=== PATIENT | female | born 1960 | race Caucasian/White ===

== ENCOUNTER 2018-01-20 12:55 | Inpatient (IN) ==
--- NOTE | 2018-01-20 13:22 | CT ---
EXAM DATE: 01/20/2018 1:16 PM EST AGE/SEX: 57 years / Female INDICATIONS: Stroke alert. Right sided flaccid. Back to back seizures. CLINICAL DATA: This is the patient's initial encounter. Patient reports that signs and symptoms have been present for 1 day and indicates a pain score of 0/10. MEDICAL/SURGICAL HISTORY: Carcinoma, lung. Non-responsive. RADIATION DOSE: 53.12 CTDI (mGy) COMPARISON: No prior exams available for comparison. TECHNIQUE: CT of the head without contrast. Using automated exposure control and adjustment of the mA and/or kV according to patient size, radiation dose was kept as low as reasonably achievable to ob tain optimal diagnostic quality images. DICOM format image data is available electronically for revi ew and comparison. FINDINGS: Cerebrum: There is mild generalized atrophy and ventricles are normal given the degree of atrophy. M ild periventricular white matter change is present. There is encephalomalacia in the left parietal hi gh axillae. No midline shift, mass lesion, hemorrhage or acute infarction. No extraaxial fluid colle ctions are seen. Posterior Fossa: The cerebellum and brainstem demonstrate no acute abnormality. The 4th ventricle is midline. The cerebellopontine angle is within normal limits. Extracranial: The visualized sinuses are clear. Skull: The calvaria is intact. No skull fracture. Other: Tube Laser Operator view demonstrates complete opacification of the left hemithorax. CONCLUSION: 1. No acute intracranial abnormality is identified. 2. Chronic changes include mild generalized atrophy and encephalomalacia in the left parietal high c onvexity. 3. Tube Laser Operator view demonstrates complete opacification of the left hemithorax in this patient with histor y of lung cancer. Suggest correlating with the patient's prior imaging studies to determine if this i s a new finding. The above findings were telephoned to Dr. Interiano on 01/20/2018 at 1:19 PM. Electronically signed by: Raudel Montes MD 01/20/2018 1:21 PM EST
[2018-01-20] MEDS ORDERED: levETIRAcetam 1000mg/100mL Inj 100 ML IV.SIG ONE (13:24)
[2018-01-20 13:48] LABS: Chloride 92 meq/L (98-107); Sodium 129 meq/L (136-145)
[2018-01-20 13:49] LABS: Activated Partial Thrombo Time 29.6 sec (23.4-31.7); INR 1.2 Ratio; Prothrombin Time 12.5 sec (9.8-11.6)
--- NOTE | 2018-01-20 13:51 | CT ---
EXAM DATE: 01/20/2018 1:39 PM EST AGE/SEX: 57 years / Female INDICATIONS: Stroke alert. Right side flaccid. Back to back seizures. Altered mental status. CLINICAL DATA: This is the patient's initial encounter. Patient reports that signs and symptoms have been present for 1 day and indicates a pain score of 0/10. MEDICAL/SURGICAL HISTORY: Carcinoma, lung. None. RADIATION DOSE: 42.19 CTDI (mGy) ; Combined studies COMPARISON: [facility], CT HEAD W/O CONTRAST, 01/20/2018. . TECHNIQUE: Volumetric scanning was performed using a multi-row detector CT scanner during bolus infu pardeep of 100 ml Visipaque 320 (iodixanol) nonionic water-soluble contrast as a cumulative dose for mu ltiple exams. The data was post processed with a variety of visualization algorithms including full volume maximum intensity projection, multi-planar sliding thin slab reformation, curved planar refor mation, and surface rendering techniques. Using automated exposure control and adjustment of the mA and/or kV according to patient size, radiation dose was kept as low as reasonably achievable to obtai n optimal diagnostic quality images. DICOM format image data is available electronically for review and comparison. FINDINGS: There is excellent visualization of the major intracranial arteries out to the second-order branch ve ssels. There is no evidence for aneurysm, vessel truncation or stenosis, and no evidence for vascula r malformation. There is a questionable enhancing lesion along the periphery of the low density in the left parietal high convexity. CONCLUSION: 1. No acute intracranial vascular abnormality is identified. 2. Possible enhancing lesion in the left parietal high convexity which could represent a metastatic lesion in this patient with history of lung cancer. The findings were telephoned to Dr. Wiseman and Dr. Interiano in on 01/20/2018 at 1:49 PM. Electronically signed by: Raudel Montes MD 01/20/2018 1:50 PM EST
[2018-01-20] MEDS ORDERED: Potassium Chlor 20 mEq Premix 20 MEQ/100 ML PIGGYBACK IV.SIG ONE (13:53)
[2018-01-20 13:54] LABS: Potassium 2.4 meq/L (3.5-5.1)
[2018-01-20 13:55] LABS: Alanine Aminotransferase 69 U/L (10-53); Albumin 1.4 g/dL (3.4-5.0); Alkaline Phosphatase 148 U/L (45-117); Anion Gap 16 meq/L (5-15); Aspartate Aminotransferase 80 U/L (15-37); Blood Urea Nitrogen 4 mg/dL (7-18); Carbon Dioxide 21.1 meq/L (21.0-32.0); Glomerular Filtration Rate Greater Than 89 mL/min (>89); Glucose,Random 122 mg/dL (74-106); Total Protein 5.8 g/dL (6.4-8.2)
[2018-01-20 14:08] LABS: Troponin I 0.02 ng/mL (0.02-0.05)
[2018-01-20 14:14] LABS: Creatine Kinase 38 U/L (26-192)
[2018-01-20 14:41] LABS: Baso % (Auto) 0.2 % (0.0-2.0); Eos % (Auto) 1.2 % (0.0-4.0); Hematocrit 21.2 % (35.0-46.0); Hemoglobin 7.2 gm/dL (11.6-15.3); Lymph # (Auto) 0.3 th/mm3 (1.0-4.8); Lymph % (Auto) 11.8 % (9.0-44.0); Mean Corpuscular Hemoglobin 33.8 pg (27.0-34.0); Mean Corpuscular Volume 99.4 fL (80.0-100.0); Mean Platelet Volume 7.5 fL (7.0-11.0); Mono # (Auto) 0.2 th/mm3 (0.0-0.9); Mono % (Auto) 10.4 % (0.0-8.0); Neut # (Auto) 1.6 th/mm3 (1.8-7.7); Neut % (Auto) 76.4 % (16.0-70.0); Platelet Count 127 th/mm3 (150-450); Red Blood Count 2.13 mil/mm3 (4.00-5.30); White Blood Count 2.1 th/mm3 (4.0-11.0)
--- NOTE | 2018-01-20 14:45 | ED ---
HPI General Chief complaint: Stroke Alert Stated complaint: evac/stroke alert Time Seen by Provider: 01/20/18 12:58 Source: family and EMS Mode of arrival: EMS Limitations: altered mental status History of Present Illness HPI narrative: Patient is a 57 year old female brought in by EMS due to concerns for a stroke. Patient has history of metastatic lung cancer, s/p radiation, just received first chemo treatment Thursday. Per EMS, symptoms started 20 minutes prior to arrival and she was unable to get out of the car due to paralysis of her right side. Patient had a seizure prior to arrival, is presumably post-ictal and unable to provide history. Her mother states that today she went to a doctor's visit and she complained of twitching in her leg. While they were driving, she complained of being unable to see straight. She says she then witnessed her to shake both of her arms and legs and cock her head to the side. She pulled the car over at this time and called 9-1-1. Mom states patient was unresponsive for about 2 minutes. She has never had seizures before. Mom states she does not eat or drink much, but she has not had any vomiting. Related Data Home Medications Medication Instructions Recorded Confirmed Unable to Obtain Home Meds 01/20/18 01/20/18 Allergies Allergy/AdvReac Type Severity Reaction Status Date / Time No Known Allergies Allergy Verified 01/20/18 12:59 Review of Systems ROS Unobtainable ROS Unobtainable: unobtainable due to mental status Exam Narrative Exam Narrative: GENERAL: Patient opens her eyes to painful stimuli, but does not follow directions or answer questions. SKIN: Focused skin assessment warm/dry. HEAD: Atraumatic. Normocephalic. EYES: Pupils equal and round and reactive. No scleral icterus. EOMI. ENT: Mucous membranes pink and moist. NECK: Trachea midline. No JVD. CARDIOVASCULAR: Regular rate and rhythm. No murmur appreciated. RESPIRATORY: No accessory muscle use. Clear to auscultation. Breath sounds equal bilaterally. GASTROINTESTINAL: Abdomen soft, non-tender, nondistended. MUSCULOSKELETAL: No obvious deformities. No clubbing. No cyanosis. No edema. NEUROLOGICAL: Opens her eyes to painful stimuli. No obvious cranial nerve deficits. Moving all of her extremities, but does not follow directions. Course Initial Documented Vital Signs Pulse Rate 104 H 12/05/18 12:59 Pulse Oximetry 94 L 12/05/18 12:59 Last Documented Vital Signs Pulse Rate 104 H 01/20/18 12:59 Pulse Oximetry 99 01/20/18 13:01 Quality Measure Queries Stroke Last date observed well: 01/20/18 Last time observed well: 12:15 Medical Decision Making MDM Narrative Medical decision making narrative: Patient is a 57 year old female, brought in by EMS as a stroke alert. Patient noted to have a seizure with EMS. It appears patient is post-ictal on arrival. She did have another episode of seizure like activity. Given Ativan and taken to CT. CT head shows no bleed. Patient is not TPA candidate as it is likely symptoms are related to seizures not stroke. Labs sent concerning for Potassium of 2.4. CTA head concerning for a brain metastasis. MR brain ordered. Potassium replaced. Dr. Wiseman consulted for neurology, suggests loading with Keppra. Keppra 1 g ordered. Patient has pulmonary edema on the left with drain in placed. Patient will require admission. Medical Screen Exam Complete: Yes Emergency Medical Condition: Yes Differential Diagnosis Differential Diagnosis: ICH vs brain metastasis vs CVA vs electrolyte abnormalities Medical Records Medical records reviewed: Yes I reviewed the patient's medical records. Lab Data Lab results reviewed: Yes I reviewed the patient's lab results. Result diagrams: 01/20/18 14:30 01/20/18 13:25 Lab Results 01/20/18 01/20/18 01/20/18 Range/Units 13:05 13:25 13:25 PT 12.5 H (9.8-11.6) sec INR 1.2 Ratio APTT 29.6 (23.4-31.7) sec Sodium 129 L (136-145) meq/L Potassium 2.4 L* (3.5-5.1) meq/L Chloride 92 L (98-107) meq/L Carbon Dioxide 21.1 (21.0-32.0) meq/L Anion Gap 16 H (5-15) meq/L BUN 4 L (7-18) mg/dL Creatinine 0.58 (0.50-1.00) mg/dL Estimated GFR Greater than 89 (>89) mL/min POC Glucose 100 (68-110) mg/dl Random Glucose 122 H (74-106) mg/dL Calcium 7.0 L* (8.5-10.1) mg/dL Calcium Adj for Albumin 9.1 (8.5-10.1) mg/dL Total Bilirubin 0.3 (0.2-1.0) mg/dL AST 80 H (15-37) U/L ALT 69 H (10-53) U/L Alkaline Phosphatase 148 H (45-117) U/L Total Creatine Kinase 38 (26-192) U/L Troponin I 0.02 (0.02-0.05) ng/mL Total Protein 5.8 L (6.4-8.2) g/dL Albumin 1.4 L (3.4-5.0) g/dL Imaging Data Radiologist's impression: Head CT 01/20/18 12:59 CONCLUSION: 1. No acute intracranial abnormality is identified. 2. Chronic changes include mild generalized atrophy and encephalomalacia in the left parietal high convexity. 3. Assessor view demonstrates complete opacification of the left hemithorax in this patient with history of lung cancer. Suggest correlating with the patient' s prior imaging studies to determine if this is a new finding. The above findings were telephoned to Dr. Interiano on 01/20/2018 at 1:19 PM. Head CTA 01/20/18 12:59 CONCLUSION: 1. No acute intracranial vascular abnormality is identified. 2. Possible enhancing lesion in the left parietal high convexity which could represent a metastatic lesion in this patient with history of lung cancer. The findings were telephoned to Dr. Wiseman and Dr. Interiano in on 01/20/2018 at 1:49 PM. ECG Data EKG Prior to Arrival: No Attestation: I personally reviewed and interpreted this ECG as follows: Interpretation: ECG performed at 13:46 read as Acute CA, however, patient had a run of PVCs, this does not look like ST elevation CA. Repeat ECG at 13:57 shows NSR at a rate of 126, no ST elevation , 1mm depression in V3, normal intervals. Discharge Plan Discharge Disposition Patient Disposition: ED Admit(ED Internal Use Only) Discharge Condition Condition: Stable Discharge Details Diagnosis: Seizure, Brain mass, Acute hypokalemia Physicians Team ED Provider: Tammy Interiano Primary Care Provider: Mathieu Soria Rxs /Orders / Referrals /Forms Prescriptions: No Action Unable to Obtain Home Meds RF: 0 Status ED Status: With Doctor
--- NOTE | 2018-01-20 14:47 | CT ---
EXAM DATE: 01/20/2018 2:35 PM EST AGE/SEX: 57 years / Female INDICATIONS: Stroke alert. Right side flaccid. Back to back seizures. Altered mental status. CLINICAL DATA: This is the patient's initial encounter. Patient reports that signs and symptoms have been present for 1 day and indicates a pain score of 0/10. MEDICAL/SURGICAL HISTORY: Carcinoma, lung. None. RADIATION DOSE: 42.19 CTDI (mGy) ; Combined studies COMPARISON: No prior exams available for comparison. TECHNIQUE: Volumetric scanning was performed using a multirow detector CT scanner during bolus infus ion of 100 ml Visipaque 320 (iodixanol) nonionic water-soluble contrast as a cumulative dose for mul tiple exams. The data was postprocessed with a variety of visualization algorithms including full-v olume maximum intensity projection, multiplanar sliding thin-slab reformation, curved-planar reformat ion, and surface-rendering techniques. Using automated exposure control and adjustment of the mA and /or kV according to patient size, radiation dose was kept as low as reasonably achievable to obtain o ptimal diagnostic quality images. DICOM format image data is available electronically for review and comparison. FINDINGS: Aortic Arch: There is a three-vessel origin of the great vessels from the aorta. No evidence of ost ial narrowing Right Carotid: The common carotid artery is intact. The carotid bulb has a normal configuration wit hout ulceration or narrowing. The internal carotid artery lumen is smooth without stenosis. The ext ernal carotid artery is intact. Left Carotid: The common carotid artery is intact. The carotid bulb has a normal configuration with out ulceration or narrowing. The internal carotid artery lumen is smooth without stenosis. The exte rnal carotid artery is intact. Vertebrals: The vertebral arteries have a symmetric diameter. No stenotic lesions are seen. Percent stenosis is calculated using the diameter of the stenotic region over the diameter of the nor mal distal internal carotid artery. CONCLUSION: 1. Negative for hemodynamically significant carotid stenosis 2. Significant consolidative changes in the left upper lobe likely fluid collection in the apex of t he left upper lobe. Electronically signed by: Tera Contreras MD 01/20/2018 2:45 PM EST
--- NOTE | 2018-01-20 15:40 | XR ---
EXAM DATE: 01/20/2018 3:23 PM EST AGE/SEX: 57 years / Female INDICATIONS: Short of breath. CLINICAL DATA: This is the patient's initial encounter. Patient reports that signs and symptoms have been present for 1 day and indicates a pain score of 0/10. MEDICAL/SURGICAL HISTORY: Carcinoma, lung. . Infusaport. COMPARISON: No prior exams available for comparison. FINDINGS: Pleurx catheter in place on the left with opacification left hemithorax. Right lung clear. Infuse-a-P ort in good position. Heart is minimally enlarged. CONCLUSION: Opacification left hemithorax with apparent Pleurx catheter in place. Electronically signed by: Tera Contreras MD 01/20/2018 3:39 PM EST
[2018-01-20] MEDS ORDERED: Morphine Sulfate Inj 2 MG/ML Vial IV.PUSH ONE (16:04)
[2018-01-20] MEDS ORDERED: Magnesium Oxide 400 MG Tablet PO PRN (16:18)
[2018-01-20] MEDS ORDERED: hydrALAZINE HCl Inj 20 MG/ML Vial IV.PUSH PRN (16:18)
[2018-01-20] MEDS ORDERED: Magnesium Sulfate Inj 2 GM in Sodium Chlor 0.9% Inj 96 ML IV.SIG PRN (16:18)
[2018-01-20] MEDS ORDERED: Labetalol HCl Inj 100 MG/20 ML Vial IV.PUSH PRN (16:18)
[2018-01-20] MEDS ORDERED: Potassium Chloride 25 MEQ Effervescent Tablet PO PRN (16:18)
[2018-01-20] MEDS ORDERED: Potassium Chlor 20 mEq Premix 20 MEQ/100 ML PIGGYBACK IV.SIG PRN ×2 (16:18)
[2018-01-20] MEDS ORDERED: Dextrose 50% in Water 50 ML Vial IV.PUSH PRN ×2 (16:18→19:02)
[2018-01-20] MEDS ORDERED: Magnesium Sulfate Inj 4 GM in Sodium Chlor 0.9% Inj 92 ML IV.SIG PRN (16:18)
[2018-01-20] MEDS ORDERED: Sodium Phosphate Inj 30 MMOL in Sodium Chlor 0.9% Inj 250 ML IV.SIG PRN (16:18)
[2018-01-20] MEDS ORDERED: Potassium Phosphate Inj 30 MMOL in Sodium Chlor 0.9% Inj 250 ML IV.SIG PRN (16:18)
[2018-01-20] MEDS ORDERED: Bisacodyl 10 MG Supp RECTAL PRN (16:18)
[2018-01-20] MEDS ORDERED: Acetaminophen 325 MG Tablet PO PRN (16:18)
[2018-01-20] MEDS ORDERED: Potassium Chlor 40 mEq Premix 40 MEQ/100 ML PIGGYBACK IV.SIG PRN ×2 (16:18)
[2018-01-20] MEDS ORDERED: Potassium Phosphate 500 MG Soluble Tablet PO PRN ×2 (16:18)
[2018-01-20] MEDS ORDERED: Insulin NovoLIN Regular Correctional Sugar Inj SQ SCH (18:00)
[2018-01-20] MEDS: Sod Chloride 0.9% Inj 1,000 ML IV.CONT SCH (18:18)
--- NOTE | 2018-01-20 18:43 | P.HPCC ---
History of Present Illness Service: Critical care medicine Primary Care Physician: Mtahieu Soria MD Chief Complaint: Altered mental status History of Present Illness: This is a 57-year-old female. Date of admission 01/20/2018. 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 Follows with Dr. Birch. History of tobaccoism 35 pack years quit 12 years ago. History of anxiety and chronic alprazolam. Patient has history of a left hemithorax with the Pleurx catheter placed recently. She also has an Infuse-a- Port by history. Patient presents to [facility] after recently just completing her first chemo treatment Thursday. 20 minutes prior to arrival to [facility], patient had paralysis of her right leg, twitching, unable to see straight. She is noted to have expressive aphasia as well. She is also noted to have a seizure prior to arrival and at at that facility. This was documented as shaking both arms and legs and displacing the head to the side. She received [address] brain revealed left parietal circulation. CT angiogram revealed possible metastases. CT of the neck revealed no acute findings. During the stroke alert , MRI with and without contrast brain was ordered to rule out metastatic brain lesion. She is transported to [facility]. Her, she is old awake and alert to person only. She has subjective right upper lower extremity weakness on examination. - Diagnosis (1) Non-small cell carcinoma of lung, stage 4 (2) Hypokalemia (3) Pancytopenia (4) Hypoalbuminemia (5) Elevated levels of transaminase & lactic acid dehydrogenase (6) Altered mental status Inpatient Certification: I certify that the inpatient services were ordered in accordance with Medicare regulations governing the order. This includes certification that hospital inpatient services are reasonable and necessary and in the case of services not specified as inpatient-only under 42 CFR 419.22(n), that they are appropriately provided as inpatient services in accordance to with the 2-midnight benchmark under 43 CFR 412.3(e) Estimated Total Length of Stay (Days): 7 Plans for Post Hospital Care: Not yet determined Review of Systems Constitutional: Denies anorexia, Denies body ache(s), Denies chills Eyes: Reports blurry vision, Denies blind spots, Denies bulging eyes Ears, Nose, Mouth, and Throat: Reports bad breath, Denies abnormal hearing, Denies nasal trauma Cardiovascular: Reports chest pain, Denies shortness of breath, Denies shortness of breath with activity Respiratory: Reports pain on inspiration, Denies change in phlegm color, Denies chest congestion, Denies cough Gastrointestinal: Reports abdominal pain, Denies vomiting, Denies vomiting blood Genitourinary: Denies urinary incontinence, Denies urinary urgency Musculoskeletal: Reports abnormal walking, Reports back pain, Reports body aches , Reports muscle weakness Skin/Breast: Denies acne, Denies redness, Denies sores Neurologic: Reports abnormal movements, Reports abnormal speech, Reports abnormal walking, Reports localized weakness, Reports memory loss, Reports unsteadiness, Reports weakness, Denies loss of vision, Denies sensory deficit, Denies tremor(s) Psychiatric: Reports anxiety, Reports confusion, Denies depression Endocrine: Denies cold intolerance, Denies excessive sweating Hematologic/Lymphatic: Denies easy bleeding Allergic/Immunologic: Denies GI upset with certain foods PMFSH - History History Provided By: Construction Crew Member / EMT - Medical History Medical History: Medical History (Last Updated 01/20/18 @ 18:50 by Benjamin Powell MD) Anxiety History of benzodiazepine use History of chemotherapy History of radiation therapy Non-small cell carcinoma of left lung, stage 4 - Surgical History Surgical History: Surgical History (Last Updated 01/20/18 @ 18:50 by Benjamin Powell MD) Port-A-Cath in place (Acute) S/P chest tube placement - Family History Family History: Family History (Last Updated 01/20/18 @ 18:50 by Benjamin Powell MD) Other History of bladder cancer History of kidney cancer - Social History I have reviewed the patient's Social History: Yes - Tobacco History Second Hand Smoke Exposure: No Tobacco Use In Past 30 Days: No Smoking Status: Former smoker Tobacco Type: Cigarettes Number of Pack Years (if former smoker): 35 - Alcohol History How Often Do You Have a Drink Containing Alcohol: 4 or more times a week - Substance Use History Substance History: No History of Abuse - Travel History Recent Travel in the [place] Within the Last 8 Weeks: No Recent Travel Out of the Country Within the Last 8 Weeks: No - Immunization History Tetanus Immunization: Unsure Medications and Allergies Active Medications: Active Medications Acetaminophen (Tylenol) 650 mg PO Q6H PRN PRN Reason: TEMPERATURE > 101 F Albuterol (Duoneb Neb (Prn)) 1 ampul NEB Q4HR NEB [facility] Alprazolam (Xanax) 1 mg PO DAILY NATALIA Bisacodyl (Dulcolax Supp) 10 mg RECTAL DAILY PRN PRN Reason: if no BM in last 24h Chlorhexidine Gluconate (Chlorhexidine 2% Cloth) 3 pack TOPICAL DAILY@0400 NATALIA Stop: 01/26/18 03:59 Chlorhexidine Gluconate (Chlorhexidine 2% Cloth) 3 pack TOPICAL DAILY@0400 PRN PRN Reason: Extra cloth needed Stop: 01/26/18 03:59 Dextrose (D50w Vial) 50 ml IV.PUSH UNSCH PRN PRN Reason: PER HYPOGLYCEMIA PROTOCOL Glucagon (Glucagon Inj) 1 mg OTHER PRN PRN PRN Reason: for Hypoglycemia Protocol Hydralazine HCl (Apresoline Inj) 10 mg IV.PUSH Q30M PRN PRN Reason: sbp > 160, dbp > 95 Hydromorphone HCl (Dilaudid Pf Inj) 0.25 mg IV.PUSH Q1H PRN PRN Reason: pain 8-10 or not taking po Magnesium Sulfate 4 gm/ Sodium (Chloride) 100 mls @ 50 mls/hr IV.SIG UNSCH PRN PRN Reason: For Magnesium 0.9 - 1.1 mg/dL Magnesium Sulfate 2 gm/ Sodium (Chloride) 100 mls @ 50 mls/hr IV.SIG UNSCH PRN PRN Reason: For Magnesium 1.2 - 1.6 mg/dL Sodium Chloride (Ns Inj) 1,000 mls @ 84 mls/hr IV.CONT .[id number] [facility] Last Admin: 01/20/18 18:18 Dose: 84 mls/hr Potassium Chloride (Kcl 40 Meq Premix Inj) 40 meq in 100 mls @ 25 mls/hr IV.SIG Q2H PRN PRN Reason: For Potassium 2.8 - 3.2 mEq/L Potassium Chloride (Kcl 20 Meq Premix Inj) 20 meq in 100 mls @ 50 mls/hr IV.SIG Q2H PRN PRN Reason: For Potassium 3.3 - 3.5 mEq/L Potassium Chloride (Kcl 40 Meq Premix Inj) 40 meq in 100 mls @ 25 mls/hr IV.SIG UNSCH PRN PRN Reason: For Potassium 3.3 - 3.5 mEq/L Potassium Chloride (Kcl 20 Meq Premix Inj) 20 meq in 100 mls @ 50 mls/hr IV.SIG Q2H PRN PRN Reason: For Potassium 2.8 - 3.2 mEq/L Potassium Phosphate 30 mmol/ (Sodium Chloride) 260 mls @ 42 mls/hr IV.SIG UNSCH PRN PRN Reason: SEE LABEL COMMENTS Sodium Phosphate 30 mmol/ (Sodium Chloride) 260 mls @ 42 mls/hr IV.SIG UNSCH PRN PRN Reason: For Phosphorus < 2.5 mg/dL Insulin Human Regular (Novolin R Correctional Sugar Inj) 0 units SQ Q6HR NATALIA; Protocol Last Admin: 01/20/18 18:18 Dose: Not Given Labetalol HCl (Trandate Inj) 10 mg IV.PUSH Q20M PRN PRN Reason: sbp > 160 or DBP > 95 Lactulose (Lactulose Liq) 30 ml PO BID NATALIA Magnesium Oxide (Mag-Ox) 800 mg PO UNSCH PRN PRN Reason: For Magnesium 1.2 - 1.6 mg/dL Montelukast Sodium (Singulair) 10 mg PO QPM NATALIA Ondansetron HCl (Zofran Inj) 4 mg IV.PUSH Q6H PRN PRN Reason: NAUSEA OR VOMITING Oxycodone HCl (Roxicodone) 5 mg PO Q4H PRN PRN Reason: Pain 1-5 Polyethylene Glycol (Miralax) 17 gm PO BID [facility] Potassium Bicarb/Potassium Chloride (K-Lyte Cl Eff) 50 meq PO UNSCH PRN PRN Reason: For Potassium 3.3 - 3.5 mEq/L Potassium Phosphate (K-Phos Original) 2,000 mg PO Q4H PRN PRN Reason: Phosphorus Less Than 2.5 mg/dL Potassium Phosphate (K-Phos Original) 2,000 mg PO UNSCH PRN PRN Reason: SEE LABEL COMMENTS Senna/Docusate Sodium (Liliya-Colace) 1 tab PO BID NATALIA Sodium Chloride (Ns Flush) 2 ml IV.FLUSH PRN PRN PRN Reason: FLUSH AFTER USING IV ACCESS Sodium Chloride (Ns Flush) 2 ml IV.FLUSH UNSCH PRN PRN Reason: FLUSH AFTER USING IV ACCESS Allergies Allergy/AdvReac Type Severity Reaction Status Date / Time No Known Allergies Allergy Verified 01/20/18 12:59 Home Medications Medication Instructions Recorded Confirmed Type alprazolam 1 mg PO DAILY 01/20/18 01/20/18 History aspirin 81 mg PO DAILY 01/20/18 01/20/18 History montelukast 10 mg PO QPM 01/20/18 01/20/18 History oxycodone-acetaminophen 2 tab PO Q6H PRN 01/20/18 01/20/18 History Results - Labs CBC & Chem 7: 01/20/18 14:30 01/20/18 13:25 Labs: Short CBC 01/20/18 Range/Units 14:30 WBC 2.1 L (4.0-11.0) th/mm3 Hgb 7.2 L (11.6-15.3) gm/dL Hct 21.2 L (35.0-46.0) % Plt Count 127 L D (150-450) th/mm3 BMP 01/20/18 13:25 Sodium 129 L Potassium 2.4 L* Chloride 92 L Carbon Dioxide 21.1 BUN 4 L Creatinine 0.58 Calcium 7.0 L* Cardiac Enzymes 01/20/18 Range/Units 13:25 Total Creatine Kinase 38 (26-192) U/L Troponin I 0.02 (0.02-0.05) ng/mL Liver Function 01/20/18 Range/Units 13:25 Total Bilirubin 0.3 (0.2-1.0) mg/dL AST 80 H (15-37) U/L ALT 69 H (10-53) U/L Alkaline Phosphatase 148 H (45-117) U/L Albumin 1.4 L (3.4-5.0) g/dL - Imaging Impressions Head CT 01/20/18 12:59 CONCLUSION: 1. No acute intracranial abnormality is identified. 2. Chronic changes include mild generalized atrophy and encephalomalacia in the left parietal high convexity. 3. Truck Jumper view demonstrates complete opacification of the left hemithorax in this patient with history of lung cancer. Suggest correlating with the patient' s prior imaging studies to determine if this is a new finding. The above findings were telephoned to Dr. Interiano on 01/20/2018 at 1:19 PM. Head CTA 01/20/18 12:59 CONCLUSION: 1. No acute intracranial vascular abnormality is identified. 2. Possible enhancing lesion in the left parietal high convexity which could represent a metastatic lesion in this patient with history of lung cancer. The findings were telephoned to Dr. Wiseman and Dr. Interiano in on 01/20/2018 at 1:49 PM. Neck CTA 01/20/18 12:59 CONCLUSION: 1. Negative for hemodynamically significant carotid stenosis 2. Significant consolidative changes in the left upper lobe likely fluid collection in the apex of the left upper lobe. Chest X-Ray 01/20/18 14:32 CONCLUSION: Opacification left hemithorax with apparent Pleurx catheter in place. Exam Vital signs: Vital Signs 01/20/18 12:59 01/20/18 13:01 01/20/18 14:17 Temperature Pulse Rate 104 H 98 H Respiratory Rate 16 Blood Pressure 100/54 L Pulse Oximetry 94 L 99 96 01/20/18 14:35 01/20/18 15:00 01/20/18 15:05 Temperature Pulse Rate 136 H 100 H 117 H Respiratory Rate 22 16 20 Blood Pressure 92/59 L 98/52 L 110/57 L Pulse Oximetry 95 97 01/20/18 15:25 01/20/18 16:12 01/20/18 16:18 Temperature 98 F Pulse Rate 116 H 104 H 110 H Respiratory Rate 18 16 16 Blood Pressure 98/52 L 115/72 100/50 L Pulse Oximetry 97 94 L 97 01/20/18 17:03 01/20/18 17:37 01/20/18 17:38 Temperature Pulse Rate 112 H 117 H 116 H Respiratory Rate 16 Blood Pressure 100/54 L 111/62 Pulse Oximetry 97 01/20/18 17:39 01/20/18 18:00 Temperature Pulse Rate 117 H Respiratory Rate 34 H Blood Pressure 111/59 L 95/51 L Pulse Oximetry 97 99 Intake & Output 01/19/18 01/20/18 01/20/18 18:59 06:59 18:59 Intake Total 200 / 200 Balance 200 / 200 Weight 61.235 kg Intake: IV 200 / 200 KCl 20 mEq Premix Inj 20 meq In 100 / 100 100 ml @ 50 mls/hr IV.SIG ONCE ONE Rx#:[id number] Keppra 1000 mg/100 mL Premix 100 / 100 100 ML @ 400 mls/hr IV.SIG ONCE ONE Rx#:[id number] - Constitutional no acute distress - Routine HEENT Exam Head: Present: normocephalic, atraumatic Eye: Present: EOMI, PERRL, normal accommodation ENT: Present: mucous membranes moist - Routine Neck Exam Present: supple, full ROM. Absent: JVD, carotid bruit - Routine Chest/Breast/Axilla Exam Chest wall: Absent: tenderness Breast: Absent: tenderness Axillae: Absent: lymphadenopathy - Routine Respiratory Exam Present: decreased breath sounds, diminished air movement. Absent: accessory muscle use - Routine Cardiovascular Exam Present: S1, S2, tachycardia. Absent: murmur - Routine Abdominal Exam Present: soft, normoactive bowel sounds - Routine Extremities Exam Absent: cyanosis, clubbing, edema - Routine Skin Exam Present: intact - Routine Neurological Exam Present: alert, CN II-XII intact, motor deficit (Right upper and lower extremity weakness), altered mental status. Absent: oriented X3, sensory deficit Septic Shock Reassessment Septic shock perfusion: reassessment completed Caprini VTE Risk Assessment Caprini VTE Risk Assessment: Moderate/High Risk (score >= 2) Caprini Risk Assessment Model: Point Value = 1 Point Value = 2 Point Value = 3 Point Value = 5 Age 41-60 Minor surgery BMI > 25 kg/m2 Swollen legs Varicose veins or History of unexplained or recurrent spontaneous Oral contraceptives or hormone replacement Sepsis (< 1 month) Serious lung disease, including pneumonia (< 1 month) Abnormal pulmonary function Acute myocardial infarction Congestive heart failure (< 1 month) History of inflammatory bowel disease Medical patient at bed rest Age 61-74 Arthroscopic surgery Major open surgery (> 45 min) Laparoscopic surgery (> 45 min) Malignancy Confined to bed (> 72 hours) Immobilizing plaster cast Central venous access Age >= 75 History of VTE Family history of VTE Factor V Leiden Prothrombin [id number] Lupus anticoagulant Anticardiolipin antibodies Elevated serum homocysteine Heparin-induced thrombocytopenia Other congenital or acquired thrombophilia Stroke (< 1 month) Elective arthroplasty Hip, pelvis, or leg fracture Acute spinal cord injury (< 1 month) Prophylaxis Regimen: Total Risk Factor Score Risk Level Prophylaxis Regimen 0-1 Low Early ambulation 2 Moderate Order ONE of the following: *Sequential Compression Device (SCD) *Heparin 5000 units SQ BID 3-4 Higher Order ONE of the following medications: *Heparin 5000 units SQ TID *Enoxaparin/Lovenox 40 mg SQ daily (WT < 150 kg, CrCl > 30 mL/min) *Enoxaparin/Lovenox 30 mg SQ daily (WT < 150 kg, CrCl > 10-29 mL/min) *Enoxaparin/Lovenox 30 mg SQ BID (WT < 150 kg, CrCl > 30 mL/min) AND/OR *Sequential Compression Device (SCD) 5 or more Highest Order ONE of the following medications: *Heparin 5000 units SQ TID (Preferred with Epidurals) *Enoxaparin/Lovenox 40 mg SQ daily (WT < 150 kg, CrCl > 30 mL/min) *Enoxaparin/Lovenox 30 mg SQ daily (WT < 150 kg, CrCl > 10-29 mL/min) *Enoxaparin/Lovenox 30 mg SQ BID (WT < 150 kg, CrCl > 30 mL/min) AND *Sequential Compression Device (SCD) Assessment and Plan - Problem List (1) Non-small cell carcinoma of lung, stage 4 Code(s): C34.90 - Malignant neoplasm of unspecified part of unspecified bronchus or lung Status: Acute (2) Hypokalemia Code(s): E87.6 - Hypokalemia Status: Acute (3) Pancytopenia Code(s): D61.818 - Other pancytopenia Status: Acute (4) Hypoalbuminemia Code(s): E88.09 - Other disorders of plasma-protein metabolism, not elsewhere classified Status: Acute (5) Elevated levels of transaminase & lactic acid dehydrogenase Code(s): R74.0 - Nonspecific elevation of levels of transaminase and lactic acid dehydrogenase [LDH] Status: Acute (6) Altered mental status Code(s): R41.82 - Altered mental status, unspecified Status: Acute - Assessment and Plan Plan: Neuro/Psych: Chronic opiate use EtOH abuse chronic benzodiazepine use Anxiety disorder Acetaminophen 650 mg every 6 hours as needed fever Oxycodone 5 mg every 4 hours as needed pain Patient is on alprazolam 1 mg daily at home. This held [facility] protocol initiated Vitamin bag daily times [address] brain revealed left parietal encephalitis. CT angiogram of the head and neck no acute findings. MRI of the brain with and without contrast ordered Currently levetiracetam 500 mg twice daily. Received 1 g at [facility] EEG ordered CV: Sinus tachycardia Currently normal saline 84 cc now. Not requiring vasopressors and/or antihypertensives Initial troponin was 0.02. EKG revealed nonspecific ST-T changes. Resp: History of tobaccoism Left Pleurx catheter for likely malignant pleural effusion Nasal cannula to maintain saturations greater than equal 90% Incentive spirometry while awake Albuterol/ipratropium aerosols every 4 hours with albuterol aerosols every 2 hours while needed dyspnea Like will need to have a Pleurx catheter drained in a.m. GI: Elevated transaminases Hypoalbuminemia N.p.o. status Speech therapy evaluate and treat Pantoprazole for GI prophylax Docusate sodium/senna 1 tablet twice daily and polythene glycol centigrams twice daily for bowel regimen Check hepatitis panel, LDH and CPK : Rai catheter if indicated for accurate I's and O's in a critical patient Endo: Sliding scale insulin to maintain euglycemia/every 6 hours aspart insulin regimen Check TSH Renal: Creatinine currently within normal limits Monitor urine output Accurate I's and O Heme: Pancytopenia Non-small carcinoma lung stage IV Monitor CBC daily. Follow trends per Coags within normal limits No indication for transfusion of blood products at this time per Dr. Birch is her oncologist ID: Monitor for signs of symptomatology of infection MSK: PT evaluate and treat FEN: Acute hypokalemia ICU electrolyte protocol initially. Recheck potassium with magnesium at 1999. Currently on normal saline at 84 cc an hour Access -Utilize [id number]. Central line if indicated Prophylaxis - -GI pantoprazole - -DVT SCD/holding femoral pharmacological prophylaxis in light of possible brain mass Level 3 H&P Code Status: Full code Discussed Condition With: Patient. IMC RN. CARE plan discussed and all questions answered. (1) Non-small cell carcinoma of lung, stage 4 Qualifiers: Laterality: left Qualified Code(s): C34.92 - Malignant neoplasm of unspecified part of left bronchus or lung (6) Altered mental status Qualifiers: Altered mental status type: unspecified Qualified Code(s): R41.82 - Altered mental status, unspecified
[2018-01-20] MEDS ORDERED: LORazepam 1 MG Tablet PO PRN (18:51)
[2018-01-20] MEDS: Senna/Docusate Sodium 8.6/50 MG Tablet PO SCH (20:18)
[2018-01-20] MEDS: Polyethylene Glycol 3350 17 GM Packet PO SCH (20:18)
[2018-01-20 20:46] LABS: Magnesium 1.5 mg/dL (1.5-2.5); Phosphorus 2.9 mg/dL (2.5-4.9); Uric Acid 1.7 mg/dl (2.6-6.0)
[2018-01-20] MEDS ORDERED: Famotidine 20 MG Tablet PO SCH (21:00)
[2018-01-20 21:16] LABS: Chol/HDL Ratio 3.46 Ratio; Cholesterol 150 mg/dL (120-200); HDL Cholesterol 43.3 mg/dL (40.0-60.0); LDL Cholesterol,Calculated 85 mg/dL (0-99); Lactate Dehydrogenase 211 U/L (84-246); T4 (Thyroxine) 8.4 mcg/dL (4.8-13.9); Triglycerides 111 mg/dL (42-150)
[2018-01-20 21:23] LABS: Potassium 2.6 meq/L (3.5-5.1); Troponin I 0.92 ng/mL (0.02-0.05)
--- NOTE | 2018-01-20 21:26 | CT ---
EXAM DATE: 01/20/2018 9:15 PM EST AGE/SEX: 57 years / Female INDICATIONS: Left pleural effusion. CLINICAL DATA: This is the patient's initial encounter. Patient reports that signs and symptoms have been present for 1 day and indicates a pain score of 0/10. MEDICAL/SURGICAL HISTORY: Carcinoma, lung. None. RADIATION DOSE: 9.09 CTDI (mGy) ; Patient motion COMPARISON: No prior exams available for comparison. TECHNIQUE: Multiple contiguous axial images were obtained through the chest without contrast. Image s were obtained in suspended respiration using multiple row detector helical technique. Using automa tierra exposure control and adjustment of the mA and/or kV according to patient size, radiation dose was kept as low as reasonably achievable to obtain optimal diagnostic quality images. DICOM format imag e data is available electronically for review and comparison. FINDINGS: Near complete consolidation with volume loss seen in the left lung. There is an ill-defined 2.7 x 3.7 x 4.1 cm masslike area in the region of the left hilum and attenuation of the left mainstem bronchus . There is a moderate to large left pleural effusion which has considerable loculation medially at th e apex and laterally at the base. A left chest tube is present and the tip is in the apical component . No pneumothorax. There is some breathing artifact; right lung grossly clear and has no pleural effusion or pneumothora x. No mediastinal lymphadenopathy demonstrated. Heart size within normal limits. Focal fracture seen posterior laterally of the left 11th rib with approximately one shaft width of di splacement. I believe there is an associated 1 cm lytic focus. CONCLUSION: 1. Masslike area of the left hilum attenuating the left mainstem bronchus and presumably is a centra l primary bronchogenic carcinoma. There is associated consolidation of most of the left lung and with volume loss. 2. Moderate to large left pleural effusion with loculated components medially at the apex and latera lly at the base. Tip of the chest tube is in the apical component. 3. Displaced fracture posteriorly of the left 11th rib and with a suspected 1 cm lytic lesion concer tony for metastasis. No other focal bone lesions are demonstrated. Electronically signed by: Raudel Romero MD 01/20/2018 9:24 PM EST
[2018-01-20] MEDS ORDERED: Gadobutrol PF 7.5 MMOL/7.5 ML Vial (for RAD) IV.SIG ONE (21:39)
[2018-01-20 21:50] LABS: Hepatitis A IgM Antibody Nonreactive (Nonreactive)
[2018-01-20 21:51] LABS: Hepatitits B Surface Antigen Nonreactive (Nonreactive)
[2018-01-20 21:55] LABS: Hemoglobin A1c 4.7 % (4.3-6.0)
--- NOTE | 2018-01-20 22:14 | MR ---
EXAM DATE: 01/20/2018 10:04 PM EST AGE/SEX: 57 years / Female INDICATIONS: Seizures. CLINICAL DATA: This is the patient's initial encounter. Patient reports that signs and symptoms have been present for 1 day and indicates a pain score of Nonresponsive. MEDICAL/SURGICAL HISTORY: Carcinoma, lung. None. right chest port, left chest pleurex cath COMPARISON: [facility], CTA HEAD W CONTRAST W 3D, 01/20/2018. [facility], CT HEAD W/O CONTRAST, 01/20/2018. . TECHNIQUE: Multiplanar, multisequence examination of the brain was performed without and with 6 ml Ga davist (gadobutrol) contrast as a single exam dose. FINDINGS: 14 mm heterogeneously enhancing mass is seen posteriorly in the left high parietal lobe. The mass dayami ears to be intra-axial, probably arising from the subcortical region. There is a small area of surrou nding peripheral edema. No midline shift. No other intracranial masses are demonstrated. There is no restricted diffusion. No intracranial hemo rrhage demonstrated. CONCLUSION: 14 mm round, probably intra-axial mass of the left high posterior parietal lobe as descr ibed probably a metastatic lesion. Electronically signed by: Raudel Romero MD 01/20/2018 10:13 PM EST
--- NOTE | 2018-01-20 22:20 | MB ---
cc: Andrea Wiseman MD DATE: 01/20/2018 HISTORY OF PRESENT ILLNESS: This is a 57-year-old, right-handed woman who I am asked to see. Initially, she was called as a stroke alert, but actually she had a seizure at onset and then several seizures in the emergency room. CAT scan showed a hypodensity in the left parietal cortical region. CTA of the neck was normal. CTA of the head was negative. Opacification of left hemithorax was noted. This was originally read as encephalomalacia; after I talked to the radiologist, they reconsidered and thought possibly a mass on the left side. The patient is a 57-year-old woman with history of metastatic lung cancer, status post radiation and got first chemo treatment Thursday. She got was unable to get out of the car. Symptoms started about 30 minutes before arrival, she had right-sided weakness, and had a seizure prior to the onset was postictal, had twitching in her leg. When she went to the doctor's visit earlier while driving, she complained about being unable to see straight and then both her arms and legs, and was shaking, and head cocked to the side. 911 was called. She was unresponsive for about 2 minutes. Never had a seizure before. She had been noted to have non-small cell carcinoma; PleurX catheter recently placed left in the left hemithorax. I do not see documented in the ER notes that she had another seizure in the emergency room, although I was under the impression that I remember the ER physician telling me that she did have another seizure and that she got some Ativan and then we gave her a gram of Keppra, although I do not see that documented in the chart tonight. REVIEW OF SYSTEMS: The patient is somewhat aphasic, probably like a Galindo's type postictal, but she denied any history of hypertension, diabetes, hypercholesterolemia, IA, CABG, cardiac arrhythmia, renal, hepatic or pulmonary disease besides the cancer, thyroid disease, lupus, ulcer, seizure or stroke. SOCIAL HISTORY: Not a smoker or drinker as far as I can tell. Lives with her father. She told me. FAMILY HISTORY: Negative cancer or stroke. MEDICATIONS AT HOME: 1. Aspirin. 2. Alprazolam 1 mg a day. 3. Oxycodone. 4. Montelukast. MEDICATIONS HERE: 1. P.r.n. Apresoline. 2. P.r.n. Haldol. 3. P.r.n. Dilaudid 4. Keppra here is 500 b.i.d., although I would recommend increasing that to 1000 b.i.d. 5. She is on p.r.n. Ativan 6. Montelukast. PHYSICAL EXAMINATION: VITAL SIGNS: Heart rate 117, temperature 34, blood pressure 95/51 to 111/59 tends to run low in the mid to upper 90s. NECK: There are no carotid bruits. HEART: Regular rate and rhythm. I did not detect a murmur. NEUROLOGIC: She can follow some commands by mimicking but has an expressive type aphasia. Visual sylvester are full. Extraocular movements intact without nystagmus. Her face was symmetric. Tongue was midline. Moves all of her extremities well. Toes are downgoing bilaterally. DTRs are trace throughout. She seemed to feel discomfort throughout. LABORATORY DATA: White count is 2.1, hematocrit 21, platelet count 127. Basic metabolic profile: Sodium 129, potassium 2.4. LFTs minimally elevated. Troponin negative. Albumin 1.4. Coags are normal. CAT scan of the brain, CTA of the head and CTA [place] as noted above. IMPRESSION: A seizure, probably from this metastasis. We will check an MRI of the brain and get an EEG. Increase her Keppra to 1000 b.i.d. We will check a few other blood tests. We did not give her tissue plasminogen activator with the seizure at onset, and it looks like a metastasis and not a stroke. MD LUZ ELENA Duckworth/alexandria , 08:17 PM , 08:27 PM
[2018-01-20] MEDS: Multivitamin Inj 10 ML, Thiamine Inj 100 MG, Folic Acid Inj 1 MG in Sodium Chlor 0.9% I... IV.SIG SCH (22:22)
[2018-01-20] MEDS ORDERED: Magnesium Sulfate Inj 4 GM in Dextrose 5% in Water Inj 100 ML IV.SIG ONE ×2 (22:29)
[2018-01-20] MEDS: Potassium Chlor 40 mEq Premix 40 MEQ/100 ML PIGGYBACK IV.SIG SCH (23:50)
[2018-01-21] MEDS: Insulin NovoLOG Aspart Correctional Sugar Inj SQ SCH ×4 (01:27→17:12)
[2018-01-21] MEDS: Potassium Chlor 40 mEq Premix 40 MEQ/100 ML PIGGYBACK IV.SIG SCH (02:27)
[2018-01-21] MEDS: Haloperidol Inj 5 MG/ML Ampul IV.PUSH PRN (02:35)
[2018-01-21 03:09] LABS: Bilirubin,Urine Negative (Negative); Clarity,Urine Clear (Clear); Color,Urine Yellow (Yellw/Straw); Glucose,Urine (UA) Negative (Negative); Leukocyte Esterase,Urine Negative (Negative); Nitrite,Urine Negative (Negative); Specific Gravity,Urine 1.013 (1.002-1.035); Squamous Epithelial Cell,Urine <1 /hpf (0-5)
[2018-01-21] MEDS ORDERED: Chlorhexidine Gluconate 2% 1 Pack (2 Cloths) TOPICAL PRN (04:00)
[2018-01-21] MEDS: Chlorhexidine Gluconate 2% 1 Pack (2 Cloths) TOPICAL SCH (05:19)
[2018-01-21 05:36] LABS: Baso % (Auto) 0.1 % (0.0-2.0); Eos % (Auto) 0.1 % (0.0-4.0); Lymph # (Auto) 0.1 th/mm3 (1.0-4.8); Lymph % (Auto) 8.7 % (9.0-44.0); Mean Corpuscular HGB Conc 34.2 % (32.0-36.0); Mean Corpuscular Hemoglobin 34.8 pg (27.0-34.0); Mean Corpuscular Volume 101.6 fL (80.0-100.0); Mean Platelet Volume 8.1 fL (7.0-11.0); Mono # (Auto) 0.1 th/mm3 (0.0-0.9); Mono % (Auto) 7.9 % (0.0-8.0); Neut # (Auto) 1.3 th/mm3 (1.8-7.7); Neut % (Auto) 83.2 % (16.0-70.0); Platelet Count 91 th/mm3 (150-450); Red Blood Count 1.99 mil/mm3 (4.00-5.30); Red Cell Distribution Width 13.3 % (11.6-17.2); White Blood Count 1.6 th/mm3 (4.0-11.0)
[2018-01-21 05:55] LABS: Hematocrit 20.2 % (35.0-46.0); Hemoglobin 6.9 gm/dL (11.6-15.3)
[2018-01-21 06:02] LABS: Anion Gap 9 meq/L (5-15)
[2018-01-21 06:08] LABS: Beta Hydroxybutyric Acid 0.81 mmol/L (0.00-0.39); Blood Urea Nitrogen 1 mg/dL (7-18); Calcium 7.1 mg/dL (8.5-10.1); Carbon Dioxide 26.8 meq/L (21.0-32.0); Chloride 101 meq/L (98-107); Glomerular Filtration Rate Greater Than 89 mL/min (>89); Glucose,Random 135 mg/dL (74-106); Magnesium 2.6 mg/dL (1.5-2.5); Phosphorus 2.4 mg/dL (2.5-4.9); Potassium 3.1 meq/L (3.5-5.1); Sodium 137 meq/L (136-145); Thyroid Stimulating Hormone 0.931 uIU/mL (0.358-3.740); Troponin I 0.47 ng/mL (0.02-0.05)
[2018-01-21 06:16] LABS: Albumin 1.3 g/dL (3.4-5.0); Calcium-Albumin Corrected 9.3 mg/dL (8.5-10.1)
--- NOTE | 2018-01-21 08:04 | P.PNNEU ---
Subjective Active Medications: Active Medications Acetaminophen (Tylenol) 650 mg PO Q6H PRN PRN Reason: TEMPERATURE > 101 F Albuterol (Duoneb Neb (Talisha)) 1 ampul NEB Q4HR NEB [facility] Last Admin: 01/21/18 04:57 Dose: 1 ampul Bisacodyl (Dulcolax Supp) 10 mg RECTAL DAILY PRN PRN Reason: if no BM in last 24h Chlorhexidine Gluconate (Chlorhexidine 2% Cloth) 3 pack TOPICAL DAILY@0400 TALISHA Stop: 01/26/18 03:59 Last Admin: 01/21/18 05:19 Dose: 3 pack Chlorhexidine Gluconate (Chlorhexidine 2% Cloth) 3 pack TOPICAL DAILY@0400 PRN PRN Reason: Extra cloth needed Stop: 01/26/18 03:59 Dexamethasone Sodium Phosphate (Decadron Inj) 4 mg IV.PUSH Q6HR [facility] Last Admin: 01/21/18 05:23 Dose: 4 mg Dextrose (D50w Vial) 50 ml IV.PUSH UNSCH PRN PRN Reason: PER HYPOGLYCEMIA PROTOCOL Dextrose (D50w Vial) 50 ml IV.PUSH UNSCH PRN PRN Reason: PER HYPOGLYCEMIA PROTOCOL Flumazenil (Romazecon Inj) 0.2 mg IV.PUSH Q1M PRN PRN Reason: OVERSEDATION Glucagon (Glucagon Inj) 1 mg OTHER PRN PRN PRN Reason: for Hypoglycemia Protocol Glucagon (Glucagon Inj) 1 mg OTHER PRN PRN PRN Reason: for Hypoglycemia Protocol Haloperidol Lactate (Haldol Inj) 1 mg IV.PUSH Q15M PRN PRN Reason: for severe agitation Last Admin: 01/21/18 02:35 Dose: 1 mg Hydralazine HCl (Apresoline Inj) 10 mg IV.PUSH Q30M PRN PRN Reason: sbp > 160, dbp > 95 Hydromorphone HCl (Dilaudid Pf Inj) 0.25 mg IV.PUSH Q1H PRN PRN Reason: pain 8-10 or not taking po Magnesium Sulfate 4 gm/ Sodium (Chloride) 100 mls @ 50 mls/hr IV.SIG UNSCH PRN PRN Reason: For Magnesium 0.9 - 1.1 mg/dL Magnesium Sulfate 2 gm/ Sodium (Chloride) 100 mls @ 50 mls/hr IV.SIG UNSCH PRN PRN Reason: For Magnesium 1.2 - 1.6 mg/dL Sodium Chloride (Ns Inj) 1,000 mls @ 84 mls/hr IV.CONT .[id number] [facility] Last Admin: 01/20/18 18:18 Dose: 84 mls/hr Potassium Chloride (Kcl 40 Meq Premix Inj) 40 meq in 100 mls @ 25 mls/hr IV.SIG Q2H PRN PRN Reason: For Potassium 2.8 - 3.2 mEq/L Potassium Chloride (Kcl 20 Meq Premix Inj) 20 meq in 100 mls @ 50 mls/hr IV.SIG Q2H PRN PRN Reason: For Potassium 3.3 - 3.5 mEq/L Potassium Chloride (Kcl 40 Meq Premix Inj) 40 meq in 100 mls @ 25 mls/hr IV.SIG UNSCH PRN PRN Reason: For Potassium 3.3 - 3.5 mEq/L Potassium Chloride (Kcl 20 Meq Premix Inj) 20 meq in 100 mls @ 50 mls/hr IV.SIG Q2H PRN PRN Reason: For Potassium 2.8 - 3.2 mEq/L Potassium Phosphate 30 mmol/ (Sodium Chloride) 260 mls @ 42 mls/hr IV.SIG UNSCH PRN PRN Reason: SEE LABEL COMMENTS Sodium Phosphate 30 mmol/ (Sodium Chloride) 260 mls @ 42 mls/hr IV.SIG UNSCH PRN PRN Reason: For Phosphorus < 2.5 mg/dL Multivitamins 10 ml/ Thiamine HCl 100 mg/ Folic Acid 1 mg/Sodium Chloride 511.2 mls @ 125 mls/hr IV.SIG Q24H [facility] Stop: 01/23/18 01:06 Last Infusion: 01/21/18 04:47 Dose: Infused Levetiracetam 500 mg/ Sodium (Chloride) 105 mls @ 400 mls/hr IV.SIG Q12H [facility] Last Infusion: 01/21/18 04:47 Dose: Infused Insulin Aspart (Novolog Insulin Correctional Sugar Inj) 0 unit SQ Q6HR [facility]; Protocol Last Admin: 01/21/18 06:34 Dose: Not Given Labetalol HCl (Trandate Inj) 10 mg IV.PUSH Q20M PRN PRN Reason: sbp > 160 or DBP > 95 Lactulose (Lactulose Liq) 30 ml PO BID [facility] Last Admin: 01/20/18 20:18 Dose: Not Given Lorazepam (Ativan) 1 mg PO Q4H PRN PRN Reason: for CIWA 8-10 Lorazepam (Ativan) 2 mg PO Q2H PRN PRN Reason: for CIWA 11-14 Lorazepam (Ativan Inj) 2 mg IV.PUSH Q2H PRN PRN Reason: for CIWA 11-14 Lorazepam (Ativan Inj) 2 mg IV.PUSH Q1H PRN PRN Reason: for CIWA 15-20 Lorazepam (Ativan Inj) 2 mg IV.PUSH Q15M PRN PRN Reason: for CIWA > 20 Lorazepam (Ativan Inj) 1 mg IV.PUSH Q4H PRN PRN Reason: for CIWA 8-10 Magnesium Oxide (Mag-Ox) 800 mg PO UNSCH PRN PRN Reason: For Magnesium 1.2 - 1.6 mg/dL Montelukast Sodium (Singulair) 10 mg PO QPM [facility] Ondansetron HCl (Zofran Inj) 4 mg IV.PUSH Q6H PRN PRN Reason: NAUSEA OR VOMITING Oxycodone HCl (Roxicodone) 5 mg PO Q4H PRN PRN Reason: Pain 1-5 Pantoprazole Sodium (Protonix) 40 mg PO DAILY [facility] Polyethylene Glycol (Miralax) 17 gm PO BID [facility] Last Admin: 01/20/18 20:18 Dose: Not Given Potassium Bicarb/Potassium Chloride (K-Lyte Cl Eff) 50 meq PO UNSCH PRN PRN Reason: For Potassium 3.3 - 3.5 mEq/L Potassium Phosphate (K-Phos Original) 2,000 mg PO Q4H PRN PRN Reason: Phosphorus Less Than 2.5 mg/dL Potassium Phosphate (K-Phos Original) 2,000 mg PO UNSCH PRN PRN Reason: SEE LABEL COMMENTS Senna/Docusate Sodium (Liliya-Colace) 1 tab PO BID [facility] Last Admin: 01/20/18 20:18 Dose: Not Given Sodium Chloride (Ns Flush) 2 ml IV.FLUSH PRN PRN PRN Reason: FLUSH AFTER USING IV ACCESS Sodium Chloride (Ns Flush) 2 ml IV.FLUSH UNSCH PRN PRN Reason: FLUSH AFTER USING IV ACCESS Allergies/Adverse Reactions: Allergies Allergy/AdvReac Type Severity Reaction Status Date / Time No Known Allergies Allergy Verified 01/20/18 12:59 Physical Exam Vital signs: Vital Signs 01/20/18 12:59 01/20/18 13:01 01/20/18 14:17 Temperature Pulse Rate 104 H 98 H Respiratory Rate 16 Blood Pressure 100/54 L Pulse Oximetry 94 L 99 96 01/20/18 14:35 01/20/18 15:00 01/20/18 15:05 Temperature Pulse Rate 136 H 100 H 117 H Respiratory Rate 22 16 20 Blood Pressure 92/59 L 98/52 L 110/57 L Pulse Oximetry 95 97 01/20/18 15:25 01/20/18 16:12 01/20/18 16:18 Temperature 98 F Pulse Rate 116 H 104 H 110 H Respiratory Rate 18 16 16 Blood Pressure 98/52 L 115/72 100/50 L Pulse Oximetry 97 94 L 97 01/20/18 17:03 01/20/18 17:37 01/20/18 17:38 Temperature Pulse Rate 112 H 117 H 116 H Respiratory Rate 16 Blood Pressure 100/54 L 111/62 Pulse Oximetry 97 01/20/18 17:39 01/20/18 18:00 01/20/18 19:00 Temperature 98.7 F Pulse Rate 117 H 111 H Respiratory Rate 34 H Blood Pressure 111/59 L 95/51 L 127/72 Pulse Oximetry 97 99 97 01/20/18 20:00 01/20/18 20:20 01/20/18 21:00 Temperature Pulse Rate 116 H 112 H 121 H Respiratory Rate 16 18 Blood Pressure 105/58 L Pulse Oximetry 98 97 01/20/18 22:00 01/20/18 23:00 01/20/18 23:15 Temperature Pulse Rate 120 H 122 H 123 H Respiratory Rate 24 23 20 Blood Pressure 112/70 114/69 Pulse Oximetry 100 95 01/21/18 00:00 01/21/18 01:00 01/21/18 02:00 Temperature 97.9 F Pulse Rate 119 H 120 H 119 H Respiratory Rate 25 H 20 30 H Blood Pressure 127/62 111/58 L 120/71 Pulse Oximetry 95 94 L 99 01/21/18 03:00 01/21/18 04:00 01/21/18 04:57 Temperature 98.6 F Pulse Rate 120 H 121 H 116 H Respiratory Rate 25 H 24 20 Blood Pressure 125/71 123/72 Pulse Oximetry 98 97 99 01/21/18 05:00 01/21/18 06:00 Temperature Pulse Rate 114 H 123 H Respiratory Rate 28 H 17 Blood Pressure 125/68 136/61 Pulse Oximetry 100 96 Intake & Output 01/20/18 01/21/18 01/21/18 18:59 06:59 18:59 Intake Total 200 / 200 924.2 / 924.2 Output Total 350 / 350 Balance 200 / 200 574.2 / 574.2 Weight 61.235 kg 62.3 kg Intake: IV 200 / 200 924.2 / 924.2 Magnesium Sulfate Inj 4 GM In 108 / 108 D5W Inj 100 ML @ 25 mls/hr IV. SIG ONCE ONE Rx#:[id number] MVI-12 Inj 10 ML Thiamine Inj 511.2 / 511.2 100 MG Folvite Inj 1 MG In NS Inj 500 ML @ 125 mls/hr IV.SIG Q24H TALISHA Rx#:[id number] KCl 20 mEq Premix Inj 20 meq In 100 / 100 100 ml @ 50 mls/hr IV.SIG ONCE ONE Rx#:[id number] KCl 40 mEq Premix Inj 40 meq In 200 / 200 100 ml @ 25 mls/hr IV.SIG Q4H TALISHA Rx#:[id number] Keppra 1000 mg/100 mL Premix 100 / 100 100 ML @ 400 mls/hr IV.SIG ONCE ONE Rx#:[id number] Keppra Inj 500 MG In NS Inj 100 105 / 105 ML @ 400 mls/hr IV.SIG Q12H TALISHA Rx#:[id number] Output: Urine 350 / 350 Other: # Incontinent Voids 3 Narrative: awake moves all still aphasic Objective Laboratory Results - last 24 hr 01/20/18 01/20/18 01/20/18 13:05 13:25 13:25 CBC w Diff WBC RBC Hgb Hct MCV MCH MCHC RDW Plt Count MPV Prelim Diff (Auto) Neut % (Auto) Lymph % (Auto) [place] % (Auto) Eos % (Auto) Baso % (Auto) Neut # (Auto) Lymph # (Auto) [place] # (Auto) Eos # (Auto) Baso # (Auto) WBC Differential Differential Comment PT 12.5 H INR 1.2 APTT 29.6 Sodium 129 L Potassium 2.4 L* Chloride 92 L Carbon Dioxide 21.1 Anion Gap 16 H BUN 4 L Creatinine 0.58 Estimated GFR Greater than 89 POC Glucose 100 Random Glucose 122 H Hemoglobin A1c Osmolality Lactic Acid Uric Acid Calcium 7.0 L* Calcium Adj for Albumin 9.1 Phosphorus Magnesium Total Bilirubin 0.3 AST 80 H ALT 69 H Alkaline Phosphatase 148 H Ammonia Lactate Dehydrogenase Total Creatine Kinase 38 Troponin I 0.02 Total Protein 5.8 L Albumin 1.4 L Triglycerides Cholesterol LDL Cholesterol, Calc HDL Cholesterol Cholesterol/HDL Ratio Lipase Vitamin B12 Beta-Hydroxybutyric Acd TSH Thyroxine (T4) Cortisol Urine Color Urine Clarity Urine pH Ur Specific [place] Urine Protein Urine Glucose (UA) Urine Ketones Urine Occult Blood Urine Nitrate Urine Bilirubin Urine Urobilinogen Ur Leukocyte Esterase Urine RBC Urine WBC Ur Squamous Epith Cells Micro UA Comment Ur Microscopic Review Urine Culture Comments Urine Osmolality Ur Random Sodium Nasal Screen MRSA (PCR) Hepatitis A IgM Ab Hep Bs Antigen Hep B Core IgM Ab Hep C IgG Ab Blood Type Blood Type Recheck Antibody Screen MTS Gel Crossmatch 01/20/18 01/20/18 01/20/18 14:30 18:09 18:45 CBC w Diff Auto diff final WBC 2.1 L RBC 2.13 L Hgb 7.2 L Hct 21.2 L MCV 99.4 MCH 33.8 MCHC 34.0 RDW 13.0 Plt Count 127 L D MPV 7.5 Prelim Diff (Auto) Neut % (Auto) 76.4 H Lymph % (Auto) 11.8 [place] % (Auto) 10.4 H Eos % (Auto) 1.2 Baso % (Auto) 0.2 Neut # (Auto) 1.6 L Lymph # (Auto) 0.3 L [place] # (Auto) 0.2 Eos # (Auto) 0.0 Baso # (Auto) 0.0 WBC Differential . Differential Comment . PT INR APTT Sodium Potassium Chloride Carbon Dioxide Anion Gap BUN Creatinine Estimated GFR POC Glucose 98 Random Glucose Hemoglobin A1c Osmolality Lactic Acid Uric Acid Calcium Calcium Adj for Albumin Phosphorus Magnesium Total Bilirubin AST ALT Alkaline Phosphatase Ammonia Lactate Dehydrogenase Total Creatine Kinase Troponin I Total Protein Albumin Triglycerides Cholesterol LDL Cholesterol, Calc HDL Cholesterol Cholesterol/HDL Ratio Lipase Vitamin B12 Beta-Hydroxybutyric Acd TSH Thyroxine (T4) Cortisol Urine Color Urine Clarity Urine pH Ur Specific [place] Urine Protein Urine Glucose (UA) Urine Ketones Urine Occult Blood Urine Nitrate Urine Bilirubin Urine Urobilinogen Ur Leukocyte Esterase Urine RBC Urine WBC Ur Squamous Epith Cells Micro UA Comment Ur Microscopic Review Urine Culture Comments Urine Osmolality Ur Random Sodium Nasal Screen MRSA (PCR) Not detected Hepatitis A IgM Ab Hep Bs Antigen Hep B Core IgM Ab Hep C IgG Ab Blood Type Blood Type Recheck Antibody Screen MTS Gel Crossmatch 01/20/18 01/20/18 01/20/18 19:45 19:45 19:45 CBC w Diff WBC RBC Hgb Hct MCV MCH MCHC RDW Plt Count MPV Prelim Diff (Auto) Neut % (Auto) Lymph % (Auto) [place] % (Auto) Eos % (Auto) Baso % (Auto) Neut # (Auto) Lymph # (Auto) [place] # (Auto) Eos # (Auto) Baso # (Auto) WBC Differential Differential Comment PT INR APTT Sodium Potassium Chloride Carbon Dioxide Anion Gap BUN Creatinine Estimated GFR POC Glucose Random Glucose Hemoglobin A1c Osmolality Lactic Acid Uric Acid 1.7 L Calcium Calcium Adj for Albumin Phosphorus 2.9 Magnesium 1.5 Total Bilirubin AST ALT Alkaline Phosphatase Ammonia Lactate Dehydrogenase Total Creatine Kinase 48 Troponin I Total Protein Albumin Triglycerides Cholesterol LDL Cholesterol, Calc HDL Cholesterol Cholesterol/HDL Ratio Lipase 101 Vitamin B12 Beta-Hydroxybutyric Acd TSH Thyroxine (T4) Cortisol 22.5 Urine Color Urine Clarity Urine pH Ur Specific [place] Urine Protein Urine Glucose (UA) Urine Ketones Urine Occult Blood Urine Nitrate Urine Bilirubin Urine Urobilinogen Ur Leukocyte Esterase Urine RBC Urine WBC Ur Squamous Epith Cells Micro UA Comment Ur Microscopic Review Urine Culture Comments Urine Osmolality Ur Random Sodium Nasal Screen MRSA (PCR) Hepatitis A IgM Ab Nonreactive Hep Bs Antigen Nonreactive Hep B Core IgM Ab Nonreactive Hep C IgG Ab Nonreactive Blood Type Blood Type Recheck Antibody Screen MTS Gel Crossmatch 01/20/18 01/20/18 01/21/18 19:45 19:45 00:01 CBC w Diff WBC RBC Hgb Hct MCV MCH MCHC RDW Plt Count MPV Prelim Diff (Auto) Neut % (Auto) Lymph % (Auto) [place] % (Auto) Eos % (Auto) Baso % (Auto) Neut # (Auto) Lymph # (Auto) [place] # (Auto) Eos # (Auto) Baso # (Auto) WBC Differential Differential Comment PT INR APTT Sodium Potassium 2.6 L* Chloride Carbon Dioxide Anion Gap BUN Creatinine Estimated GFR POC Glucose Random Glucose Hemoglobin A1c 4.7 Osmolality 267 L Lactic Acid 1.9 Uric Acid Calcium Calcium Adj for Albumin Phosphorus Magnesium Total Bilirubin AST ALT Alkaline Phosphatase Ammonia Lactate Dehydrogenase 211 Total Creatine Kinase Troponin I 0.92 H* D Total Protein Albumin Triglycerides 111 Cholesterol 150 LDL Cholesterol, Calc 85 HDL Cholesterol 43.3 Cholesterol/HDL Ratio 3.46 Lipase Vitamin B12 Greater than 2000 H Beta-Hydroxybutyric Acd TSH 1.330 Thyroxine (T4) 8.4 Cortisol Urine Color Urine Clarity Urine pH Ur Specific [place] Urine Protein Urine Glucose (UA) Urine Ketones Urine Occult Blood Urine Nitrate Urine Bilirubin Urine Urobilinogen Ur Leukocyte Esterase Urine RBC Urine WBC Ur Squamous Epith Cells Micro UA Comment Ur Microscopic Review Urine Culture Comments Urine Osmolality Ur Random Sodium Nasal Screen MRSA (PCR) Hepatitis A IgM Ab Hep Bs Antigen Hep B Core IgM Ab Hep C IgG Ab Blood Type Blood Type Recheck Antibody Screen MTS Gel Crossmatch 01/21/18 01/21/18 01/21/18 01:11 02:36 02:36 CBC w Diff WBC RBC Hgb Hct MCV MCH MCHC RDW Plt Count MPV Prelim Diff (Auto) Neut % (Auto) Lymph % (Auto) [place] % (Auto) Eos % (Auto) Baso % (Auto) Neut # (Auto) Lymph # (Auto) [place] # (Auto) Eos # (Auto) Baso # (Auto) WBC Differential Differential Comment PT INR APTT Sodium Potassium Chloride Carbon Dioxide Anion Gap BUN Creatinine Estimated GFR POC Glucose 103 Random Glucose Hemoglobin A1c Osmolality Lactic Acid Uric Acid Calcium Calcium Adj for Albumin Phosphorus Magnesium Total Bilirubin AST ALT Alkaline Phosphatase Ammonia Lactate Dehydrogenase Total Creatine Kinase Troponin I Total Protein Albumin Triglycerides Cholesterol LDL Cholesterol, Calc HDL Cholesterol Cholesterol/HDL Ratio Lipase Vitamin B12 Beta-Hydroxybutyric Acd TSH Thyroxine (T4) Cortisol Urine Color Urine Clarity Urine pH Ur Specific [place] Urine Protein Urine Glucose (UA) Urine Ketones Urine Occult Blood Urine Nitrate Urine Bilirubin Urine Urobilinogen Ur Leukocyte Esterase Urine RBC Urine WBC Ur Squamous Epith Cells Micro UA Comment Ur Microscopic Review Urine Culture Comments Urine Osmolality 238 L Ur Random Sodium 66 Nasal Screen MRSA (PCR) Hepatitis A IgM Ab Hep Bs Antigen Hep B Core IgM Ab Hep C IgG Ab Blood Type Blood Type Recheck Antibody Screen MTS Gel Crossmatch 01/21/18 01/21/18 01/21/18 02:36 05:12 05:12 CBC w Diff WBC RBC Hgb Hct MCV MCH MCHC RDW Plt Count MPV Prelim Diff (Auto) Neut % (Auto) Lymph % (Auto) [place] % (Auto) Eos % (Auto) Baso % (Auto) Neut # (Auto) Lymph # (Auto) [place] # (Auto) Eos # (Auto) Baso # (Auto) WBC Differential Differential Comment PT INR APTT Sodium 137 Potassium 3.1 L Chloride 101 D Carbon Dioxide 26.8 Anion Gap 9 BUN 1 L Creatinine 0.23 L Estimated GFR Greater than 89 POC Glucose Random Glucose 135 H Hemoglobin A1c Osmolality Lactic Acid Uric Acid Calcium 7.1 L* Calcium Adj for Albumin 9.3 Phosphorus 2.4 L Magnesium 2.6 H D Total Bilirubin AST ALT Alkaline Phosphatase Ammonia 14 Lactate Dehydrogenase Total Creatine Kinase Troponin I 0.47 H D Total Protein Albumin 1.3 L Triglycerides Cholesterol LDL Cholesterol, Calc HDL Cholesterol Cholesterol/HDL Ratio Lipase Vitamin B12 Beta-Hydroxybutyric Acd 0.81 H TSH 0.931 Thyroxine (T4) Cortisol Urine Color Yellow Urine Clarity Clear Urine pH 7.0 Ur Specific [place] 1.013 Urine Protein Negative Urine Glucose (UA) Negative Urine Ketones 20 Urine Occult Blood Negative Urine Nitrate Negative Urine Bilirubin Negative Urine Urobilinogen Less than 2 Ur Leukocyte Esterase Negative Urine RBC Less than 1 Urine WBC Less than 1 Ur Squamous Epith Cells <1 Micro UA Comment Culture not ind Ur Microscopic Review Not Reportable Urine Culture Comments Culture not ind Urine Osmolality Ur Random Sodium Nasal Screen MRSA (PCR) Hepatitis A IgM Ab Hep Bs Antigen Hep B Core IgM Ab Hep C IgG Ab Blood Type Blood Type Recheck Antibody Screen MTS Gel Crossmatch 01/21/18 01/21/18 05:12 06:03 CBC w Diff WBC 1.6 L RBC 1.99 L Hgb 6.9 L* Hct 20.2 L* MCV 101.6 H MCH 34.8 H MCHC 34.2 RDW 13.3 Plt Count 91 L MPV 8.1 Prelim Diff (Auto) Slide review pending Neut % (Auto) 83.2 H Lymph % (Auto) 8.7 L [place] % (Auto) 7.9 Eos % (Auto) 0.1 Baso % (Auto) 0.1 Neut # (Auto) 1.3 L Lymph # (Auto) 0.1 L [place] # (Auto) 0.1 Eos # (Auto) 0.0 Baso # (Auto) 0.0 WBC Differential Differential Comment . PT INR APTT Sodium Potassium Chloride Carbon Dioxide Anion Gap BUN Creatinine Estimated GFR POC Glucose Random Glucose Hemoglobin A1c Osmolality Lactic Acid Uric Acid Calcium Calcium Adj for Albumin Phosphorus Magnesium Total Bilirubin AST ALT Alkaline Phosphatase Ammonia Lactate Dehydrogenase Total Creatine Kinase Troponin I Total Protein Albumin Triglycerides Cholesterol LDL Cholesterol, Calc HDL Cholesterol Cholesterol/HDL Ratio Lipase Vitamin B12 Beta-Hydroxybutyric Acd TSH Thyroxine (T4) Cortisol Urine Color Urine Clarity Urine pH Ur Specific [place] Urine Protein Urine Glucose (UA) Urine Ketones Urine Occult Blood Urine Nitrate Urine Bilirubin Urine Urobilinogen Ur Leukocyte Esterase Urine RBC Urine WBC Ur Squamous Epith Cells Micro UA Comment Ur Microscopic Review Urine Culture Comments Urine Osmolality Ur Random Sodium Nasal Screen MRSA (PCR) Hepatitis A IgM Ab Hep Bs Antigen Hep B Core IgM Ab Hep C IgG Ab Blood Type A Positive Blood Type Recheck Not needed Antibody Screen Negative MTS Gel Crossmatch See Detail Review/Management - Review/Management Plan: imp no sz overnoc mri cw met fu eeg keppra ctax2 neg fu labs needs onc on board
[2018-01-21 08:11] LABS: Lymphocytes 9 % (9-44); Monocytes 2 % (0-8)
[2018-01-21 08:12] LABS: Platelet Morphology Normal (Normal)
[2018-01-21] MEDS: Sod Chloride 0.9% Inj 1,000 ML IV.CONT SCH ×2 (08:20→17:09)
[2018-01-21] MEDS: Polyethylene Glycol 3350 17 GM Packet PO SCH ×2 (08:21→20:31)
[2018-01-21] MEDS: Senna/Docusate Sodium 8.6/50 MG Tablet PO SCH ×2 (08:21→20:31)
[2018-01-21] MEDS ORDERED: Acetaminophen 325 MG Tablet PO ONE (08:27)
--- NOTE | 2018-01-21 08:33 | P.CONNS ---
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 She had a generalized seizure prior to her presentation to the emergency room with subsequent a aphasia and right hemiparesis. She was seen by neurology and started on Keppra for seizure prophylaxis and CT and MRI scan of brain obtained reveals a approximately 1.7 cm enhancing left medial parietal lobe mass. We do not have any previous imaging of the brain to compare and see if this is a new mass or whether this enlarged or shrunk with treatment. Patient is aphasic and not relate any history and there are currently no family members at bedside. Review of Systems unobtainable due to mental status (Unable to obtain due to a aphasia and inability to communicate) PMFSH - History History Provided By: Spray Cementer / EMT - Medical History Medical History: Medical History (Last Reviewed 01/21/18 @ 08:29 by Luan Morris MD) Anxiety History of benzodiazepine use History of chemotherapy History of radiation therapy Non-small cell carcinoma of left lung, stage 4 - Surgical History Surgical History: Surgical History (Last Reviewed 01/21/18 @ 08:29 by Luan Morris MD) Port-A-Cath in place (Acute) S/P chest tube placement - Family History Family History: Family History (Last Reviewed 01/21/18 @ 08:29 by Luan Morris MD) Other History of bladder cancer History of kidney cancer - Tobacco History Second Hand Smoke Exposure: No Tobacco Use In Past 30 Days: No Smoking Status: Former smoker Tobacco Type: Cigarettes Number of Pack Years (if former smoker): 35 - Alcohol History How Often Do You Have a Drink Containing Alcohol: 4 or more times a week - Substance Use History Substance History: No History of Abuse - Travel History Recent Travel in the [facility] Within the Last 8 Weeks: No Recent Travel Out of the Country Within the Last 8 Weeks: No - Immunization History Tetanus Immunization: Unsure Medications and Allergies Active Medications: Active Medications Acetaminophen (Tylenol) 650 mg PO Q6H PRN PRN Reason: TEMPERATURE > 101 F Albuterol (Duoneb Neb (Talisha)) 1 ampul NEB Q4HR NEB [facility] Last Admin: 01/21/18 08:22 Dose: 1 ampul Bisacodyl (Dulcolax Supp) 10 mg RECTAL DAILY PRN PRN Reason: if no BM in last 24h Chlorhexidine Gluconate (Chlorhexidine 2% Cloth) 3 pack TOPICAL DAILY@0400 [facility] Stop: 01/26/18 03:59 Last Admin: 01/21/18 05:19 Dose: 3 pack Chlorhexidine Gluconate (Chlorhexidine 2% Cloth) 3 pack TOPICAL DAILY@0400 PRN PRN Reason: Extra cloth needed Stop: 01/26/18 03:59 Dexamethasone Sodium Phosphate (Decadron Inj) 4 mg IV.PUSH Q6HR [facility] Last Admin: 01/21/18 05:23 Dose: 4 mg Dextrose (D50w Vial) 50 ml IV.PUSH UNSCH PRN PRN Reason: PER HYPOGLYCEMIA PROTOCOL Dextrose (D50w Vial) 50 ml IV.PUSH UNSCH PRN PRN Reason: PER HYPOGLYCEMIA PROTOCOL Filgrastim (Neupogen Inj) 300 mcg SQ DAILY@1400 T[facility]HA Flumazenil (Romazecon Inj) 0.2 mg IV.PUSH Q1M PRN PRN Reason: OVERSEDATION Glucagon (Glucagon Inj) 1 mg OTHER PRN PRN PRN Reason: for Hypoglycemia Protocol Glucagon (Glucagon Inj) 1 mg OTHER PRN PRN PRN Reason: for Hypoglycemia Protocol Haloperidol Lactate (Haldol Inj) 1 mg IV.PUSH Q15M PRN PRN Reason: for severe agitation Last Admin: 01/21/18 02:35 Dose: 1 mg Hydralazine HCl (Apresoline Inj) 10 mg IV.PUSH Q30M PRN PRN Reason: sbp > 160, dbp > 95 Hydromorphone HCl (Dilaudid Pf Inj) 0.25 mg IV.PUSH Q1H PRN PRN Reason: pain 8-10 or not taking po Magnesium Sulfate 4 gm/ Sodium (Chloride) 100 mls @ 50 mls/hr IV.SIG UNSCH PRN PRN Reason: For Magnesium 0.9 - 1.1 mg/dL Magnesium Sulfate 2 gm/ Sodium (Chloride) 100 mls @ 50 mls/hr IV.SIG UNSCH PRN PRN Reason: For Magnesium 1.2 - 1.6 mg/dL Sodium Chloride (Ns Inj) 1,000 mls @ 84 mls/hr IV.CONT .[id number] [facility] Last Admin: 01/21/18 08:20 Dose: Not Given Potassium Chloride (Kcl 40 Meq Premix Inj) 40 meq in 100 mls @ 25 mls/hr IV.SIG Q2H PRN PRN Reason: For Potassium 2.8 - 3.2 mEq/L Potassium Chloride (Kcl 20 Meq Premix Inj) 20 meq in 100 mls @ 50 mls/hr IV.SIG Q2H PRN PRN Reason: For Potassium 3.3 - 3.5 mEq/L Potassium Chloride (Kcl 40 Meq Premix Inj) 40 meq in 100 mls @ 25 mls/hr IV.SIG UNSCH PRN PRN Reason: For Potassium 3.3 - 3.5 mEq/L Potassium Chloride (Kcl 20 Meq Premix Inj) 20 meq in 100 mls @ 50 mls/hr IV.SIG Q2H PRN PRN Reason: For Potassium 2.8 - 3.2 mEq/L Potassium Phosphate 30 mmol/ (Sodium Chloride) 260 mls @ 42 mls/hr IV.SIG UNSCH PRN PRN Reason: SEE LABEL COMMENTS Sodium Phosphate 30 mmol/ (Sodium Chloride) 260 mls @ 42 mls/hr IV.SIG UNSCH PRN PRN Reason: For Phosphorus < 2.5 mg/dL Multivitamins 10 ml/ Thiamine HCl 100 mg/ Folic Acid 1 mg/Sodium Chloride 511.2 mls @ 125 mls/hr IV.SIG Q24H [facility] Stop: 01/23/18 01:06 Last Infusion: 01/21/18 04:47 Dose: Infused Levetiracetam 500 mg/ Sodium (Chloride) 105 mls @ 400 mls/hr IV.SIG Q12H [facility] Last Infusion: 01/21/18 04:47 Dose: Infused Insulin Aspart (Novolog Insulin Correctional Sugar Inj) 0 unit SQ Q6HR [facility]; Protocol Last Admin: 01/21/18 06:34 Dose: Not Given Labetalol HCl (Trandate Inj) 10 mg IV.PUSH Q20M PRN PRN Reason: sbp > 160 or DBP > 95 Lactulose (Lactulose Liq) 30 ml PO BID [facility] Last Admin: 01/21/18 08:21 Dose: Not Given Lorazepam (Ativan) 1 mg PO Q4H PRN PRN Reason: for CIWA 8-10 Lorazepam (Ativan) 2 mg PO Q2H PRN PRN Reason: for CIWA 11-14 Lorazepam (Ativan Inj) 2 mg IV.PUSH Q2H PRN PRN Reason: for CIWA 11-14 Lorazepam (Ativan Inj) 2 mg IV.PUSH Q1H PRN PRN Reason: for CIWA 15-20 Lorazepam (Ativan Inj) 2 mg IV.PUSH Q15M PRN PRN Reason: for CIWA > 20 Lorazepam (Ativan Inj) 1 mg IV.PUSH Q4H PRN PRN Reason: for CIWA 8-10 Magnesium Oxide (Mag-Ox) 800 mg PO UNSCH PRN PRN Reason: For Magnesium 1.2 - 1.6 mg/dL Montelukast Sodium (Singulair) 10 mg PO QPM [facility] Ondansetron HCl (Zofran Inj) 4 mg IV.PUSH Q6H PRN PRN Reason: NAUSEA OR VOMITING Oxycodone HCl (Roxicodone) 5 mg PO Q4H PRN PRN Reason: Pain 1-5 Pantoprazole Sodium (Protonix) 40 mg PO DAILY [facility] Polyethylene Glycol (Miralax) 17 gm PO BID [facility] Last Admin: 01/21/18 08:21 Dose: Not Given Potassium Bicarb/Potassium Chloride (K-Lyte Cl Eff) 50 meq PO UNSCH PRN PRN Reason: For Potassium 3.3 - 3.5 mEq/L Potassium Phosphate (K-Phos Original) 2,000 mg PO Q4H PRN PRN Reason: Phosphorus Less Than 2.5 mg/dL Potassium Phosphate (K-Phos Original) 2,000 mg PO UNSCH PRN PRN Reason: SEE LABEL COMMENTS Senna/Docusate Sodium (Liliya-Colace) 1 tab PO BID [facility] Last Admin: 01/21/18 08:21 Dose: Not Given Sodium Chloride (Ns Flush) 2 ml IV.FLUSH PRN PRN PRN Reason: FLUSH AFTER USING IV ACCESS Sodium Chloride (Ns Flush) 2 ml IV.FLUSH UNSCH PRN PRN Reason: FLUSH AFTER USING IV ACCESS Allergies Allergy/AdvReac Type Severity Reaction Status Date / Time No Known Allergies Allergy Verified 01/20/18 12:59 Home Medications Medication Instructions Recorded Confirmed Type alprazolam 1 mg PO DAILY 01/20/18 01/20/18 History aspirin 81 mg PO DAILY 01/20/18 01/20/18 History montelukast 10 mg PO QPM 01/20/18 01/20/18 History oxycodone-acetaminophen 2 tab PO Q6H PRN 01/20/18 01/20/18 History Exam Vital signs: Vital Signs 01/20/18 12:59 01/20/18 13:01 01/20/18 14:17 Temperature Pulse Rate 104 H 98 H Respiratory Rate 16 Blood Pressure 100/54 L Pulse Oximetry 94 L 99 96 01/20/18 14:35 01/20/18 15:00 01/20/18 15:05 Temperature Pulse Rate 136 H 100 H 117 H Respiratory Rate 22 16 20 Blood Pressure 92/59 L 98/52 L 110/57 L Pulse Oximetry 95 97 01/20/18 15:25 01/20/18 16:12 01/20/18 16:18 Temperature 98 F Pulse Rate 116 H 104 H 110 H Respiratory Rate 18 16 16 Blood Pressure 98/52 L 115/72 100/50 L Pulse Oximetry 97 94 L 97 01/20/18 17:03 01/20/18 17:37 01/20/18 17:38 Temperature Pulse Rate 112 H 117 H 116 H Respiratory Rate 16 Blood Pressure 100/54 L 111/62 Pulse Oximetry 97 01/20/18 17:39 01/20/18 18:00 01/20/18 19:00 Temperature 98.7 F Pulse Rate 117 H 111 H Respiratory Rate 34 H Blood Pressure 111/59 L 95/51 L 127/72 Pulse Oximetry 97 99 97 01/20/18 20:00 01/20/18 20:20 01/20/18 21:00 Temperature Pulse Rate 116 H 112 H 121 H Respiratory Rate 16 18 Blood Pressure 105/58 L Pulse Oximetry 98 97 01/20/18 22:00 01/20/18 23:00 01/20/18 23:15 Temperature Pulse Rate 120 H 122 H 123 H Respiratory Rate 24 23 20 Blood Pressure 112/70 114/69 Pulse Oximetry 100 95 01/21/18 00:00 01/21/18 01:00 01/21/18 02:00 Temperature 97.9 F Pulse Rate 119 H 120 H 119 H Respiratory Rate 25 H 20 30 H Blood Pressure 127/62 111/58 L 120/71 Pulse Oximetry 95 94 L 99 01/21/18 03:00 01/21/18 04:00 01/21/18 04:57 Temperature 98.6 F Pulse Rate 120 H 121 H 116 H Respiratory Rate 25 H 24 20 Blood Pressure 125/71 123/72 Pulse Oximetry 98 97 99 01/21/18 05:00 01/21/18 06:00 01/21/18 08:16 Temperature 98.2 F Pulse Rate 114 H 123 H 117 H Respiratory Rate 28 H 17 18 Blood Pressure 125/68 136/61 108/76 Pulse Oximetry 100 96 97 01/21/18 08:24 Temperature Pulse Rate 116 H Respiratory Rate 28 H Blood Pressure Pulse Oximetry 94 L Intake & Output 01/20/18 01/21/18 01/21/18 18:59 06:59 18:59 Intake Total 200 / 200 924.2 / 924.2 0 / 0 Output Total 350 / 350 Balance 200 / 200 574.2 / 574.2 0 / 0 Weight 61.235 kg 62.3 kg Intake: IV 200 / 200 924.2 / 924.2 Magnesium Sulfate Inj 4 GM In 108 / 108 D5W Inj 100 ML @ 25 mls/hr IV. SIG ONCE ONE Rx#:[id number] MVI-12 Inj 10 ML Thiamine Inj 511.2 / 511.2 100 MG Folvite Inj 1 MG In NS Inj 500 ML @ 125 mls/hr IV.SIG Q24H [facility]AL[facility]HA Rx#:[id number] KCl 20 mEq Premix Inj 20 meq In 100 / 100 100 ml @ 50 mls/hr IV.SIG ONCE ONE Rx#:[id number] KCl 40 mEq Premix Inj 40 meq In 200 / 200 100 ml @ 25 mls/hr IV.SIG Q4H [facility] Rx#:[id number] Keppra 1000 mg/100 mL Premix 100 / 100 100 ML @ 400 mls/hr IV.SIG ONCE ONE Rx#:[id number] Keppra Inj 500 MG In NS Inj 100 105 / 105 ML @ 400 mls/hr IV.SIG Q12H [facility] Rx#:[id number] Intake (Blood Product) Amt 0 / 0 Rbc As-3 Leukoreduced Unit 0 / 0 [id number] Output: Urine 350 / 350 Other: # Incontinent Voids 3 - Constitutional no acute distress - Routine HEENT Exam Head: Present: normocephalic, atraumatic Eye: Present: EOMI, PERRL ENT: Present: oropharynx clear, external ear normal - Routine Neck Exam Present: supple, full ROM - Routine Respiratory Exam Present: rhonchi, crackles, diminished air movement - Routine Cardiovascular Exam Present: RRR, S1, S2 - Routine Abdominal Exam Present: soft, normoactive bowel sounds - Routine Extremities Exam Present: full ROM - Routine Skin Exam Present: intact, petechiae, ecchymosis - Routine Neurological Exam Present: alert (Severe expressive and receptive aphasia), CN II-XII intact, motor deficit (Right hemiparesis 4-/5), plantar reflex, moving all extremities Results - Laboratory Findings CBC and BMP: 01/21/18 05:12 01/21/18 05:12 Abnormal lab findings: Abnormal Labs 01/20/18 01/20/18 01/20/18 13:25 13:25 14:30 WBC 2.1 L RBC 2.13 L Hgb 7.2 L Hct 21.2 L MCV MCH Plt Count 127 L D Neut % (Auto) 76.4 H Lymph % (Auto) [place] % (Auto) 10.4 H Neut # (Auto) 1.6 L Lymph # (Auto) 0.3 L Seg Neuts % (Manual) Abs Neuts (Manual) Platelet Estimate PT 12.5 H Sodium 129 L Potassium 2.4 L* Chloride 92 L Anion Gap 16 H BUN 4 L Creatinine Random Glucose 122 H Osmolality Uric Acid Calcium 7.0 L* Phosphorus Magnesium AST 80 H ALT 69 H Alkaline Phosphatase 148 H Troponin I Total Protein 5.8 L Albumin 1.4 L Vitamin B12 Beta-Hydroxybutyric Acd Urine Osmolality MTS Gel Crossmatch 01/20/18 01/20/18 01/21/18 19:45 19:45 02:36 WBC RBC Hgb Hct MCV MCH Plt Count Neut % (Auto) Lymph % (Auto) [place] % (Auto) Neut # (Auto) Lymph # (Auto) Seg Neuts % (Manual) Abs Neuts (Manual) Platelet Estimate PT Sodium Potassium 2.6 L* Chloride Anion Gap BUN Creatinine Random Glucose Osmolality 267 L Uric Acid 1.7 L Calcium Phosphorus Magnesium AST ALT Alkaline Phosphatase Troponin I 0.92 H* D Total Protein Albumin Vitamin B12 Greater than 2000 H Beta-Hydroxybutyric Acd Urine Osmolality 238 L MTS Gel Crossmatch 01/21/18 01/21/18 01/21/18 05:12 05:12 06:03 WBC 1.6 L RBC 1.99 L Hgb 6.9 L* Hct 20.2 L* MCV 101.6 H MCH 34.8 H Plt Count 91 L Neut % (Auto) 83.2 H Lymph % (Auto) 8.[address] [place] % (Auto) Neut # (Auto) 1.3 L Lymph # (Auto) 0.1 L Seg Neuts % (Manual) 89 H Abs Neuts (Manual) 1.4 L Platelet Estimate Low L PT Sodium Potassium 3.1 L Chloride Anion Gap BUN 1 L Creatinine 0.23 L Random Glucose 135 H Osmolality Uric Acid Calcium 7.1 L* Phosphorus 2.4 L Magnesium 2.6 H D AST ALT Alkaline Phosphatase Troponin I 0.47 H D Total Protein Albumin 1.3 L Vitamin B12 Beta-Hydroxybutyric Acd 0.81 H Urine Osmolality MTS Gel Crossmatch See Detail - Diagnostic Findings Additional findings: Impressions Chest CT 01/20/18 00:00 CONCLUSION: 1. Masslike area of the left hilum attenuating the left mainstem bronchus and presumably is a central primary bronchogenic carcinoma. There is associated consolidation of most of the left lung and with volume loss. 2. Moderate to large left pleural effusion with loculated components medially at the apex and laterally at the base. Tip of the chest tube is in the apical component. 3. Displaced fracture posteriorly of the left 11th rib and with a suspected 1 cm lytic lesion concerning for metastasis. No other focal bone lesions are demonstrated. Head CT 01/20/18 12:59 CONCLUSION: 1. No acute intracranial abnormality is identified. 2. Chronic changes include mild generalized atrophy and encephalomalacia in the left parietal high convexity. 3. Sample Sewer view demonstrates complete opacification of the left hemithorax in this patient with history of lung cancer. Suggest correlating with the patient' s prior imaging studies to determine if this is a new finding. The above findings were telephoned to Dr. Interiano on 01/20/2018 at 1:19 PM. Head CTA 01/20/18 12:59 CONCLUSION: 1. No acute intracranial vascular abnormality is identified. 2. Possible enhancing lesion in the left parietal high convexity which could represent a metastatic lesion in this patient with history of lung cancer. The findings were telephoned to Dr. Wiseman and Dr. Interiano in on 01/20/2018 at 1:49 PM. Neck CTA 01/20/18 12:59 CONCLUSION: 1. Negative for hemodynamically significant carotid stenosis 2. Significant consolidative changes in the left upper lobe likely fluid collection in the apex of the left upper lobe. Head MRI 01/20/18 13:54 CONCLUSION: 14 mm round, probably intra-axial mass of the left high posterior parietal lobe as described probably a metastatic lesion. Chest X-Ray 01/20/18 14:32 CONCLUSION: Opacification left hemithorax with apparent Pleurx catheter in place. Assessment and Plan - Assessment (1) Non-small cell carcinoma of lung, stage 4 Code(s): C34.90 - Malignant neoplasm of unspecified part of unspecified bronchus or lung Status: Acute (2) Brain mass Code(s): G93.9 - Disorder of brain, unspecified Status: Acute (3) Seizure Code(s): R56.9 - Unspecified convulsions Status: Acute - Plan 57-year-old lady with history of non-small cell lung cancer with brain metastasis who has left medial parietal lobe mass and presents with seizures. She is reportedly has undergone radiation treatment and currently undergoing chemotherapy with associated pancytopenia. Agree with the seizure management as per neurology service as well as medical oncology evaluation. If the left parietal lobe mass is new or has enlarged then he can also consider the option of stereotactic radiosurgery boost if she has already had external beam radiation therapy to the brain. (1) Non-small cell carcinoma of lung, stage 4 Qualifiers: Laterality: left Qualified Code(s): C34.92 - Malignant neoplasm of unspecified part of left bronchus or lung
[2018-01-21] MEDS: HYDROmorphone PF Inj 1 MG/ML Ampul IV.PUSH PRN ×3 (09:13→20:31)
[2018-01-21] MEDS ORDERED: levETIRAcetam 1000mg/100mL Inj 100 ML IV.SIG ONE (10:10)
--- NOTE | 2018-01-21 10:50 | OTSOAPIP ---
PATIENT HAVING EEG AND SCHEDULED FOR BLOOD TRANSFUSION. WILL REATTEMPT TOMORROW. Therapist: Tiesha Limon Signature on file
[2018-01-21] MEDS: Filgrastim Inj 300 MCG/ML Vial SQ SCH (14:40)
[2018-01-21] MEDS ORDERED: Phenytoin Sodium 100 MG Capsule PO ONE (14:45)
[2018-01-21] MEDS ORDERED: Folic Acid 1 MG Tablet PO SCH (14:45)
[2018-01-21] MEDS ORDERED: LORazepam 0.5 MG Tablet PO ONE (14:45)
[2018-01-21 15:03] LABS: Hematocrit 32.9 % (35.0-46.0); Hemoglobin 11.5 gm/dL (11.6-15.3)
--- NOTE | 2018-01-21 15:37 | ECHRPT ---
Indication: HEART FAILURE CONCLUSIONS Normal left ventricular size. Wall thickness is normal. Normal left ventricular size and function with an ejection fraction of 60-65%. Trace mitral valve regurgitation. There is trace tricuspid valve regurgitation. Trivial pericardial effusion without evidence of tamponade. BP: / HR: Rhythm: Sinus MEASUREMENTS (Male / Female) Normal Values Technical Quality:Fair 2D ECHO LV Diastolic Diameter PLAX 4.2 cm 4.2 - 5.9 / 3.9 - 5.3 cm LV Systolic Diameter PLAX 3.0 cm IVS Diastolic Thickness 0.8 cm 0.6 - 1.0 / 0.6 - 0.9 cm LVPW Diastolic Thickness 0.8 cm 0.6 - 1.0 / 0.6 - 0.9 cm LV Relative Wall Thickness 0.4 RV Internal Dim ED PLAX 2.4 cm LVOT Diameter 1.5 cm Aortic Root Diameter 2.4 cm LA Systolic Diameter LX 2.8 cm 3.0 - 4.0 / 2.7 - 3.8 cm M-MODE AV Cusp Separation MM 2.0 cm DOPPLER AV Peak Velocity 146.0 cm/s AV Peak Gradient 8.5 mmHg AV Mean Gradient 4.0 mmHg AV Velocity Time Integral 23.1 cm LVOT Peak Velocity 101.0 cm/s LVOT Peak Gradient 4.1 mmHg LVOT Velocity Time Integral 17.3 cm AV Area Cont Eq vti 1.3 cm AV Area Cont Eq pk 1.2 cm Mitral E Point Velocity 53.3 cm/s Mitral A Point Velocity 78.5 cm/s Mitral E to A Ratio 0.7 LV E' Lateral Velocity 14.8 cm/s Mitral E to LV E' Lateral Ratio 3.6 LV E' Septal Velocity 12.4 cm/s Mitral E to LV E' Septal Ratio 4.3 TR Peak Velocity 280.0 cm/s TR Peak Gradient 31.4 mmHg Right Atrial Pressure 10.0 mmHg Pulmonary Artery Systolic Pressu 41.4 mmHg Right Ventricular Systolic Press 41.4 mmHg PV Peak Velocity 51.9 cm/s PV Peak Gradient 1.1 mmHg FINDINGS LEFT VENTRICLE Normal left ventricular size. Wall thickness is normal. The left ventricular systolic function is normal with an estimated ejection fraction in the range of 60-65%. RIGHT VENTRICLE Normal right ventricular size and systolic function. LEFT ATRIUM The left atrial size is normal. RIGHT ATRIUM The right atrial size is normal. ATRIAL SEPTUM No atrial level shunt is demonstrated by color flow Doppler interrogation. AORTA The aortic root and proximal ascending aorta are normal in size on limited imaging. MITRAL VALVE Trace mitral valve regurgitation. AORTIC VALVE Trileaflet aortic valve. No aortic valve stenosis or regurgitation. TRICUSPID VALVE There is trace tricuspid valve regurgitation. PULMONARY VALVE No pulmonary valve regurgitation or stenosis. VESSELS The inferior vena cava was not well visualized. PERICARDIUM Trivial pericardial effusion without evidence of tamponade. Mukund Gonzales MD, FACC, [facility] (Electronically Signed) Final Date:21 January 2018 15:36
--- NOTE | 2018-01-21 16:39 | ECG ---
Date Performed: 01/20/2018 Time Performed: 13:46:30 PTAGE: 57 years EKG: SINUS TACHYCARDIA WITH PREMATURE VENTRICULAR CONTRACTIONS LOW QRS VOLTAGE IN EXTREMITY LEAD S POSSIBLE RIGHT VENTRICULAR CONDUCTION DELAY MINIMAL NONSPECIFIC ST SEGMENT CHANGES NO PREVIOUS TRACING DOCTOR: Rosanne Plummer Interpretating Date/Time 01/22/2018 07:35:05
--- NOTE | 2018-01-21 16:39 | ECG ---
Date Performed: 01/20/2018 Time Performed: 13:57:31 PTAGE: 57 years EKG: SINUS TACHYCARDIA NONSPECIFIC ST & T-WAVE ABNORMALITY Since the previous tracing, no signif icant change noted, except the PVCs have resolved ABNORMAL RHYTHM ECG PREVIOUS TRACING : 01/20/2018 13.46 DOCTOR: Rosanne Plummer Interpretating Date/Time 01/21/2018 16:39:10
[2018-01-21] MEDS: Montelukast 10 MG Tablet PO SCH (17:17)
[2018-01-21] MEDS ORDERED: Valproate Inj 750 MG in Sodium Chlor 0.9% Inj 100 ML IV.SIG ONE (17:43)
--- NOTE | 2018-01-21 17:43 | P.PNCC ---
Subjective Subjective Remarks/Hospital Course: 01/20: This is a 57-year-old female. Date of admission 01/20/2018. 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 Follows with Dr. Birch. History of tobaccoism 35 pack years quit 12 years ago. History of anxiety and chronic alprazolam. Patient has history of a left hemithorax with the Pleurx catheter placed recently. She also has an [id number] by history. Patient presents to [facility] after recently just completing her first chemo treatment Thursday. 20 minutes prior to arrival to [facility], patient had paralysis of her right leg, twitching , unable to see straight. She is noted to have expressive aphasia as well. She is also noted to have a seizure prior to arrival and at at that facility. This was documented as shaking both arms and legs and displacing the head to the side. She received [address] brain revealed left parietal circulation. CT angiogram revealed possible metastases. CT of the neck revealed no acute findings. During the stroke alert , MRI with and without contrast brain was ordered to rule out metastatic brain lesion. She is transported to [facility]. She is old awake and alert to person only. She has subjective right upper lower extremity weakness on examination. 01/21: Laying in bed. Responds to commands off and on. Objective Vital Signs / I&O: Vital Signs 01/20/18 17:37 01/20/18 17:38 01/20/18 17:39 Temperature Pulse Rate 117 H 116 H 117 H Respiratory Rate 34 H Blood Pressure 111/62 111/59 L Pulse Oximetry 97 01/20/18 18:00 01/20/18 19:00 01/20/18 20:00 Temperature 98.7 F Pulse Rate 111 H 116 H Respiratory Rate Blood Pressure 95/51 L 127/72 105/58 L Pulse Oximetry 99 97 98 01/20/18 20:20 01/20/18 21:00 01/20/18 22:00 Temperature Pulse Rate 112 H 121 H 120 H Respiratory Rate 16 18 24 Blood Pressure 112/70 Pulse Oximetry 97 100 01/20/18 23:00 01/20/18 23:15 01/21/18 00:00 Temperature 97.9 F Pulse Rate 122 H 123 H 119 H Respiratory Rate 23 20 25 H Blood Pressure 114/69 127/62 Pulse Oximetry 95 95 01/21/18 01:00 01/21/18 02:00 01/21/18 03:00 Temperature Pulse Rate 120 H 119 H 120 H Respiratory Rate 20 30 H 25 H Blood Pressure 111/58 L 120/71 125/71 Pulse Oximetry 94 L 99 98 01/21/18 04:00 01/21/18 04:57 01/21/18 05:00 Temperature 98.6 F Pulse Rate 121 H 116 H 114 H Respiratory Rate 24 20 28 H Blood Pressure 123/72 125/68 Pulse Oximetry 97 99 100 01/21/18 06:00 01/21/18 07:00 01/21/18 07:23 Temperature Pulse Rate 123 H 123 H 116 H Respiratory Rate 17 34 H 34 H Blood Pressure 136/61 111/63 Pulse Oximetry 96 98 100 01/21/18 08:00 01/21/18 08:13 01/21/18 08:16 Temperature 98.3 F 98.2 F Pulse Rate 109 H 119 H 117 H Respiratory Rate 25 H 36 H 18 Blood Pressure 108/76 108/76 Pulse Oximetry 95 91 L 97 01/21/18 08:24 01/21/18 09:00 01/21/18 10:00 Temperature Pulse Rate 116 H 117 H 111 H Respiratory Rate 28 H 38 H 17 Blood Pressure 114/57 L 95/54 L Pulse Oximetry 94 L 95 100 01/21/18 10:15 01/21/18 10:16 01/21/18 10:38 Temperature 98 F 98 F 98.7 F Pulse Rate 109 H 107 H 115 H Respiratory Rate 18 18 18 Blood Pressure 95/54 L 95/54 L 98/75 L Pulse Oximetry 100 100 98 01/21/18 11:00 01/21/18 11:01 01/21/18 12:00 Temperature 98.4 F Pulse Rate 106 H 106 H 103 H Respiratory Rate 16 16 17 Blood Pressure 90/54 L 97/55 L 89/52 L Pulse Oximetry 100 100 100 01/21/18 13:00 01/21/18 14:00 01/21/18 15:00 Temperature Pulse Rate 94 H 91 H 93 H Respiratory Rate 16 20 20 Blood Pressure 90/52 L 105/65 106/67 Pulse Oximetry 100 100 100 01/21/18 15:24 01/21/18 16:00 01/21/18 17:00 Temperature 98.9 F Pulse Rate 104 H 108 H 101 H Respiratory Rate 24 22 21 Blood Pressure 117/59 L 119/58 L Pulse Oximetry 100 99 Intake & Output 01/20/18 01/21/18 01/21/18 18:59 06:59 18:59 Intake Total 200 / 200 1924.2 / 1924.2 605 / 605 Output Total 350 / 350 Balance 200 / 200 1574.2 / 1574.2 605 / 605 Weight 61.235 kg 62.3 kg Intake: IV 200 / 200 1924.2 / 1924.2 205 / 205 NS Inj 1,000 ML @ 84 mls/hr IV. 1000 / 1000 CONT .[id number] NATALIA Rx#: [id number] Magnesium Sulfate Inj 4 GM In 108 / 108 D5W Inj 100 ML @ 25 mls/hr IV. SIG ONCE ONE Rx#:[id number] MVI-12 Inj 10 ML Thiamine Inj 511.2 / 511.2 100 MG Folvite Inj 1 MG In NS Inj 500 ML @ 125 mls/hr IV.SIG Q24H COUNTS INCLUDE 234 BEDS AT THE [facility] Rx#:[id number] KCl 20 mEq Premix Inj 20 meq In 100 / 100 100 ml @ 50 mls/hr IV.SIG ONCE ONE Rx#:[id number] KCl 40 mEq Premix Inj 40 meq In 200 / 200 100 ml @ 25 mls/hr IV.SIG Q4H COUNTS INCLUDE 234 BEDS AT THE [facility] Rx#:[id number] Keppra 1000 mg/100 mL Premix 100 / 100 100 / 100 100 ML @ 400 mls/hr IV.SIG NOW ONE Rx#:[id number] Keppra Inj 500 MG In NS Inj 100 105 / 105 105 / 105 ML @ 400 mls/hr IV.SIG Q12H COUNTS INCLUDE 234 BEDS AT THE [facility] Rx#:[id number] Intake (Blood Product) Amt 400 / 400 Rbc As-3 Leukoreduced Unit 400 / 400 [id number] Rbc As-3 Leukoreduced Unit 0 / 0 [id number] Output: Urine 350 / 350 Other: # Incontinent Voids 3 Result Diagrams: 01/21/18 14:21 01/21/18 14:21 Objective Remarks: - Constitutional no acute distress - Routine HEENT Exam Head: Present: normocephalic, atraumatic Eye: Present: EOMI, PERRL, normal accommodation ENT: Present: mucous membranes moist - Routine Neck Exam Present: supple, full ROM. Absent: JVD, carotid bruit - Routine Chest/Breast/Axilla Exam Chest wall: Absent: tenderness Breast: Absent: tenderness Axillae: Absent: lymphadenopathy - Routine Respiratory Exam Present: decreased breath sounds, diminished air movement. Absent: accessory muscle use - Routine Cardiovascular Exam Present: S1, S2, tachycardia. Absent: murmur - Routine Abdominal Exam Present: soft, normoactive bowel sounds - Routine Extremities Exam Absent: cyanosis, clubbing, edema - Routine Skin Exam Present: intact - Routine Neurological Exam Present: alert, CN II-XII intact, motor deficit (Right upper and lower extremity weakness), altered mental status. Absent: oriented X1, sensory deficit Assessment and Plan - Problem List (1) Non-small cell carcinoma of lung, stage 4 Code(s): C34.90 - Malignant neoplasm of unspecified part of unspecified bronchus or lung Status: Acute (2) Hypokalemia Code(s): E87.6 - Hypokalemia Status: Acute (3) Pancytopenia Code(s): D61.818 - Other pancytopenia Status: Acute (4) Hypoalbuminemia Code(s): E88.09 - Other disorders of plasma-protein metabolism, not elsewhere classified Status: Acute (5) Elevated levels of transaminase & lactic acid dehydrogenase Code(s): R74.0 - Nonspecific elevation of levels of transaminase and lactic acid dehydrogenase [LDH] Status: Acute (6) Altered mental status Code(s): R41.82 - Altered mental status, unspecified Status: Acute - Assessment and Plan Plan: Neuro/Psych: Chronic opiate use EtOH abuse chronic benzodiazepine use Anxiety disorder Acetaminophen 650 mg every 6 hours as needed fever Oxycodone 5 mg every 4 hours as needed pain Patient is on alprazolam 1 mg daily at home. This was held [facility] protocol initiated Vitamin bag daily times [address] brain revealed left parietal lesion. CT angiogram of the head and neck no acute findings. MRI of the brain with and without contrast with left parietal lesion suspicious for metastasis On levetiracetam 500 mg twice daily. Received 1 g at [place]. Give additional 1 g Keppra earlier as EEG showed seizure activity. Further anticonvulsant therapy per Dr. Wiseman CV: Sinus tachycardia normal saline 84 cc now. Not requiring vasopressors and/or antihypertensives Initial troponin was 0.02. EKG revealed nonspecific ST-T changes. 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 GI: Elevated transaminases Hypoalbuminemia Speech therapy evaluate and treat Pantoprazole for GI prophylax Docusate sodium/senna 1 tablet twice daily and polythene glycol centigrams twice daily for bowel regimen Check hepatitis panel, LDH and CPK : Rai catheter if indicated for accurate I's and O's in a critical patient Endo: Sliding scale insulin to maintain euglycemia/every 6 hours aspart insulin regimen Check TSH Renal: Creatinine currently within normal limits Monitor urine output Accurate I's and O Heme: Pancytopenia Non-small carcinoma lung stage IV Monitor CBC daily. Follow trends per Coags within normal limits No indication for transfusion of blood products at this time Dr. Birch from oncology following ID: Monitor for signs of symptomatology of infection MSK: PT evaluate and treat FEN: Acute hypokalemia ICU electrolyte protocol initially. Recheck potassium with magnesium at 1999. Currently on normal saline at 84 cc an hour Access -Utilize [id number]. Central line if indicated Prophylaxis - -GI pantoprazole - -DVT SCD/holding femoral pharmacological prophylaxis in light of possible brain mass Prognosis poor per d/w Dr. Birch. (1) Non-small cell carcinoma of lung, stage 4 Qualifiers: Laterality: left Qualified Code(s): C34.92 - Malignant neoplasm of unspecified part of left bronchus or lung (6) Altered mental status Qualifiers: Altered mental status type: unspecified Qualified Code(s): R41.82 - Altered mental status, unspecified
--- NOTE | 2018-01-21 18:18 | P.CON ---
History of Present Illness Service: Hematology/oncology. Consult date: 01/21/18 Requesting Physician: Carloz Gracia Reason for Consult: Metastatic lung carcinoma with new brain metastases. Primary Care Provider: Mathieu Soria MD Chief Complaint: Seizures and generalized weakness. History of Present Illness: Ms. Weber is a 57-year-old female who was diagnosed in November 2017 with metastatic adenocarcinoma of the lung, she initially presented at [facility] with complaints of difficulty breathing and back pain. He was found to have a large left-sided pleural effusion associated with a left lung mass which had resulted in near complete collapse of the left lung secondary to central airway obstruction. He was also found at the time of diagnosis to have metastatic disease involving the adrenal glands as well as the thoracic fourth and thoracic fifth vertebral bodies. The patient does have biopsy-proven metastatic disease as evidenced by positive left pleural fluid cytology for metastatic adenocarcinoma. Her disease unfortunately is negative for PDL 1 expression (less than 1%), and is negative for actionable mutations including EGFR, ALK, ROS-1, BRA F and RET. She was initiated on palliative radiation involving the thoracic fourth and fifth vertebral bodies which was completed 2 weeks ago. Following which she received 1 cycle of carboplatin and pemetrexed on 01/11/2018 at my outpatient clinic. For management of her rapidly reaccumulating left-sided pleural effusion she does have a Pleurx catheter in place. The patient at this time has altered mental status, she is unable to communicate. Therefore the history has been obtained from her mother via telephone call as well as the electronic health record. Per the patient's mother the patient woke up on the morning of 01/20/2018 reporting weakness, she had an appointment with her agricultural extension specialist and was on her way to meet with her agricultural extension specialist when the patient developed a seizure while in the car. She initially experienced shaking of her right leg, this was followed by progression to generalized shaking of the arms and unconsciousness/ unresponsiveness. The patient's mother had to rack puller into a restaurant parking lot and 911 was called. She was brought into the emergency department at [facility] where the patient underwent CT imaging of the brain, findings concerning for metastatic disease were identified, patient was initiated on antiepileptic medications and transferred to the [facility] in [facility]. Over the course the past 24 hours she has been evaluated by neurology and is currently on multiple antiepileptic medications, she is currently on continuous EEG monitoring, she is also been evaluated neurosurgery who recommended conservative management at this time and radiation oncology evaluation. Review of Systems unobtainable due to mental status PMFSH - History History Provided By: Yard Labor Supervisor / EMT - Medical History Medical History: Medical History (Last Updated 01/21/18 @ 18:10 by Tom Birch MD) Alcoholism Anxiety Bone metastases History of benzodiazepine use History of chemotherapy History of radiation therapy Malignant pleural effusion Non-small cell carcinoma of left lung, stage 4 Smoking addiction - Surgical History Surgical History: Surgical History (Last Reviewed 01/21/18 @ 18:10 by Tom Birch MD) Port-A-Cath in place (Acute) S/P chest tube placement - Family History Family History: Family History (Last Reviewed 01/21/18 @ 18:10 by Tom Birch MD) Other History of bladder cancer History of kidney cancer - Social History I have reviewed the patient's Social History: Yes - Tobacco History Second Hand Smoke Exposure: No Tobacco Use In Past 30 Days: No Smoking Status: Former smoker Tobacco Type: Cigarettes Number of Pack Years (if former smoker): 35 - Alcohol History How Often Do You Have a Drink Containing Alcohol: 4 or more times a week - Substance Use History Substance History: No History of Abuse - Travel History Recent Travel in the [place] Within the Last 8 Weeks: No Recent Travel Out of the Country Within the Last 8 Weeks: No - Immunization History Tetanus Immunization: Unsure Medications and Allergies Active Medications: Active Medications Acetaminophen (Tylenol) 650 mg PO Q6H PRN PRN Reason: TEMPERATURE > 101 F Albuterol (Duoneb Neb (Talisha)) 1 ampul NEB Q4HR NEB TALISHA Last Admin: 01/21/18 15:22 Dose: 1 ampul Bisacodyl (Dulcolax Supp) 10 mg RECTAL DAILY PRN PRN Reason: if no BM in last 24h Chlorhexidine Gluconate (Chlorhexidine 2% Cloth) 3 pack TOPICAL DAILY@0400 TALISHA Stop: 01/26/18 03:59 Last Admin: 01/21/18 05:19 Dose: 3 pack Chlorhexidine Gluconate (Chlorhexidine 2% Cloth) 3 pack TOPICAL DAILY@0400 PRN PRN Reason: Extra cloth needed Stop: 01/26/18 03:59 Dexamethasone Sodium Phosphate (Decadron Inj) 4 mg IV.PUSH Q6HR TALISHA Last Admin: 01/21/18 17:12 Dose: 4 mg Dextrose (D50w Vial) 50 ml IV.PUSH UNSCH PRN PRN Reason: PER HYPOGLYCEMIA PROTOCOL Dextrose (D50w Vial) 50 ml IV.PUSH UNSCH PRN PRN Reason: PER HYPOGLYCEMIA PROTOCOL Filgrastim (Neupogen Inj) 300 mcg SQ DAILY@1400 [facility] Last Admin: 01/21/18 14:40 Dose: 300 mcg Flumazenil (Romazecon Inj) 0.2 mg IV.PUSH Q1M PRN PRN Reason: OVERSEDATION Folic Acid (Folic Acid) 1 mg PO DAILY [facility] Last Admin: 01/21/18 16:04 Dose: 1 mg Glucagon (Glucagon Inj) 1 mg OTHER PRN PRN PRN Reason: for Hypoglycemia Protocol Glucagon (Glucagon Inj) 1 mg OTHER PRN PRN PRN Reason: for Hypoglycemia Protocol Haloperidol Lactate (Haldol Inj) 1 mg IV.PUSH Q15M PRN PRN Reason: for severe agitation Last Admin: 01/21/18 02:35 Dose: 1 mg Hydralazine HCl (Apresoline Inj) 10 mg IV.PUSH Q30M PRN PRN Reason: sbp > 160, dbp > 95 Hydromorphone HCl (Dilaudid Pf Inj) 0.25 mg IV.PUSH Q1H PRN PRN Reason: pain 8-10 or not taking po Last Admin: 01/21/18 17:15 Dose: 0.25 mg Magnesium Sulfate 4 gm/ Sodium (Chloride) 100 mls @ 50 mls/hr IV.SIG UNSCH PRN PRN Reason: For Magnesium 0.9 - 1.1 mg/dL Magnesium Sulfate 2 gm/ Sodium (Chloride) 100 mls @ 50 mls/hr IV.SIG UNSCH PRN PRN Reason: For Magnesium 1.2 - 1.6 mg/dL Sodium Chloride (Ns Inj) 1,000 mls @ 84 mls/hr IV.CONT .[id number] [facility] Last Admin: 01/21/18 17:09 Dose: 84 mls/hr Potassium Chloride (Kcl 40 Meq Premix Inj) 40 meq in 100 mls @ 25 mls/hr IV.SIG Q2H PRN PRN Reason: For Potassium 2.8 - 3.2 mEq/L Potassium Chloride (Kcl 20 Meq Premix Inj) 20 meq in 100 mls @ 50 mls/hr IV.SIG Q2H PRN PRN Reason: For Potassium 3.3 - 3.5 mEq/L Potassium Chloride (Kcl 40 Meq Premix Inj) 40 meq in 100 mls @ 25 mls/hr IV.SIG UNSCH PRN PRN Reason: For Potassium 3.3 - 3.5 mEq/L Potassium Chloride (Kcl 20 Meq Premix Inj) 20 meq in 100 mls @ 50 mls/hr IV.SIG Q2H PRN PRN Reason: For Potassium 2.8 - 3.2 mEq/L Potassium Phosphate 30 mmol/ (Sodium Chloride) 260 mls @ 42 mls/hr IV.SIG UNSCH PRN PRN Reason: SEE LABEL COMMENTS Sodium Phosphate 30 mmol/ (Sodium Chloride) 260 mls @ 42 mls/hr IV.SIG UNSCH PRN PRN Reason: For Phosphorus < 2.5 mg/dL Multivitamins 10 ml/ Thiamine HCl 100 mg/ Folic Acid 1 mg/Sodium Chloride 511.2 mls @ 125 mls/hr IV.SIG Q24H TALISHA Stop: 01/23/18 01:06 Last Infusion: 01/21/18 04:47 Dose: Infused Levetiracetam 500 mg/ Sodium (Chloride) 105 mls @ 400 mls/hr IV.SIG Q12H TALISHA Last Infusion: 01/21/18 14:56 Dose: Infused Valproate Sodium 750 mg/ (Sodium Chloride) 107.5 mls @ 105 mls/hr IV.SIG ONCE ONE Stop: 01/21/18 18:44 Valproate Sodium 500 mg/ (Sodium Chloride) 105 mls @ 105 mls/hr IV.SIG Q12H TALISHA Insulin Aspart (Novolog Insulin Correctional Sugar Inj) 0 unit SQ Q6HR TALISHA; Protocol Last Admin: 01/21/18 17:12 Dose: Not Given Labetalol HCl (Trandate Inj) 10 mg IV.PUSH Q20M PRN PRN Reason: sbp > 160 or DBP > 95 Lactulose (Lactulose Liq) 30 ml PO BID [facility] Last Admin: 01/21/18 08:21 Dose: Not Given Lorazepam (Ativan) 1 mg PO Q4H PRN PRN Reason: for CIWA 8-10 Lorazepam (Ativan) 2 mg PO Q2H PRN PRN Reason: for CIWA 11-14 Lorazepam (Ativan Inj) 2 mg IV.PUSH Q2H PRN PRN Reason: for CIWA 11-14 Lorazepam (Ativan Inj) 2 mg IV.PUSH Q1H PRN PRN Reason: for CIWA 15-20 Lorazepam (Ativan Inj) 2 mg IV.PUSH Q15M PRN PRN Reason: for CIWA > 20 Lorazepam (Ativan Inj) 1 mg IV.PUSH Q4H PRN PRN Reason: for CIWA 8-10 Magnesium Oxide (Mag-Ox) 800 mg PO UNSCH PRN PRN Reason: For Magnesium 1.2 - 1.6 mg/dL Miscellaneous (Pill Splitter) 1 each OTHER [facility] Montelukast Sodium (Singulair) 10 mg PO QPM [facility] Last Admin: 01/21/18 17:17 Dose: 10 mg Ondansetron HCl (Zofran Inj) 4 mg IV.PUSH Q6H PRN PRN Reason: NAUSEA OR VOMITING Oxycodone HCl (Roxicodone) 5 mg PO Q4H PRN PRN Reason: Pain 1-5 Pantoprazole Sodium (Protonix) 40 mg PO DAILY [facility] Last Admin: 01/21/18 08:44 Dose: 40 mg Phenobarbital (Phenobarbital) 60 mg PO Q12H [facility] Phenytoin Sodium (Dilantin) 100 mg PO Q8HR [facility] Polyethylene Glycol (Miralax) 17 gm PO BID [facility] Last Admin: 01/21/18 08:21 Dose: Not Given Potassium Bicarb/Potassium Chloride (K-Lyte Cl Eff) 50 meq PO UNSCH PRN PRN Reason: For Potassium 3.3 - 3.5 mEq/L Potassium Phosphate (K-Phos Original) 2,000 mg PO Q4H PRN PRN Reason: Phosphorus Less Than 2.5 mg/dL Potassium Phosphate (K-Phos Original) 2,000 mg PO UNSCH PRN PRN Reason: SEE LABEL COMMENTS Senna/Docusate Sodium (Liliya-Colace) 1 tab PO BID [facility] Last Admin: 01/21/18 08:21 Dose: Not Given Sodium Chloride (Ns Flush) 2 ml IV.FLUSH PRN PRN PRN Reason: FLUSH AFTER USING IV ACCESS Sodium Chloride (Ns Flush) 2 ml IV.FLUSH UNSCH PRN PRN Reason: FLUSH AFTER USING IV ACCESS Allergies Allergy/AdvReac Type Severity Reaction Status Date / Time No Known Allergies Allergy Verified 01/20/18 12:59 Home Medications Medication Instructions Recorded Confirmed Type alprazolam 1 mg PO DAILY 01/20/18 01/20/18 History aspirin 81 mg PO DAILY 01/20/18 01/20/18 History montelukast 10 mg PO QPM 01/20/18 01/20/18 History oxycodone-acetaminophen 2 tab PO Q6H PRN 01/20/18 01/20/18 History Physical Exam Vital signs: Vital Signs 01/20/18 19:00 01/20/18 20:00 01/20/18 20:20 Temperature 98.7 F Pulse Rate 111 H 116 H 112 H Respiratory Rate 16 Blood Pressure 127/72 105/58 L Pulse Oximetry 97 98 01/20/18 21:00 01/20/18 22:00 01/20/18 23:00 Temperature Pulse Rate 121 H 120 H 122 H Respiratory Rate 18 24 23 Blood Pressure 112/70 114/69 Pulse Oximetry 97 100 95 01/20/18 23:15 01/21/18 00:00 01/21/18 01:00 Temperature 97.9 F Pulse Rate 123 H 119 H 120 H Respiratory Rate 20 25 H 20 Blood Pressure 127/62 111/58 L Pulse Oximetry 95 94 L 01/21/18 02:00 01/21/18 03:00 01/21/18 04:00 Temperature 98.6 F Pulse Rate 119 H 120 H 121 H Respiratory Rate 30 H 25 H 24 Blood Pressure 120/71 125/71 123/72 Pulse Oximetry 99 98 97 01/21/18 04:57 01/21/18 05:00 01/21/18 06:00 Temperature Pulse Rate 116 H 114 H 123 H Respiratory Rate 20 28 H 17 Blood Pressure 125/68 136/61 Pulse Oximetry 99 100 96 01/21/18 07:00 01/21/18 07:23 01/21/18 08:00 Temperature 98.3 F Pulse Rate 123 H 116 H 109 H Respiratory Rate 34 H 34 H 25 H Blood Pressure 111/63 Pulse Oximetry 98 100 95 01/21/18 08:13 01/21/18 08:16 01/21/18 08:24 Temperature 98.2 F Pulse Rate 119 H 117 H 116 H Respiratory Rate 36 H 18 28 H Blood Pressure 108/76 108/76 Pulse Oximetry 91 L 97 94 L 01/21/18 09:00 01/21/18 10:00 01/21/18 10:15 Temperature 98 F Pulse Rate 117 H 111 H 109 H Respiratory Rate 38 H 17 18 Blood Pressure 114/57 L 95/54 L 95/54 L Pulse Oximetry 95 100 100 01/21/18 10:16 01/21/18 10:38 01/21/18 11:00 Temperature 98 F 98.7 F Pulse Rate 107 H 115 H 106 H Respiratory Rate 18 18 16 Blood Pressure 95/54 L 98/75 L 90/54 L Pulse Oximetry 100 98 100 01/21/18 11:01 01/21/18 12:00 01/21/18 13:00 Temperature 98.4 F Pulse Rate 106 H 103 H 94 H Respiratory Rate 16 17 16 Blood Pressure 97/55 L 89/52 L 90/52 L Pulse Oximetry 100 100 100 01/21/18 14:00 01/21/18 15:00 01/21/18 15:24 Temperature Pulse Rate 91 H 93 H 104 H Respiratory Rate 20 20 24 Blood Pressure 105/65 106/67 Pulse Oximetry 100 100 01/21/18 16:00 01/21/18 17:00 Temperature 98.9 F Pulse Rate 108 H 101 H Respiratory Rate 22 21 Blood Pressure 117/59 L 119/58 L Pulse Oximetry 100 99 Intake & Output 01/20/18 01/21/18 01/21/18 18:59 06:59 18:59 Intake Total 200 / 200 1924.2 / 1924.2 605 / 605 Output Total 350 / 350 Balance 200 / 200 1574.2 / 1574.2 605 / 605 Weight 61.235 kg 62.3 kg Intake: IV 200 / 200 1924.2 / 1924.2 205 / 205 NS Inj 1,000 ML @ 84 mls/hr IV. 1000 / 1000 CONT .[id number] [facility] Rx#: [id number] Magnesium Sulfate Inj 4 GM In 108 / 108 D5W Inj 100 ML @ 25 mls/hr IV. SIG ONCE ONE Rx#:[id number] MVI-12 Inj 10 ML Thiamine Inj 511.2 / 511.2 100 MG Folvite Inj 1 MG In NS Inj 500 ML @ 125 mls/hr IV.SIG Q24H [facility] Rx#:[id number] KCl 20 mEq Premix Inj 20 meq In 100 / 100 100 ml @ 50 mls/hr IV.SIG ONCE ONE Rx#:[id number] KCl 40 mEq Premix Inj 40 meq In 200 / 200 100 ml @ 25 mls/hr IV.SIG Q4H [facility] Rx#:[id number] Keppra 1000 mg/100 mL Premix 100 / 100 100 / 100 100 ML @ 400 mls/hr IV.SIG NOW ONE Rx#:[id number] Keppra Inj 500 MG In NS Inj 100 105 / 105 105 / 105 ML @ 400 mls/hr IV.SIG Q12H [facility]ALISHA Rx#:[id number] Intake (Blood Product) Amt 400 / 400 Rbc As-3 Leukoreduced Unit 400 / 400 [id number] Rbc As-3 Leukoreduced Unit 0 / 0 [id number] Output: Urine 350 / 350 Other: # Incontinent Voids 3 Narrative: General physical appearance: Middle-aged female, laying in bed, she has EEG monitors on her forehead and on her scalp. She is responsive and awake, she tries to speak but her language is unintelligible. She appears chronically ill. HEENT: Head atraumatic normocephalic, she has EEG monitor stickers on her forehead and scalp. Respiratory: Poor inspiratory effort, decreased basilar breath sounds on the right side, otherwise prolonged expiratory phase on the right side without significant rhonchi or wheezes. Left hemithorax: Little to no breath sounds. Cardiovascular: Regular rate rhythm S1-S2 no obvious murmurs rubs gallops. Abdomen: Thin abdomen, soft, nontender, nondistended no palpable organ enlargement, positive bowel sounds. 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 I do not identify any active seizure activity at this time. Lower extremities: Decreased muscle mass, no peripheral edema at this time. Muscular skeletal: Generally decreased/atrophic musculature. Skin: Nonfocal examination, some bruising is identified. Results - Labs CBC & Chem 7: 01/21/18 14:21 01/21/18 14:21 Labs: Laboratory Results - last 24 hr 01/20/1818 18 18:09 18:45 19:45 WBC RBC Hgb Hct MCV MCH MCHC RDW Plt Count MPV Prelim Diff (Auto) Neut % (Auto) Lymph % (Auto) [place] % (Auto) Eos % (Auto) Baso % (Auto) Neut # (Auto) Lymph # (Auto) [place] # (Auto) Eos # (Auto) Baso # (Auto) WBC Differential Seg Neuts % (Manual) Lymphocytes % (Manual) Monocytes % (Manual) Abs Neuts (Manual) Differential Comment Platelet Estimate Platelet Morphology Sodium Potassium Chloride Carbon Dioxide Anion Gap BUN Creatinine Estimated GFR POC Glucose 98 Random Glucose Hemoglobin A1c Osmolality Lactic Acid Uric Acid 1.7 L Calcium Calcium Adj for Albumin Phosphorus 2.9 Magnesium 1.5 Ammonia Lactate Dehydrogenase Total Creatine Kinase Troponin I Albumin Triglycerides Cholesterol LDL Cholesterol, Calc HDL Cholesterol Cholesterol/HDL Ratio Lipase 101 Vitamin B12 Beta-Hydroxybutyric Acd TSH Thyroxine (T4) Cortisol Urine Color Urine Clarity Urine pH Ur Specific [place] Urine Protein Urine Glucose (UA) Urine Ketones Urine Occult Blood Urine Nitrate Urine Bilirubin Urine Urobilinogen Ur Leukocyte Esterase Urine RBC Urine WBC Ur Squamous Epith Cells Micro UA Comment Ur Microscopic Review Urine Culture Comments Urine Osmolality Ur Random Sodium Nasal Screen MRSA (PCR) Not detected Hepatitis A IgM Ab Hep Bs Antigen Hep B Core IgM Ab Hep C IgG Ab Blood Type Blood Type Recheck Antibody Screen MTS Gel Crossmatch 01/20/18 01/20/18 01/20/18 19:45 19:45 19:45 WBC RBC Hgb Hct MCV MCH MCHC RDW Plt Count MPV Prelim Diff (Auto) Neut % (Auto) Lymph % (Auto) [place] % (Auto) Eos % (Auto) Baso % (Auto) Neut # (Auto) Lymph # (Auto) [place] # (Auto) Eos # (Auto) Baso # (Auto) WBC Differential Seg Neuts % (Manual) Lymphocytes % (Manual) Monocytes % (Manual) Abs Neuts (Manual) Differential Comment Platelet Estimate Platelet Morphology Sodium Potassium 2.6 L* Chloride Carbon Dioxide Anion Gap BUN Creatinine Estimated GFR POC Glucose Random Glucose Hemoglobin A1c Osmolality 267 L Lactic Acid Uric Acid Calcium Calcium Adj for Albumin Phosphorus Magnesium Ammonia Lactate Dehydrogenase 211 Total Creatine Kinase 48 Troponin I 0.92 H* D Albumin Triglycerides 111 Cholesterol 150 LDL Cholesterol, Calc 85 HDL Cholesterol 43.3 Cholesterol/HDL Ratio 3.46 Lipase Vitamin B12 Greater than 2000 H Beta-Hydroxybutyric Acd TSH 1.330 Thyroxine (T4) 8.4 Cortisol 22.5 Urine Color Urine Clarity Urine pH Ur Specific [place] Urine Protein Urine Glucose (UA) Urine Ketones Urine Occult Blood Urine Nitrate Urine Bilirubin Urine Urobilinogen Ur Leukocyte Esterase Urine RBC Urine WBC Ur Squamous Epith Cells Micro UA Comment Ur Microscopic Review Urine Culture Comments Urine Osmolality Ur Random Sodium Nasal Screen MRSA (PCR) Hepatitis A IgM Ab Nonreactive Hep Bs Antigen Nonreactive Hep B Core IgM Ab Nonreactive Hep C IgG Ab Nonreactive Blood Type Blood Type Recheck Antibody Screen MTS Gel Crossmatch 01/20/18 01/21/18 01/21/18 19:45 00:01 01:11 WBC RBC Hgb Hct MCV MCH MCHC RDW Plt Count MPV Prelim Diff (Auto) Neut % (Auto) Lymph % (Auto) [place] % (Auto) Eos % (Auto) Baso % (Auto) Neut # (Auto) Lymph # (Auto) [place] # (Auto) Eos # (Auto) Baso # (Auto) WBC Differential Seg Neuts % (Manual) Lymphocytes % (Manual) Monocytes % (Manual) Abs Neuts (Manual) Differential Comment Platelet Estimate Platelet Morphology Sodium Potassium Chloride Carbon Dioxide Anion Gap BUN Creatinine Estimated GFR POC Glucose 103 Random Glucose Hemoglobin A1c 4.7 Osmolality Lactic Acid 1.9 Uric Acid Calcium Calcium Adj for Albumin Phosphorus Magnesium Ammonia Lactate Dehydrogenase Total Creatine Kinase Troponin I Albumin Triglycerides Cholesterol LDL Cholesterol, Calc HDL Cholesterol Cholesterol/HDL Ratio Lipase Vitamin B12 Beta-Hydroxybutyric Acd TSH Thyroxine (T4) Cortisol Urine Color Urine Clarity Urine pH Ur Specific [place] Urine Protein Urine Glucose (UA) Urine Ketones Urine Occult Blood Urine Nitrate Urine Bilirubin Urine Urobilinogen Ur Leukocyte Esterase Urine RBC Urine WBC Ur Squamous Epith Cells Micro UA Comment Ur Microscopic Review Urine Culture Comments Urine Osmolality Ur Random Sodium Nasal Screen MRSA (PCR) Hepatitis A IgM Ab Hep Bs Antigen Hep B Core IgM Ab Hep C IgG Ab Blood Type Blood Type Recheck Antibody Screen MTS Gel Crossmatch 01/21/18 01/21/18 01/21/18 02:36 02:36 02:36 WBC RBC Hgb Hct MCV MCH MCHC RDW Plt Count MPV Prelim Diff (Auto) Neut % (Auto) Lymph % (Auto) [place] % (Auto) Eos % (Auto) Baso % (Auto) Neut # (Auto) Lymph # (Auto) [place] # (Auto) Eos # (Auto) Baso # (Auto) WBC Differential Seg Neuts % (Manual) Lymphocytes % (Manual) Monocytes % (Manual) Abs Neuts (Manual) Differential Comment Platelet Estimate Platelet Morphology Sodium Potassium Chloride Carbon Dioxide Anion Gap BUN Creatinine Estimated GFR POC Glucose Random Glucose Hemoglobin A1c Osmolality Lactic Acid Uric Acid Calcium Calcium Adj for Albumin Phosphorus Magnesium Ammonia Lactate Dehydrogenase Total Creatine Kinase Troponin I Albumin Triglycerides Cholesterol LDL Cholesterol, Calc HDL Cholesterol Cholesterol/HDL Ratio Lipase Vitamin B12 Beta-Hydroxybutyric Acd TSH Thyroxine (T4) Cortisol Urine Color Yellow Urine Clarity Clear Urine pH 7.0 Ur Specific [place] 1.013 Urine Protein Negative Urine Glucose (UA) Negative Urine Ketones 20 Urine Occult Blood Negative Urine Nitrate Negative Urine Bilirubin Negative Urine Urobilinogen Less than 2 Ur Leukocyte Esterase Negative Urine RBC Less than 1 Urine WBC Less than 1 Ur Squamous Epith Cells <1 Micro UA Comment Culture not ind Ur Microscopic Review Not Reportable Urine Culture Comments Culture not ind Urine Osmolality 238 L Ur Random Sodium 66 Nasal Screen MRSA (PCR) Hepatitis A IgM Ab Hep Bs Antigen Hep B Core IgM Ab Hep C IgG Ab Blood Type Blood Type Recheck Antibody Screen MTS Gel Crossmatch 01/21/18 01/21/18 01/21/18 05:12 05:12 05:12 WBC 1.6 L RBC 1.99 L Hgb 6.9 L* Hct 20.2 L* MCV 101.6 H MCH 34.8 H MCHC 34.2 RDW 13.3 Plt Count 91 L MPV 8.1 Prelim Diff (Auto) Slide review pending Neut % (Auto) 83.2 H Lymph % (Auto) 8.7 L [place] % (Auto) 7.9 Eos % (Auto) 0.1 Baso % (Auto) 0.1 Neut # (Auto) 1.3 L Lymph # (Auto) 0.1 L [place] # (Auto) 0.1 Eos # (Auto) 0.0 Baso # (Auto) 0.0 WBC Differential Manual diff final Seg Neuts % (Manual) 89 H Lymphocytes % (Manual) 9 Monocytes % (Manual) 2 Abs Neuts (Manual) 1.4 L Differential Comment . Platelet Estimate Low L Platelet Morphology Normal Sodium 137 Potassium 3.1 L Chloride 101 D Carbon Dioxide 26.8 Anion Gap 9 BUN 1 L Creatinine 0.23 L Estimated GFR Greater than 89 POC Glucose Random Glucose 135 H Hemoglobin A1c Osmolality Lactic Acid Uric Acid Calcium 7.1 L* Calcium Adj for Albumin 9.3 Phosphorus 2.4 L Magnesium 2.6 H D Ammonia 14 Lactate Dehydrogenase Total Creatine Kinase Troponin I 0.47 H D Albumin 1.3 L Triglycerides Cholesterol LDL Cholesterol, Calc HDL Cholesterol Cholesterol/HDL Ratio Lipase Vitamin B12 Beta-Hydroxybutyric Acd 0.81 H TSH 0.931 Thyroxine (T4) Cortisol Urine Color Urine Clarity Urine pH Ur Specific [place] Urine Protein Urine Glucose (UA) Urine Ketones Urine Occult Blood Urine Nitrate Urine Bilirubin Urine Urobilinogen Ur Leukocyte Esterase Urine RBC Urine WBC Ur Squamous Epith Cells Micro UA Comment Ur Microscopic Review Urine Culture Comments Urine Osmolality Ur Random Sodium Nasal Screen MRSA (PCR) Hepatitis A IgM Ab Hep Bs Antigen Hep B Core IgM Ab Hep C IgG Ab Blood Type Blood Type Recheck Antibody Screen MTS Gel Crossmatch 01/21/18 01/21/18 01/21/18 06:03 08:31 11:23 WBC RBC Hgb Hct MCV MCH MCHC RDW Plt Count MPV Prelim Diff (Auto) Neut % (Auto) Lymph % (Auto) [place] % (Auto) Eos % (Auto) Baso % (Auto) Neut # (Auto) Lymph # (Auto) [place] # (Auto) Eos # (Auto) Baso # (Auto) WBC Differential Seg Neuts % (Manual) Lymphocytes % (Manual) Monocytes % (Manual) Abs Neuts (Manual) Differential Comment Platelet Estimate Platelet Morphology Sodium Potassium Chloride Carbon Dioxide Anion Gap BUN Creatinine Estimated GFR POC Glucose 179 H Random Glucose Hemoglobin A1c Osmolality Lactic Acid Uric Acid Calcium Calcium Adj for Albumin Phosphorus Magnesium Ammonia Lactate Dehydrogenase Total Creatine Kinase Troponin I Albumin Triglycerides Cholesterol LDL Cholesterol, Calc HDL Cholesterol Cholesterol/HDL Ratio Lipase Vitamin B12 Beta-Hydroxybutyric Acd TSH Thyroxine (T4) Cortisol Urine Color Urine Clarity Urine pH Ur Specific [place] Urine Protein Urine Glucose (UA) Urine Ketones Urine Occult Blood Urine Nitrate Urine Bilirubin Urine Urobilinogen Ur Leukocyte Esterase Urine RBC Urine WBC Ur Squamous Epith Cells Micro UA Comment Ur Microscopic Review Urine Culture Comments Urine Osmolality Ur Random Sodium Nasal Screen MRSA (PCR) Hepatitis A IgM Ab Hep Bs Antigen Hep B Core IgM Ab Hep C IgG Ab Blood Type A Positive Blood Type Recheck Not needed Antibody Screen Negative MTS Gel Crossmatch See Detail See Detail 01/21/18 01/21/18 01/21/18 14:21 14:21 17:03 WBC RBC Hgb 11.5 L D Hct 32.9 L MCV MCH MCHC RDW Plt Count MPV Prelim Diff (Auto) Neut % (Auto) Lymph % (Auto) [place] % (Auto) Eos % (Auto) Baso % (Auto) Neut # (Auto) Lymph # (Auto) [place] # (Auto) Eos # (Auto) Baso # (Auto) WBC Differential Seg Neuts % (Manual) Lymphocytes % (Manual) Monocytes % (Manual) Abs Neuts (Manual) Differential Comment Platelet Estimate Platelet Morphology Sodium Potassium 3.5 Chloride Carbon Dioxide Anion Gap BUN Creatinine Estimated GFR POC Glucose 122 H Random Glucose Hemoglobin A1c Osmolality Lactic Acid Uric Acid Calcium Calcium Adj for Albumin Phosphorus Magnesium Ammonia Lactate Dehydrogenase Total Creatine Kinase Troponin I Albumin Triglycerides Cholesterol LDL Cholesterol, Calc HDL Cholesterol Cholesterol/HDL Ratio Lipase Vitamin B12 Beta-Hydroxybutyric Acd TSH Thyroxine (T4) Cortisol Urine Color Urine Clarity Urine pH Ur Specific [place] Urine Protein Urine Glucose (UA) Urine Ketones Urine Occult Blood Urine Nitrate Urine Bilirubin Urine Urobilinogen Ur Leukocyte Esterase Urine RBC Urine WBC Ur Squamous Epith Cells Micro UA Comment Ur Microscopic Review Urine Culture Comments Urine Osmolality Ur Random Sodium Nasal Screen MRSA (PCR) Hepatitis A IgM Ab Hep Bs Antigen Hep B Core IgM Ab Hep C IgG Ab Blood Type Blood Type Recheck Antibody Screen MTS Gel Crossmatch - Imaging Impressions Chest CT 01/20/18 00:00 CONCLUSION: 1. Masslike area of the left hilum attenuating the left mainstem bronchus and presumably is a central primary bronchogenic carcinoma. There is associated consolidation of most of the left lung and with volume loss. 2. Moderate to large left pleural effusion with loculated components medially at the apex and laterally at the base. Tip of the chest tube is in the apical component. 3. Displaced fracture posteriorly of the left 11th rib and with a suspected 1 cm lytic lesion concerning for metastasis. No other focal bone lesions are demonstrated. Head MRI 01/20/18 13:54 CONCLUSION: 14 mm round, probably intra-axial mass of the left high posterior parietal lobe as described probably a metastatic lesion. Assessment and Plan - Plan Ms. Hearn is a 57-year-old female with a recent diagnosis of metastatic adenocarcinoma of the lung, her disease is PDL-1 expression less than 1%, EGFR mutation negative, ALK mutation negative, BRA F mutation negative, ROS-1 mutation negative and RET mutation negative. She had metastatic disease at time of diagnosis as evidenced by malignant left-sided pleural effusion, radiographic evidence of vertebral metastases and adrenal gland metastases. She has thus far received palliative radiation for management of her thoracic metastases, she has also received a single cycle of palliative systemic therapy consisting of carboplatin and pemetrexed which was delivered on 01/11/2018. She now presents with seizures and altered mental status, she was noted on imaging studies performed during this hospitalization to have a 14 mm enhancing mass involving the left temporoparietal lobe (high in the convexity). She has undergone EEGs and is noted to have epileptic activity involving both cerebral hemispheres. She is currently on a Keppra infusion and is also on phenytoin. The patient has been evaluated by neurosurgery who recommended radiation oncology evaluation and conservative management. Additional issues include chemotherapy related myelosuppression. Recommendations: 1. Metastatic adenocarcinoma of the lung: I have requested radiation oncology evaluation to discuss palliative radiation options for management of her intracranial metastasis which is a likely major contributor to ongoing seizures. Systemic therapy will remain on hold due to her acute illness and myelosuppression. Brain metastasis: She is on dexamethasone 4 mg every 6 hours. 2. Chemotherapy related myelosuppression: I have initiated patient on Neupogen at 300 mcg subcu daily. I have also initiated her on folic acid given recent treatment with pemetrexed. 3. Left-sided pleural effusion: She has a Pleurx catheter in place, I have advised our critical care team to have this drained tomorrow and every other day as needed. 4. Seizure activity: Currently on multiple antiepileptics. I would also like that the patient has a history of significant alcohol consumption on a daily basis, she may at some point develop alcohol withdrawal related symptoms including delirium tremens and possible seizures. Case was discussed extensively with critical care attending, critical care nursing and the patient's mother via telephone.
--- NOTE | 2018-01-21 20:40 | MG ---
cc: Reg Jamil MD, PhD EEG NUMBER: [id number] TECHNIQUE: This is a 17-channel EEG. DESCRIPTION: Background rhythm is generally slow in the delta frequency. There is sharp activity throughout the tracing bilaterally, which does have the appearance of epileptiform features occurring in a very periodic fashion. There is a lot of muscle artifact as well. INTERPRETATION: Abnormal study. Bilateral periodic epileptiform discharges are present occurring about 1 every 1-2 seconds. There is generalized slowing as well consistent with a severe encephalopathy. Reg Jamil MD, PhD FADI/liam , 07:53 PM , 08:00 PM
--- NOTE | 2018-01-21 20:40 | MG ---
cc: Reg Jamil MD, PhD DATE OF STUDY: 01/21/2018 EEG NUMBER: [id number] TECHNIQUE: A 17-channel EEG. DESCRIPTION: Background rhythm shows generalized slowing in the delta frequency. Periodic epileptiform discharges are present, more so over the left hemisphere than over the right hemisphere consistent with probable PLEDS. This occurs throughout the tracing almost continuous. INTERPRETATION: Abnormal study consistent with PLEDS, mainly in the left hemisphere. Reg Jamil MD, PhD FADI/sj , 07:55 PM , 08:01 PM
[2018-01-21] MEDS: Multivitamin Inj 10 ML, Thiamine Inj 100 MG, Folic Acid Inj 1 MG in Sodium Chlor 0.9% I... IV.SIG SCH (20:47)
[2018-01-21] MEDS: Phenytoin Sodium 100 MG Capsule PO SCH (22:27)
[2018-01-22] MEDS: Insulin NovoLOG Aspart Correctional Sugar Inj SQ SCH ×4 (00:33→17:39)
[2018-01-22] MEDS: HYDROmorphone PF Inj 1 MG/ML Ampul IV.PUSH PRN (01:17)
[2018-01-22] MEDS: Haloperidol Inj 5 MG/ML Ampul IV.PUSH PRN (01:43)
[2018-01-22] MEDS: Chlorhexidine Gluconate 2% 1 Pack (2 Cloths) TOPICAL SCH (03:54)
[2018-01-22] MEDS ORDERED: Etomidate Inj 40 MG/20 ML Vial IV.PUSH ONE (03:59)
[2018-01-22] MEDS ORDERED: Succinylcholine Inj 200 MG/10 ML Vial ONE (03:59)
[2018-01-22] MEDS ORDERED: Propofol Inj 500 MG/50 ML Vial ONE (04:28)
--- NOTE | 2018-01-22 04:55 | P.PCN ---
Date of procedure: 01/22/18 Pre-op diagnosis: Respiratory formula Post-op diagnosis: same Procedure: Endotracheal Intubation A time-out was completed verifying correct patient, procedure, site, positioning , and special equipment if applicable. The patient was placed in a flat position. Sedation was obtained using Etomidate 20mg. The patient was easily ventilated using an ambu bag. The [employer]/ MAC 4 BLADE was used and inserted into the oropharynx at which time there was a Grade 1 view of the vocal cords. A 8-sammarinese endotracheal tube was inserted and visualized going through the vocal cords. The stylette was removed. Colorimetric change was visualized on the CO2 meter. Breath sounds were heard in both lung sylvester equally. The endotracheal tube was placed at 23 cm, measured at the teeth. A chest x-ray was ordered to assess for pneumothorax and verify endotrachealtube placement. Estimated Blood Loss: 0 The patient tolerated the procedure well and there were no complications.
[2018-01-22] MEDS: Sod Chloride 0.9% Inj 1,000 ML IV.CONT SCH ×3 (05:23→20:06)
[2018-01-22 05:34] LABS: ABG Base Excess -3.5 mmol/L (-2-2); ABG PCO2 30 mmHg (38-42); ABG PO2 438 mmHg (61-120)
--- NOTE | 2018-01-22 05:36 | XR ---
EXAM DATE: 01/22/2018 5:20 AM EST AGE/SEX: 57 years / Female INDICATIONS: Post intubation. CLINICAL DATA: This is the patient's subsequent encounter. Patient reports that signs and symptoms h ave been present for 3 days and indicates a pain score of Nonresponsive. MEDICAL/SURGICAL HISTORY: . Carcinoma, lung. . Infusaport. COMPARISON: [facility], CHEST 1V SINGLE AP, 01/20/2018. . FINDINGS: There is complete opacification of the left hemithorax. This is increased from previous. Endotracheal tube is noted and tip terminates 2.5 cm above the seth. A left-sided chest tube is present as befo re. Right-sided portacatheter is present and the tip overlies the expected location of the SVC. There is patchy parenchymal density in the right upper and lower lung zones. The osseous structures are in tact. Enteric tube courses beneath the diaphragm. CONCLUSION: Patchy infiltrate right lung. Complete opacification left hemithorax. Electronically signed by: Sj Phillips MD 01/22/2018 5:35 AM EST
[2018-01-22] MEDS: Propofol 1000 mg/100 ml Inj 1,000 MG/100 ML BOTTLE IV.CONT PRN ×2 (05:49→19:08)
[2018-01-22] MEDS: Phenytoin Sodium 100 MG Capsule PO SCH (05:49)
[2018-01-22] MEDS: Valproate Inj 500 MG in Sodium Chlor 0.9% Inj 100 ML IV.SIG SCH ×2 (06:01→17:39)
[2018-01-22] MEDS: Chlorhexidine 0.12% Oral Kit 15 ML UDC OROPHARYNG SCH ×2 (08:17→20:05)
[2018-01-22] MEDS: Polyethylene Glycol 3350 17 GM Packet PO SCH ×2 (08:17→20:54)
[2018-01-22] MEDS: Senna/Docusate Sodium 8.6/50 MG Tablet PO SCH ×2 (08:17→20:54)
[2018-01-22] MEDS ORDERED: fentaNYL 10 mcg/mL Premix Drip 2,500 MCG/250 ML BAG IV.SIG PRN (08:33)
[2018-01-22] MEDS ORDERED: Labetalol HCl Inj 100 MG/20 ML Vial IV.PUSH PRN (08:34)
[2018-01-22] MEDS ORDERED: hydrALAZINE HCl Inj 20 MG/ML Vial IV.PUSH PRN (08:34)
[2018-01-22] MEDS: Artificial Tears Opth Drops 15 ML Bottle EACH EYE SCH ×3 (08:36→23:32)
--- NOTE | 2018-01-22 08:42 | P.PNCC ---
Subjective Subjective Remarks/Hospital Course: 01/20: This is a 57-year-old female. Date of admission 01/20/2018. 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 Follows with Dr. Birch. History of tobaccoism 35 pack years quit 12 years ago. History of anxiety and chronic alprazolam. Patient has history of a left hemithorax with the Pleurx catheter placed recently. She also has an [id number] by history. Patient presents to [facility] after recently just completing her first chemo treatment Thursday. 20 minutes prior to arrival to [facility], patient had paralysis of her right leg, twitching , unable to see straight. She is noted to have expressive aphasia as well. She is also noted to have a seizure prior to arrival and at at that facility. This was documented as shaking both arms and legs and displacing the head to the side. She received [address] brain revealed left parietal circulation. CT angiogram revealed possible metastases. CT of the neck revealed no acute findings. During the stroke alert , MRI with and without contrast brain was ordered to rule out metastatic brain lesion. She is transported to [facility]. She is old awake and alert to person only. She has subjective right upper lower extremity weakness on examination. 01/21: Laying in bed. Responds to commands off and on. SUBJECTIVE: 01/22: Intubated overnight due to altered mental status. EEG revealed seizure- like activity. Currently family is discussing possible withdrawal of care. Will drain Pleurx catheter today. Objective Vital Signs / I&O: Vital Signs 01/21/18 09:00 01/21/18 10:00 01/21/18 10:15 Temperature 98 F Pulse Rate 117 H 111 H 109 H Respiratory Rate 38 H 17 18 Blood Pressure 114/57 L 95/54 L 95/54 L Pulse Oximetry 95 100 100 01/21/18 10:16 01/21/18 10:38 01/21/18 11:00 Temperature 98 F 98.7 F Pulse Rate 107 H 115 H 106 H Respiratory Rate 18 18 16 Blood Pressure 95/54 L 98/75 L 90/54 L Pulse Oximetry 100 98 100 01/21/18 11:01 01/21/18 12:00 01/21/18 13:00 Temperature 98.9 F Pulse Rate 106 H 110 H 94 H Respiratory Rate 16 18 16 Blood Pressure 97/55 L 100/60 90/52 L Pulse Oximetry 100 97 100 01/21/18 14:00 01/21/18 15:00 01/21/18 15:24 Temperature Pulse Rate 91 H 93 H 104 H Respiratory Rate 20 20 24 Blood Pressure 105/65 106/67 Pulse Oximetry 100 100 01/21/18 16:00 01/21/18 17:00 01/21/18 18:00 Temperature 98.9 F Pulse Rate 108 H 101 H 101 H Respiratory Rate 22 21 20 Blood Pressure 117/59 L 119/58 L 91/54 L Pulse Oximetry 100 99 100 01/21/18 19:00 01/21/18 20:00 01/21/18 20:26 Temperature 97.6 F Pulse Rate 102 H 94 H 96 H Respiratory Rate 31 H 20 21 Blood Pressure 122/54 L 104/60 Pulse Oximetry 92 L 96 01/21/18 21:00 01/21/18 21:01 01/21/18 22:00 Temperature Pulse Rate 108 H 107 H Respiratory Rate 19 21 20 Blood Pressure 94/53 L 90/52 L Pulse Oximetry 98 98 01/21/18 23:00 01/21/18 23:31 01/22/18 00:00 Temperature 97.6 F Pulse Rate 101 H 103 H 101 H Respiratory Rate 16 21 14 Blood Pressure 91/52 L 101/61 Pulse Oximetry 100 100 01/22/18 01:00 01/22/18 01:47 01/22/18 02:00 Temperature Pulse Rate 101 H Respiratory Rate 19 18 Blood Pressure 101/57 L Pulse Oximetry 94 L 86 L 01/22/18 02:19 01/22/18 03:00 01/22/18 03:26 Temperature Pulse Rate 126 H 106 H 109 H Respiratory Rate 23 15 Blood Pressure 121/76 89/56 L 174/82 H Pulse Oximetry 97 01/22/18 03:41 01/22/18 03:55 01/22/18 04:00 Temperature 97.6 F Pulse Rate 139 H 141 H 145 H Respiratory Rate 39 H 24 49 H Blood Pressure 159/70 H Pulse Oximetry 91 L 97 01/22/18 04:13 01/22/18 05:00 01/22/18 05:04 Temperature Pulse Rate 159 H 136 H 140 H Respiratory Rate 29 H 15 35 H Blood Pressure 130/89 130/77 Pulse Oximetry 100 100 100 01/22/18 06:00 01/22/18 08:03 Temperature Pulse Rate 131 H 120 H Respiratory Rate 20 15 Blood Pressure 118/78 Pulse Oximetry 100 100 Intake & Output 01/21/18 01/22/18 01/22/18 18:59 06:59 18:59 Intake Total 1205 / 1205 1616.2 / 1616.2 105 / 105 Output Total 300 / 300 Balance 905 / 905 1616.2 / 1616.2 105 / 105 Weight 85 kg Intake: IV 205 / 205 1616.2 / 1616.2 105 / 105 NS Inj 1,000 ML @ 84 mls/hr IV. 1000 / 1000 CONT .[id number] NATALIA Rx#: [id number] MVI-12 Inj 10 ML Thiamine Inj 511.2 / 511.2 100 MG Folvite Inj 1 MG In NS Inj 500 ML @ 125 mls/hr IV.SIG Q24H NATALIA Rx#:[id number] Depacon Inj 500 MG In NS Inj 105 / 105 100 ML @ 105 mls/hr IV.SIG Q12H NATALIA Rx#:[id number] Keppra 1000 mg/100 mL Premix 100 / 100 100 ML @ 400 mls/hr IV.SIG NOW ONE Rx#:[id number] Keppra Inj 500 MG In NS Inj 100 105 / 105 105 / 105 ML @ 400 mls/hr IV.SIG Q12H NATALIA Rx#:[id number] Oral 200 / 200 Intake (Blood Product) Amt 800 / 800 Rbc As-3 Leukoreduced Unit 400 / 400 [id number] Rbc As-3 Leukoreduced Unit 400 / 400 [id number] Output: Urine 300 / 300 Other: # Voids 3 # Incontinent Voids 3 # Bowel Movements 0 Result Diagrams: 01/21/18 14:21 01/21/18 14:21 Imaging: Chest CT 01/20/18 00:00 CONCLUSION: 1. Masslike area of the left hilum attenuating the left mainstem bronchus and presumably is a central primary bronchogenic carcinoma. There is associated consolidation of most of the left lung and with volume loss. 2. Moderate to large left pleural effusion with loculated components medially at the apex and laterally at the base. Tip of the chest tube is in the apical component. 3. Displaced fracture posteriorly of the left 11th rib and with a suspected 1 cm lytic lesion concerning for metastasis. No other focal bone lesions are demonstrated. Head CT 01/20/18 12:59 CONCLUSION: 1. No acute intracranial abnormality is identified. 2. Chronic changes include mild generalized atrophy and encephalomalacia in the left parietal high convexity. 3. Optometry Professor view demonstrates complete opacification of the left hemithorax in this patient with history of lung cancer. Suggest correlating with the patient' s prior imaging studies to determine if this is a new finding. The above findings were telephoned to Dr. Interiano on 01/20/2018 at 1:19 PM. Head CTA 01/20/18 12:59 CONCLUSION: 1. No acute intracranial vascular abnormality is identified. 2. Possible enhancing lesion in the left parietal high convexity which could represent a metastatic lesion in this patient with history of lung cancer. The findings were telephoned to Dr. Wiseman and Dr. Interiano in on 01/20/2018 at 1:49 PM. Neck CTA 01/20/18 12:59 CONCLUSION: 1. Negative for hemodynamically significant carotid stenosis 2. Significant consolidative changes in the left upper lobe likely fluid collection in the apex of the left upper lobe. Head MRI 01/20/18 13:54 CONCLUSION: 14 mm round, probably intra-axial mass of the left high posterior parietal lobe as described probably a metastatic lesion. Chest X-Ray 01/20/18 14:32 CONCLUSION: Opacification left hemithorax with apparent Pleurx catheter in place. Chest X-Ray 01/22/18 04:52 CONCLUSION: Patchy infiltrate right lung. Complete opacification left hemithorax. Objective Remarks: GENERAL: 57-year-old female currently orotracheally intubated SKIN: Warm and dry. No rash HEAD: Atraumatic. Normocephalic. EYES: Pupil right pupil is about 5 mm and minimally reactive. Left pupil is 4 mm and slightly reactive. No scleral icterus. ENT: No nasal bleeding or discharge. Mucous membranes pink and moist. NECK: Trachea midline. No JVD. CARDIOVASCULAR: Tachycardic, RR. S1, S2. No S4. RESPIRATORY: Diminished breath sounds throughout the left hemithorax. No wheezing. Pleurx catheter in place left thorax GASTROINTESTINAL: Abdomen soft, non-tender, nondistended. Hypoactive bowel sounds appreciated. MUSCULOSKELETAL: Extremities without clubbing, cyanosis, or edema. NEUROLOGICAL: Minimally responsive on the ventilator. Does withdraw in left upper and lower extremity. I cannot get a withdrawal response in the right upper lower extremity. Positive gag and cough. Positive corneal reflex. Assessment and Plan - Problem List (1) Non-small cell carcinoma of lung, stage 4 Code(s): C34.90 - Malignant neoplasm of unspecified part of unspecified bronchus or lung Status: Acute (2) Hypokalemia Code(s): E87.6 - Hypokalemia Status: Acute (3) Pancytopenia Code(s): D61.818 - Other pancytopenia Status: Acute (4) Hypoalbuminemia Code(s): E88.09 - Other disorders of plasma-protein metabolism, not elsewhere classified Status: Acute (5) Elevated levels of transaminase & lactic acid dehydrogenase Code(s): R74.0 - Nonspecific elevation of levels of transaminase and lactic acid dehydrogenase [LDH] Status: Acute (6) Altered mental status Code(s): R41.82 - Altered mental status, unspecified Status: Acute (7) Seizure Code(s): R56.9 - Unspecified convulsions Status: Acute Onset Date: ~ - Assessment and Plan Plan: Neuro/Psych: Chronic opiate use EtOH abuse chronic benzodiazepine use Anxiety disorder Seizures Patient is currently on a propofol drip at 30 mcg/kg/min for sedation while intubated. Added fentanyl drip Goal of RASS -0 Daily sedation vacation Acetaminophen 650 mg every 6 hours as needed fever Patient is on alprazolam 1 mg daily at home. This was held [facility] protocol initiated Vitamin bag daily times [address] brain revealed left parietal lesion. CT angiogram of the head and neck no acute findings. MRI of the brain with and without contrast -14 mm intra-axial left parietal lesion suspicious for metastasis EEG 01/21 - Periodic epileptiform discharges are present, more so over the left hemisphere than over the right hemisphere consistent with probable PLEDS. This occurs throughout the tracing almost continuous. On dexamethasone 4 mg IV every 6 hours for brain mass On levetiracetam 500 mg iv twice daily. Received 1 g at [place]. Give additional 1 g levetiracetam earlier as EEG showed seizure activity. Currently on phenobarbital 60 mg twice daily and valproic acid 5 mg twice daily and fosphenytoin 100 mg 3 times daily A.m. phenobarbital, valproic acid and fosphenytoin levels all pending Further anticonvulsant therapy adjustment per Dr. Wiseman EEG -repeat this a.m./01/22 pending CV: Sinus tachycardia Elevated troponin Currently on normal saline 84 cc now. Not requiring vasopressors and/or antihypertensives Initial troponin was 0.02. EKG revealed nonspecific ST-T changes. Troponin peaked at 0.92. Currently on downward trend Resp: History of tobaccoism Left Pleurx catheter for likely malignant pleural effusion PRVC Ventilator bundle Head of bed at 30 degrees Albuterol/ipratropium aerosols every 4 hours with albuterol aerosols every 2 hours while needed dyspnea Like will need to have a Pleurx catheter drained today 01/22. Spontaneous breathing trials when clinically indicated GI: Elevated transaminases Hypoalbuminemia Will start tube feedings with vital 1.5 goal 40 cc an hour Lansoprazole for GI prophylax Docusate sodium/senna 1 tablet twice daily and polythene glycol centigrams twice daily for bowel regimen Check hepatitis panel, -negative : Rai catheter if indicated for accurate I's and O's in a critical patient Endo: Sliding scale insulin to maintain euglycemia/every 6 hours aspart insulin regimen TSH -0.93 Renal: Creatinine currently within normal limits Monitor urine output Accurate I's and O Heme: Pancytopenia Non-small carcinoma lung stage IV Monitor CBC daily. A.m. laboratory still pending Coags within normal limits Transfuse PRBCs overnight. 11.[address] Birch from oncology following Started on filgrastin 300 mcg subcu daily ID: Monitor for signs of symptomatology of infection MSK: PT evaluate and treat FEN: Acute hypokalemia ICU electrolyte protocol if needed. Access -Utilize Inplnl-s-Ukgh. Central line if indicated Prophylaxis - -GI lansoprazole - -DVT SCD/holding pharmacological pharmacological prophylaxis in light of possible brain mass Level 3 follow-up Code Status: Full code Discussed Condition With: Dr. Birch. Care plan discussed and all questions answered. (1) Non-small cell carcinoma of lung, stage 4 Qualifiers: Laterality: left Qualified Code(s): C34.92 - Malignant neoplasm of unspecified part of left bronchus or lung (6) Altered mental status Qualifiers: Altered mental status type: unspecified Qualified Code(s): R41.82 - Altered mental status, unspecified
--- NOTE | 2018-01-22 09:16 | P.PNONC ---
Subjective Interval history: Patient seen and examined this morning, the patient was intubated overnight for respiratory distress and airway protection. THis morning patient is sedated and nonresponsive. Objective Vital Signs/Intake & Output: Vital Signs 01/21/18 10:00 01/21/18 10:15 01/21/18 10:16 Temperature 98 F 98 F Pulse Rate 111 H 109 H 107 H Respiratory Rate 17 18 18 Blood Pressure 95/54 L 95/54 L 95/54 L Pulse Oximetry 100 100 100 01/21/18 10:38 01/21/18 11:00 01/21/18 11:01 Temperature 98.7 F Pulse Rate 115 H 106 H 106 H Respiratory Rate 18 16 16 Blood Pressure 98/75 L 90/54 L 97/55 L Pulse Oximetry 98 100 100 01/21/18 12:00 01/21/18 13:00 01/21/18 14:00 Temperature 98.9 F Pulse Rate 110 H 94 H 91 H Respiratory Rate 18 16 20 Blood Pressure 100/60 90/52 L 105/65 Pulse Oximetry 97 100 100 01/21/18 15:00 01/21/18 15:24 01/21/18 16:00 Temperature 98.9 F Pulse Rate 93 H 104 H 108 H Respiratory Rate 20 24 22 Blood Pressure 106/67 117/59 L Pulse Oximetry 100 100 01/21/18 17:00 01/21/18 18:00 01/21/18 19:00 Temperature Pulse Rate 101 H 101 H 102 H Respiratory Rate 21 20 31 H Blood Pressure 119/58 L 91/54 L 122/54 L Pulse Oximetry 99 100 92 L 01/21/18 20:00 01/21/18 20:26 01/21/18 21:00 Temperature 97.6 F Pulse Rate 94 H 96 H 108 H Respiratory Rate 20 21 19 Blood Pressure 104/60 94/53 L Pulse Oximetry 96 98 01/21/18 21:01 01/21/18 22:00 01/21/18 23:00 Temperature Pulse Rate 107 H 101 H Respiratory Rate 21 20 16 Blood Pressure 90/52 L 91/52 L Pulse Oximetry 98 100 01/21/18 23:31 01/22/18 00:00 01/22/18 01:00 Temperature 97.6 F Pulse Rate 103 H 101 H 101 H Respiratory Rate 21 14 19 Blood Pressure 101/61 101/57 L Pulse Oximetry 100 94 L 01/22/18 01:47 01/22/18 02:00 01/22/18 02:19 Temperature Pulse Rate 126 H Respiratory Rate 18 23 Blood Pressure 121/76 Pulse Oximetry 86 L 01/22/18 03:00 01/22/18 03:26 01/22/18 03:41 Temperature Pulse Rate 106 H 109 H 139 H Respiratory Rate 15 39 H Blood Pressure 89/56 L 174/82 H 159/70 H Pulse Oximetry 97 91 L 01/22/18 03:55 01/22/18 04:00 01/22/18 04:13 Temperature 97.6 F Pulse Rate 141 H 145 H 159 H Respiratory Rate 24 49 H 29 H Blood Pressure 130/89 Pulse Oximetry 97 100 01/22/18 05:00 01/22/18 05:04 01/22/18 06:00 Temperature Pulse Rate 136 H 140 H 131 H Respiratory Rate 15 35 H 20 Blood Pressure 130/77 118/78 Pulse Oximetry 100 100 100 01/22/18 08:03 Temperature Pulse Rate 120 H Respiratory Rate 15 Blood Pressure Pulse Oximetry 100 Intake & Output 01/21/18 01/22/18 01/22/18 18:59 06:59 18:59 Intake Total 1205 / 1205 1616.2 / 1616.2 105 / 105 Output Total 300 / 300 Balance 905 / 905 1616.2 / 1616.2 105 / 105 Weight 85 kg Intake: IV 205 / 205 1616.2 / 1616.2 105 / 105 NS Inj 1,000 ML @ 84 mls/hr IV. 1000 / 1000 CONT .[id number] [facility] Rx#: [id number] MVI-12 Inj 10 ML Thiamine Inj 511.2 / 511.2 100 MG Folvite Inj 1 MG In NS Inj 500 ML @ 125 mls/hr IV.SIG Q24H [facility] Rx#:[id number] Depacon Inj 500 MG In NS Inj 105 / 105 100 ML @ 105 mls/hr IV.SIG Q12H [facility] Rx#:[id number] Keppra 1000 mg/100 mL Premix 100 / 100 100 ML @ 400 mls/hr IV.SIG NOW ONE Rx#:[id number] Keppra Inj 500 MG In NS Inj 100 105 / 105 105 / 105 ML @ 400 mls/hr IV.SIG Q12H [facility] Rx#:[id number] Oral 200 / 200 Intake (Blood Product) Amt 800 / 800 Rbc As-3 Leukoreduced Unit 400 / 400 [id number] Rbc As-3 Leukoreduced Unit 400 / 400 [id number] Output: Urine 300 / 300 Other: # Voids 3 # Incontinent Voids 3 # Bowel Movements 0 Result Diagrams: 01/21/18 14:21 01/21/18 14:21 Laboratory Results: Laboratory Results - last 24 hr 01/21/18 01/21/18 01/21/18 06:03 08:31 11:23 Hgb Hct Puncture Site Patient Temperature O2 Saturation ABG pH ABG pCO2 ABG pO2 ABG HCO3 ABG O2 Content ABG Base Excess ABG Methemoglobin Josue Test Hemoglobin Carboxyhemoglobin O2 Delivery Device Vent Setting Inspired O2 Critical Value Potassium POC Glucose 179 H MTS Gel Crossmatch See Detail See Detail 01/21/18 01/21/18 01/21/18 14:21 14:21 17:03 Hgb 11.5 L D Hct 32.9 L Puncture Site Patient Temperature O2 Saturation ABG pH ABG pCO2 ABG pO2 ABG HCO3 ABG O2 Content ABG Base Excess ABG Methemoglobin Josue Test Hemoglobin Carboxyhemoglobin O2 Delivery Device Vent Setting Inspired O2 Critical Value Potassium 3.5 POC Glucose 122 H MTS Gel Crossmatch 01/22/18 01/22/18 01/22/18 00:29 05:23 06:28 Hgb Hct Puncture Site Right radial Patient Temperature 98.6 O2 Saturation 98 ABG pH 7.44 H ABG pCO2 30 L ABG pO2 438 H ABG HCO3 20 L ABG O2 Content 15.5 ABG Base Excess -3.5 L ABG Methemoglobin 0.9 Josue Test Present Hemoglobin 10.4 L Carboxyhemoglobin 1.1 O2 Delivery Device Ventilator Vent Setting See comment Inspired O2 100 Critical Value No Potassium POC Glucose 128 H 169 H MTS Gel Crossmatch Imaging Studies: Impressions Chest X-Ray 01/22/18 04:52 CONCLUSION: Patchy infiltrate right lung. Complete opacification left hemithorax. Medications: Active Medications Generic Name Dose Route Start Last Admin Trade Name Freq PRN Reason Stop Dose Admin Albuterol 1 ampul 01/20/18 20:00 01/22/18 07:57 Duoneb Neb (Talisha) NEB 1 ampul Q4HR NEB TALISHA Administration Artificial Tears 1 drop 01/22/18 08:00 01/22/18 08:36 Tears Naturale Opth Drops EACH EYE 1 drop Q8H TALISHA Administration Chlorhexidine Gluconate 3 pack 01/21/18 04:00 01/22/18 03:54 Chlorhexidine 2% Cloth TOPICAL 01/26/18 03:59 3 pack DAILY@0400 TALISHA Administration Chlorhexidine Gluconate 15 ml 01/22/18 08:00 01/22/18 08:17 Peridex 0.12% Oral Kit OROPHARYNG 15 ml BID@0800,2000 TALISHA Administration Dexamethasone Sodium Phosphate 4 mg 01/21/18 00:00 01/22/18 05:49 Decadron Inj IV.PUSH 4 mg Q6HR TALISHA Administration Filgrastim 300 mcg 01/21/18 14:00 01/21/18 14:40 Neupogen Inj SQ 300 mcg DAILY@1400 TALISHA Administration Sodium Chloride 1,000 mls @ 84 mls/hr 01/20/18 16:30 01/22/18 05:23 Ns Inj IV.CONT 84 mls/hr .[id number] TALISHA Administration Multivitamins 10 ml/ Thiamine 511.2 mls @ 125 mls/hr 01/20/18 21:00 01/22/18 01:17 HCl 100 mg/ Folic Acid 1 mg/ IV.SIG 01/23/18 01:06 Infused Sodium Chloride Q24H TALISHA Infusion Levetiracetam 500 mg/ Sodium 105 mls @ 400 mls/hr 01/21/18 02:00 01/22/18 05: 24 Chloride IV.SIG Infused Q12H T[facility]HA Infusion Valproate Sodium 500 mg/ 105 mls @ 105 mls/hr 01/22/18 06:00 01/22/18 07:05 Sodium Chloride IV.SIG Infused Q12H [facility] Infusion Propofol 1,000 mg in 100 mls @ 1.869 mls/hr 01/22/18 04:51 01/22/18 06:38 Diprivan 1000 Mg/100 Ml Inj IV.CONT 35 mcg/kg/min TITRATE PRN 13.08 mls/hr Per Protocol Titration Protocol 5 MCG/KG/MIN Insulin Aspart 0 unit 01/21/18 00:00 01/22/18 06:47 Novolog Insulin Correctional Sugar Inj SQ 1 unit Q6HR TALISHA Administration Protocol Lansoprazole 30 mg 01/22/18 09:00 01/22/18 08:18 Prevacid Solutab NG/OG 30 mg DAILY T[facility]ISHA Administration Montelukast Sodium 10 mg 01/21/18 18:00 01/21/18 17:17 Singulair PO 10 mg QPM TALISHA Administration Polyethylene Glycol 17 gm 01/20/18 21:00 01/22/18 08:17 Miralax PO Not Given BID TAL[facility]HA Senna/Docusate Sodium 1 tab 01/20/18 21:00 01/22/18 08:17 Liliya-Colace PO 1 tab BID TALISHA Administration Objective Remarks: General physical appearance: Critically ill appearing middle-aged female, laying in bed, she is intubated, sedated and nonresponsive. HEENT: Head atraumatic normocephalic, she has EEG monitor stickers on her forehead and scalp. Pupils are dilated and nonresponsive, she has lateral strabismus of both eyes. Respiratory: On the ventilator, poor air movement over the left hemithorax. Cardiovascular: Regular rate rhythm S1-S2 no obvious murmurs rubs gallops. Abdomen: Thin abdomen, soft, nontender, nondistended no palpable organ enlargement, positive bowel sounds. [employer]: Sedated nonresponsive no spontaneous movements Lower extremities: Decreased muscle mass, no peripheral edema at this time. Muscular skeletal: Generally decreased/atrophic musculature. Skin: Nonfocal examination, some bruising is identified. Assessment/Plan - Plan Ms. Hearn is a 57-year-old female with a recent diagnosis of metastatic adenocarcinoma of the lung, her disease is PDL-1 expression less than 1%, EGFR mutation negative, ALK mutation negative, BRA F mutation negative, ROS-1 mutation negative and RET mutation negative. She had metastatic disease at time of diagnosis as evidenced by malignant left-sided pleural effusion, radiographic evidence of vertebral metastases and adrenal gland metastases. She has thus far received palliative radiation for management of her thoracic metastases, she has also received a single cycle of palliative systemic therapy consisting of carboplatin and pemetrexed which was delivered on 01/11/2018. She now presents with seizures and altered mental status, she was noted on imaging studies performed during this hospitalization to have a 14 mm enhancing mass involving the left temporoparietal lobe (high in the convexity). She has undergone EEGs and is noted to have epileptic activity involving both cerebral hemispheres. She is currently on a Keppra infusion and is also on phenytoin. The patient has been evaluated by neurosurgery who recommended radiation oncology evaluation and conservative management. Additional issues include chemotherapy related myelosuppression. Recommendations: 1. Unfortunately the patient has declined significantly over the past 24 hours. She is critically ill and likely dying. She has multiple serious medical issues which are ongoing at this time including an underlying diagnosis of metastatic lung carcinoma which is in itself a terminal disease, she now has respiratory failure, new right metastases and new onset seizures. Her treatment options from an academic standpoint are limited to cytotoxic chemotherapy and possibly immunotherapy which may be of minimal additional benefit. From a practical standpoint she is not a candidate for additional treatment at this time due to her multiple illnesses and article condition at this time. In order for her to be candidate for additional palliative therapy she will need to recover to a point where she is back to a performance status of ECOG 2 at the very minimal. I had a long meeting with the patient's mother and stepfather today. The patient's mother is her healthcare surrogate and next of kin. The patient has no children of her own and has no spouse. The patient's mother is aware that her daughter is likely terminal, the patient' s mother does not wish her daughter to suffer, she does not wish her daughter to remain ventilator dependent. The family is willing to meet with palliative care to discuss palliation, the patient's mother however would like her daughter to remain ventilated for 24-48 hours so she may have an opportunity to rally/improve with supportive care. The family has no unreasonable expectations. 2. Brain metastases and seizures: Radiation oncology evaluation is pending. The patient is on multiple antiepileptics. 3. Would be reasonable at this time to transition the patient to a DNR so as to avoid cardiopulmonary resuscitation.
--- NOTE | 2018-01-22 09:50 | P.PNNEU ---
Subjective Active Medications: Active Medications Acetaminophen (Tylenol Liq) 650 mg PO Q6H PRN PRN Reason: FEVER Albuterol (Duoneb Neb (Talisha)) 1 ampul NEB Q4HR NEB [facility] Last Admin: 01/22/18 07:57 Dose: 1 ampul Albuterol (Albuterol Neb (Prn)) 2.5 mg NEB Q2HR NEB PRN PRN Reason: DYSPNEA Artificial Tears (Tears Naturale Opth Drops) 1 drop EACH EYE Q8H [facility] Last Admin: 01/22/18 08:36 Dose: 1 drop Bisacodyl (Dulcolax Supp) 10 mg RECTAL DAILY PRN PRN Reason: if no BM in last 24h Chlorhexidine Gluconate (Chlorhexidine 2% Cloth) 3 pack TOPICAL DAILY@0400 [facility] Stop: 01/26/18 03:59 Last Admin: 01/22/18 03:54 Dose: 3 pack Chlorhexidine Gluconate (Chlorhexidine 2% Cloth) 3 pack TOPICAL DAILY@0400 PRN PRN Reason: Extra cloth needed Stop: 01/26/18 03:59 Chlorhexidine Gluconate (Peridex 0.12% Oral Kit) 15 ml OROPHARYNG BID@0800, 2000 [facility] Last Admin: 01/22/18 08:17 Dose: 15 ml Dexamethasone Sodium Phosphate (Decadron Inj) 4 mg IV.PUSH Q6HR [facility] Last Admin: 01/22/18 05:49 Dose: 4 mg Dextrose (D50w Vial) 50 ml IV.PUSH UNSCH PRN PRN Reason: PER HYPOGLYCEMIA PROTOCOL Filgrastim (Neupogen Inj) 300 mcg SQ DAILY@1400 [facility] Last Admin: 01/21/18 14:40 Dose: 300 mcg Flumazenil (Romazecon Inj) 0.2 mg IV.PUSH Q1M PRN PRN Reason: OVERSEDATION Folic Acid (Folic Acid) 1 mg NG/OG DAILY [facility] Glucagon (Glucagon Inj) 1 mg OTHER PRN PRN PRN Reason: for Hypoglycemia Protocol Hydralazine HCl (Apresoline Inj) 10 mg IV.PUSH Q1H PRN PRN Reason: sbp > 160, dbp > 95 Magnesium Sulfate 4 gm/ Sodium (Chloride) 100 mls @ 50 mls/hr IV.SIG UNSCH PRN PRN Reason: For Magnesium 0.9 - 1.1 mg/dL Magnesium Sulfate 2 gm/ Sodium (Chloride) 100 mls @ 50 mls/hr IV.SIG UNSCH PRN PRN Reason: For Magnesium 1.2 - 1.6 mg/dL Sodium Chloride (Ns Inj) 1,000 mls @ 84 mls/hr IV.CONT .[id number] [facility] Last Admin: 01/22/18 05:23 Dose: 84 mls/hr Potassium Chloride (Kcl 40 Meq Premix Inj) 40 meq in 100 mls @ 25 mls/hr IV.SIG Q2H PRN PRN Reason: For Potassium 2.8 - 3.2 mEq/L Potassium Chloride (Kcl 20 Meq Premix Inj) 20 meq in 100 mls @ 50 mls/hr IV.SIG Q2H PRN PRN Reason: For Potassium 3.3 - 3.5 mEq/L Potassium Chloride (Kcl 40 Meq Premix Inj) 40 meq in 100 mls @ 25 mls/hr IV.SIG UNSCH PRN PRN Reason: For Potassium 3.3 - 3.5 mEq/L Potassium Chloride (Kcl 20 Meq Premix Inj) 20 meq in 100 mls @ 50 mls/hr IV.SIG Q2H PRN PRN Reason: For Potassium 2.8 - 3.2 mEq/L Potassium Phosphate 30 mmol/ (Sodium Chloride) 260 mls @ 42 mls/hr IV.SIG UNSCH PRN PRN Reason: SEE LABEL COMMENTS Sodium Phosphate 30 mmol/ (Sodium Chloride) 260 mls @ 42 mls/hr IV.SIG UNSCH PRN PRN Reason: For Phosphorus < 2.5 mg/dL Multivitamins 10 ml/ Thiamine HCl 100 mg/ Folic Acid 1 mg/Sodium Chloride 511.2 mls @ 125 mls/hr IV.SIG Q24H [facility] Stop: 01/23/18 01:06 Last Infusion: 01/22/18 01:17 Dose: Infused Levetiracetam 500 mg/ Sodium (Chloride) 105 mls @ 400 mls/hr IV.SIG Q12H TALISHA Last Infusion: 01/22/18 05:24 Dose: Infused Valproate Sodium 500 mg/ (Sodium Chloride) 105 mls @ 105 mls/hr IV.SIG Q12H TALISHA Last Infusion: 01/22/18 07:05 Dose: Infused Propofol (Diprivan 1000 Mg/100 Ml Inj) 1,000 mg in 100 mls @ 1.869 mls/hr IV.CONT TITRATE PRN; Protocol PRN Reason: Per Protocol Last Titration: 01/22/18 06:38 Dose: 35 mcg/kg/min, 13.08 mls/hr Fentanyl (Fentanyl 10 Mcg/Ml Premix Drip) 2,500 mcg in 250 mls @ 5 mls/hr IV.SIG TITRATE PRN; Protocol PRN Reason: Per Protocol Insulin Aspart (Novolog Insulin Correctional Sugar Inj) 0 unit SQ Q6HR TALISHA; Protocol Last Admin: 01/22/18 06:47 Dose: 1 unit Labetalol HCl (Trandate Inj) 10 mg IV.PUSH Q1H PRN PRN Reason: sbp > 160 or DBP > 95 Lactulose (Lactulose Liq) 30 ml NG/OG BID [facility] Lansoprazole (Prevacid Solutab) 30 mg NG/OG DAILY [facility] Last Admin: 01/22/18 08:18 Dose: 30 mg Lorazepam (Ativan) 1 mg PO Q4H PRN PRN Reason: for CIWA 8-10 Lorazepam (Ativan) 2 mg PO Q2H PRN PRN Reason: for CIWA 11-14 Lorazepam (Ativan Inj) 2 mg IV.PUSH Q2H PRN PRN Reason: for CIWA 11-14 Lorazepam (Ativan Inj) 2 mg IV.PUSH Q1H PRN PRN Reason: for CIWA 15-20 Lorazepam (Ativan Inj) 2 mg IV.PUSH Q15M PRN PRN Reason: for CIWA > 20 Lorazepam (Ativan Inj) 1 mg IV.PUSH Q4H PRN PRN Reason: for CIWA 8-10 Magnesium Oxide (Mag-Ox) 800 mg PO UNSCH PRN PRN Reason: For Magnesium 1.2 - 1.6 mg/dL Miscellaneous (Pill Splitter) 1 each OTHER UNSCH [facility] Miscellaneous Medication () 1 each OROPHARYNG 0000,0400,1200,1600 [facility] Montelukast Sodium (Singulair) 10 mg PO QPM [facility] Last Admin: 01/21/18 17:17 Dose: 10 mg Ondansetron HCl (Zofran Inj) 4 mg IV.PUSH Q6H PRN PRN Reason: NAUSEA OR VOMITING Phenobarbital (Phenobarbital) 60 mg NG/OG Q12H [facility] Phenytoin Sodium (Dilantin) 100 mg NG/OG Q8HR [facility] Polyethylene Glycol (Miralax) 17 gm PO BID [facility] Last Admin: 01/22/18 08:17 Dose: Not Given Potassium Bicarb/Potassium Chloride (K-Lyte Cl Eff) 50 meq PO UNSCH PRN PRN Reason: For Potassium 3.3 - 3.5 mEq/L Potassium Phosphate (K-Phos Original) 2,000 mg PO Q4H PRN PRN Reason: Phosphorus Less Than 2.5 mg/dL Potassium Phosphate (K-Phos Original) 2,000 mg PO UNSCH PRN PRN Reason: SEE LABEL COMMENTS Senna/Docusate Sodium (Liliya-Colace) 1 tab PO BID [facility] Last Admin: 01/22/18 08:17 Dose: 1 tab Sodium Chloride (Ns Flush) 2 ml IV.FLUSH PRN PRN PRN Reason: FLUSH AFTER USING IV ACCESS Sodium Chloride (Ns Flush) 2 ml IV.FLUSH UNSCH PRN PRN Reason: FLUSH AFTER USING IV ACCESS Allergies/Adverse Reactions: Allergies Allergy/AdvReac Type Severity Reaction Status Date / Time No Known Allergies Allergy Verified 01/20/18 12:59 Physical Exam Vital signs: Vital Signs 01/21/18 10:00 01/21/18 10:15 01/21/18 10:16 Temperature 98 F 98 F Pulse Rate 111 H 109 H 107 H Respiratory Rate 17 18 18 Blood Pressure 95/54 L 95/54 L 95/54 L Pulse Oximetry 100 100 100 01/21/18 10:38 01/21/18 11:00 01/21/18 11:01 Temperature 98.7 F Pulse Rate 115 H 106 H 106 H Respiratory Rate 18 16 16 Blood Pressure 98/75 L 90/54 L 97/55 L Pulse Oximetry 98 100 100 01/21/18 12:00 01/21/18 13:00 01/21/18 14:00 Temperature 98.9 F Pulse Rate 110 H 94 H 91 H Respiratory Rate 18 16 20 Blood Pressure 100/60 90/52 L 105/65 Pulse Oximetry 97 100 100 01/21/18 15:00 01/21/18 15:24 01/21/18 16:00 Temperature 98.9 F Pulse Rate 93 H 104 H 108 H Respiratory Rate 20 24 22 Blood Pressure 106/67 117/59 L Pulse Oximetry 100 100 01/21/18 17:00 01/21/18 18:00 12/06/18 19:00 Temperature Pulse Rate 101 H 101 H 102 H Respiratory Rate 21 20 31 H Blood Pressure 119/58 L 91/54 L 122/54 L Pulse Oximetry 99 100 92 L 01/21/18 20:00 01/21/18 20:26 01/21/18 21:00 Temperature 97.6 F Pulse Rate 94 H 96 H 108 H Respiratory Rate 20 21 19 Blood Pressure 104/60 94/53 L Pulse Oximetry 96 98 01/21/18 21:01 01/21/18 22:00 01/21/18 23:00 Temperature Pulse Rate 107 H 101 H Respiratory Rate 21 20 16 Blood Pressure 90/52 L 91/52 L Pulse Oximetry 98 100 01/21/18 23:31 01/22/18 00:00 01/22/18 01:00 Temperature 97.6 F Pulse Rate 103 H 101 H 101 H Respiratory Rate 21 14 19 Blood Pressure 101/61 101/57 L Pulse Oximetry 100 94 L 01/22/18 01:47 01/22/18 02:00 01/22/18 02:19 Temperature Pulse Rate 126 H Respiratory Rate 18 23 Blood Pressure 121/76 Pulse Oximetry 86 L 01/22/18 03:00 01/22/18 03:26 01/22/18 03:41 Temperature Pulse Rate 106 H 109 H 139 H Respiratory Rate 15 39 H Blood Pressure 89/56 L 174/82 H 159/70 H Pulse Oximetry 97 91 L 01/22/18 03:55 01/22/18 04:00 01/22/18 04:13 Temperature 97.6 F Pulse Rate 141 H 145 H 159 H Respiratory Rate 24 49 H 29 H Blood Pressure 130/89 Pulse Oximetry 97 100 01/22/18 05:00 01/22/18 05:04 01/22/18 06:00 Temperature Pulse Rate 136 H 140 H 131 H Respiratory Rate 15 35 H 20 Blood Pressure 130/77 118/78 Pulse Oximetry 100 100 100 01/22/18 08:03 Temperature Pulse Rate 120 H Respiratory Rate 15 Blood Pressure Pulse Oximetry 100 Intake & Output 01/21/18 01/22/18 01/22/18 18:59 06:59 18:59 Intake Total 1205 / 1205 1616.2 / 1616.2 105 / 105 Output Total 300 / 300 Balance 905 / 905 1616.2 / 1616.2 105 / 105 Weight 85 kg Intake: IV 205 / 205 1616.2 / 1616.2 105 / 105 NS Inj 1,000 ML @ 84 mls/hr IV. 1000 / 1000 CONT .[id number] [facility] Rx#: [id number] MVI-12 Inj 10 ML Thiamine Inj 511.2 / 511.2 100 MG Folvite Inj 1 MG In NS Inj 500 ML @ 125 mls/hr IV.SIG Q24H [facility]ALISHA Rx#:[id number] Depacon Inj 500 MG In NS Inj 105 / 105 100 ML @ 105 mls/hr IV.SIG Q12H [facility]ISHA Rx#:[id number] Keppra 1000 mg/100 mL Premix 100 / 100 100 ML @ 400 mls/hr IV.SIG NOW ONE Rx#:[id number] Keppra Inj 500 MG In NS Inj 100 105 / 105 105 / 105 ML @ 400 mls/hr IV.SIG Q12H [facility] Rx#:[id number] Oral 200 / 200 Intake (Blood Product) Amt 800 / 800 Rbc As-3 Leukoreduced Unit 400 / 400 [id number] Rbc As-3 Leukoreduced Unit 400 / 400 [id number] Output: Urine 300 / 300 Other: # Voids 3 # Incontinent Voids 3 # Bowel Movements 0 Narrative: on vent pupil = fully sedated Objective Laboratory Results - last 24 hr 01/21/18 01/21/18 01/21/18 06:03 08:31 11:23 Hgb Hct Puncture Site Patient Temperature O2 Saturation ABG pH ABG pCO2 ABG pO2 ABG HCO3 ABG O2 Content ABG Base Excess ABG Methemoglobin Josue Test Hemoglobin Carboxyhemoglobin O2 Delivery Device Vent Setting Inspired O2 Critical Value Potassium POC Glucose 179 H MTS Gel Crossmatch See Detail See Detail 01/21/18 01/21/18 01/21/18 14:21 14:21 17:03 Hgb 11.5 L D Hct 32.9 L Puncture Site Patient Temperature O2 Saturation ABG pH ABG pCO2 ABG pO2 ABG HCO3 ABG O2 Content ABG Base Excess ABG Methemoglobin Josue Test Hemoglobin Carboxyhemoglobin O2 Delivery Device Vent Setting Inspired O2 Critical Value Potassium 3.5 POC Glucose 122 H MTS Gel Crossmatch 12/07/18 12/07/18 12/07/18 00:29 05:23 06:28 Hgb Hct Puncture Site Right radial Patient Temperature 98.6 O2 Saturation 98 ABG pH 7.44 H ABG pCO2 30 L ABG pO2 438 H ABG HCO3 20 L ABG O2 Content 15.5 ABG Base Excess -3.5 L ABG Methemoglobin 0.9 Josue Test Present Hemoglobin 10.4 L Carboxyhemoglobin 1.1 O2 Delivery Device Ventilator Vent Setting See comment Inspired O2 100 Critical Value No Potassium POC Glucose 128 H 169 H MTS Gel Crossmatch Review/Management - Review/Management Plan: imp no sz overnoc mri cw met fu eeg keppra ctax2 neg neurologicall her px is good we can control sz and fu labs needs onc on board 01/22/18 on vent after resp distress on dip and pbarb and vpa and dil levels pending i just inc pbarb to 130 bid iv the fact that still on eeg the left discharges not really classic for epc but with met similar and probably will be hard to stop i would push pbarb level up to around 35 [place] lowe to follow neurologically her px is good with xrt and med rx overall the systemic CA is another matter
[2018-01-22 10:02] LABS: Baso % (Auto) 0.1 % (0.0-2.0); Eos % (Auto) 0.2 % (0.0-4.0); Hematocrit 30.7 % (35.0-46.0); Hemoglobin 10.3 gm/dL (11.6-15.3); Lymph # (Auto) 0.3 th/mm3 (1.0-4.8); Lymph % (Auto) 4.8 % (9.0-44.0); Mean Corpuscular HGB Conc 33.7 % (32.0-36.0); Mean Corpuscular Hemoglobin 32.9 pg (27.0-34.0); Mean Corpuscular Volume 97.6 fL (80.0-100.0); Mean Platelet Volume 9.1 fL (7.0-11.0); Mono # (Auto) 0.7 th/mm3 (0.0-0.9); Mono % (Auto) 12.5 % (0.0-8.0); Neut # (Auto) 4.7 th/mm3 (1.8-7.7); Neut % (Auto) 82.4 % (16.0-70.0); Platelet Count 78 th/mm3 (150-450); Red Blood Count 3.14 mil/mm3 (4.00-5.30); Red Cell Distribution Width 16.7 % (11.6-17.2); White Blood Count 5.7 th/mm3 (4.0-11.0)
[2018-01-22 10:15] LABS: Anion Gap 8 meq/L (5-15); Blood Urea Nitrogen 5 mg/dL (7-18); Calcium 7.8 mg/dL (8.5-10.1); Carbon Dioxide 22.1 meq/L (21.0-32.0); Chloride 107 meq/L (98-107); Glomerular Filtration Rate Greater Than 89 mL/min (>89); Glucose,Random 115 mg/dL (74-106); Phosphorus 2.5 mg/dL (2.5-4.9); Potassium 3.6 meq/L (3.5-5.1); Sodium 137 meq/L (136-145)
[2018-01-22 10:17] LABS: Phenytoin (Dilantin) 3.6 mcg/mL (10.0-20.0); Valproic Acid 46 mcg/mL (50-100)
[2018-01-22] MEDS: Folic Acid 1 MG Tablet NG/OG SCH (10:22)
--- NOTE | 2018-01-22 10:25 | P.DIET ---
Nutritional Evaluation Type of nutrition evaluation: initial Nutrition consult regarding: Tube Feeding Objective - Diagnosis New Brain Mass, Seizure, Hypokalemia - Objective % IBW: 114 (IBW = 120#) Body Weight Used for Calculations: Actual (62.3 kg) Energy Needs - Lower Range (kCal/kg): 28 Energy Needs - Upper Range (kCal/kg): 32 Lower Limit kCal/kg (kCals): 1,744 Upper Limit kCal/kg (kCals): 1,994 Lower Limit Protein Factor (Grams per Kg): 1.2 Upper Limit Protein Factor (Grams per Kg): 1.6 Lower Protein Needs (Protein): 75 Upper Protein Needs (Protein): 100 Dietitian Reviewed in Medical Record: Curent medications, Intake & Output, Labs , Medical history, Tube feeding Diet Order: NPO Objective Comments: Meds include Dilantin q 8 hrs Assessment Assessment: Pt is intubated and sedated with propofol and at high nutrition risk 2' to dx and need for TFing. Pt receives Dilantin 3x/day and TF needs to be held one hour before and after the Dilantin is given. TF run time will be 18 hrs. Recommend Vital 1.5 @ 65 mls/hr x 18 hrs to provide 1755 kcals, 79 gms protein and 894 mls of free water. Some additional kcals will be provided by propofol ( 1.1 kcal/ml). Recommendations: Vital 1.5 @ 65 mls/hr x 18 hrs (d/t Dilantin) Dietitian to Monitor: Lab values, Intake & Output, Tube feeding tolerance, Weight change, Medical course
[2018-01-22 10:48] LABS: Lymphocytes 6 % (9-44); Monocytes 9 % (0-8)
[2018-01-22 10:49] LABS: Platelet Morphology Normal (Normal)
--- NOTE | 2018-01-22 10:50 | P.CONPAL ---
Consult Service: Palliative Care Requesting Physician: Tom Birch Reason for Consult: a. To assist with evaluation and management of symptoms including: pain b. To assist medical decision maker(s) with: better understanding of current medical conditions; weighing benefits/burdens of medical treatment options; making medical treatment decisions. Primary Care Provider: Mathieu Soria MD History of Present Illness History of Present Illness: Ms. Hearn is a 57-year-old female who presented to [place] ED via EMS on 2017 for evaluation of possible stroke. Patient has a history of metastatic lung cancer status post radiation. She completed her first chemotherapy treatment approximately 1 week ago. Per patient's mother, she was driving the patient to a doctor's appointment when the patient developed visual disturbances (unable to see straight) and her extremities began to shake x4. The patient's mother pulled the car over and activated 911. Upon EMS arrival, the patient was unable to get out of the car due to right sided paralysis. Patient had a seizure in route to the hospital per EMS report. Patient has no history of previous seizures. Clinical data: * Vital signs: Pulse 128, respirations 22, BP 95/46, oxygen saturation 95% on room air * WBC: 2.1, hemoglobin 7.2, hematocrit 21.2, platelets 127, neutrophils 76.4% * PT: 12.5, INR 1.2, APTT 29.6 * Sodium: 129, potassium 2.4, chloride 92, carbon dioxide 21.1, glucose 122, calcium 7.0, calcium adj 4 albumin 9.1 * BUN: 4, creatinine 0.58, GFR >89 * Total bilirubin: 0.8, AST 80, ALT 69, alkaline phosphatase 148 * Total creatine kinase: 38 * Troponin: 0.02 * Total protein: 5.8, albumin 1.4 * Chest x-ray showed opacification of the left hemithorax with apparent Pleurx catheter in place * CTA neck/head was negative for hemodynamically significant carotid stenosis; no intracranial vascular abnormalities were noted. * CT head revealed no acute intracranial abnormalities. Chronic changes included mild generalized atrophy and encephalomalacia of the left parietal high convexity. * CT chest with masslike area of the left hilum attenuating the left mainstem bronchus, presumably a central primary bronchogenic carcinoma. There was associated consolidation of most of the left lung with volume loss. Moderate to large pleural effusion with loculated components medially at the apex and laterally at the base; tip of the chest tube is in the apical component. Displaced fracture posteriorly of the left 11th rib with a suspected 1cm lytic lesion concerning for metastasis. Upon arrival to the ED the patient had another seizure. She was administered Ativan and taken to CT which showed no evidence of bleeding. Dr. Wiseman, neurology, was consulted. He recommended loading the patient with 1 g of Keppra which was ordered. An MRI head was ordered and showed 14 mm round, probably intra-axial mass of the left high posterior parietal lobe likely a metastatic lesion. Neurosurgery is following as well. Echocardiogram on 01/21/2018 with normal left ventricular size and function. EF 60-65% Oncology was consulted. Patient was diagnosed with biopsy-proven metastatic adenocarcinoma of the lung in November, after presenting to [facility] with complaints of dyspnea and back pain. She was found to have a large left-sided pleural effusion associated with a left mass with near complete collapse of the left lung secondary to central airway obstruction. During that hospitalization, the patient was found to have metastatic disease involving the adrenal glands as well as the thoracic fourth and thoracic fifth vertebral bodies. Her disease unfortunately is negative for PDL 1 expression ( less than 1%), and is negative for actionable mutations including EGFR, ALK, ROS -1, BRA F and RET. Patient received palliative radiation involving the thoracic fourth/fifth vertebral bodies which was completed approximately 2 weeks ago. Patient received 1 cycle of chemotherapy on 01/11/2018. A Pleurx catheter was recently placed for management of her rapidly reaccumulating left- sided pleural effusion. Systemic therapy is on hold due to the patient's acute illness and myelosuppression. Patient was started on Neupogen 300 mcg sq daily. Folic acid was also initiated given recent treatment with pemetrexed Radiation oncology was consulted to evaluate the patient and discuss palliative radiation options for management of intracranial metastasis. She is on 4 mg dexamethasone every 6 hours ATC. Patient is on Keppra 500 mg BID. EEG on 01/21/2018 showing seizure activity, administer an additional 1g of Keppra. Of note, patient has a history of significant EtOH consumption. She drinks on a daily basis and is at risk for EtOH withdrawal. On [facility] protocol. Palliative Care was consulted to assist with symptom management and to discuss with the family the benefits and burdens of her current illnesses and the options regarding future care. Patient was intubated overnight, sedated on propofol. She remains on antiepileptics. Palliative care met with the patient's mother and stepfather. Medical update provided. The patient's parents state they are overwhelmed with how quickly the patient has declined, but they do not want her to suffer. Ideally they would like her to be medically extubated so they can take her home on hospice, but they do not want her to suffer. If the patient cannot be medically extubated in the upcoming days, they would like to consider compassionate withdrawal of artificial life support at that time. The process of compassionately withdraw of artificial life support as well as cardiopulmonary resuscitation was explained per family's request. CODE STATUS was changed to ALTERNATE CODE-INTUBATION ONLY. Function/Cognitive Trajectory: Patient was diagnosed with metastatic lung cancer in November,. The family states prior to being diagnosed the patient was losing weight and complaining of severe left-sided shoulder and back pain. They state she has had an acute and rapid decline. They recently moved her into their home so that they could provide her with more assistance. Review of Systems unobtainable due to endotracheal tube PMFSH - History History Provided By: Blind Stitch Machine Operator / EMT - Medical History Medical History: Medical History (Last Updated 01/22/18 @ 09:54 by PAUL Shaw) Alcoholism Anxiety Bone metastases Brain metastasis History of benzodiazepine use History of chemotherapy History of radiation therapy Malignant pleural effusion Non-small cell carcinoma of left lung, stage 4 Smoking addiction - Surgical History Surgical History: Surgical History (Last Reviewed 01/21/18 @ 18:10 by Tom Birch MD) Port-A-Cath in place (Acute) S/P chest tube placement - Family History Family History: Family History (Last Reviewed 01/21/18 @ 18:10 by Tom Birch MD) Other History of bladder cancer History of kidney cancer - Social History I have reviewed the patient's Social History: Yes - Tobacco History Second Hand Smoke Exposure: No Tobacco Use In Past 30 Days: No Smoking Status: Former smoker (Quit 12 years ago) Tobacco Type: Cigarettes Number of Pack Years (if former smoker): 35 - Alcohol History How Often Do You Have a Drink Containing Alcohol: 4 or more times a week - Substance Use History Substance History: No History of Abuse - Travel History Recent Travel in the [facility] Within the Last 8 Weeks: No Recent Travel Out of the Country Within the Last 8 Weeks: No - Immunization History Tetanus Immunization: Unsure Medications and Allergies Active Medications: Active Medications Acetaminophen (Tylenol Liq) 650 mg PO Q6H PRN PRN Reason: FEVER Albuterol (Duoneb Neb (Talisha)) 1 ampul NEB Q4HR NEB [facility] Last Admin: 01/22/18 07:57 Dose: 1 ampul Albuterol (Albuterol Neb (Prn)) 2.5 mg NEB Q2HR NEB PRN PRN Reason: DYSPNEA Artificial Tears (Tears Naturale Opth Drops) 1 drop EACH EYE Q8H [facility] Last Admin: 01/22/18 08:36 Dose: 1 drop Bisacodyl (Dulcolax Supp) 10 mg RECTAL DAILY PRN PRN Reason: if no BM in last 24h Chlorhexidine Gluconate (Chlorhexidine 2% Cloth) 3 pack TOPICAL DAILY@0400 [facility] Stop: 01/26/18 03:59 Last Admin: 01/22/18 03:54 Dose: 3 pack Chlorhexidine Gluconate (Chlorhexidine 2% Cloth) 3 pack TOPICAL DAILY@0400 PRN PRN Reason: Extra cloth needed Stop: 01/26/18 03:59 Chlorhexidine Gluconate (Peridex 0.12% Oral Kit) 15 ml OROPHARYNG BID@0800, 2000 [facility] Last Admin: 01/22/18 08:17 Dose: 15 ml Dexamethasone Sodium Phosphate (Decadron Inj) 4 mg IV.PUSH Q6HR [facility] Last Admin: 01/22/18 05:49 Dose: 4 mg Dextrose (D50w Vial) 50 ml IV.PUSH UNSCH PRN PRN Reason: PER HYPOGLYCEMIA PROTOCOL Filgrastim (Neupogen Inj) 300 mcg SQ DAILY@1400 [facility] Last Admin: 01/21/18 14:40 Dose: 300 mcg Flumazenil (Romazecon Inj) 0.2 mg IV.PUSH Q1M PRN PRN Reason: OVERSEDATION Folic Acid (Folic Acid) 1 mg NG/OG DAILY [facility] Glucagon (Glucagon Inj) 1 mg OTHER PRN PRN PRN Reason: for Hypoglycemia Protocol Hydralazine HCl (Apresoline Inj) 10 mg IV.PUSH Q1H PRN PRN Reason: sbp > 160, dbp > 95 Magnesium Sulfate 4 gm/ Sodium (Chloride) 100 mls @ 50 mls/hr IV.SIG UNSCH PRN PRN Reason: For Magnesium 0.9 - 1.1 mg/dL Magnesium Sulfate 2 gm/ Sodium (Chloride) 100 mls @ 50 mls/hr IV.SIG UNSCH PRN PRN Reason: For Magnesium 1.2 - 1.6 mg/dL Sodium Chloride (Ns Inj) 1,000 mls @ 84 mls/hr IV.CONT .[id number] [facility] Last Admin: 01/22/18 05:23 Dose: 84 mls/hr Potassium Chloride (Kcl 40 Meq Premix Inj) 40 meq in 100 mls @ 25 mls/hr IV.SIG Q2H PRN PRN Reason: For Potassium 2.8 - 3.2 mEq/L Potassium Chloride (Kcl 20 Meq Premix Inj) 20 meq in 100 mls @ 50 mls/hr IV.SIG Q2H PRN PRN Reason: For Potassium 3.3 - 3.5 mEq/L Potassium Chloride (Kcl 40 Meq Premix Inj) 40 meq in 100 mls @ 25 mls/hr IV.SIG UNSCH PRN PRN Reason: For Potassium 3.3 - 3.5 mEq/L Potassium Chloride (Kcl 20 Meq Premix Inj) 20 meq in 100 mls @ 50 mls/hr IV.SIG Q2H PRN PRN Reason: For Potassium 2.8 - 3.2 mEq/L Potassium Phosphate 30 mmol/ (Sodium Chloride) 260 mls @ 42 mls/hr IV.SIG UNSCH PRN PRN Reason: SEE LABEL COMMENTS Sodium Phosphate 30 mmol/ (Sodium Chloride) 260 mls @ 42 mls/hr IV.SIG UNSCH PRN PRN Reason: For Phosphorus < 2.5 mg/dL Multivitamins 10 ml/ Thiamine HCl 100 mg/ Folic Acid 1 mg/Sodium Chloride 511.2 mls @ 125 mls/hr IV.SIG Q24H [facility] Stop: 01/23/18 01:06 Last Infusion: 01/22/18 01:17 Dose: Infused Levetiracetam 500 mg/ Sodium (Chloride) 105 mls @ 400 mls/hr IV.SIG Q12H [facility] Last Infusion: 01/22/18 05:24 Dose: Infused Valproate Sodium 500 mg/ (Sodium Chloride) 105 mls @ 105 mls/hr IV.SIG Q12H [facility] Last Infusion: 12/07/18 07:05 Dose: Infused Propofol (Diprivan 1000 Mg/100 Ml Inj) 1,000 mg in 100 mls @ 1.869 mls/hr IV.CONT TITRATE PRN; Protocol PRN Reason: Per Protocol Last Titration: 01/22/18 06:38 Dose: 35 mcg/kg/min, 13.08 mls/hr Fentanyl (Fentanyl 10 Mcg/Ml Premix Drip) 2,500 mcg in 250 mls @ 5 mls/hr IV.SIG TITRATE PRN; Protocol PRN Reason: Per Protocol Insulin Aspart (Novolog Insulin Correctional Sugar Inj) 0 unit SQ Q6HR [facility]; Protocol Last Admin: 01/22/18 06:47 Dose: 1 unit Labetalol HCl (Trandate Inj) 10 mg IV.PUSH Q1H PRN PRN Reason: sbp > 160 or DBP > 95 Lactulose (Lactulose Liq) 30 ml NG/OG BID [facility] Lansoprazole (Prevacid Solutab) 30 mg NG/OG DAILY [facility] Last Admin: 01/22/18 08:18 Dose: 30 mg Lorazepam (Ativan) 1 mg PO Q4H PRN PRN Reason: for CIWA 8-10 Lorazepam (Ativan) 2 mg PO Q2H PRN PRN Reason: for CIWA 11-14 Lorazepam (Ativan Inj) 2 mg IV.PUSH Q2H PRN PRN Reason: for CIWA 11-14 Lorazepam (Ativan Inj) 2 mg IV.PUSH Q1H PRN PRN Reason: for CIWA 15-20 Lorazepam (Ativan Inj) 2 mg IV.PUSH Q15M PRN PRN Reason: for CIWA > 20 Lorazepam (Ativan Inj) 1 mg IV.PUSH Q4H PRN PRN Reason: for CIWA 8-10 Magnesium Oxide (Mag-Ox) 800 mg PO UNSCH PRN PRN Reason: For Magnesium 1.2 - 1.6 mg/dL Miscellaneous (Pill Splitter) 1 each OTHER UNSCH [facility] Miscellaneous Medication () 1 each OROPHARYNG 0000,0400,1200,1600 [facility] Montelukast Sodium (Singulair) 10 mg PO QPM [facility] Last Admin: 01/21/18 17:17 Dose: 10 mg Ondansetron HCl (Zofran Inj) 4 mg IV.PUSH Q6H PRN PRN Reason: NAUSEA OR VOMITING Phenobarbital (Phenobarbital) 60 mg NG/OG Q12H [facility] Phenobarbital Sodium (Luminal Inj) 130 mg IV.SIG Q12HR [facility] Phenytoin Sodium (Dilantin) 100 mg NG/OG Q8HR [facility] Polyethylene Glycol (Miralax) 17 gm PO BID [facility] Last Admin: 01/22/18 08:17 Dose: Not Given Potassium Bicarb/Potassium Chloride (K-Lyte Cl Eff) 50 meq PO UNSCH PRN PRN Reason: For Potassium 3.3 - 3.5 mEq/L Potassium Phosphate (K-Phos Original) 2,000 mg PO Q4H PRN PRN Reason: Phosphorus Less Than 2.5 mg/dL Potassium Phosphate (K-Phos Original) 2,000 mg PO UNSCH PRN PRN Reason: SEE LABEL COMMENTS Senna/Docusate Sodium (Liliya-Colace) 1 tab PO BID [facility] Last Admin: 01/22/18 08:17 Dose: 1 tab Sodium Chloride (Ns Flush) 2 ml IV.FLUSH PRN PRN PRN Reason: FLUSH AFTER USING IV ACCESS Sodium Chloride (Ns Flush) 2 ml IV.FLUSH UNSCH PRN PRN Reason: FLUSH AFTER USING IV ACCESS Allergies Allergy/AdvReac Type Severity Reaction Status Date / Time No Known Allergies Allergy Verified 01/20/18 12:59 Home Medications Medication Instructions Recorded Confirmed Type alprazolam 1 mg PO DAILY 01/20/18 01/20/18 History aspirin 81 mg PO DAILY 01/20/18 01/20/18 History montelukast 10 mg PO QPM 01/20/18 01/20/18 History oxycodone-acetaminophen 2 tab PO Q6H PRN 01/20/18 01/20/18 History Advance Directives Family/friends goals: Goals are aggressive up to the point of cardiopulmonary resuscitation. Family would like the patient to be medically extubated so that they can take her home with hospice, but they understand that this may not be possible. Ethical and Legal Issues: Per [place] statutes, in the absence of written advanced directives healthcare proxy decision making falls to the patient's mother. Physical Exam Vital Signs: Vital Signs - 24 hr 01/21/18 10:00 01/21/18 10:15 01/21/18 10:16 Temperature 98 F 98 F Pulse Rate 111 H 109 H 107 H Respiratory Rate 17 18 18 Blood Pressure 95/54 L 95/54 L 95/54 L Pulse Oximetry 100 100 100 01/21/18 10:38 01/21/18 11:00 01/21/18 11:01 Temperature 98.7 F Pulse Rate 115 H 106 H 106 H Respiratory Rate 18 16 16 Blood Pressure 98/75 L 90/54 L 97/55 L Pulse Oximetry 98 100 100 01/21/18 12:00 01/21/18 13:00 01/21/18 14:00 Temperature 98.9 F Pulse Rate 110 H 94 H 91 H Respiratory Rate 18 16 20 Blood Pressure 100/60 90/52 L 105/65 Pulse Oximetry 97 100 100 01/21/18 15:00 01/21/18 15:24 01/21/18 16:00 Temperature 98.9 F Pulse Rate 93 H 104 H 108 H Respiratory Rate 20 24 22 Blood Pressure 106/67 117/59 L Pulse Oximetry 100 100 01/21/18 17:00 01/21/18 18:00 01/21/18 19:00 Temperature Pulse Rate 101 H 101 H 102 H Respiratory Rate 21 20 31 H Blood Pressure 119/58 L 91/54 L 122/54 L Pulse Oximetry 99 100 92 L 01/21/18 20:00 01/21/18 20:26 01/21/18 21:00 Temperature 97.6 F Pulse Rate 94 H 96 H 108 H Respiratory Rate 20 21 19 Blood Pressure 104/60 94/53 L Pulse Oximetry 96 98 01/21/18 21:01 01/21/18 22:00 01/21/18 23:00 Temperature Pulse Rate 107 H 101 H Respiratory Rate 21 20 16 Blood Pressure 90/52 L 91/52 L Pulse Oximetry 98 100 01/21/18 23:31 01/22/18 00:00 01/22/18 01:00 Temperature 97.6 F Pulse Rate 103 H 101 H 101 H Respiratory Rate 21 14 19 Blood Pressure 101/61 101/57 L Pulse Oximetry 100 94 L 01/22/18 01:47 01/22/18 02:00 01/22/18 02:19 Temperature Pulse Rate 126 H Respiratory Rate 18 23 Blood Pressure 121/76 Pulse Oximetry 86 L 01/22/18 03:00 01/22/18 03:26 01/22/18 03:41 Temperature Pulse Rate 106 H 109 H 139 H Respiratory Rate 15 39 H Blood Pressure 89/56 L 174/82 H 159/70 H Pulse Oximetry 97 91 L 01/22/18 03:55 01/22/18 04:00 01/22/18 04:13 Temperature 97.6 F Pulse Rate 141 H 145 H 159 H Respiratory Rate 24 49 H 29 H Blood Pressure 130/89 Pulse Oximetry 97 100 01/22/18 05:00 01/22/18 05:04 01/22/18 06:00 Temperature Pulse Rate 136 H 140 H 131 H Respiratory Rate 15 35 H 20 Blood Pressure 130/77 118/78 Pulse Oximetry 100 100 100 01/22/18 08:03 Temperature Pulse Rate 120 H Respiratory Rate 15 Blood Pressure Pulse Oximetry 100 I&O: Intake & Output 01/20/18 01/21/18 01/22/18 01/23/18 06:59 06:59 06:59 06:59 Intake Total 2124.2 / 2124.2 2821.2 / 2821.2 105 / 105 Output Total 350 / 350 300 / 300 Balance 1774.2 / 1774.2 2521.2 / 2521.2 105 / 105 Weight 62.3 kg 85 kg Physical Exam: CONSTITUTIONAL/GENERAL: This is a 57-year-old female patient who is intubated on mechanical vent. TUBES/LINES/DRAINS: PIV, VAD, ETT, OGT, soft restraints SKIN: No jaundice, rashes, or lesions. Ecchymoses on upper extremities. No wounds seen anteriorly. Skin temperature appropriate. Not diaphoretic. HEAD: Atraumatic. Normocephalic. EYES: Pupils equal and round. Extraocular motions intact. No scleral icterus. No injection or drainage. Fundi not examined. ENT: Nose without bleeding or purulent drainage. NECK: Trachea midline. Supple, nontender. No palpable thyroid enlargement or nodularity. CARDIOVASCULAR: Tachycardic. No JVD. Peripheral pulses symmetric. RESPIRATORY/CHEST: Intubated on mechanical vent. Diminished breath sounds throughout the left hemithorax. Pleurx catheter in left thorax. GASTROINTESTINAL: Abdomen soft, non-tender, nondistended. Hypoactive bowel sounds GENITOURINARY: Without palpable bladder distension. MUSCULOSKELETAL: Extremities without clubbing, cyanosis, or edema. N No mottling or clubbing. LYMPHATICS: No palpable cervical or supraclavicular adenopathy. NEUROLOGICAL: Minimally responsive on sedation. Withdraws left upper and lower extremity to noxious stimuli. PSYCHIATRIC: Unable to assess given current level of responsiveness Diagnostic Tests Laboratory: Laboratory Results - last 72 hr 01/20/18 01/20/18 01/20/18 13:05 13:25 13:25 CBC w Diff WBC RBC Hgb Hct MCV MCH MCHC RDW Plt Count MPV Prelim Diff (Auto) Neut % (Auto) Lymph % (Auto) Sunflower % (Auto) Eos % (Auto) Baso % (Auto) Neut # (Auto) Lymph # (Auto) Sunflower # (Auto) Eos # (Auto) Baso # (Auto) WBC Differential Seg Neuts % (Manual) Lymphocytes % (Manual) Monocytes % (Manual) Abs Neuts (Manual) Differential Comment Platelet Estimate Platelet Morphology PT 12.5 H INR 1.2 APTT 29.6 Puncture Site Patient Temperature O2 Saturation ABG pH ABG pCO2 ABG pO2 ABG HCO3 ABG O2 Content ABG Base Excess ABG Methemoglobin Josue Test Hemoglobin Carboxyhemoglobin O2 Delivery Device Vent Setting Inspired O2 Critical Value Sodium 129 L Potassium 2.4 L* Chloride 92 L Carbon Dioxide 21.1 Anion Gap 16 H BUN 4 L Creatinine 0.58 Estimated GFR Greater than 89 POC Glucose 100 Random Glucose 122 H Hemoglobin A1c Osmolality Lactic Acid Uric Acid Calcium 7.0 L* Calcium Adj for Albumin 9.1 Phosphorus Magnesium Total Bilirubin 0.3 AST 80 H ALT 69 H Alkaline Phosphatase 148 H Ammonia Lactate Dehydrogenase Total Creatine Kinase 38 Troponin I 0.02 Total Protein 5.8 L Albumin 1.4 L Triglycerides Cholesterol LDL Cholesterol, Calc HDL Cholesterol Cholesterol/HDL Ratio Lipase Vitamin B12 Beta-Hydroxybutyric Acd TSH Thyroxine (T4) Cortisol Urine Color Urine Clarity Urine pH Ur Specific Henderson Urine Protein Urine Glucose (UA) Urine Ketones Urine Occult Blood Urine Nitrate Urine Bilirubin Urine Urobilinogen Ur Leukocyte Esterase Urine RBC Urine WBC Ur Squamous Epith Cells Micro UA Comment Ur Microscopic Review Urine Culture Comments Urine Osmolality Ur Random Sodium Nasal Screen MRSA (PCR) Hepatitis A IgM Ab Hep Bs Antigen Hep B Core IgM Ab Hep C IgG Ab Blood Type Blood Type Recheck Antibody Screen MTS Gel Crossmatch 01/20/18 01/20/18 01/20/18 14:30 18:09 18:45 CBC w Diff Auto diff final WBC 2.1 L RBC 2.13 L Hgb 7.2 L Hct 21.2 L MCV 99.4 MCH 33.8 MCHC 34.0 RDW 13.0 Plt Count 127 L D MPV 7.5 Prelim Diff (Auto) Neut % (Auto) 76.4 H Lymph % (Auto) 11.8 Sunflower % (Auto) 10.4 H Eos % (Auto) 1.2 Baso % (Auto) 0.2 Neut # (Auto) 1.6 L Lymph # (Auto) 0.3 L Sunflower # (Auto) 0.2 Eos # (Auto) 0.0 Baso # (Auto) 0.0 WBC Differential . Seg Neuts % (Manual) Lymphocytes % (Manual) Monocytes % (Manual) Abs Neuts (Manual) Differential Comment . Platelet Estimate Platelet Morphology PT INR APTT Puncture Site Patient Temperature O2 Saturation ABG pH ABG pCO2 ABG pO2 ABG HCO3 ABG O2 Content ABG Base Excess ABG Methemoglobin Josue Test Hemoglobin Carboxyhemoglobin O2 Delivery Device Vent Setting Inspired O2 Critical Value Sodium Potassium Chloride Carbon Dioxide Anion Gap BUN Creatinine Estimated GFR POC Glucose 98 Random Glucose Hemoglobin A1c Osmolality Lactic Acid Uric Acid Calcium Calcium Adj for Albumin Phosphorus Magnesium Total Bilirubin AST ALT Alkaline Phosphatase Ammonia Lactate Dehydrogenase Total Creatine Kinase Troponin I Total Protein Albumin Triglycerides Cholesterol LDL Cholesterol, Calc HDL Cholesterol Cholesterol/HDL Ratio Lipase Vitamin B12 Beta-Hydroxybutyric Acd TSH Thyroxine (T4) Cortisol Urine Color Urine Clarity Urine pH Ur Specific Henderson Urine Protein Urine Glucose (UA) Urine Ketones Urine Occult Blood Urine Nitrate Urine Bilirubin Urine Urobilinogen Ur Leukocyte Esterase Urine RBC Urine WBC Ur Squamous Epith Cells Micro UA Comment Ur Microscopic Review Urine Culture Comments Urine Osmolality Ur Random Sodium Nasal Screen MRSA (PCR) Not detected Hepatitis A IgM Ab Hep Bs Antigen Hep B Core IgM Ab Hep C IgG Ab Blood Type Blood Type Recheck Antibody Screen MTS Gel Crossmatch 01/20/18 01/20/18 01/20/18 19:45 19:45 19:45 CBC w Diff WBC RBC Hgb Hct MCV MCH MCHC RDW Plt Count MPV Prelim Diff (Auto) Neut % (Auto) Lymph % (Auto) Sunflower % (Auto) Eos % (Auto) Baso % (Auto) Neut # (Auto) Lymph # (Auto) Sunflower # (Auto) Eos # (Auto) Baso # (Auto) WBC Differential Seg Neuts % (Manual) Lymphocytes % (Manual) Monocytes % (Manual) Abs Neuts (Manual) Differential Comment Platelet Estimate Platelet Morphology PT INR APTT Puncture Site Patient Temperature O2 Saturation ABG pH ABG pCO2 ABG pO2 ABG HCO3 ABG O2 Content ABG Base Excess ABG Methemoglobin Josue Test Hemoglobin Carboxyhemoglobin O2 Delivery Device Vent Setting Inspired O2 Critical Value Sodium Potassium Chloride Carbon Dioxide Anion Gap BUN Creatinine Estimated GFR POC Glucose Random Glucose Hemoglobin A1c Osmolality Lactic Acid Uric Acid 1.7 L Calcium Calcium Adj for Albumin Phosphorus 2.9 Magnesium 1.5 Total Bilirubin AST ALT Alkaline Phosphatase Ammonia Lactate Dehydrogenase Total Creatine Kinase 48 Troponin I Total Protein Albumin Triglycerides Cholesterol LDL Cholesterol, Calc HDL Cholesterol Cholesterol/HDL Ratio Lipase 101 Vitamin B12 Beta-Hydroxybutyric Acd TSH Thyroxine (T4) Cortisol 22.5 Urine Color Urine Clarity Urine pH Ur Specific Henderson Urine Protein Urine Glucose (UA) Urine Ketones Urine Occult Blood Urine Nitrate Urine Bilirubin Urine Urobilinogen Ur Leukocyte Esterase Urine RBC Urine WBC Ur Squamous Epith Cells Micro UA Comment Ur Microscopic Review Urine Culture Comments Urine Osmolality Ur Random Sodium Nasal Screen MRSA (PCR) Hepatitis A IgM Ab Nonreactive Hep Bs Antigen Nonreactive Hep B Core IgM Ab Nonreactive Hep C IgG Ab Nonreactive Blood Type Blood Type Recheck Antibody Screen MTS Gel Crossmatch 01/20/18 01/20/18 01/21/18 19:45 19:45 00:01 CBC w Diff WBC RBC Hgb Hct MCV MCH MCHC RDW Plt Count MPV Prelim Diff (Auto) Neut % (Auto) Lymph % (Auto) Sunflower % (Auto) Eos % (Auto) Baso % (Auto) Neut # (Auto) Lymph # (Auto) Sunflower # (Auto) Eos # (Auto) Baso # (Auto) WBC Differential Seg Neuts % (Manual) Lymphocytes % (Manual) Monocytes % (Manual) Abs Neuts (Manual) Differential Comment Platelet Estimate Platelet Morphology PT INR APTT Puncture Site Patient Temperature O2 Saturation ABG pH ABG pCO2 ABG pO2 ABG HCO3 ABG O2 Content ABG Base Excess ABG Methemoglobin Josue Test Hemoglobin Carboxyhemoglobin O2 Delivery Device Vent Setting Inspired O2 Critical Value Sodium Potassium 2.6 L* Chloride Carbon Dioxide Anion Gap BUN Creatinine Estimated GFR POC Glucose Random Glucose Hemoglobin A1c 4.7 Osmolality 267 L Lactic Acid 1.9 Uric Acid Calcium Calcium Adj for Albumin Phosphorus Magnesium Total Bilirubin AST ALT Alkaline Phosphatase Ammonia Lactate Dehydrogenase 211 Total Creatine Kinase Troponin I 0.92 H* D Total Protein Albumin Triglycerides 111 Cholesterol 150 LDL Cholesterol, Calc 85 HDL Cholesterol 43.3 Cholesterol/HDL Ratio 3.46 Lipase Vitamin B12 Greater than 2000 H Beta-Hydroxybutyric Acd TSH 1.330 Thyroxine (T4) 8.4 Cortisol Urine Color Urine Clarity Urine pH Ur Specific Henderson Urine Protein Urine Glucose (UA) Urine Ketones Urine Occult Blood Urine Nitrate Urine Bilirubin Urine Urobilinogen Ur Leukocyte Esterase Urine RBC Urine WBC Ur Squamous Epith Cells Micro UA Comment Ur Microscopic Review Urine Culture Comments Urine Osmolality Ur Random Sodium Nasal Screen MRSA (PCR) Hepatitis A IgM Ab Hep Bs Antigen Hep B Core IgM Ab Hep C IgG Ab Blood Type Blood Type Recheck Antibody Screen MTS Gel Crossmatch 01/21/18 01/21/18 01/21/18 01:11 02:36 02:36 CBC w Diff WBC RBC Hgb Hct MCV MCH MCHC RDW Plt Count MPV Prelim Diff (Auto) Neut % (Auto) Lymph % (Auto) Sunflower % (Auto) Eos % (Auto) Baso % (Auto) Neut # (Auto) Lymph # (Auto) Sunflower # (Auto) Eos # (Auto) Baso # (Auto) WBC Differential Seg Neuts % (Manual) Lymphocytes % (Manual) Monocytes % (Manual) Abs Neuts (Manual) Differential Comment Platelet Estimate Platelet Morphology PT INR APTT Puncture Site Patient Temperature O2 Saturation ABG pH ABG pCO2 ABG pO2 ABG HCO3 ABG O2 Content ABG Base Excess ABG Methemoglobin Josue Test Hemoglobin Carboxyhemoglobin O2 Delivery Device Vent Setting Inspired O2 Critical Value Sodium Potassium Chloride Carbon Dioxide Anion Gap BUN Creatinine Estimated GFR POC Glucose 103 Random Glucose Hemoglobin A1c Osmolality Lactic Acid Uric Acid Calcium Calcium Adj for Albumin Phosphorus Magnesium Total Bilirubin AST ALT Alkaline Phosphatase Ammonia Lactate Dehydrogenase Total Creatine Kinase Troponin I Total Protein Albumin Triglycerides Cholesterol LDL Cholesterol, Calc HDL Cholesterol Cholesterol/HDL Ratio Lipase Vitamin B12 Beta-Hydroxybutyric Acd TSH Thyroxine (T4) Cortisol Urine Color Urine Clarity Urine pH Ur Specific Henderson Urine Protein Urine Glucose (UA) Urine Ketones Urine Occult Blood Urine Nitrate Urine Bilirubin Urine Urobilinogen Ur Leukocyte Esterase Urine RBC Urine WBC Ur Squamous Epith Cells Micro UA Comment Ur Microscopic Review Urine Culture Comments Urine Osmolality 238 L Ur Random Sodium 66 Nasal Screen MRSA (PCR) Hepatitis A IgM Ab Hep Bs Antigen Hep B Core IgM Ab Hep C IgG Ab Blood Type Blood Type Recheck Antibody Screen MTS Gel Crossmatch 01/21/18 01/21/18 01/21/18 02:36 05:12 05:12 CBC w Diff WBC RBC Hgb Hct MCV MCH MCHC RDW Plt Count MPV Prelim Diff (Auto) Neut % (Auto) Lymph % (Auto) Sunflower % (Auto) Eos % (Auto) Baso % (Auto) Neut # (Auto) Lymph # (Auto) Sunflower # (Auto) Eos # (Auto) Baso # (Auto) WBC Differential Seg Neuts % (Manual) Lymphocytes % (Manual) Monocytes % (Manual) Abs Neuts (Manual) Differential Comment Platelet Estimate Platelet Morphology PT INR APTT Puncture Site Patient Temperature O2 Saturation ABG pH ABG pCO2 ABG pO2 ABG HCO3 ABG O2 Content ABG Base Excess ABG Methemoglobin Josue Test Hemoglobin Carboxyhemoglobin O2 Delivery Device Vent Setting Inspired O2 Critical Value Sodium 137 Potassium 3.1 L Chloride 101 D Carbon Dioxide 26.8 Anion Gap 9 BUN 1 L Creatinine 0.23 L Estimated GFR Greater than 89 POC Glucose Random Glucose 135 H Hemoglobin A1c Osmolality Lactic Acid Uric Acid Calcium 7.1 L* Calcium Adj for Albumin 9.3 Phosphorus 2.4 L Magnesium 2.6 H D Total Bilirubin AST ALT Alkaline Phosphatase Ammonia 14 Lactate Dehydrogenase Total Creatine Kinase Troponin I 0.47 H D Total Protein Albumin 1.3 L Triglycerides Cholesterol LDL Cholesterol, Calc HDL Cholesterol Cholesterol/HDL Ratio Lipase Vitamin B12 Beta-Hydroxybutyric Acd 0.81 H TSH 0.931 Thyroxine (T4) Cortisol Urine Color Yellow Urine Clarity Clear Urine pH 7.0 Ur Specific Henderson 1.013 Urine Protein Negative Urine Glucose (UA) Negative Urine Ketones 20 Urine Occult Blood Negative Urine Nitrate Negative Urine Bilirubin Negative Urine Urobilinogen Less than 2 Ur Leukocyte Esterase Negative Urine RBC Less than 1 Urine WBC Less than 1 Ur Squamous Epith Cells <1 Micro UA Comment Culture not ind Ur Microscopic Review Not Reportable Urine Culture Comments Culture not ind Urine Osmolality Ur Random Sodium Nasal Screen MRSA (PCR) Hepatitis A IgM Ab Hep Bs Antigen Hep B Core IgM Ab Hep C IgG Ab Blood Type Blood Type Recheck Antibody Screen MTS Gel Crossmatch 01/21/18 01/21/18 01/21/18 05:12 06:03 08:31 CBC w Diff WBC 1.6 L RBC 1.99 L Hgb 6.9 L* Hct 20.2 L* MCV 101.6 H MCH 34.8 H MCHC 34.2 RDW 13.3 Plt Count 91 L MPV 8.1 Prelim Diff (Auto) Slide review pending Neut % (Auto) 83.2 H Lymph % (Auto) 8.7 L Sunflower % (Auto) 7.9 Eos % (Auto) 0.1 Baso % (Auto) 0.1 Neut # (Auto) 1.3 L Lymph # (Auto) 0.1 L Sunflower # (Auto) 0.1 Eos # (Auto) 0.0 Baso # (Auto) 0.0 WBC Differential Manual diff final Seg Neuts % (Manual) 89 H Lymphocytes % (Manual) 9 Monocytes % (Manual) 2 Abs Neuts (Manual) 1.4 L Differential Comment . Platelet Estimate Low L Platelet Morphology Normal PT INR APTT Puncture Site Patient Temperature O2 Saturation ABG pH ABG pCO2 ABG pO2 ABG HCO3 ABG O2 Content ABG Base Excess ABG Methemoglobin Josue Test Hemoglobin Carboxyhemoglobin O2 Delivery Device Vent Setting Inspired O2 Critical Value Sodium Potassium Chloride Carbon Dioxide Anion Gap BUN Creatinine Estimated GFR POC Glucose Random Glucose Hemoglobin A1c Osmolality Lactic Acid Uric Acid Calcium Calcium Adj for Albumin Phosphorus Magnesium Total Bilirubin AST ALT Alkaline Phosphatase Ammonia Lactate Dehydrogenase Total Creatine Kinase Troponin I Total Protein Albumin Triglycerides Cholesterol LDL Cholesterol, Calc HDL Cholesterol Cholesterol/HDL Ratio Lipase Vitamin B12 Beta-Hydroxybutyric Acd TSH Thyroxine (T4) Cortisol Urine Color Urine Clarity Urine pH Ur Specific [place] Urine Protein Urine Glucose (UA) Urine Ketones Urine Occult Blood Urine Nitrate Urine Bilirubin Urine Urobilinogen Ur Leukocyte Esterase Urine RBC Urine WBC Ur Squamous Epith Cells Micro UA Comment Ur Microscopic Review Urine Culture Comments Urine Osmolality Ur Random Sodium Nasal Screen MRSA (PCR) Hepatitis A IgM Ab Hep Bs Antigen Hep B Core IgM Ab Hep C IgG Ab Blood Type A Positive Blood Type Recheck Not needed Antibody Screen Negative MTS Gel Crossmatch See Detail See Detail 01/21/18 01/21/18 01/21/18 11:23 14:21 14:21 CBC w Diff WBC RBC Hgb 11.5 L D Hct 32.9 L MCV MCH MCHC RDW Plt Count MPV Prelim Diff (Auto) Neut % (Auto) Lymph % (Auto) Sunflower % (Auto) Eos % (Auto) Baso % (Auto) Neut # (Auto) Lymph # (Auto) Sunflower # (Auto) Eos # (Auto) Baso # (Auto) WBC Differential Seg Neuts % (Manual) Lymphocytes % (Manual) Monocytes % (Manual) Abs Neuts (Manual) Differential Comment Platelet Estimate Platelet Morphology PT INR APTT Puncture Site Patient Temperature O2 Saturation ABG pH ABG pCO2 ABG pO2 ABG HCO3 ABG O2 Content ABG Base Excess ABG Methemoglobin Josue Test Hemoglobin Carboxyhemoglobin O2 Delivery Device Vent Setting Inspired O2 Critical Value Sodium Potassium 3.5 Chloride Carbon Dioxide Anion Gap BUN Creatinine Estimated GFR POC Glucose 179 H Random Glucose Hemoglobin A1c Osmolality Lactic Acid Uric Acid Calcium Calcium Adj for Albumin Phosphorus Magnesium Total Bilirubin AST ALT Alkaline Phosphatase Ammonia Lactate Dehydrogenase Total Creatine Kinase Troponin I Total Protein Albumin Triglycerides Cholesterol LDL Cholesterol, Calc HDL Cholesterol Cholesterol/HDL Ratio Lipase Vitamin B12 Beta-Hydroxybutyric Acd TSH Thyroxine (T4) Cortisol Urine Color Urine Clarity Urine pH Ur Specific [place] Urine Protein Urine Glucose (UA) Urine Ketones Urine Occult Blood Urine Nitrate Urine Bilirubin Urine Urobilinogen Ur Leukocyte Esterase Urine RBC Urine WBC Ur Squamous Epith Cells Micro UA Comment Ur Microscopic Review Urine Culture Comments Urine Osmolality Ur Random Sodium Nasal Screen MRSA (PCR) Hepatitis A IgM Ab Hep Bs Antigen Hep B Core IgM Ab Hep C IgG Ab Blood Type Blood Type Recheck Antibody Screen MTS Gel Crossmatch 01/21/18 01/22/18 01/22/18 17:03 00:29 05:23 CBC w Diff WBC RBC Hgb Hct MCV MCH MCHC RDW Plt Count MPV Prelim Diff (Auto) Neut % (Auto) Lymph % (Auto) Sunflower % (Auto) Eos % (Auto) Baso % (Auto) Neut # (Auto) Lymph # (Auto) Sunflower # (Auto) Eos # (Auto) Baso # (Auto) WBC Differential Seg Neuts % (Manual) Lymphocytes % (Manual) Monocytes % (Manual) Abs Neuts (Manual) Differential Comment Platelet Estimate Platelet Morphology PT INR APTT Puncture Site Right radial Patient Temperature 98.6 O2 Saturation 98 ABG pH 7.44 H ABG pCO2 30 L ABG pO2 438 H ABG HCO3 20 L ABG O2 Content 15.5 ABG Base Excess -3.5 L ABG Methemoglobin 0.9 Josue Test Present Hemoglobin 10.4 L Carboxyhemoglobin 1.1 O2 Delivery Device Ventilator Vent Setting See comment Inspired O2 100 Critical Value No Sodium Potassium Chloride Carbon Dioxide Anion Gap BUN Creatinine Estimated GFR POC Glucose 122 H 128 H Random Glucose Hemoglobin A1c Osmolality Lactic Acid Uric Acid Calcium Calcium Adj for Albumin Phosphorus Magnesium Total Bilirubin AST ALT Alkaline Phosphatase Ammonia Lactate Dehydrogenase Total Creatine Kinase Troponin I Total Protein Albumin Triglycerides Cholesterol LDL Cholesterol, Calc HDL Cholesterol Cholesterol/HDL Ratio Lipase Vitamin B12 Beta-Hydroxybutyric Acd TSH Thyroxine (T4) Cortisol Urine Color Urine Clarity Urine pH Ur Specific [place] Urine Protein Urine Glucose (UA) Urine Ketones Urine Occult Blood Urine Nitrate Urine Bilirubin Urine Urobilinogen Ur Leukocyte Esterase Urine RBC Urine WBC Ur Squamous Epith Cells Micro UA Comment Ur Microscopic Review Urine Culture Comments Urine Osmolality Ur Random Sodium Nasal Screen MRSA (PCR) Hepatitis A IgM Ab Hep Bs Antigen Hep B Core IgM Ab Hep C IgG Ab Blood Type Blood Type Recheck Antibody Screen MTS Gel Crossmatch 01/22/18 06:28 CBC w Diff WBC RBC Hgb Hct MCV MCH MCHC RDW Plt Count MPV Prelim Diff (Auto) Neut % (Auto) Lymph % (Auto) Sunflower % (Auto) Eos % (Auto) Baso % (Auto) Neut # (Auto) Lymph # (Auto) Sunflower # (Auto) Eos # (Auto) Baso # (Auto) WBC Differential Seg Neuts % (Manual) Lymphocytes % (Manual) Monocytes % (Manual) Abs Neuts (Manual) Differential Comment Platelet Estimate Platelet Morphology PT INR APTT Puncture Site Patient Temperature O2 Saturation ABG pH ABG pCO2 ABG pO2 ABG HCO3 ABG O2 Content ABG Base Excess ABG Methemoglobin Josue Test Hemoglobin Carboxyhemoglobin O2 Delivery Device Vent Setting Inspired O2 Critical Value Sodium Potassium Chloride Carbon Dioxide Anion Gap BUN Creatinine Estimated GFR POC Glucose 169 H Random Glucose Hemoglobin A1c Osmolality Lactic Acid Uric Acid Calcium Calcium Adj for Albumin Phosphorus Magnesium Total Bilirubin AST ALT Alkaline Phosphatase Ammonia Lactate Dehydrogenase Total Creatine Kinase Troponin I Total Protein Albumin Triglycerides Cholesterol LDL Cholesterol, Calc HDL Cholesterol Cholesterol/HDL Ratio Lipase Vitamin B12 Beta-Hydroxybutyric Acd TSH Thyroxine (T4) Cortisol Urine Color Urine Clarity Urine pH Ur Specific [place] Urine Protein Urine Glucose (UA) Urine Ketones Urine Occult Blood Urine Nitrate Urine Bilirubin Urine Urobilinogen Ur Leukocyte Esterase Urine RBC Urine WBC Ur Squamous Epith Cells Micro UA Comment Ur Microscopic Review Urine Culture Comments Urine Osmolality Ur Random Sodium Nasal Screen MRSA (PCR) Hepatitis A IgM Ab Hep Bs Antigen Hep B Core IgM Ab Hep C IgG Ab Blood Type Blood Type Recheck Antibody Screen MTS Gel Crossmatch Result Diagrams: 01/22/18 09:30 01/22/18 09:30 Imaging: Chest CT 01/20/18 00:00 CONCLUSION: 1. Masslike area of the left hilum attenuating the left mainstem bronchus and presumably is a central primary bronchogenic carcinoma. There is associated consolidation of most of the left lung and with volume loss. 2. Moderate to large left pleural effusion with loculated components medially at the apex and laterally at the base. Tip of the chest tube is in the apical component. 3. Displaced fracture posteriorly of the left 11th rib and with a suspected 1 cm lytic lesion concerning for metastasis. No other focal bone lesions are demonstrated. Head CT 01/20/18 12:59 CONCLUSION: 1. No acute intracranial abnormality is identified. 2. Chronic changes include mild generalized atrophy and encephalomalacia in the left parietal high convexity. 3. Director Operations view demonstrates complete opacification of the left hemithorax in this patient with history of lung cancer. Suggest correlating with the patient' s prior imaging studies to determine if this is a new finding. The above findings were telephoned to Dr. Interiano on 01/20/2018 at 1:19 PM. Head CTA 01/20/18 12:59 CONCLUSION: 1. No acute intracranial vascular abnormality is identified. 2. Possible enhancing lesion in the left parietal high convexity which could represent a metastatic lesion in this patient with history of lung cancer. The findings were telephoned to Dr. Wiseman and Dr. Interiano in on 01/20/2018 at 1:49 PM. Neck CTA 01/20/18 12:59 CONCLUSION: 1. Negative for hemodynamically significant carotid stenosis 2. Significant consolidative changes in the left upper lobe likely fluid collection in the apex of the left upper lobe. Head MRI 01/20/18 13:54 CONCLUSION: 14 mm round, probably intra-axial mass of the left high posterior parietal lobe as described probably a metastatic lesion. Chest X-Ray 01/22/18 04:52 CONCLUSION: Patchy infiltrate right lung. Complete opacification left hemithorax. Procedures: 01/22/2018: Orotracheal intubation Patient/Family Conference Present at Family Conference: Met with patient's mother and stepfather in the family conference room as well as the patient's bedside. Family Conference Location: Bedside, Consult Room, Telephone Issues Discussed: * Palliative care role, purpose, approach * Additional medical, psychosocial, and spiritual history * Patients general health, functional status, and cognitive changes in the months leading up to the current hospitalization * Patient/family understanding of the current medical problems * Patient/family understanding of prognosis * Patients goals of care as best understood from advance directives and/or conversations and/or values * Current medical treatment options and benefits/burdens of those options * Likely scenarios comparing ongoing aggressive care with a transition to comfort measures only * Questions answered to the best of my ability * Palliative care contact information provided Assessment and Plan - Disease Oriented Problem List (1) Seizure (2) Brain mass (3) Acute hypokalemia (4) Non-small cell carcinoma of lung, stage 4 (5) Hypokalemia (6) Pancytopenia Pertinent Non-Medical Issues: Psychosocial: Patient is originally from [place]. She moved to [place] to be closer to her mother. 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 She has been and 2 times. She has no children. She has a pit bull named Arsen. Spiritual: Legal: Per [place] statutes, in the absence of written advanced directives healthcare proxy decision making falls to the patient's mother Ethical issues impacting care: No known ethical issues impacting care. 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 She is not a candidate for systemic therapy or radiation at this time. Her prognosis is quite poor. Code Status: Alternative Code (Intubation only) Plan: * ALTERNATE CODE-INTUBATION ONLY * Patient is currently sedated and intubated on mechanical vent ventilation and unable to participate in medical decision making. It is unclear if she will regain this capacity. Per [place] statutes, in the absence of written advanced directives healthcare proxy decision making falls to the patient's mother. * Patient's parents understand that their daughter is terminally ill. Ideally they hope she can be medically extubated so they can take her home on hospice, but they understand that this may not be possible. They do not want her to suffer. If the patient's condition does not improve in the upcoming days, they will likely consider compassionate withdrawal of artificial life support. * Discussed with Dr. Gracia and nurse, Anne Marie. * Palliative care contact information was provided to the patient's family. * Symptom management-pain: Altered factor. 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 Patient was on long-acting morphine every 12 hours and Percocet (10/325mg) every 6 hours as needed for breakthrough pain. The patient's mother reports her pain was not well controlled. Patient is currently sedated on propofol. Patient is on Decadron 4 mg IV every 6 hours. Fentanyl drip is ordered per protocol. Monitor for signs and symptoms of nonverbal pain. * Palliative care will continue to follow this patient throughout her hospitalization to build rapport, assist with symptom managment and goal clarification. Appreciation Thank you for the opportunity to participate in the care of Sujata Hearn.
[2018-01-22] MEDS: PHENobarbital Inj 130 MG/ML Vial IV.SIG SCH ×2 (11:13→20:58)
[2018-01-22] MEDS: Oral Hygiene Kit OROPHARYNG SCH ×3 (11:56→23:32)
[2018-01-22] MEDS: Filgrastim Inj 300 MCG/ML Vial SQ SCH (13:26)
[2018-01-22] MEDS: Phenytoin Sodium 100 MG Capsule NG/OG SCH ×2 (13:27→22:27)
--- NOTE | 2018-01-22 14:00 | P.CON ---
History of Present Illness Service: radiation oncology Consult date: 01/22/18 Primary Care Provider: Mathieu Soria MD Chief Complaint: Seizures and generalized weakness. History of Present Illness: History mestastatic cancer. Single brain metastasis. Left lung collapse. intubated. 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 - Medical History Medical History: Medical History (Last Updated 01/22/18 @ 09:54 by PAUL Shaw) Alcoholism Anxiety Bone metastases Brain metastasis History of benzodiazepine use History of chemotherapy History of radiation therapy Malignant pleural effusion Non-small cell carcinoma of left lung, stage 4 Smoking addiction - Surgical History Surgical History: Surgical History (Last Reviewed 01/21/18 @ 18:10 by Tom Birch MD) Port-A-Cath in place (Acute) S/P chest tube placement - Family History Family History: Family History (Last Reviewed 01/21/18 @ 18:10 by Tom Birch MD) Other History of bladder cancer History of kidney cancer - Tobacco History Second Hand Smoke Exposure: No Tobacco Use In Past 30 Days: No Smoking Status: Former smoker (Quit 12 years ago) Tobacco Type: Cigarettes Number of Pack Years (if former smoker): 35 - Alcohol History How Often Do You Have a Drink Containing Alcohol: 4 or more times a week - Substance Use History Substance History: No History of Abuse - Travel History Recent Travel in the [place] Within the Last 8 Weeks: No Recent Travel Out of the Country Within the Last 8 Weeks: No - Immunization History Tetanus Immunization: Unsure Medications and Allergies Active Medications: Active Medications Acetaminophen (Tylenol Liq) 650 mg PO Q6H PRN PRN Reason: FEVER Albuterol (Duoneb Neb ([facility])) 1 ampul NEB Q4HR NEB [facility] Last Admin: 01/22/18 11:38 Dose: 1 ampul Albuterol (Albuterol Neb (Prn)) 2.5 mg NEB Q2HR NEB PRN PRN Reason: DYSPNEA Artificial Tears (Tears Naturale Opth Drops) 1 drop EACH EYE Q8H [facility] Last Admin: 01/22/18 08:36 Dose: 1 drop Bisacodyl (Dulcolax Supp) 10 mg RECTAL DAILY PRN PRN Reason: if no BM in last 24h Chlorhexidine Gluconate (Chlorhexidine 2% Cloth) 3 pack TOPICAL DAILY@0400 [facility] Stop: 01/26/18 03:59 Last Admin: 01/22/18 03:54 Dose: 3 pack Chlorhexidine Gluconate (Chlorhexidine 2% Cloth) 3 pack TOPICAL DAILY@0400 PRN PRN Reason: Extra cloth needed Stop: 01/26/18 03:59 Chlorhexidine Gluconate (Peridex 0.12% Oral Kit) 15 ml OROPHARYNG BID@0800, 2000 [facility] Last Admin: 01/22/18 08:17 Dose: 15 ml Dexamethasone Sodium Phosphate (Decadron Inj) 4 mg IV.PUSH Q6HR [facility] Last Admin: 01/22/18 11:14 Dose: 4 mg Dextrose (D50w Vial) 50 ml IV.PUSH UNSCH PRN PRN Reason: PER HYPOGLYCEMIA PROTOCOL Filgrastim (Neupogen Inj) 300 mcg SQ DAILY@1400 [facility] Last Admin: 01/22/18 13:26 Dose: 300 mcg Flumazenil (Romazecon Inj) 0.2 mg IV.PUSH Q1M PRN PRN Reason: OVERSEDATION Folic Acid (Folic Acid) 1 mg NG/OG DAILY [facility] Last Admin: 01/22/18 10:22 Dose: 1 mg Glucagon (Glucagon Inj) 1 mg OTHER PRN PRN PRN Reason: for Hypoglycemia Protocol Hydralazine HCl (Apresoline Inj) 10 mg IV.PUSH Q1H PRN PRN Reason: sbp > 160, dbp > 95 Magnesium Sulfate 4 gm/ Sodium (Chloride) 100 mls @ 50 mls/hr IV.SIG UNSCH PRN PRN Reason: For Magnesium 0.9 - 1.1 mg/dL Magnesium Sulfate 2 gm/ Sodium (Chloride) 100 mls @ 50 mls/hr IV.SIG UNSCH PRN PRN Reason: For Magnesium 1.2 - 1.6 mg/dL Sodium Chloride (Ns Inj) 1,000 mls @ 84 mls/hr IV.CONT .[id number] [facility] Last Admin: 01/22/18 05:23 Dose: 84 mls/hr Potassium Chloride (Kcl 40 Meq Premix Inj) 40 meq in 100 mls @ 25 mls/hr IV.SIG Q2H PRN PRN Reason: For Potassium 2.8 - 3.2 mEq/L Potassium Chloride (Kcl 20 Meq Premix Inj) 20 meq in 100 mls @ 50 mls/hr IV.SIG Q2H PRN PRN Reason: For Potassium 3.3 - 3.5 mEq/L Potassium Chloride (Kcl 40 Meq Premix Inj) 40 meq in 100 mls @ 25 mls/hr IV.SIG UNSCH PRN PRN Reason: For Potassium 3.3 - 3.5 mEq/L Potassium Chloride (Kcl 20 Meq Premix Inj) 20 meq in 100 mls @ 50 mls/hr IV.SIG Q2H PRN PRN Reason: For Potassium 2.8 - 3.2 mEq/L Potassium Phosphate 30 mmol/ (Sodium Chloride) 260 mls @ 42 mls/hr IV.SIG UNSCH PRN PRN Reason: SEE LABEL COMMENTS Sodium Phosphate 30 mmol/ (Sodium Chloride) 260 mls @ 42 mls/hr IV.SIG UNSCH PRN PRN Reason: For Phosphorus < 2.5 mg/dL Multivitamins 10 ml/ Thiamine HCl 100 mg/ Folic Acid 1 mg/Sodium Chloride 511.2 mls @ 125 mls/hr IV.SIG Q24H [facility] Stop: 01/23/18 01:06 Last Infusion: 01/22/18 01:17 Dose: Infused Levetiracetam 500 mg/ Sodium (Chloride) 105 mls @ 400 mls/hr IV.SIG Q12H [facility] Last Admin: 01/22/18 13:25 Dose: 400 mls/hr Valproate Sodium 500 mg/ (Sodium Chloride) 105 mls @ 105 mls/hr IV.SIG Q12H [facility] Last Infusion: 01/22/18 07:05 Dose: Infused Propofol (Diprivan 1000 Mg/100 Ml Inj) 1,000 mg in 100 mls @ 1.869 mls/hr IV.CONT TITRATE PRN; Protocol PRN Reason: Per Protocol Last Titration: 01/22/18 06:38 Dose: 35 mcg/kg/min, 13.08 mls/hr Fentanyl (Fentanyl 10 Mcg/Ml Premix Drip) 2,500 mcg in 250 mls @ 5 mls/hr IV.SIG TITRATE PRN; Protocol PRN Reason: Per Protocol Insulin Aspart (Novolog Insulin Correctional Sugar Inj) 0 unit SQ Q6HR [facility]; Protocol Last Admin: 01/22/18 11:14 Dose: Not Given Labetalol HCl (Trandate Inj) 10 mg IV.PUSH Q1H PRN PRN Reason: sbp > 160 or DBP > 95 Lactulose (Lactulose Liq) 30 ml NG/OG BID [facility] Last Admin: 01/22/18 10:22 Dose: Not Given Lansoprazole (Prevacid Solutab) 30 mg NG/OG DAILY [facility] Last Admin: 01/22/18 08:18 Dose: 30 mg Lorazepam (Ativan) 1 mg PO Q4H PRN PRN Reason: for CIWA 8-10 Lorazepam (Ativan) 2 mg PO Q2H PRN PRN Reason: for CIWA 11-14 Lorazepam (Ativan Inj) 2 mg IV.PUSH Q2H PRN PRN Reason: for CIWA 11-14 Lorazepam (Ativan Inj) 2 mg IV.PUSH Q1H PRN PRN Reason: for CIWA 15-20 Lorazepam (Ativan Inj) 2 mg IV.PUSH Q15M PRN PRN Reason: for CIWA > 20 Lorazepam (Ativan Inj) 1 mg IV.PUSH Q4H PRN PRN Reason: for CIWA 8-10 Magnesium Oxide (Mag-Ox) 800 mg PO UNSCH PRN PRN Reason: For Magnesium 1.2 - 1.6 mg/dL Miscellaneous (Pill Splitter) 1 each OTHER UNSCH [facility] Miscellaneous Medication () 1 each OROPHARYNG 0000,0400,1200,1600 [facility] Last Admin: 01/22/18 11:56 Dose: 1 each Montelukast Sodium (Singulair) 10 mg PO QPM [facility] Last Admin: 01/21/18 17:17 Dose: 10 mg Ondansetron HCl (Zofran Inj) 4 mg IV.PUSH Q6H PRN PRN Reason: NAUSEA OR VOMITING Phenobarbital (Phenobarbital) 60 mg NG/OG Q12H [facility] Last Admin: 01/22/18 10:22 Dose: 60 mg Phenobarbital Sodium (Luminal Inj) 130 mg IV.SIG Q12HR [facility] Last Admin: 01/22/18 11:13 Dose: 130 mg Phenytoin Sodium (Dilantin) 100 mg NG/OG Q8HR [facility] Last Admin: 01/22/18 13:27 Dose: 100 mg Polyethylene Glycol (Miralax) 17 gm PO BID [facility] Last Admin: 01/22/18 08:17 Dose: Not Given Potassium Bicarb/Potassium Chloride (K-Lyte Cl Eff) 50 meq PO UNSCH PRN PRN Reason: For Potassium 3.3 - 3.5 mEq/L Potassium Phosphate (K-Phos Original) 2,000 mg PO Q4H PRN PRN Reason: Phosphorus Less Than 2.5 mg/dL Potassium Phosphate (K-Phos Original) 2,000 mg PO UNSCH PRN PRN Reason: SEE LABEL COMMENTS Senna/Docusate Sodium (Liliya-Colace) 1 tab PO BID [facility] Last Admin: 01/22/18 08:17 Dose: 1 tab Sodium Chloride (Ns Flush) 2 ml IV.FLUSH PRN PRN PRN Reason: FLUSH AFTER USING IV ACCESS Sodium Chloride (Ns Flush) 2 ml IV.FLUSH UNSCH PRN PRN Reason: FLUSH AFTER USING IV ACCESS Allergies Allergy/AdvReac Type Severity Reaction Status Date / Time No Known Allergies Allergy Verified 01/20/18 12:59 Home Medications Medication Instructions Recorded Confirmed Type alprazolam 1 mg PO DAILY 01/20/18 01/20/18 History aspirin 81 mg PO DAILY 01/20/18 01/20/18 History montelukast 10 mg PO QPM 01/20/18 01/20/18 History oxycodone-acetaminophen 2 tab PO Q6H PRN 01/20/18 01/20/18 History Physical Exam Vital signs: Vital Signs 01/21/18 14:00 01/21/18 15:00 01/21/18 15:24 Temperature Pulse Rate 91 H 93 H 104 H Respiratory Rate 20 20 24 Blood Pressure 105/65 106/67 Pulse Oximetry 100 100 01/21/18 16:00 01/21/18 17:00 01/21/18 18:00 Temperature 98.9 F Pulse Rate 108 H 101 H 101 H Respiratory Rate 22 21 20 Blood Pressure 117/59 L 119/58 L 91/54 L Pulse Oximetry 100 99 100 01/21/18 19:00 01/21/18 20:00 01/21/18 20:26 Temperature 97.6 F Pulse Rate 102 H 94 H 96 H Respiratory Rate 31 H 20 21 Blood Pressure 122/54 L 104/60 Pulse Oximetry 92 L 96 01/21/18 21:00 01/21/18 21:01 01/21/18 22:00 Temperature Pulse Rate 108 H 107 H Respiratory Rate 19 21 20 Blood Pressure 94/53 L 90/52 L Pulse Oximetry 98 98 01/21/18 23:00 01/21/18 23:31 01/22/18 00:00 Temperature 97.6 F Pulse Rate 101 H 103 H 101 H Respiratory Rate 16 21 14 Blood Pressure 91/52 L 101/61 Pulse Oximetry 100 100 01/22/18 01:00 01/22/18 01:47 01/22/18 02:00 Temperature Pulse Rate 101 H Respiratory Rate 19 18 Blood Pressure 101/57 L Pulse Oximetry 94 L 86 L 01/22/18 02:19 01/22/18 03:00 01/22/18 03:26 Temperature Pulse Rate 126 H 106 H 109 H Respiratory Rate 23 15 Blood Pressure 121/76 89/56 L 174/82 H Pulse Oximetry 97 01/22/18 03:41 01/22/18 03:55 01/22/18 04:00 Temperature 97.6 F Pulse Rate 139 H 141 H 145 H Respiratory Rate 39 H 24 49 H Blood Pressure 159/70 H Pulse Oximetry 91 L 97 01/22/18 04:13 01/22/18 05:00 01/22/18 05:04 Temperature Pulse Rate 159 H 136 H 140 H Respiratory Rate 29 H 15 35 H Blood Pressure 130/89 130/77 Pulse Oximetry 100 100 100 01/22/18 06:00 01/22/18 07:00 01/22/18 08:00 Temperature 99.5 F Pulse Rate 131 H 123 H 123 H Respiratory Rate 20 16 17 Blood Pressure 118/78 108/72 107/74 Pulse Oximetry 100 100 100 01/22/18 08:03 01/22/18 09:00 01/22/18 10:00 Temperature Pulse Rate 120 H 120 H 116 H Respiratory Rate 15 15 14 Blood Pressure 91/61 L 94/57 L Pulse Oximetry 100 100 100 01/22/18 11:00 01/22/18 11:30 01/22/18 11:38 Temperature Pulse Rate 118 H 116 H 116 H Respiratory Rate 15 15 14 Blood Pressure 94/66 L 97/66 L Pulse Oximetry 100 100 100 01/22/18 12:00 01/22/18 12:30 01/22/18 12:35 Temperature Pulse Rate 118 H 118 H 117 H Respiratory Rate 14 17 18 Blood Pressure 89/55 L 88/57 L 89/55 L Pulse Oximetry 100 100 100 01/22/18 13:00 Temperature Pulse Rate 118 H Respiratory Rate 17 Blood Pressure 100/68 Pulse Oximetry 100 Intake & Output 01/21/18 01/22/18 01/22/18 18:59 06:59 18:59 Intake Total 1205 / 1205 1616.2 / 1616.2 105 / 105 Output Total 300 / 300 Balance 905 / 905 1616.2 / 1616.2 105 / 105 Weight 85 kg Intake: IV 205 / 205 1616.2 / 1616.2 105 / 105 NS Inj 1,000 ML @ 84 mls/hr IV. 1000 / 1000 CONT .[id number] [facility] Rx#: [id number] [id number]-12 Inj 10 ML Thiamine Inj 511.2 / 511.2 100 MG Folvite Inj 1 MG In NS Inj 500 ML @ 125 mls/hr IV.SIG Q24H [facility] Rx#:[id number] Depacon Inj 500 MG In NS Inj 105 / 105 100 ML @ 105 mls/hr IV.SIG Q12H [facility] Rx#:[id number] Keppra 1000 mg/100 mL Premix 100 / 100 100 ML @ 400 mls/hr IV.SIG NOW ONE Rx#:[id number] Keppra Inj 500 MG In NS Inj 100 105 / 105 105 / 105 ML @ 400 mls/hr IV.SIG Q12H [facility] Rx#:[id number] Oral 200 / 200 Intake (Blood Product) Amt 800 / 800 Rbc As-3 Leukoreduced Unit 400 / 400 [id number] Rbc As-3 Leukoreduced Unit 400 / 400 [id number] Output: Urine 300 / 300 Other: # Voids 3 # Incontinent Voids 3 # Bowel Movements 0 Results - Labs CBC & Chem 7: 01/22/18 09:30 01/22/18 09:30 Labs: Laboratory Results - last 24 hr 01/21/18 01/21/18 01/21/18 08:31 14:21 14:21 WBC RBC Hgb 11.5 L D Hct 32.9 L MCV MCH MCHC RDW Plt Count MPV Prelim Diff (Auto) Neut % (Auto) Lymph % (Auto) [place] % (Auto) Eos % (Auto) Baso % (Auto) Neut # (Auto) Lymph # (Auto) [place] # (Auto) Eos # (Auto) Baso # (Auto) WBC Differential Seg Neuts % (Manual) Band Neuts % (Manual) Lymphocytes % (Manual) Monocytes % (Manual) Abs Neuts (Manual) Differential Comment Platelet Estimate Platelet Morphology Puncture Site Patient Temperature O2 Saturation ABG pH ABG pCO2 ABG pO2 ABG HCO3 ABG O2 Content ABG Base Excess ABG Methemoglobin Josue Test Hemoglobin Carboxyhemoglobin O2 Delivery Device Vent Setting Inspired O2 Critical Value Sodium Potassium 3.5 Chloride Carbon Dioxide Anion Gap BUN Creatinine Estimated GFR POC Glucose Random Glucose Calcium Phosphorus Magnesium Phenytoin Valproic Acid Phenobarbital MTS Gel Crossmatch See Detail 01/21/18 01/22/18 01/22/18 17:03 00:29 05:23 WBC RBC Hgb Hct MCV MCH MCHC RDW Plt Count MPV Prelim Diff (Auto) Neut % (Auto) Lymph % (Auto) [place] % (Auto) Eos % (Auto) Baso % (Auto) Neut # (Auto) Lymph # (Auto) [place] # (Auto) Eos # (Auto) Baso # (Auto) WBC Differential Seg Neuts % (Manual) Band Neuts % (Manual) Lymphocytes % (Manual) Monocytes % (Manual) Abs Neuts (Manual) Differential Comment Platelet Estimate Platelet Morphology Puncture Site Right radial Patient Temperature 98.6 O2 Saturation 98 ABG pH 7.44 H ABG pCO2 30 L ABG pO2 438 H ABG HCO3 20 L ABG O2 Content 15.5 ABG Base Excess -3.5 L ABG Methemoglobin 0.9 Josue Test Present Hemoglobin 10.4 L Carboxyhemoglobin 1.1 O2 Delivery Device Ventilator Vent Setting See comment Inspired O2 100 Critical Value No Sodium Potassium Chloride Carbon Dioxide Anion Gap BUN Creatinine Estimated GFR POC Glucose 122 H 128 H Random Glucose Calcium Phosphorus Magnesium Phenytoin Valproic Acid Phenobarbital MTS Gel Crossmatch 01/22/18 01/22/18 01/22/18 06:28 09:30 09:30 WBC 5.7 RBC 3.14 L Hgb 10.3 L Hct 30.7 L MCV 97.6 D MCH 32.9 MCHC 33.7 RDW 16.7 D Plt Count 78 L MPV 9.1 Prelim Diff (Auto) Slide review pending Neut % (Auto) 82.4 H Lymph % (Auto) 4.8 L [place] % (Auto) 12.5 H Eos % (Auto) 0.2 Baso % (Auto) 0.1 Neut # (Auto) 4.7 Lymph # (Auto) 0.3 L [place] # (Auto) 0.7 Eos # (Auto) 0.0 Baso # (Auto) 0.0 WBC Differential Manual diff final Seg Neuts % (Manual) 79 H Band Neuts % (Manual) 6 Lymphocytes % (Manual) 6 L Monocytes % (Manual) 9 H Abs Neuts (Manual) 4.8 Differential Comment . Platelet Estimate Low L Platelet Morphology Normal Puncture Site Patient Temperature O2 Saturation ABG pH ABG pCO2 ABG pO2 ABG HCO3 ABG O2 Content ABG Base Excess ABG Methemoglobin Josue Test Hemoglobin Carboxyhemoglobin O2 Delivery Device Vent Setting Inspired O2 Critical Value Sodium 137 Potassium 3.6 Chloride 107 Carbon Dioxide 22.1 Anion Gap 8 BUN 5 L Creatinine 0.40 L Estimated GFR Greater than 89 POC Glucose 169 H Random Glucose 115 H Calcium 7.8 L Phosphorus 2.5 Magnesium 2.0 D Phenytoin 3.6 L Valproic Acid 46 L Phenobarbital 7.6 L MTS Gel Crossmatch - Imaging Impressions Chest X-Ray 01/22/18 04:52 CONCLUSION: Patchy infiltrate right lung. Complete opacification left hemithorax. Assessment and Plan - Plan To discuss with family. Agree with palliative care. Inclination would be not to recommend xrt as likely to not reverse her circumstance. Will discuss with dr. birch.
[2018-01-22] MEDS: Montelukast 10 MG Tablet PO SCH (17:42)
[2018-01-22] MEDS: Multivitamin Inj 10 ML, Thiamine Inj 100 MG, Folic Acid Inj 1 MG in Sodium Chlor 0.9% I... IV.SIG SCH (20:58)
[2018-01-23] MEDS: Insulin NovoLOG Aspart Correctional Sugar Inj SQ SCH ×4 (00:20→17:32)
[2018-01-23] MEDS: Sod Chloride 0.9% Inj 1,000 ML IV.CONT SCH ×2 (04:16→17:29)
[2018-01-23] MEDS: Chlorhexidine Gluconate 2% 1 Pack (2 Cloths) TOPICAL SCH (04:16)
[2018-01-23] MEDS: Oral Hygiene Kit OROPHARYNG SCH ×4 (04:16→23:12)
[2018-01-23 04:35] LABS: Hematocrit 28.3 % (35.0-46.0); Mean Corpuscular HGB Conc 35.3 % (32.0-36.0); Mean Corpuscular Hemoglobin 33.7 pg (27.0-34.0); Mean Corpuscular Volume 95.6 fL (80.0-100.0); Mean Platelet Volume 8.9 fL (7.0-11.0); Platelet Count 82 th/mm3 (150-450); Red Blood Count 2.96 mil/mm3 (4.00-5.30); Red Cell Distribution Width 16.5 % (11.6-17.2)
[2018-01-23] MEDS: Propofol 1000 mg/100 ml Inj 1,000 MG/100 ML BOTTLE IV.CONT PRN ×2 (04:46→17:30)
[2018-01-23 04:57] LABS: Albumin 1.3 g/dL (3.4-5.0); Anion Gap 8 meq/L (5-15); Aspartate Aminotransferase 31 U/L (15-37); Blood Urea Nitrogen 6 mg/dL (7-18); Calcium 7.8 mg/dL (8.5-10.1); Carbon Dioxide 22.8 meq/L (21.0-32.0); Chloride 110 meq/L (98-107); Glomerular Filtration Rate Greater Than 89 mL/min (>89); Glucose,Random 123 mg/dL (74-106); Magnesium 1.7 mg/dL (1.5-2.5); Potassium 3.4 meq/L (3.5-5.1); Sodium 141 meq/L (136-145)
[2018-01-23 04:58] LABS: Alanine Aminotransferase 47 U/L (10-53)
[2018-01-23 05:00] LABS: Alkaline Phosphatase 136 U/L (45-117); Phenytoin (Dilantin) 4.6 mcg/mL (10.0-20.0); Phosphorus 1.7 mg/dL (2.5-4.9); Total Protein 5.5 g/dL (6.4-8.2); Valproic Acid 40 mcg/mL (50-100)
[2018-01-23 05:21] LABS: Eosinophils 1 % (0-4); Lymphocytes 7 % (9-44); Metamyelocytes 3 % (0-1); Monocytes 7 % (0-8); Myelocytes 3 % (0-0); Ovalocytes 1+; Platelet Morphology Normal (Normal)
[2018-01-23] MEDS: Valproate Inj 500 MG in Sodium Chlor 0.9% Inj 100 ML IV.SIG SCH ×2 (05:46→17:30)
[2018-01-23] MEDS: Phenytoin Sodium 100 MG Capsule NG/OG SCH ×3 (05:46→21:14)
[2018-01-23] MEDS: Folic Acid 1 MG Tablet NG/OG SCH (08:58)
[2018-01-23] MEDS: PHENobarbital Inj 130 MG/ML Vial IV.SIG SCH ×2 (08:58→21:16)
--- NOTE | 2018-01-23 09:12 | P.PNONC ---
Subjective Interval history: Afebrile, patient intubated and sedated. Nurse currently suctioning thick white mucus. Objective Vital Signs/Intake & Output: Vital Signs 01/22/18 10:00 01/22/18 11:00 01/22/18 11:30 Temperature Pulse Rate 116 H 118 H 116 H Respiratory Rate 14 15 15 Blood Pressure 94/57 L 94/66 L 97/66 L Pulse Oximetry 100 100 100 01/22/18 11:38 01/22/18 12:00 01/22/18 12:30 Temperature Pulse Rate 116 H 118 H 118 H Respiratory Rate 14 14 17 Blood Pressure 89/55 L 88/57 L Pulse Oximetry 100 100 100 01/22/18 12:35 01/22/18 13:00 01/22/18 13:30 Temperature 99.2 F Pulse Rate 117 H 118 H 118 H Respiratory Rate 18 17 17 Blood Pressure 89/55 L 100/68 91/63 L Pulse Oximetry 100 100 99 01/22/18 14:00 01/22/18 14:30 01/22/18 15:00 Temperature Pulse Rate 122 H 119 H 118 H Respiratory Rate 24 16 17 Blood Pressure 114/76 104/63 90/57 L Pulse Oximetry 100 100 100 01/22/18 15:10 01/22/18 15:30 01/22/18 15:38 Temperature Pulse Rate 116 H 118 H 120 H Respiratory Rate 17 15 18 Blood Pressure 88/55 L 89/54 L Pulse Oximetry 100 99 99 01/22/18 16:00 01/22/18 16:30 01/22/18 17:00 Temperature Pulse Rate 119 H 117 H 122 H Respiratory Rate 19 18 20 Blood Pressure 106/67 98/70 L 106/66 Pulse Oximetry 100 100 100 01/22/18 17:30 01/22/18 18:00 01/22/18 18:30 Temperature 99.1 F Pulse Rate 119 H 120 H 123 H Respiratory Rate 16 14 20 Blood Pressure 105/70 103/70 108/68 Pulse Oximetry 100 100 100 01/22/18 19:00 01/22/18 19:30 01/22/18 20:00 Temperature 98.7 F Pulse Rate 119 H 115 H 113 H Respiratory Rate 18 16 29 H Blood Pressure 101/68 95/62 L 98/63 L Pulse Oximetry 100 99 100 01/22/18 20:30 01/22/18 20:48 01/22/18 21:00 Temperature Pulse Rate 117 H 115 H 120 H Respiratory Rate 17 35 H 18 Blood Pressure 107/75 105/72 Pulse Oximetry 100 100 01/22/18 21:30 01/22/18 22:00 01/22/18 22:05 Temperature Pulse Rate 118 H 117 H 114 H Respiratory Rate 14 15 21 Blood Pressure 92/59 L 88/60 L 96/68 L Pulse Oximetry 98 99 99 01/22/18 22:15 01/22/18 22:30 01/22/18 23:00 Temperature Pulse Rate 116 H 120 H 118 H Respiratory Rate 17 17 15 Blood Pressure 100/75 95/66 L 99/62 L Pulse Oximetry 100 100 99 01/22/18 23:30 01/22/18 23:48 01/23/18 00:00 Temperature 98.7 F Pulse Rate 118 H 118 H 119 H Respiratory Rate 17 17 19 Blood Pressure 94/63 L 95/61 L Pulse Oximetry 99 99 99 01/23/18 00:30 01/23/18 00:33 01/23/18 01:00 Temperature Pulse Rate 114 H 113 H 115 H Respiratory Rate 14 14 17 Blood Pressure 88/58 L 89/56 L 98/67 L Pulse Oximetry 99 99 99 01/23/18 01:30 01/23/18 02:00 01/23/18 02:06 Temperature Pulse Rate 119 H 115 H 114 H Respiratory Rate 18 19 16 Blood Pressure 97/69 L 95/67 L Pulse Oximetry 99 100 100 01/23/18 02:30 01/23/18 02:38 01/23/18 02:39 Temperature Pulse Rate 110 H 110 H 110 H Respiratory Rate 14 15 14 Blood Pressure 86/54 L 86/53 L 86/52 L Pulse Oximetry 99 99 99 01/23/18 02:41 01/23/18 02:45 01/23/18 02:46 Temperature Pulse Rate 109 H 109 H 109 H Respiratory Rate 14 14 14 Blood Pressure 87/53 L 85/51 L 87/58 L Pulse Oximetry 99 99 99 01/23/18 02:52 01/23/18 02:54 01/23/18 02:57 Temperature Pulse Rate 109 H 109 H 109 H Respiratory Rate 14 14 20 Blood Pressure 84/56 L 88/58 L 103/69 Pulse Oximetry 99 99 100 01/23/18 03:00 01/23/18 03:30 01/23/18 03:44 Temperature Pulse Rate 108 H 109 H 114 H Respiratory Rate 14 14 17 Blood Pressure 102/66 91/60 L Pulse Oximetry 99 99 100 01/23/18 04:00 01/23/18 04:30 01/23/18 04:36 Temperature 98.7 F Pulse Rate 114 H 114 H 115 H Respiratory Rate 23 14 14 Blood Pressure 92/57 L 87/57 L 103/63 Pulse Oximetry 100 99 100 01/23/18 05:00 01/23/18 05:08 01/23/18 05:13 Temperature Pulse Rate 115 H 114 H 119 H Respiratory Rate 15 16 22 Blood Pressure 85/53 L 87/53 L 105/67 Pulse Oximetry 99 100 100 01/23/18 05:14 01/23/18 06:00 Temperature Pulse Rate 118 H 111 H Respiratory Rate 19 14 Blood Pressure 103/70 90/60 L Pulse Oximetry 99 99 Intake & Output 01/22/18 01/23/18 01/23/18 18:59 06:59 18:59 Intake Total 1415 / 1415 893 / 893 Output Total 100 / 100 Balance 1315 / 1315 893 / 893 Weight 66.3 kg Intake: IV 1415 / 1415 510 / 510 Diprivan 1000 mg/100 ml Inj 1, 100 / 100 000 mg In 100 ml @ 5 MCG/KG/MIN 1.869 mls/hr IV.CONT TITRATE PRN Rx#:[id number] NS Inj 1,000 ML @ 84 mls/hr IV. 1000 / 1000 300 / 300 CONT .[id number] NATALIA Rx#: [id number] Depacon Inj 500 MG In NS Inj 210 / 210 105 / 105 100 ML @ 105 mls/hr IV.SIG Q12H NATALIA Rx#:[id number] Keppra Inj 500 MG In NS Inj 100 105 / 105 105 / 105 ML @ 400 mls/hr IV.SIG Q12H NATALIA Rx#:[id number] Tube Feeding 383 / 383 Output: Urine 100 / 100 Other: # Incontinent Voids 1 Date of Last Bowel Movement 01/23/18 # Bowel Movements 0 Result Diagrams: 01/23/18 04:23 01/23/18 04:23 Laboratory Results: Laboratory Results - last 24 hr 01/22/18 01/22/18 01/22/18 09:30 09:30 17:19 WBC 5.7 RBC 3.14 L Hgb 10.3 L Hct 30.7 L MCV 97.6 D MCH 32.9 MCHC 33.7 RDW 16.7 D Plt Count 78 L MPV 9.1 Prelim Diff (Auto) Slide review pending Neut % (Auto) 82.4 H Lymph % (Auto) 4.8 L [place] % (Auto) 12.5 H Eos % (Auto) 0.2 Baso % (Auto) 0.1 Neut # (Auto) 4.7 Lymph # (Auto) 0.3 L [place] # (Auto) 0.7 Eos # (Auto) 0.0 Baso # (Auto) 0.0 WBC Differential Manual diff final Seg Neuts % (Manual) 79 H Band Neuts % (Manual) 6 Lymphocytes % (Manual) 6 L Monocytes % (Manual) 9 H Eosinophils % (Manual) Metamyelocytes % (Man) Myelocytes % (Man) Abs Neuts (Manual) 4.8 Differential Comment . Platelet Estimate Low L Platelet Morphology Normal Ovalocytes Sodium 137 Potassium 3.6 Chloride 107 Carbon Dioxide 22.1 Anion Gap 8 BUN 5 L Creatinine 0.40 L Estimated GFR Greater than 89 POC Glucose 133 H Random Glucose 115 H Calcium 7.8 L Phosphorus 2.5 Magnesium 2.0 D Total Bilirubin Direct Bilirubin Indirect Bilirubin AST ALT Alkaline Phosphatase Ammonia Total Protein Albumin Phenytoin 3.6 L Valproic Acid 46 L Phenobarbital 7.6 L 01/22/18 01/23/18 01/23/18 23:39 04:23 04:23 WBC RBC Hgb Hct MCV MCH MCHC RDW Plt Count MPV Prelim Diff (Auto) Neut % (Auto) Lymph % (Auto) [place] % (Auto) Eos % (Auto) Baso % (Auto) Neut # (Auto) Lymph # (Auto) [place] # (Auto) Eos # (Auto) Baso # (Auto) WBC Differential Seg Neuts % (Manual) Band Neuts % (Manual) Lymphocytes % (Manual) Monocytes % (Manual) Eosinophils % (Manual) Metamyelocytes % (Man) Myelocytes % (Man) Abs Neuts (Manual) Differential Comment Platelet Estimate Platelet Morphology Ovalocytes Sodium 141 Potassium 3.4 L Chloride 110 H Carbon Dioxide 22.8 Anion Gap 8 BUN 6 L Creatinine 0.45 L Estimated GFR Greater than 89 POC Glucose 125 H Random Glucose 123 H Calcium 7.8 L Phosphorus 1.7 L Magnesium 1.7 Total Bilirubin 0.3 Direct Bilirubin 0.1 Indirect Bilirubin 0.2 AST 31 ALT 47 Alkaline Phosphatase 136 H Ammonia 49 H Total Protein 5.5 L Albumin 1.3 L Phenytoin 4.6 L Valproic Acid 40 L Phenobarbital 12.9 L 01/23/18 04:23 WBC 6.0 RBC 2.96 L Hgb 10.0 L Hct 28.3 L MCV 95.6 MCH 33.7 MCHC 35.3 RDW 16.5 Plt Count 82 L MPV 8.9 Prelim Diff (Auto) Slide review pending Neut % (Auto) Lymph % (Auto) [place] % (Auto) Eos % (Auto) Baso % (Auto) Neut # (Auto) Lymph # (Auto) [place] # (Auto) Eos # (Auto) Baso # (Auto) WBC Differential Manual diff final Seg Neuts % (Manual) 69 Band Neuts % (Manual) 10 H Lymphocytes % (Manual) 7 L Monocytes % (Manual) 7 Eosinophils % (Manual) 1 Metamyelocytes % (Man) 3 H Myelocytes % (Man) 3 H Abs Neuts (Manual) 5.1 Differential Comment . Platelet Estimate Low L Platelet Morphology Normal Ovalocytes 1+ H Sodium Potassium Chloride Carbon Dioxide Anion Gap BUN Creatinine Estimated GFR POC Glucose Random Glucose Calcium Phosphorus Magnesium Total Bilirubin Direct Bilirubin Indirect Bilirubin AST ALT Alkaline Phosphatase Ammonia Total Protein Albumin Phenytoin Valproic Acid Phenobarbital Medications: Active Medications Generic Name Dose Route Start Last Admin Trade Name Freq PRN Reason Stop Dose Admin Albuterol 1 ampul 01/20/18 20:00 01/23/18 08:51 Duoneb Neb ([facility]) NEB 1 ampul Q4HR NEB [facility] Administration Artificial Tears 1 drop 01/22/18 08:00 01/22/18 23:32 Tears Naturale Opth Drops EACH EYE 1 drop Q8H [facility] Administration Chlorhexidine Gluconate 3 pack 01/21/18 04:00 01/23/18 04:16 Chlorhexidine 2% Cloth TOPICAL 01/26/18 03:59 3 pack DAILY@0400 NATALIA Administration Chlorhexidine Gluconate 15 ml 01/22/18 08:00 01/22/18 20:05 Peridex 0.12% Oral Kit OROPHARYNG 15 ml BID@0800,2000 NATALIA Administration Dexamethasone Sodium Phosphate 4 mg 01/21/18 00:00 01/23/18 05:47 Decadron Inj IV.PUSH 4 mg Q6HR NATALIA Administration Filgrastim 300 mcg 01/21/18 14:00 01/22/18 13:26 Neupogen Inj SQ 300 mcg DAILY@1400 NATALIA Administration Folic Acid 1 mg 01/22/18 08:34 01/23/18 08:58 Folic Acid NG/OG 1 mg DAILY NATALIA Administration Sodium Chloride 1,000 mls @ 84 mls/hr 01/20/18 16:30 01/23/18 04:16 Ns Inj IV.CONT 84 mls/hr .[id number] NATALIA Administration Potassium Chloride 40 meq in 100 mls @ 25 mls/hr 01/20/18 16:18 01/23/18 06: 53 Kcl 40 Meq Premix Inj IV.SIG 25 mls/hr UNSCH PRN Administration For Potassium 3.3 - 3.5 mEq/L Levetiracetam 500 mg/ Sodium 105 mls @ 400 mls/hr 01/21/18 02:00 01/23/18 03: 08 Chloride IV.SIG Infused Q12H NATALIA Infusion Valproate Sodium 500 mg/ 105 mls @ 105 mls/hr 01/22/18 06:00 01/23/18 06:49 Sodium Chloride IV.SIG Infused Q12H NATALIA Infusion Propofol 1,000 mg in 100 mls @ 1.869 mls/hr 01/22/18 04:51 01/23/18 04:46 Diprivan 1000 Mg/100 Ml Inj IV.CONT 10 mcg/kg/min TITRATE PRN 3.74 mls/hr Per Protocol Administration Protocol 5 MCG/KG/MIN Insulin Aspart 0 unit 01/21/18 00:00 01/23/18 05:37 Novolog Insulin Correctional Sugar Inj SQ Not Given Q6HR [facility] Protocol Lactulose 30 ml 01/22/18 08:34 01/22/18 20:54 Lactulose Liq NG/OG 30 ml BID NATALIA Administration Lansoprazole 30 mg 01/22/18 09:00 01/23/18 08:58 Prevacid Solutab NG/OG 30 mg DAILY NATALIA Administration Miscellaneous Medication 1 each 01/22/18 12:00 01/23/18 04:16 OROPHARYNG 1 each 0000,0400,1200,1600 NATALIA Administration Montelukast Sodium 10 mg 01/21/18 18:00 01/22/18 17:42 Singulair PO 10 mg QPM NATALIA Administration Phenobarbital 60 mg 01/22/18 08:34 01/23/18 08:58 Phenobarbital NG/OG 60 mg Q12H NATALIA Administration Phenobarbital Sodium 130 mg 01/22/18 10:00 01/23/18 08:58 Luminal Inj IV.SIG 130 mg Q12HR NATALIA Administration Phenytoin Sodium 100 mg 01/22/18 08:36 01/23/18 05:46 Dilantin NG/OG 100 mg Q8HR NATALIA Administration Polyethylene Glycol 17 gm 01/20/18 21:00 01/22/18 20:54 Miralax PO 17 gm BID NATALIA Administration Senna/Docusate Sodium 1 tab 01/20/18 21:00 01/22/18 20:54 Liliya-Colace PO 1 tab BID NATALIA Administration Objective Remarks: GENERAL: Critically ill-appearing female patient, intubated and sedated. SKIN: Warm and dry. Ecchymosis right forearm. HEAD: Normocephalic. EYES: No scleral icterus. No injection or drainage. NECK: Supple, trachea midline. CARDIOVASCULAR: Tachycardic. RESPIRATORY: Anterior breath sounds with rhonchi throughout, equal bilaterally. FiO2 40%. GASTROINTESTINAL: Abdomen soft, non-tender, nondistended. EXTREMITIES: No cyanosis, or edema. SCDs in place. MUSCULOSKELETAL: Decreased muscle tone. NEUROLOGICAL: Sedated. Assessment/Plan - Plan Ms. Hearn is a 57-year-old female with a recent diagnosis of metastatic adenocarcinoma of the lung, her disease is PDL-1 expression less than 1%, EGFR mutation negative, ALK mutation negative, BRA F mutation negative, ROS-1 mutation negative and RET mutation negative. She had metastatic disease at time of diagnosis as evidenced by malignant left-sided pleural effusion, radiographic evidence of vertebral metastases and adrenal gland metastases. She has thus far received palliative radiation for management of her thoracic metastases, she has also received a single cycle of palliative systemic therapy consisting of carboplatin and pemetrexed which was delivered on 01/11/2018. She now presents with seizures and altered mental status, she was noted on imaging studies performed during this hospitalization to have a 14 mm enhancing mass involving the left temporoparietal lobe (high in the convexity). She has undergone EEGs and is noted to have epileptic activity involving both cerebral hemispheres. She is currently on a Keppra infusion and is also on phenytoin. The patient has been evaluated by neurosurgery who recommended radiation oncology evaluation and conservative management. Additional issues include chemotherapy related myelosuppression. Recommendations: 1. Patient remains critically ill with an extremely poor prognosis. Her family has elected to keep her on the ventilator for 24-48 hours to see if there is any improvement. They understand that her condition is terminal. Palliative care is following. 2. Brain metastases and seizures: Radiation oncology does not recommend radiation given her extremely poor prognosis. Continues on multiple antiepileptics. 3. Ms. Hearn has terminal end stage disease, she is hospice appropriate. - Attending Statement The exam, history, and the medical decision-making described in the above note were completed with the assistance of the mid-level provider. I reviewed and agree with the findings presented. I attest that I had a [id number] encounter with the patient on the same day, and personally performed and documented my assessment and findings in the medical record. Patient seen and examined. No family. Pupils are reactive. No response to tactile or verbal stimuli. Continue current support. Appreciate palliative care follow-up. Would be supportive of hospice care pending family decision.
--- NOTE | 2018-01-23 10:35 | P.PNCC ---
Subjective Subjective Remarks/Hospital Course: 01/20: This is a 57-year-old female. Date of admission 01/20/2018. 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 Follows with Dr. Birch. History of tobaccoism 35 pack years quit 12 years ago. History of anxiety and chronic alprazolam. Patient has history of a left hemithorax with the Pleurx catheter placed recently. She also has an [id number] by history. Patient presents to [facility] after recently just completing her first chemo treatment Thursday. 20 minutes prior to arrival to [facility], patient had paralysis of her right leg, twitching , unable to see straight. She is noted to have expressive aphasia as well. She is also noted to have a seizure prior to arrival and at at that facility. This was documented as shaking both arms and legs and displacing the head to the side. She received 1 [address]. CT brain revealed left parietal circulation. CT angiogram revealed possible metastases. CT of the neck revealed no acute findings. During the stroke alert , MRI with and without contrast brain was ordered to rule out metastatic brain lesion. She is transported to [facility]. She is old awake and alert to person only. She has subjective right upper lower extremity weakness on examination. 01/21: Laying in bed. Responds to commands off and on. SUBJECTIVE: 01/22: Intubated overnight due to altered mental status. EEG revealed seizure- like activity. Currently family is discussing possible withdrawal of care. Will drain Pleurx catheter today. 01/23: Remains sedated, orally intubated on mechanical ventilation. Objective Vital Signs / I&O: Vital Signs 01/22/18 11:00 01/22/18 11:30 01/22/18 11:38 Temperature Pulse Rate 118 H 116 H 116 H Respiratory Rate 15 15 14 Blood Pressure 94/66 L 97/66 L Pulse Oximetry 100 100 100 01/22/18 12:00 01/22/18 12:30 01/22/18 12:35 Temperature Pulse Rate 118 H 118 H 117 H Respiratory Rate 14 17 18 Blood Pressure 89/55 L 88/57 L 89/55 L Pulse Oximetry 100 100 100 01/22/18 13:00 01/22/18 13:30 01/22/18 14:00 Temperature 99.2 F Pulse Rate 118 H 118 H 122 H Respiratory Rate 17 17 24 Blood Pressure 100/68 91/63 L 114/76 Pulse Oximetry 100 99 100 01/22/18 14:30 01/22/18 15:00 01/22/18 15:10 Temperature Pulse Rate 119 H 118 H 116 H Respiratory Rate 16 17 17 Blood Pressure 104/63 90/57 L Pulse Oximetry 100 100 100 01/22/18 15:30 01/22/18 15:38 01/22/18 16:00 Temperature Pulse Rate 118 H 120 H 119 H Respiratory Rate 15 18 19 Blood Pressure 88/55 L 89/54 L 106/67 Pulse Oximetry 99 99 100 01/22/18 16:30 01/22/18 17:00 01/22/18 17:30 Temperature Pulse Rate 117 H 122 H 119 H Respiratory Rate 18 20 16 Blood Pressure 98/70 L 106/66 105/70 Pulse Oximetry 100 100 100 01/22/18 18:00 01/22/18 18:30 01/22/18 19:00 Temperature 99.1 F Pulse Rate 120 H 123 H 119 H Respiratory Rate 14 20 18 Blood Pressure 103/70 108/68 101/68 Pulse Oximetry 100 100 100 01/22/18 19:30 01/22/18 20:00 01/22/18 20:30 Temperature 98.7 F Pulse Rate 115 H 113 H 117 H Respiratory Rate 16 29 H 17 Blood Pressure 95/62 L 98/63 L 107/75 Pulse Oximetry 99 100 100 01/22/18 20:48 01/22/18 21:00 01/22/18 21:30 Temperature Pulse Rate 115 H 120 H 118 H Respiratory Rate 35 H 18 14 Blood Pressure 105/72 92/59 L Pulse Oximetry 100 98 01/22/18 22:00 01/22/18 22:05 01/22/18 22:15 Temperature Pulse Rate 117 H 114 H 116 H Respiratory Rate 15 21 17 Blood Pressure 88/60 L 96/68 L 100/75 Pulse Oximetry 99 99 100 01/22/18 22:30 01/22/18 23:00 01/22/18 23:30 Temperature Pulse Rate 120 H 118 H 118 H Respiratory Rate 17 15 17 Blood Pressure 95/66 L 99/62 L 94/63 L Pulse Oximetry 100 99 99 01/22/18 23:48 01/23/18 00:00 01/23/18 00:30 Temperature 98.7 F Pulse Rate 118 H 119 H 114 H Respiratory Rate 17 19 14 Blood Pressure 95/61 L 88/58 L Pulse Oximetry 99 99 99 01/23/18 00:33 01/23/18 01:00 01/23/18 01:30 Temperature Pulse Rate 113 H 115 H 119 H Respiratory Rate 14 17 18 Blood Pressure 89/56 L 98/67 L 97/69 L Pulse Oximetry 99 99 99 01/23/18 02:00 01/23/18 02:06 01/23/18 02:30 Temperature Pulse Rate 115 H 114 H 110 H Respiratory Rate 19 16 14 Blood Pressure 95/67 L 86/54 L Pulse Oximetry 100 100 99 01/23/18 02:38 01/23/18 02:39 01/23/18 02:41 Temperature Pulse Rate 110 H 110 H 109 H Respiratory Rate 15 14 14 Blood Pressure 86/53 L 86/52 L 87/53 L Pulse Oximetry 99 99 99 01/23/18 02:45 01/23/18 02:46 01/23/18 02:52 Temperature Pulse Rate 109 H 109 H 109 H Respiratory Rate 14 14 14 Blood Pressure 85/51 L 87/58 L 84/56 L Pulse Oximetry 99 99 99 01/23/18 02:54 01/23/18 02:57 01/23/18 03:00 Temperature Pulse Rate 109 H 109 H 108 H Respiratory Rate 14 20 14 Blood Pressure 88/58 L 103/69 102/66 Pulse Oximetry 99 100 99 01/23/18 03:30 01/23/18 03:44 01/23/18 04:00 Temperature 98.7 F Pulse Rate 109 H 114 H 114 H Respiratory Rate 14 17 23 Blood Pressure 91/60 L 92/57 L Pulse Oximetry 99 100 100 01/23/18 04:30 01/23/18 04:36 01/23/18 05:00 Temperature Pulse Rate 114 H 115 H 115 H Respiratory Rate 14 14 15 Blood Pressure 87/57 L 103/63 85/53 L Pulse Oximetry 99 100 99 01/23/18 05:08 01/23/18 05:13 01/23/18 05:14 Temperature Pulse Rate 114 H 119 H 118 H Respiratory Rate 16 22 19 Blood Pressure 87/53 L 105/67 103/70 Pulse Oximetry 100 100 99 01/23/18 06:00 01/23/18 08:58 Temperature Pulse Rate 111 H 118 H Respiratory Rate 14 20 Blood Pressure 90/60 L Pulse Oximetry 99 100 Intake & Output 01/22/18 01/23/18 01/23/18 18:59 06:59 18:59 Intake Total 1415 / 1415 893 / 893 Output Total 100 / 100 Balance 1315 / 1315 893 / 893 Weight 66.3 kg Intake: IV 1415 / 1415 510 / 510 Diprivan 1000 mg/100 ml Inj 1, 100 / 100 000 mg In 100 ml @ 5 MCG/KG/MIN 1.869 mls/hr IV.CONT TITRATE PRN Rx#:[id number] NS Inj 1,000 ML @ 84 mls/hr IV. 1000 / 1000 300 / 300 CONT .[id number] [facility]AL[facility] Rx#: [id number] Depacon Inj 500 MG In NS Inj 210 / 210 105 / 105 100 ML @ 105 mls/hr IV.SIG Q12H [facility] Rx#:[id number] Keppra Inj 500 MG In NS Inj 100 105 / 105 105 / 105 ML @ 400 mls/hr IV.SIG Q12H [facility] Rx#:[id number] Tube Feeding 383 / 383 Output: Urine 100 / 100 Other: # Incontinent Voids 1 Date of Last Bowel Movement 01/23/18 # Bowel Movements 0 Result Diagrams: 01/23/18 04:23 01/23/18 04:23 Objective Remarks: GENERAL: 57-year-old female currently orotracheally intubated SKIN: Warm and dry. No rash HEAD: Atraumatic. Normocephalic. EYES: Pupil right pupil is about 5 mm and minimally reactive. Left pupil is 4 mm and slightly reactive. No scleral icterus. ENT: No nasal bleeding or discharge. Mucous membranes pink and moist. NECK: Trachea midline. No JVD. CARDIOVASCULAR: Tachycardic, RR. S1, S2. No S4. RESPIRATORY: Diminished breath sounds throughout the left hemithorax. No wheezing. Pleurx catheter in place left thorax GASTROINTESTINAL: Abdomen soft, non-tender, nondistended. Hypoactive bowel sounds appreciated. MUSCULOSKELETAL: Extremities without clubbing, cyanosis, or edema. NEUROLOGICAL: Minimally responsive on the ventilator. Does withdraw in left upper and lower extremity. I cannot get a withdrawal response in the right upper lower extremity. Positive gag and cough. Positive corneal reflex. Assessment and Plan - Problem List (1) Non-small cell carcinoma of lung, stage 4 Code(s): C34.90 - Malignant neoplasm of unspecified part of unspecified bronchus or lung Status: Acute (2) Hypokalemia Code(s): E87.6 - Hypokalemia Status: Acute (3) Pancytopenia Code(s): D61.818 - Other pancytopenia Status: Acute (4) Hypoalbuminemia Code(s): E88.09 - Other disorders of plasma-protein metabolism, not elsewhere classified Status: Acute (5) Elevated levels of transaminase & lactic acid dehydrogenase Code(s): R74.0 - Nonspecific elevation of levels of transaminase and lactic acid dehydrogenase [LDH] Status: Acute (6) Altered mental status Code(s): R41.82 - Altered mental status, unspecified Status: Acute (7) Seizure Code(s): R56.9 - Unspecified convulsions Status: Acute Onset Date: ~ - Assessment and Plan Plan: Neuro/Psych: Chronic opiate use EtOH abuse chronic benzodiazepine use Anxiety disorder Seizures Patient is currently on a propofol drip at 30 mcg/kg/min for sedation while intubated. Added fentanyl drip Goal of RASS -0 Daily sedation vacation Acetaminophen 650 mg every 6 hours as needed fever Patient is on alprazolam 1 mg daily at home. This was held CIWA protocol initiated Vitamin bag daily times [address] brain revealed left parietal lesion. CT angiogram of the head and neck no acute findings. MRI of the brain with and without contrast -14 mm intra-axial left parietal lesion suspicious for metastasis EEG 01/21 - Periodic epileptiform discharges are present, more so over the left hemisphere than over the right hemisphere consistent with probable PLEDS. This occurs throughout the tracing almost continuous. On dexamethasone 4 mg IV every 6 hours for brain mass On levetiracetam 500 mg iv twice daily. Received 1 g at [facility]. Give additional 1 g levetiracetam earlier as EEG showed seizure activity. Currently on phenobarbital 60 mg twice daily and valproic acid 5 mg twice daily and fosphenytoin 100 mg 3 times daily A.m. phenobarbital, valproic acid and fosphenytoin levels all pending Further anticonvulsant therapy adjustment per Dr. Wiseman Repeat EEG -/01/22 CV: Sinus tachycardia Elevated troponin Currently on normal saline 84 cc now. Not requiring vasopressors and/or antihypertensives Initial troponin was 0.02. EKG revealed nonspecific ST-T changes. Troponin peaked at 0.92. Currently on downward trend Resp: History of tobaccoism Left Pleurx catheter for likely malignant pleural effusion PRVC Ventilator bundle Head of bed at 30 degrees Albuterol/ipratropium aerosols every 4 hours with albuterol aerosols every 2 hours while needed dyspnea Like will need to have a Pleurx catheter drained today 01/22. Spontaneous breathing trials when clinically indicated GI: Elevated transaminases Hypoalbuminemia Will start tube feedings with vital 1.5 goal 40 cc an hour Lansoprazole for GI prophylax Docusate sodium/senna 1 tablet twice daily and polythene glycol centigrams twice daily for bowel regimen Check hepatitis panel, -negative : Rai catheter if indicated for accurate I's and O's in a critical patient Endo: Sliding scale insulin to maintain euglycemia/every 6 hours aspart insulin regimen TSH -0.93 Renal: Creatinine currently within normal limits Monitor urine output Accurate I's and O Heme: Pancytopenia Non-small carcinoma lung stage IV Monitor CBC daily. A.m. laboratory still pending Coags within normal limits Transfuse PRBCs overnight. 11.[address] Birch from oncology following Started on filgrastin 300 mcg subcu daily ID: Monitor for signs of symptomatology of infection MSK: PT evaluate and treat FEN: Acute hypokalemia ICU electrolyte protocol if needed. Access -Utilize [id number]. Central line if indicated Prophylaxis - -GI lansoprazole - -DVT SCD/holding pharmacological pharmacological prophylaxis in light of possible brain mass Condition remains critical. Prognosis poor Time spent on critical care excluding procedures 30 minutes (1) Non-small cell carcinoma of lung, stage 4 Qualifiers: Laterality: left Qualified Code(s): C34.92 - Malignant neoplasm of unspecified part of left bronchus or lung (6) Altered mental status Qualifiers: Altered mental status type: unspecified Qualified Code(s): R41.82 - Altered mental status, unspecified
[2018-01-23] MEDS: Polyethylene Glycol 3350 17 GM Packet PO SCH ×2 (12:58→21:13)
[2018-01-23] MEDS: Artificial Tears Opth Drops 15 ML Bottle EACH EYE SCH ×3 (12:58→23:11)
[2018-01-23] MEDS: Senna/Docusate Sodium 8.6/50 MG Tablet PO SCH ×2 (12:58→21:13)
[2018-01-23] MEDS: Chlorhexidine 0.12% Oral Kit 15 ML UDC OROPHARYNG SCH ×2 (12:58→21:12)
[2018-01-23] MEDS: Filgrastim Inj 300 MCG/ML Vial SQ SCH (13:43)
[2018-01-23] MEDS: Montelukast 10 MG Tablet PO SCH (17:34)
[2018-01-24] MEDS: Insulin NovoLOG Aspart Correctional Sugar Inj SQ SCH ×5 (03:08→23:18)
[2018-01-24] MEDS: Chlorhexidine Gluconate 2% 1 Pack (2 Cloths) TOPICAL SCH (03:09)
[2018-01-24] MEDS: Oral Hygiene Kit OROPHARYNG SCH ×4 (03:09→23:17)
[2018-01-24] MEDS: Sod Chloride 0.9% Inj 1,000 ML IV.CONT SCH ×2 (03:09→17:54)
[2018-01-24] MEDS: Propofol 1000 mg/100 ml Inj 1,000 MG/100 ML BOTTLE IV.CONT PRN (03:42)
[2018-01-24 04:50] LABS: Hematocrit 28.3 % (35.0-46.0); Hemoglobin 9.8 gm/dL (11.6-15.3); Mean Corpuscular HGB Conc 34.6 % (32.0-36.0); Mean Corpuscular Hemoglobin 33.4 pg (27.0-34.0); Mean Corpuscular Volume 96.6 fL (80.0-100.0); Mean Platelet Volume 9.3 fL (7.0-11.0); Platelet Count 84 th/mm3 (150-450); Red Blood Count 2.93 mil/mm3 (4.00-5.30); Red Cell Distribution Width 16.6 % (11.6-17.2); White Blood Count 6.9 th/mm3 (4.0-11.0)
[2018-01-24] MEDS: Valproate Inj 500 MG in Sodium Chlor 0.9% Inj 100 ML IV.SIG SCH ×2 (05:19→17:38)
[2018-01-24 05:25] LABS: Anion Gap 9 meq/L (5-15); Blood Urea Nitrogen 4 mg/dL (7-18); Calcium 7.1 mg/dL (8.5-10.1); Chloride 110 meq/L (98-107); Glomerular Filtration Rate Greater Than 89 mL/min (>89); Glucose,Random 114 mg/dL (74-106); Magnesium 1.4 mg/dL (1.5-2.5); Phenytoin (Dilantin) 2.9 mcg/mL (10.0-20.0); Potassium 3.5 meq/L (3.5-5.1); Sodium 144 meq/L (136-145); Valproic Acid 42 mcg/mL (50-100)
[2018-01-24 05:37] LABS: Albumin 1.3 g/dL (3.4-5.0); Calcium-Albumin Corrected 9.3 mg/dL (8.5-10.1)
[2018-01-24] MEDS: Artificial Tears Opth Drops 15 ML Bottle EACH EYE SCH ×3 (09:06→23:17)
[2018-01-24] MEDS: Folic Acid 1 MG Tablet NG/OG SCH (09:06)
[2018-01-24] MEDS: Chlorhexidine 0.12% Oral Kit 15 ML UDC OROPHARYNG SCH ×2 (09:06→20:20)
[2018-01-24] MEDS: PHENobarbital Inj 130 MG/ML Vial IV.SIG SCH ×2 (09:06→21:24)
[2018-01-24] MEDS: Senna/Docusate Sodium 8.6/50 MG Tablet PO SCH ×2 (09:45→20:21)
[2018-01-24] MEDS: Polyethylene Glycol 3350 17 GM Packet PO SCH ×2 (09:45→20:20)
[2018-01-24 11:23] LABS: Lymphocytes 19 % (9-44); Metamyelocytes 2 % (0-1); Monocytes 11 % (0-8); Myelocytes 2 % (0-0); Platelet Morphology Normal (Normal)
[2018-01-24 11:24] LABS: Toxic Granulation 2+
--- NOTE | 2018-01-24 13:11 | P.PNNEU ---
Subjective Subjective Comments: no new neurologic sx. She has not had clinical SZ Active Medications: Active Medications Acetaminophen (Tylenol Liq) 650 mg PO Q6H PRN PRN Reason: FEVER Albuterol (Duoneb Neb (Talisha)) 1 ampul NEB Q4HR NEB [facility] Last Admin: 01/24/18 12:25 Dose: 1 ampul Albuterol (Albuterol Neb (Prn)) 2.5 mg NEB Q2HR NEB PRN PRN Reason: DYSPNEA Artificial Tears (Tears Naturale Opth Drops) 1 drop EACH EYE Q8H [facility] Last Admin: 01/24/18 09:06 Dose: 1 drop Bisacodyl (Dulcolax Supp) 10 mg RECTAL DAILY PRN PRN Reason: if no BM in last 24h Chlorhexidine Gluconate (Chlorhexidine 2% Cloth) 3 pack TOPICAL DAILY@0400 [facility] Stop: 01/26/18 03:59 Last Admin: 01/24/18 03:09 Dose: 3 pack Chlorhexidine Gluconate (Chlorhexidine 2% Cloth) 3 pack TOPICAL DAILY@0400 PRN PRN Reason: Extra cloth needed Stop: 01/26/18 03:59 Chlorhexidine Gluconate (Peridex 0.12% Oral Kit) 15 ml OROPHARYNG BID@0800, 2000 [facility] Last Admin: 01/24/18 09:06 Dose: 15 ml Dexamethasone Sodium Phosphate (Decadron Inj) 4 mg IV.PUSH Q6HR [facility] Last Admin: 01/24/18 11:30 Dose: 4 mg Dextrose (D50w Vial) 50 ml IV.PUSH UNSCH PRN PRN Reason: PER HYPOGLYCEMIA PROTOCOL Flumazenil (Romazecon Inj) 0.2 mg IV.PUSH Q1M PRN PRN Reason: OVERSEDATION Folic Acid (Folic Acid) 1 mg NG/OG DAILY [facility] Last Admin: 01/24/18 09:06 Dose: 1 mg Glucagon (Glucagon Inj) 1 mg OTHER PRN PRN PRN Reason: for Hypoglycemia Protocol Hydralazine HCl (Apresoline Inj) 10 mg IV.PUSH Q1H PRN PRN Reason: sbp > 160, dbp > 95 Magnesium Sulfate 4 gm/ Sodium (Chloride) 100 mls @ 50 mls/hr IV.SIG UNSCH PRN PRN Reason: For Magnesium 0.9 - 1.1 mg/dL Magnesium Sulfate 2 gm/ Sodium (Chloride) 100 mls @ 50 mls/hr IV.SIG UNSCH PRN PRN Reason: For Magnesium 1.2 - 1.6 mg/dL Sodium Chloride (Ns Inj) 1,000 mls @ 84 mls/hr IV.CONT .[id number] [facility] Last Admin: 01/24/18 03:09 Dose: 84 mls/hr Potassium Chloride (Kcl 40 Meq Premix Inj) 40 meq in 100 mls @ 25 mls/hr IV.SIG Q2H PRN PRN Reason: For Potassium 2.8 - 3.2 mEq/L Potassium Chloride (Kcl 20 Meq Premix Inj) 20 meq in 100 mls @ 50 mls/hr IV.SIG Q2H PRN PRN Reason: For Potassium 3.3 - 3.5 mEq/L Potassium Chloride (Kcl 40 Meq Premix Inj) 40 meq in 100 mls @ 25 mls/hr IV.SIG UNSCH PRN PRN Reason: For Potassium 3.3 - 3.5 mEq/L Last Infusion: 01/23/18 10:55 Dose: Infused Potassium Chloride (Kcl 20 Meq Premix Inj) 20 meq in 100 mls @ 50 mls/hr IV.SIG Q2H PRN PRN Reason: For Potassium 2.8 - 3.2 mEq/L Potassium Phosphate 30 mmol/ (Sodium Chloride) 260 mls @ 42 mls/hr IV.SIG UNSCH PRN PRN Reason: SEE LABEL COMMENTS Sodium Phosphate 30 mmol/ (Sodium Chloride) 260 mls @ 42 mls/hr IV.SIG UNSCH PRN PRN Reason: For Phosphorus < 2.5 mg/dL Levetiracetam 500 mg/ Sodium (Chloride) 105 mls @ 400 mls/hr IV.SIG Q12H [facility] Last Infusion: 01/24/18 03:24 Dose: Infused Valproate Sodium 500 mg/ (Sodium Chloride) 105 mls @ 105 mls/hr IV.SIG Q12H [facility] Last Infusion: 01/24/18 06:19 Dose: Infused Propofol (Diprivan 1000 Mg/100 Ml Inj) 1,000 mg in 100 mls @ 1.869 mls/hr IV.CONT TITRATE PRN; Protocol PRN Reason: Per Protocol Last Titration: 01/24/18 05:41 Dose: 15 mcg/kg/min, 5.61 mls/hr Fentanyl (Fentanyl 10 Mcg/Ml Premix Drip) 2,500 mcg in 250 mls @ 5 mls/hr IV.SIG TITRATE PRN; Protocol PRN Reason: Per Protocol Last Admin: 01/24/18 10:19 Dose: 25 mcg/hr, 2.5 mls/hr Insulin Aspart (Novolog Insulin Correctional Sugar Inj) 0 unit SQ Q6HR [facility]; Protocol Last Admin: 01/24/18 11:30 Dose: Not Given Labetalol HCl (Trandate Inj) 10 mg IV.PUSH Q1H PRN PRN Reason: sbp > 160 or DBP > 95 Lactulose (Lactulose Liq) 30 ml NG/OG BID [facility] Last Admin: 01/24/18 09:45 Dose: Not Given Lansoprazole (Prevacid Solutab) 30 mg NG/OG DAILY [facility] Last Admin: 01/24/18 09:06 Dose: 30 mg Lorazepam (Ativan) 1 mg PO Q4H PRN PRN Reason: for CIWA 8-10 Lorazepam (Ativan) 2 mg PO Q2H PRN PRN Reason: for CIWA 11-14 Lorazepam (Ativan Inj) 2 mg IV.PUSH Q2H PRN PRN Reason: for CIWA 11-14 Lorazepam (Ativan Inj) 2 mg IV.PUSH Q1H PRN PRN Reason: for CIWA 15-20 Lorazepam (Ativan Inj) 2 mg IV.PUSH Q15M PRN PRN Reason: for CIWA > 20 Lorazepam (Ativan Inj) 1 mg IV.PUSH Q4H PRN PRN Reason: for CIWA 8-10 Magnesium Oxide (Mag-Ox) 800 mg PO UNSCH PRN PRN Reason: For Magnesium 1.2 - 1.6 mg/dL Miscellaneous (Pill Splitter) 1 each OTHER UNSCH [facility] Miscellaneous Medication () 1 each OROPHARYNG 0000,0400,1200,1600 [facility] Last Admin: 01/24/18 11:30 Dose: 1 each Montelukast Sodium (Singulair) 10 mg PO QPM [facility] Last Admin: 01/23/18 17:34 Dose: 10 mg Ondansetron HCl (Zofran Inj) 4 mg IV.PUSH Q6H PRN PRN Reason: NAUSEA OR VOMITING Phenobarbital Sodium (Luminal Inj) 130 mg IV.SIG Q8HR [facility] Phenobarbital Sodium (Luminal Inj) 130 mg IV.PUSH ONCE ONE Stop: 01/24/18 13:07 Phenytoin Sodium (Dilantin Inj) 100 mg IV.PUSH Q6HR [facility] Polyethylene Glycol (Miralax) 17 gm PO BID [facility] Last Admin: 01/24/18 09:45 Dose: Not Given Potassium Bicarb/Potassium Chloride (K-Lyte Cl Eff) 50 meq PO UNSCH PRN PRN Reason: For Potassium 3.3 - 3.5 mEq/L Potassium Phosphate (K-Phos Original) 2,000 mg PO Q4H PRN PRN Reason: Phosphorus Less Than 2.5 mg/dL Potassium Phosphate (K-Phos Original) 2,000 mg PO UNSCH PRN PRN Reason: SEE LABEL COMMENTS Senna/Docusate Sodium (Liliya-Colace) 1 tab PO BID [facility] Last Admin: 01/24/18 09:45 Dose: Not Given Sodium Chloride (Ns Flush) 2 ml IV.FLUSH PRN PRN PRN Reason: FLUSH AFTER USING IV ACCESS Sodium Chloride (Ns Flush) 2 ml IV.FLUSH UNSCH PRN PRN Reason: FLUSH AFTER USING IV ACCESS Allergies/Adverse Reactions: Allergies Allergy/AdvReac Type Severity Reaction Status Date / Time No Known Allergies Allergy Verified 01/20/18 12:59 Physical Exam Vital signs: Vital Signs 01/23/18 14:00 01/23/18 15:00 01/23/18 16:00 Temperature 98.1 F Pulse Rate 122 H 119 H 121 H Respiratory Rate 22 24 23 Blood Pressure 109/64 94/59 L 106/70 Pulse Oximetry 100 99 100 01/23/18 16:54 01/23/18 17:00 01/23/18 18:00 Temperature Pulse Rate 121 H 123 H 123 H Respiratory Rate 21 21 21 Blood Pressure 109/69 118/84 Pulse Oximetry 100 100 100 01/23/18 19:00 01/23/18 19:44 01/23/18 20:00 Temperature 99.9 F H Pulse Rate 116 H 116 H 124 H Respiratory Rate 20 24 20 Blood Pressure 104/67 105/67 Pulse Oximetry 100 100 100 01/23/18 21:00 01/23/18 22:00 01/23/18 23:00 Temperature Pulse Rate 120 H 123 H 119 H Respiratory Rate 20 18 19 Blood Pressure 96/57 L 107/64 95/61 L Pulse Oximetry 99 99 99 01/23/18 23:11 01/23/18 23:59 01/24/18 00:00 Temperature 99.1 F Pulse Rate 121 H 121 H 120 H Respiratory Rate 18 17 17 Blood Pressure 100/64 Pulse Oximetry 99 99 99 01/24/18 01:00 01/24/18 02:00 01/24/18 03:00 Temperature Pulse Rate 116 H 107 H 104 H Respiratory Rate 19 14 15 Blood Pressure 104/66 84/53 L 85/51 L Pulse Oximetry 99 99 99 01/24/18 03:20 01/24/18 03:42 01/24/18 04:00 Temperature 98.4 F Pulse Rate 105 H 108 H 113 H Respiratory Rate 15 17 17 Blood Pressure 104/65 Pulse Oximetry 100 100 99 01/24/18 04:15 01/24/18 05:00 01/24/18 06:00 Temperature Pulse Rate 116 H 116 H 114 H Respiratory Rate 19 26 H 19 Blood Pressure 101/61 104/63 103/61 Pulse Oximetry 99 100 99 01/24/18 07:00 01/24/18 07:02 01/24/18 08:00 Temperature 97.4 F L Pulse Rate 103 H 103 H 103 H Respiratory Rate 14 14 15 Blood Pressure 80/50 L 82/53 L 86/54 L Pulse Oximetry 99 99 99 01/24/18 08:31 01/24/18 09:00 01/24/18 10:00 Temperature Pulse Rate 105 H 110 H 109 H Respiratory Rate 15 17 17 Blood Pressure 96/59 L 94/61 L Pulse Oximetry 100 99 100 01/24/18 11:00 01/24/18 12:00 01/24/18 12:27 Temperature 97.4 F L Pulse Rate 109 H 105 H 101 H Respiratory Rate 15 14 17 Blood Pressure 92/59 L 87/50 L Pulse Oximetry 100 99 Intake & Output 01/23/18 01/24/18 01/24/18 18:59 06:59 18:59 Intake Total 1723 / 1723 1805 / 1805 Balance 1723 / 1723 1805 / 1805 Weight 67.8 kg Intake: IV 1110 / 1110 1310 / 1310 Diprivan 1000 mg/100 ml Inj 1, 100 / 100 100 / 100 000 mg In 100 ml @ 5 MCG/KG/MIN 1.869 mls/hr IV.CONT TITRATE PRN Rx#:[id number] NS Inj 1,000 ML @ 84 mls/hr IV. 700 / 700 1000 / 1000 CONT .[id number] [facility] Rx#: [id number] KCl 40 mEq Premix Inj 40 meq In 100 / 100 100 ml @ 25 mls/hr IV.SIG UNSCH PRN Rx#:[id number] Depacon Inj 500 MG In NS Inj 105 / 105 105 / 105 100 ML @ 105 mls/hr IV.SIG Q12H [facility] Rx#:[id number] Keppra Inj 500 MG In NS Inj 100 105 / 105 105 / 105 ML @ 400 mls/hr IV.SIG Q12H [facility] Rx#:[id number] Tube Feeding 493 / 493 435 / 435 Tube Irrigant 120 / 120 60 / 60 Other: # Voids 3 1 # Incontinent Voids 3 Date of Last Bowel Movement 01/23/18 01/24/18 01/24/18 # Bowel Movements 2 1 # Incontinent Bowel Movements 2 - Routine Neurological Exam nonresponsive Cn intact MOTOR --generalized weakness. No tonic clonic or myoclonic activity noted Objective Laboratory Results - last 24 hr 01/21/18 01/21/18 01/22/18 05:12 08:31 10:51 WBC RBC Hgb Hct MCV MCH MCHC RDW Plt Count MPV Prelim Diff (Auto) WBC Differential Seg Neuts % (Manual) Band Neuts % (Manual) Lymphocytes % (Manual) Monocytes % (Manual) Metamyelocytes % (Man) Myelocytes % (Man) Abs Neuts (Manual) Differential Comment Toxic Granulation Platelet Estimate Platelet Morphology Sodium Potassium Chloride Carbon Dioxide Anion Gap BUN Creatinine Estimated GFR POC Glucose 121 H Random Glucose Calcium Calcium Adj for Albumin Phosphorus Magnesium Albumin Thiamine 140 Phenytoin Valproic Acid Phenobarbital MTS Gel Crossmatch See Detail 01/23/18 01/23/18 01/24/18 17:22 22:34 04:40 WBC 6.9 RBC 2.93 L Hgb 9.8 L Hct 28.3 L MCV 96.6 MCH 33.4 MCHC 34.6 RDW 16.6 Plt Count 84 L MPV 9.3 Prelim Diff (Auto) Manual diff required WBC Differential Manual diff final Seg Neuts % (Manual) 57 Band Neuts % (Manual) 9 H Lymphocytes % (Manual) 19 Monocytes % (Manual) 11 H Metamyelocytes % (Man) 2 H Myelocytes % (Man) 2 H Abs Neuts (Manual) 4.8 Differential Comment . Toxic Granulation 2+ H Platelet Estimate Low L Platelet Morphology Normal Sodium Potassium Chloride Carbon Dioxide Anion Gap BUN Creatinine Estimated GFR POC Glucose 124 H 116 H Random Glucose Calcium Calcium Adj for Albumin Phosphorus Magnesium Albumin Thiamine Phenytoin Valproic Acid Phenobarbital MTS Gel Crossmatch 01/24/18 01/24/18 04:40 11:03 WBC RBC Hgb Hct MCV MCH MCHC RDW Plt Count MPV Prelim Diff (Auto) WBC Differential Seg Neuts % (Manual) Band Neuts % (Manual) Lymphocytes % (Manual) Monocytes % (Manual) Metamyelocytes % (Man) Myelocytes % (Man) Abs Neuts (Manual) Differential Comment Toxic Granulation Platelet Estimate Platelet Morphology Sodium 144 Potassium 3.5 Chloride 110 H Carbon Dioxide 25.0 Anion Gap 9 BUN 4 L Creatinine 0.36 L Estimated GFR Greater than 89 POC Glucose 126 H Random Glucose 114 H Calcium 7.1 L* Calcium Adj for Albumin 9.3 Phosphorus 1.0 L Magnesium 1.4 L Albumin 1.3 L Thiamine Phenytoin 2.9 L Valproic Acid 42 L Phenobarbital 21.1 MTS Gel Crossmatch Diagnostic Tests: continuous EEG monitoring is showing left hemisphere epileptiform dc every 1-2 seconds Review/Management - Review/Management Plan: Neurologically unchanged. EEG with continuous PLEDS left hemisphere. Will increase phenobarbital and phenytoin doses and recheck levels in am
[2018-01-24] MEDS ORDERED: PHENobarbital Inj 130 MG/ML Vial IV.PUSH ONE (13:45)
--- NOTE | 2018-01-24 15:31 | P.PNCC ---
Subjective Subjective Remarks/Hospital Course: 01/20: This is a 57-year-old female. Date of admission 01/20/2018. 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 Follows with Dr. Birch. History of tobaccoism 35 pack years quit 12 years ago. History of anxiety and chronic alprazolam. Patient has history of a left hemithorax with the Pleurx catheter placed recently. She also has an [id number] by history. Patient presents to [facility] after recently just completing her first chemo treatment Thursday. 20 minutes prior to arrival to [facility], patient had paralysis of her right leg, twitching , unable to see straight. She is noted to have expressive aphasia as well. She is also noted to have a seizure prior to arrival and at at that facility. This was documented as shaking both arms and legs and displacing the head to the side. She received [address]. [address] brain revealed left parietal circulation. CT angiogram revealed possible metastases. CT of the neck revealed no acute findings. During the stroke alert , MRI with and without contrast brain was ordered to rule out metastatic brain lesion. She is transported to [facility]. She is old awake and alert to person only. She has subjective right upper lower extremity weakness on examination. 01/21: Laying in bed. Responds to commands off and on. SUBJECTIVE: 01/22: Intubated overnight due to altered mental status. EEG revealed seizure- like activity. Currently family is discussing possible withdrawal of care. Will drain Pleurx catheter today. 01/23: Remains sedated, orally intubated on mechanical ventilation. 01/24: Remains intubated sedated, unchanged neuro exam. Neurology following. Per Dr. Jamil's note, EEG with continuous PLEDS left hemisphere. He has increased phenobarbital and phenytoin doses Objective Vital Signs / I&O: Vital Signs 01/23/18 16:00 01/23/18 16:54 01/23/18 17:00 Temperature 98.1 F Pulse Rate 121 H 121 H 123 H Respiratory Rate 23 21 21 Blood Pressure 106/70 109/69 Pulse Oximetry 100 100 100 01/23/18 18:00 01/23/18 19:00 01/23/18 19:44 Temperature Pulse Rate 123 H 116 H 116 H Respiratory Rate 21 20 24 Blood Pressure 118/84 104/67 Pulse Oximetry 100 100 100 01/23/18 20:00 01/23/18 21:00 01/23/18 22:00 Temperature 99.9 F H Pulse Rate 124 H 120 H 123 H Respiratory Rate 20 20 18 Blood Pressure 105/67 96/57 L 107/64 Pulse Oximetry 100 99 99 01/23/18 23:00 01/23/18 23:11 01/23/18 23:59 Temperature Pulse Rate 119 H 121 H 121 H Respiratory Rate 19 18 17 Blood Pressure 95/61 L Pulse Oximetry 99 99 99 01/24/18 00:00 01/24/18 01:00 01/24/18 02:00 Temperature 99.1 F Pulse Rate 120 H 116 H 107 H Respiratory Rate 17 19 14 Blood Pressure 100/64 104/66 84/53 L Pulse Oximetry 99 99 99 01/24/18 03:00 01/24/18 03:20 01/24/18 03:42 Temperature Pulse Rate 104 H 105 H 108 H Respiratory Rate 15 15 17 Blood Pressure 85/51 L 104/65 Pulse Oximetry 99 100 100 01/24/18 04:00 01/24/18 04:15 01/24/18 05:00 Temperature 98.4 F Pulse Rate 113 H 116 H 116 H Respiratory Rate 17 19 26 H Blood Pressure 101/61 104/63 Pulse Oximetry 99 99 100 01/24/18 06:00 01/24/18 07:00 01/24/18 07:02 Temperature Pulse Rate 114 H 103 H 103 H Respiratory Rate 19 14 14 Blood Pressure 103/61 80/50 L 82/53 L Pulse Oximetry 99 99 99 01/24/18 08:00 01/24/18 08:31 01/24/18 09:00 Temperature 97.4 F L Pulse Rate 103 H 105 H 110 H Respiratory Rate 15 15 17 Blood Pressure 86/54 L 96/59 L Pulse Oximetry 99 100 99 01/24/18 10:00 01/24/18 11:00 01/24/18 12:00 Temperature 97.4 F L Pulse Rate 109 H 109 H 105 H Respiratory Rate 17 15 14 Blood Pressure 94/61 L 92/59 L 87/50 L Pulse Oximetry 100 100 99 01/24/18 12:27 01/24/18 13:00 01/24/18 14:00 Temperature Pulse Rate 101 H 105 H 101 H Respiratory Rate 17 14 14 Blood Pressure 81/52 L 85/54 L Pulse Oximetry 99 99 01/24/18 15:00 Temperature Pulse Rate 96 H Respiratory Rate 14 Blood Pressure 84/52 L Pulse Oximetry 98 Intake & Output 01/23/18 01/24/18 01/24/18 18:59 06:59 18:59 Intake Total 1723 / 1723 1805 / 1805 105 / 105 Balance 1723 / 1723 1805 / 1805 105 / 105 Weight 67.8 kg Intake: IV 1110 / 1110 1310 / 1310 105 / 105 Diprivan 1000 mg/100 ml Inj 1, 100 / 100 100 / 100 000 mg In 100 ml @ 5 MCG/KG/MIN 1.869 mls/hr IV.CONT TITRATE PRN Rx#:[id number] NS Inj 1,000 ML @ 84 mls/hr IV. 700 / 700 1000 / 1000 CONT .[id number] NATALIA Rx#: [id number] KCl 40 mEq Premix Inj 40 meq In 100 / 100 100 ml @ 25 mls/hr IV.SIG UNSCH PRN Rx#:[id number] Depacon Inj 500 MG In NS Inj 105 / 105 105 / 105 100 ML @ 105 mls/hr IV.SIG Q12H NATALIA Rx#:[id number] Keppra Inj 500 MG In NS Inj 100 105 / 105 105 / 105 105 / 105 ML @ 400 mls/hr IV.SIG Q12H NATALIA Rx#:[id number] Tube Feeding 493 / 493 435 / 435 Tube Irrigant 120 / 120 60 / 60 Other: # Voids 3 1 # Incontinent Voids 3 Date of Last Bowel Movement 01/23/18 01/24/18 01/24/18 # Bowel Movements 2 1 # Incontinent Bowel Movements 2 Result Diagrams: 01/24/18 04:40 01/24/18 04:40 Objective Remarks: GENERAL: 57-year-old female currently orotracheally intubated SKIN: Warm and dry. No rash HEAD: Atraumatic. Normocephalic. EYES: Pupil right pupil is about 5 mm and minimally reactive. Left pupil is 4 mm and slightly reactive. No scleral icterus. ENT: No nasal bleeding or discharge. Mucous membranes pink and moist. NECK: Trachea midline. No JVD. CARDIOVASCULAR: RR. S1, S2. No S4. RESPIRATORY: Diminished breath sounds throughout the left hemithorax. No wheezing. Pleurx catheter in place left thorax GASTROINTESTINAL: Abdomen soft, non-tender, nondistended. Hypoactive bowel sounds appreciated. MUSCULOSKELETAL: Extremities without clubbing, cyanosis, or edema. NEUROLOGICAL: Unresponsive on the ventilator. Minimal withdrawal in left upper and lower extremity. No withdrawal response in the right upper lower extremity. Positive gag and cough. Positive corneal reflex. Assessment and Plan - Problem List (1) Non-small cell carcinoma of lung, stage 4 Code(s): C34.90 - Malignant neoplasm of unspecified part of unspecified bronchus or lung Status: Acute (2) Hypokalemia Code(s): E87.6 - Hypokalemia Status: Acute (3) Pancytopenia Code(s): D61.818 - Other pancytopenia Status: Acute (4) Hypoalbuminemia Code(s): E88.09 - Other disorders of plasma-protein metabolism, not elsewhere classified Status: Acute (5) Elevated levels of transaminase & lactic acid dehydrogenase Code(s): R74.0 - Nonspecific elevation of levels of transaminase and lactic acid dehydrogenase [LDH] Status: Acute (6) Altered mental status Code(s): R41.82 - Altered mental status, unspecified Status: Acute (7) Seizure Code(s): R56.9 - Unspecified convulsions Status: Acute Onset Date: ~ - Assessment and Plan Plan: Neuro/Psych: Poorly controlled seizures/PLEDs Chronic opiate use EtOH abuse chronic benzodiazepine use Anxiety disorder Seizures Patient is currently on a propofol drip at 30 mcg/kg/min for sedation while intubated. Restart fentanyl drip Acetaminophen 650 mg every 6 hours as needed fever Patient is on alprazolam 1 mg daily at home. This was held Vitamin bag daily times [address] brain revealed left parietal lesion. CT angiogram of the head and neck no acute findings. MRI of the brain with and without contrast -14 mm intra-axial left parietal lesion suspicious for metastasis EEG 12/6 - Periodic epileptiform discharges are present, more so over the left hemisphere than over the right hemisphere consistent with probable PLEDS. This occurs throughout the tracing almost continuous. Continues EEG shows left PLEDs On dexamethasone 4 mg IV every 6 hours for brain mass Currently on phenobarbital, phenytoin, valproic acid, Keppra. Dose adjustments per neurology. Dr. Wiseman/Dr. jamil CV: Sinus tachycardia Elevated troponin Currently on normal saline 84 cc now. Not requiring vasopressors and/or antihypertensives Initial troponin was 0.02. EKG revealed nonspecific ST-T changes. Troponin peaked at 0.92. Currently on downward trend Resp: History of tobaccoism Left Pleurx catheter for likely malignant pleural effusion PRVC Ventilator bundle Head of bed at 30 degrees Albuterol/ipratropium aerosols every 4 hours with albuterol aerosols every 2 hours while needed dyspnea Pleurx catheter Spontaneous breathing trials when clinically indicated, mental status will not permit extubation GI: Elevated transaminases Hypoalbuminemia Tube feedings with vital 1.5 goal 40 cc an hour Lansoprazole for GI prophylax Docusate sodium/senna 1 tablet twice daily and polythene glycol centigrams twice daily for bowel regimen hepatitis panel, -negative : Rai catheter if indicated for accurate I's and O's in a critical patient Endo: Sliding scale insulin to maintain euglycemia/every 6 hours aspart insulin regimen TSH -0.93 Renal: Creatinine currently within normal limits Monitor urine output Accurate I's and O Heme: Pancytopenia Non-small carcinoma lung stage IV Monitor CBC daily. A.m. laboratory still pending Coags within normal limits Dr. Birch from oncology following Started on filgrastin 300 mcg subcu daily ID: Monitor for signs of symptomatology of infection MSK: PT evaluate and treat FEN: Acute hypokalemia ICU electrolyte protocol if needed. Access -Utilize [id number]. Central line if indicated Prophylaxis - -GI lansoprazole - -DVT SCD/holding pharmacological pharmacological prophylaxis in light of possible brain mass Condition remains critical. Prognosis poor Time spent on critical care excluding procedures 35 minutes. Persistent encephalopathy with PLEDs indicates overall poor prognosis with extensive metastatic cancer and brain metastases (1) Non-small cell carcinoma of lung, stage 4 Qualifiers: Laterality: left Qualified Code(s): C34.92 - Malignant neoplasm of unspecified part of left bronchus or lung (6) Altered mental status Qualifiers: Altered mental status type: unspecified Qualified Code(s): R41.82 - Altered mental status, unspecified
[2018-01-24] MEDS: Montelukast 10 MG Tablet PO SCH (17:59)
[2018-01-25] MEDS: Propofol 1000 mg/100 ml Inj 1,000 MG/100 ML BOTTLE IV.CONT PRN ×2 (01:25→19:19)
[2018-01-25] MEDS: Sod Chloride 0.9% Inj 1,000 ML IV.CONT SCH ×3 (04:18→21:50)
[2018-01-25] MEDS: Chlorhexidine Gluconate 2% 1 Pack (2 Cloths) TOPICAL SCH (04:18)
[2018-01-25] MEDS: Oral Hygiene Kit OROPHARYNG SCH ×4 (04:18→23:04)
[2018-01-25 04:54] LABS: Hematocrit 28.8 % (35.0-46.0); Hemoglobin 9.5 gm/dL (11.6-15.3); Mean Corpuscular HGB Conc 33.1 % (32.0-36.0); Mean Corpuscular Hemoglobin 32.9 pg (27.0-34.0); Mean Corpuscular Volume 99.6 fL (80.0-100.0); Mean Platelet Volume 9.8 fL (7.0-11.0); Platelet Count 117 th/mm3 (150-450); Red Cell Distribution Width 16.5 % (11.6-17.2); White Blood Count 9.3 th/mm3 (4.0-11.0)
[2018-01-25 05:04] LABS: Anion Gap 6 meq/L (5-15); Blood Urea Nitrogen 6 mg/dL (7-18); Calcium 7.4 mg/dL (8.5-10.1); Carbon Dioxide 27.9 meq/L (21.0-32.0); Chloride 110 meq/L (98-107); Glomerular Filtration Rate Greater Than 89 mL/min (>89); Glucose,Random 105 mg/dL (74-106); Magnesium 1.3 mg/dL (1.5-2.5); Phenytoin (Dilantin) 2.6 mcg/mL (10.0-20.0); Phosphorus 1.5 mg/dL (2.5-4.9); Potassium 3.8 meq/L (3.5-5.1); Sodium 144 meq/L (136-145); Valproic Acid 32 mcg/mL (50-100)
[2018-01-25] MEDS: PHENobarbital Inj 130 MG/ML Vial IV.SIG SCH ×3 (05:06→21:09)
[2018-01-25] MEDS: Valproate Inj 500 MG in Sodium Chlor 0.9% Inj 100 ML IV.SIG SCH ×2 (05:07→17:41)
[2018-01-25 05:14] LABS: Albumin 1.3 g/dL (3.4-5.0); Calcium-Albumin Corrected 9.6 mg/dL (8.5-10.1)
[2018-01-25] MEDS ORDERED: Sod Chloride 0.9% Inj 1,000 ML IV.SIG ONE (06:00)
[2018-01-25] MEDS: Insulin NovoLOG Aspart Correctional Sugar Inj SQ SCH ×4 (06:09→23:04)
[2018-01-25 06:58] LABS: Blast Cells 2 % (0-0); Dohle Bodies Present; Eosinophils 1 % (0-4); Lymphocytes 10 % (9-44); Metamyelocytes 9 % (0-1); Monocytes 13 % (0-8); Myelocytes 4 % (0-0); Promyelocyte 1 % (0-0); Toxic Granulation 1+
--- NOTE | 2018-01-25 08:01 | P.PNONC ---
Subjective Interval history: Patient seen and examined, vital signs, labs, medications events of the past week and review. Patient remains intubated, she seems to be opening her eyes now that sedation has been weaned off. Overnight she became oliguric, currently receiving an IV fluid bolus. EEG tracings indicate continued seizure activity mostly focused in the left hemisphere. Objective Vital Signs/Intake & Output: Vital Signs 01/24/18 08:00 01/24/18 08:31 01/24/18 09:00 Temperature 97.4 F L Pulse Rate 103 H 105 H 110 H Respiratory Rate 15 15 17 Blood Pressure 86/54 L 96/59 L Pulse Oximetry 99 100 99 01/24/18 10:00 01/24/18 11:00 01/24/18 12:00 Temperature 97.4 F L Pulse Rate 109 H 109 H 105 H Respiratory Rate 17 15 14 Blood Pressure 94/61 L 92/59 L 87/50 L Pulse Oximetry 100 100 99 01/24/18 12:27 01/24/18 13:00 01/24/18 14:00 Temperature Pulse Rate 101 H 105 H 101 H Respiratory Rate 17 14 14 Blood Pressure 81/52 L 85/54 L Pulse Oximetry 99 99 01/24/18 15:00 01/24/18 16:00 01/24/18 16:26 Temperature 98.5 F Pulse Rate 96 H 98 H 102 H Respiratory Rate 14 14 22 Blood Pressure 84/52 L 92/55 L Pulse Oximetry 98 99 01/24/18 16:27 01/24/18 17:00 01/24/18 18:00 Temperature Pulse Rate 98 H 97 H Respiratory Rate 16 17 14 Blood Pressure 84/54 L 88/54 L Pulse Oximetry 100 100 100 01/24/18 19:00 01/24/18 19:36 01/24/18 20:00 Temperature 98.3 F Pulse Rate 97 H 91 H 98 H Respiratory Rate 14 14 14 Blood Pressure 82/52 L 85/52 L Pulse Oximetry 100 100 100 01/24/18 21:00 01/24/18 22:00 01/24/18 23:00 Temperature Pulse Rate 97 H 91 H 95 H Respiratory Rate 14 14 20 Blood Pressure 98/62 L 83/53 L 107/69 Pulse Oximetry 100 99 98 01/24/18 23:30 01/25/18 00:00 01/25/18 01:00 Temperature 98.5 F Pulse Rate 92 H 86 Respiratory Rate 17 14 14 Blood Pressure 85/50 L 81/50 L Pulse Oximetry 100 100 100 01/25/18 02:00 01/25/18 03:00 01/25/18 03:22 Temperature Pulse Rate 87 85 Respiratory Rate 14 14 14 Blood Pressure 87/53 L 91/55 L Pulse Oximetry 100 100 100 01/25/18 04:00 01/25/18 05:00 01/25/18 06:00 Temperature 98.7 F Pulse Rate 91 H 95 H 89 Respiratory Rate 20 14 14 Blood Pressure 104/63 86/54 L 78/53 L Pulse Oximetry 100 100 100 01/25/18 06:14 01/25/18 06:29 01/25/18 06:47 Temperature Pulse Rate 87 85 84 Respiratory Rate 14 14 14 Blood Pressure 78/50 L 79/51 L 85/53 L Pulse Oximetry 100 100 100 01/25/18 07:00 01/25/18 07:13 Temperature Pulse Rate 87 86 Respiratory Rate 14 14 Blood Pressure 90/58 L 87/54 L Pulse Oximetry 100 100 Intake & Output 01/24/18 01/25/18 01/25/18 18:59 06:59 18:59 Intake Total 1829 / 1829 1863 / 1863 Output Total 600 / 600 0 / 0 Balance 1229 / 1229 1863 / 1863 Weight 71.1 kg Intake: IV 1210 / 1210 1310 / 1310 Diprivan 1000 mg/100 ml Inj 1, 100 / 100 000 mg In 100 ml @ 5 MCG/KG/MIN 1.869 mls/hr IV.CONT TITRATE PRN Rx#:[id number] NS Inj 1,000 ML @ 84 mls/hr IV. 1000 / 1000 1000 / 1000 CONT .[id number] NATALIA Rx#: [id number] Depacon Inj 500 MG In NS Inj 105 / 105 105 / 105 100 ML @ 105 mls/hr IV.SIG Q12H NATALIA Rx#:[id number] Keppra Inj 500 MG In NS Inj 100 105 / 105 105 / 105 ML @ 400 mls/hr IV.SIG Q12H NATALIA Rx#:[id number] Tube Feeding 499 / 499 433 / 433 Tube Irrigant 120 / 120 120 / 120 Output: Urine 0 / 0 Urine Amount (Catheter) 600 / 600 Straight 600 / 600 Other: # Incontinent Voids 0 Date of Last Bowel Movement 01/24/18 01/24/18 # Incontinent Bowel Movements 0 Result Diagrams: 01/25/18 04:35 01/25/18 04:35 Laboratory Results: Laboratory Results - last 24 hr 01/24/18 01/24/18 01/24/18 04:40 11:03 17:47 WBC RBC Hgb Hct MCV MCH MCHC RDW Plt Count MPV Prelim Diff (Auto) WBC Differential Manual diff final Seg Neuts % (Manual) 57 Band Neuts % (Manual) 9 H Lymphocytes % (Manual) 19 Monocytes % (Manual) 11 H Eosinophils % (Manual) Metamyelocytes % (Man) 2 H Myelocytes % (Man) 2 H Promyelocytes % (Man) Blast Cells % (Manual) Abs Neuts (Manual) 4.8 Differential Comment Toxic Granulation 2+ H Dohle Bodies Platelet Estimate Low L Platelet Morphology Normal Sodium Potassium Chloride Carbon Dioxide Anion Gap BUN Creatinine Estimated GFR POC Glucose 126 H 122 H Random Glucose Calcium Calcium Adj for Albumin Phosphorus Magnesium Albumin Phenytoin Valproic Acid Phenobarbital 01/24/18 01/25/18 01/25/18 22:59 04:35 04:35 WBC 9.3 RBC 2.90 L Hgb 9.5 L Hct 28.8 L MCV 99.6 MCH 32.9 MCHC 33.1 RDW 16.5 Plt Count 117 L D MPV 9.8 Prelim Diff (Auto) Manual diff required WBC Differential Manual diff final Seg Neuts % (Manual) 30 Band Neuts % (Manual) 30 H Lymphocytes % (Manual) 10 Monocytes % (Manual) 13 H Eosinophils % (Manual) 1 Metamyelocytes % (Man) 9 H Myelocytes % (Man) 4 H Promyelocytes % (Man) 1 H Blast Cells % (Manual) 2 H Abs Neuts (Manual) 6.9 Differential Comment . Toxic Granulation 1+ H Dohle Bodies Present H Platelet Estimate Low L Platelet Morphology Enlarged H Sodium 144 Potassium 3.8 Chloride 110 H Carbon Dioxide 27.9 Anion Gap 6 BUN 6 L Creatinine 0.25 L Estimated GFR Greater than 89 POC Glucose 120 H Random Glucose 105 Calcium 7.4 L* Calcium Adj for Albumin 9.6 Phosphorus 1.5 L Magnesium 1.3 L Albumin 1.3 L Phenytoin 2.6 L Valproic Acid 32 L Phenobarbital 26.1 Medications: Active Medications Generic Name Dose Route Start Last Admin Trade Name Freq PRN Reason Stop Dose Admin Artificial Tears 1 drop 01/22/18 08:00 01/24/18 23:17 Tears Naturale Opth Drops EACH EYE 1 drop Q8H NATALIA Administration Chlorhexidine Gluconate 3 pack 01/21/18 04:00 01/25/18 04:18 Chlorhexidine 2% Cloth TOPICAL 01/26/18 03:59 3 pack DAILY@0400 NATALIA Administration Chlorhexidine Gluconate 15 ml 01/22/18 08:00 01/24/18 20:20 Peridex 0.12% Oral Kit OROPHARYNG 15 ml BID@0800,2000 NATALIA Administration Dexamethasone Sodium Phosphate 4 mg 01/21/18 00:00 01/25/18 05:07 Decadron Inj IV.PUSH 4 mg Q6HR NATALIA Administration Folic Acid 1 mg 01/22/18 08:34 01/24/18 09:06 Folic Acid NG/OG 1 mg DAILY NATALIA Administration Sodium Chloride 1,000 mls @ 84 mls/hr 01/20/18 16:30 01/25/18 04:18 Ns Inj IV.CONT 84 mls/hr .[id number] NATALIA Administration Potassium Chloride 40 meq in 100 mls @ 25 mls/hr 01/20/18 16:18 01/23/18 10: 55 Kcl 40 Meq Premix Inj IV.SIG Infused UNSCH PRN Infusion For Potassium 3.3 - 3.5 mEq/L Levetiracetam 500 mg/ Sodium 105 mls @ 400 mls/hr 01/21/18 02:00 01/25/18 01: 40 Chloride IV.SIG Infused Q12H NATALIA Infusion Valproate Sodium 500 mg/ 105 mls @ 105 mls/hr 01/22/18 06:00 01/25/18 06:07 Sodium Chloride IV.SIG Infused Q12H NATALIA Infusion Propofol 1,000 mg in 100 mls @ 1.869 mls/hr 01/22/18 04:51 01/25/18 01:25 Diprivan 1000 Mg/100 Ml Inj IV.CONT 10 mcg/kg/min TITRATE PRN 3.74 mls/hr Per Protocol Administration Protocol 5 MCG/KG/MIN Fentanyl 2,500 mcg in 250 mls @ 5 mls/hr 01/22/18 08:33 01/24/18 22:00 Fentanyl 10 Mcg/Ml Premix Drip IV.SIG 25 mcg/hr TITRATE PRN 2.5 mls/hr Per Protocol Titration Protocol 50 MCG/HR Insulin Aspart 0 unit 01/21/18 00:00 01/25/18 06:09 Novolog Insulin Correctional Sugar Inj SQ Not Given Q6HR NATALIA Protocol Lactulose 30 ml 01/22/18 08:34 01/24/18 20:20 Lactulose Liq NG/OG Not Given BID NATALIA Lansoprazole 30 mg 01/22/18 09:00 01/24/18 09:06 Prevacid Solutab NG/OG 30 mg DAILY NATALIA Administration Miscellaneous Medication 1 each 01/22/18 12:00 01/25/18 04:18 OROPHARYNG 1 each 0000,0400,1200,1600 NATALIA Administration Montelukast Sodium 10 mg 01/21/18 18:00 01/24/18 17:59 Singulair PO 10 mg QPM NATALIA Administration Phenobarbital Sodium 130 mg 01/24/18 22:00 01/25/18 05:06 Luminal Inj IV.SIG 130 mg Q8HR NATALIA Administration Phenytoin Sodium 100 mg 01/24/18 18:00 01/25/18 05:06 Dilantin Inj IV.PUSH 100 mg Q6HR NATALIA Administration Polyethylene Glycol 17 gm 01/20/18 21:00 01/24/18 20:20 Miralax PO Not Given BID NATALIA Senna/Docusate Sodium 1 tab 01/20/18 21:00 01/24/18 20:21 Liliya-Colace PO 1 tab BID NATALIA Administration Objective Remarks: General physical appearance: Critically ill appearing middle-aged female, laying in bed, she is intubated, sedated opens her eyes spontaneously, no purposeful movements. HEENT: Head atraumatic normocephalic, she has EEG monitor stickers on her forehead and scalp. Pupils are dilated and nonresponsive, she has lateral strabismus of both eyes. Respiratory: On the ventilator, poor air movement over the left hemithorax. Cardiovascular: Regular rate rhythm S1-S2 no obvious murmurs rubs gallops. Abdomen: Thin abdomen, soft, nontender, nondistended no palpable organ enlargement, positive bowel sounds. TAP PULLER: Sedated nonresponsive no spontaneous movements Lower extremities: Decreased muscle mass, no peripheral edema at this time. Muscular skeletal: Generally decreased/atrophic musculature. Skin: Nonfocal examination, some bruising is identified. Assessment/Plan - Plan Ms. Hearn is a 57-year-old female with a recent diagnosis of metastatic adenocarcinoma of the lung, her disease is PDL-1 expression less than 1%, EGFR mutation negative, ALK mutation negative, BRA F mutation negative, ROS-1 mutation negative and RET mutation negative. She had metastatic disease at time of diagnosis as evidenced by malignant left-sided pleural effusion, radiographic evidence of vertebral metastases and adrenal gland metastases. She has thus far received palliative radiation for management of her thoracic metastases, she has also received a single cycle of palliative systemic therapy consisting of carboplatin and pemetrexed which was delivered on 01/11/2018. She now presents with seizures and altered mental status, she was noted on imaging studies performed during this hospitalization to have a 14 mm enhancing mass involving the left temporoparietal lobe (high in the convexity). She has undergone EEGs and is noted to have epileptic activity involving both cerebral hemispheres. She is currently on a Keppra infusion and is also on phenytoin. The patient has been evaluated by neurosurgery who recommended radiation oncology evaluation and conservative management. Additional issues include chemotherapy related myelosuppression. Recommendations: 1. Patient remains critically ill with an extremely poor prognosis. Her family has elected to keep her on the ventilator for 24-48 hours to see if there is any improvement. They understand that her condition is terminal. Anticipate palliative extubation at some point today or tomorrow. Following which the patient will be kept comfortable and possibly transferred out of the critical care unit if she is able to tolerate this. Unfortunately, anticipate the patient will likely within 24 hours of palliative extubation. 2. Brain metastases and seizures: On multiple antiepileptics, continues to have seizure activity on EEG. I do not think palliative radiation at this time will be helpful. Especially given the likely palliative extubation in the upcoming 1-2 days.
[2018-01-25] MEDS: Artificial Tears Opth Drops 15 ML Bottle EACH EYE SCH ×3 (08:59→23:04)
[2018-01-25] MEDS: Chlorhexidine 0.12% Oral Kit 15 ML UDC OROPHARYNG SCH ×2 (08:59→19:20)
--- NOTE | 2018-01-25 09:05 | P.PNNEU ---
Subjective Active Medications: Active Medications Acetaminophen (Tylenol Liq) 650 mg PO Q6H PRN PRN Reason: FEVER Albuterol (Albuterol Neb (Prn)) 2.5 mg NEB Q2HR NEB PRN PRN Reason: DYSPNEA Artificial Tears (Tears Naturale Opth Drops) 1 drop EACH EYE Q8H [facility] Last Admin: 01/25/18 08:59 Dose: 1 drop Bisacodyl (Dulcolax Supp) 10 mg RECTAL DAILY PRN PRN Reason: if no BM in last 24h Chlorhexidine Gluconate (Chlorhexidine 2% Cloth) 3 pack TOPICAL DAILY@0400 [facility] Stop: 01/26/18 03:59 Last Admin: 01/25/18 04:18 Dose: 3 pack Chlorhexidine Gluconate (Chlorhexidine 2% Cloth) 3 pack TOPICAL DAILY@0400 PRN PRN Reason: Extra cloth needed Stop: 01/26/18 03:59 Chlorhexidine Gluconate (Peridex 0.12% Oral Kit) 15 ml OROPHARYNG BID@0800, 2000 [facility] Last Admin: 01/25/18 08:59 Dose: 15 ml Dexamethasone Sodium Phosphate (Decadron Inj) 4 mg IV.PUSH Q6HR [facility] Last Admin: 01/25/18 05:07 Dose: 4 mg Dextrose (D50w Vial) 50 ml IV.PUSH UNSCH PRN PRN Reason: PER HYPOGLYCEMIA PROTOCOL Flumazenil (Romazecon Inj) 0.2 mg IV.PUSH Q1M PRN PRN Reason: OVERSEDATION Folic Acid (Folic Acid) 1 mg NG/OG DAILY [facility] Last Admin: 01/24/18 09:06 Dose: 1 mg Glucagon (Glucagon Inj) 1 mg OTHER PRN PRN PRN Reason: for Hypoglycemia Protocol Hydralazine HCl (Apresoline Inj) 10 mg IV.PUSH Q1H PRN PRN Reason: sbp > 160, dbp > 95 Magnesium Sulfate 4 gm/ Sodium (Chloride) 100 mls @ 50 mls/hr IV.SIG UNSCH PRN PRN Reason: For Magnesium 0.9 - 1.1 mg/dL Magnesium Sulfate 2 gm/ Sodium (Chloride) 100 mls @ 50 mls/hr IV.SIG UNSCH PRN PRN Reason: For Magnesium 1.2 - 1.6 mg/dL Sodium Chloride (Ns Inj) 1,000 mls @ 84 mls/hr IV.CONT .[id number] [facility] Last Admin: 01/25/18 04:18 Dose: 84 mls/hr Potassium Chloride (Kcl 40 Meq Premix Inj) 40 meq in 100 mls @ 25 mls/hr IV.SIG Q2H PRN PRN Reason: For Potassium 2.8 - 3.2 mEq/L Potassium Chloride (Kcl 20 Meq Premix Inj) 20 meq in 100 mls @ 50 mls/hr IV.SIG Q2H PRN PRN Reason: For Potassium 3.3 - 3.5 mEq/L Potassium Chloride (Kcl 40 Meq Premix Inj) 40 meq in 100 mls @ 25 mls/hr IV.SIG UNSCH PRN PRN Reason: For Potassium 3.3 - 3.5 mEq/L Last Infusion: 01/23/18 10:55 Dose: Infused Potassium Chloride (Kcl 20 Meq Premix Inj) 20 meq in 100 mls @ 50 mls/hr IV.SIG Q2H PRN PRN Reason: For Potassium 2.8 - 3.2 mEq/L Potassium Phosphate 30 mmol/ (Sodium Chloride) 260 mls @ 42 mls/hr IV.SIG UNSCH PRN PRN Reason: SEE LABEL COMMENTS Sodium Phosphate 30 mmol/ (Sodium Chloride) 260 mls @ 42 mls/hr IV.SIG UNSCH PRN PRN Reason: For Phosphorus < 2.5 mg/dL Levetiracetam 500 mg/ Sodium (Chloride) 105 mls @ 400 mls/hr IV.SIG Q12H [facility] Last Infusion: 01/25/18 01:40 Dose: Infused Valproate Sodium 500 mg/ (Sodium Chloride) 105 mls @ 105 mls/hr IV.SIG Q12H [facility] Last Infusion: 01/25/18 06:07 Dose: Infused Propofol (Diprivan 1000 Mg/100 Ml Inj) 1,000 mg in 100 mls @ 1.869 mls/hr IV.CONT TITRATE PRN; Protocol PRN Reason: Per Protocol Last Admin: 01/25/18 01:25 Dose: 10 mcg/kg/min, 3.74 mls/hr Fentanyl (Fentanyl 10 Mcg/Ml Premix Drip) 2,500 mcg in 250 mls @ 5 mls/hr IV.SIG TITRATE PRN; Protocol PRN Reason: Per Protocol Last Titration: 01/24/18 22:00 Dose: 25 mcg/hr, 2.5 mls/hr Insulin Aspart (Novolog Insulin Correctional Sugar Inj) 0 unit SQ Q6HR [facility]; Protocol Last Admin: 01/25/18 06:09 Dose: Not Given Labetalol HCl (Trandate Inj) 10 mg IV.PUSH Q1H PRN PRN Reason: sbp > 160 or DBP > 95 Lactulose (Lactulose Liq) 30 ml NG/OG BID [facility] Last Admin: 01/24/18 20:20 Dose: Not Given Lansoprazole (Prevacid Solutab) 30 mg NG/OG DAILY [facility] Last Admin: 01/24/18 09:06 Dose: 30 mg Lorazepam (Ativan) 1 mg PO Q4H PRN PRN Reason: for CIWA 8-10 Lorazepam (Ativan) 2 mg PO Q2H PRN PRN Reason: for CIWA 11-14 Lorazepam (Ativan Inj) 2 mg IV.PUSH Q2H PRN PRN Reason: for CIWA 11-14 Lorazepam (Ativan Inj) 2 mg IV.PUSH Q1H PRN PRN Reason: for CIWA 15-20 Lorazepam (Ativan Inj) 2 mg IV.PUSH Q15M PRN PRN Reason: for CIWA > 20 Lorazepam (Ativan Inj) 1 mg IV.PUSH Q4H PRN PRN Reason: for CIWA 8-10 Magnesium Oxide (Mag-Ox) 800 mg PO UNSCH PRN PRN Reason: For Magnesium 1.2 - 1.6 mg/dL Miscellaneous (Pill Splitter) 1 each OTHER UNSCH [facility] Miscellaneous Medication () 1 each OROPHARYNG 0000,0400,1200,1600 [facility] Last Admin: 01/25/18 04:18 Dose: 1 each Montelukast Sodium (Singulair) 10 mg PO QPM [facility] Last Admin: 01/24/18 17:59 Dose: 10 mg Ondansetron HCl (Zofran Inj) 4 mg IV.PUSH Q6H PRN PRN Reason: NAUSEA OR VOMITING Phenobarbital Sodium (Luminal Inj) 130 mg IV.SIG Q8HR [facility] Last Admin: 01/25/18 05:06 Dose: 130 mg Phenytoin Sodium (Dilantin Inj) 100 mg IV.PUSH Q6HR [facility] Last Admin: 01/25/18 05:06 Dose: 100 mg Polyethylene Glycol (Miralax) 17 gm PO BID [facility] Last Admin: 12/09/18 20:20 Dose: Not Given Potassium Bicarb/Potassium Chloride (K-Lyte Cl Eff) 50 meq PO UNSCH PRN PRN Reason: For Potassium 3.3 - 3.5 mEq/L Potassium Phosphate (K-Phos Original) 2,000 mg PO Q4H PRN PRN Reason: Phosphorus Less Than 2.5 mg/dL Potassium Phosphate (K-Phos Original) 2,000 mg PO UNSCH PRN PRN Reason: SEE LABEL COMMENTS Senna/Docusate Sodium (Liliya-Colace) 1 tab PO BID [facility] Last Admin: 01/24/18 20:21 Dose: 1 tab Sodium Chloride (Ns Flush) 2 ml IV.FLUSH PRN PRN PRN Reason: FLUSH AFTER USING IV ACCESS Sodium Chloride (Ns Flush) 2 ml IV.FLUSH UNSCH PRN PRN Reason: FLUSH AFTER USING IV ACCESS Allergies/Adverse Reactions: Allergies Allergy/AdvReac Type Severity Reaction Status Date / Time No Known Allergies Allergy Verified 01/20/18 12:59 Physical Exam Vital signs: Vital Signs 01/24/18 10:00 01/24/18 11:00 01/24/18 12:00 Temperature 97.4 F L Pulse Rate 109 H 109 H 105 H Respiratory Rate 17 15 14 Blood Pressure 94/61 L 92/59 L 87/50 L Pulse Oximetry 100 100 99 01/24/18 12:27 01/24/18 13:00 01/24/18 14:00 Temperature Pulse Rate 101 H 105 H 101 H Respiratory Rate 17 14 14 Blood Pressure 81/52 L 85/54 L Pulse Oximetry 99 99 01/24/18 15:00 01/24/18 16:00 01/24/18 16:26 Temperature 98.5 F Pulse Rate 96 H 98 H 102 H Respiratory Rate 14 14 22 Blood Pressure 84/52 L 92/55 L Pulse Oximetry 98 99 01/24/18 16:27 01/24/18 17:00 01/24/18 18:00 Temperature Pulse Rate 98 H 97 H Respiratory Rate 16 17 14 Blood Pressure 84/54 L 88/54 L Pulse Oximetry 100 100 100 01/24/18 19:00 01/24/18 19:36 01/24/18 20:00 Temperature 98.3 F Pulse Rate 97 H 91 H 98 H Respiratory Rate 14 14 14 Blood Pressure 82/52 L 85/52 L Pulse Oximetry 100 100 100 01/24/18 21:00 01/24/18 22:00 01/24/18 23:00 Temperature Pulse Rate 97 H 91 H 95 H Respiratory Rate 14 14 20 Blood Pressure 98/62 L 83/53 L 107/69 Pulse Oximetry 100 99 98 01/24/18 23:30 01/25/18 00:00 01/25/18 01:00 Temperature 98.5 F Pulse Rate 92 H 86 Respiratory Rate 17 14 14 Blood Pressure 85/50 L 81/50 L Pulse Oximetry 100 100 100 01/25/18 02:00 01/25/18 03:00 01/25/18 03:22 Temperature Pulse Rate 87 85 Respiratory Rate 14 14 14 Blood Pressure 87/53 L 91/55 L Pulse Oximetry 100 100 100 01/25/18 04:00 01/25/18 05:00 01/25/18 06:00 Temperature 98.7 F Pulse Rate 91 H 95 H 89 Respiratory Rate 20 14 14 Blood Pressure 104/63 86/54 L 78/53 L Pulse Oximetry 100 100 100 01/25/18 06:14 01/25/18 06:29 01/25/18 06:47 Temperature Pulse Rate 87 85 84 Respiratory Rate 14 14 14 Blood Pressure 78/50 L 79/51 L 85/53 L Pulse Oximetry 100 100 100 01/25/18 07:00 01/25/18 07:13 01/25/18 07:28 Temperature Pulse Rate 87 86 85 Respiratory Rate 14 14 14 Blood Pressure 90/58 L 87/54 L 86/52 L Pulse Oximetry 100 100 100 01/25/18 07:43 01/25/18 07:58 01/25/18 08:00 Temperature 97.6 F Pulse Rate 88 90 89 Respiratory Rate 14 14 14 Blood Pressure 91/54 L 95/55 L 98/56 L Pulse Oximetry 100 100 100 01/25/18 08:10 01/25/18 08:13 01/25/18 08:28 Temperature Pulse Rate 90 89 Respiratory Rate 15 14 14 Blood Pressure 98/56 L 95/52 L Pulse Oximetry 100 100 100 01/25/18 08:32 Temperature Pulse Rate 89 Respiratory Rate 15 Blood Pressure 99/57 L Pulse Oximetry 100 Intake & Output 01/24/18 01/25/18 01/25/18 18:59 06:59 18:59 Intake Total 1829 / 1829 1863 / 1863 Output Total 600 / 600 0 / 0 Balance 1229 / 1229 1863 / 1863 Weight 71.1 kg Intake: IV 1210 / 1210 1310 / 1310 Diprivan 1000 mg/100 ml Inj 1, 100 / 100 000 mg In 100 ml @ 5 MCG/KG/MIN 1.869 mls/hr IV.CONT TITRATE PRN Rx#:[id number] NS Inj 1,000 ML @ 84 mls/hr IV. 1000 / 1000 1000 / 1000 CONT .[id number] NATALIA Rx#: [id number] Depacon Inj 500 MG In NS Inj 105 / 105 105 / 105 100 ML @ 105 mls/hr IV.SIG Q12H NATALIA Rx#:[id number] Keppra Inj 500 MG In NS Inj 100 105 / 105 105 / 105 ML @ 400 mls/hr IV.SIG Q12H NATALIA Rx#:[id number] Tube Feeding 499 / 499 433 / 433 Tube Irrigant 120 / 120 120 / 120 Output: Urine 0 / 0 Urine Amount (Catheter) 600 / 600 Straight 600 / 600 Other: # Incontinent Voids 0 Date of Last Bowel Movement 01/24/18 01/24/18 01/24/18 # Incontinent Bowel Movements 0 Narrative: on vent arousable minimally on dip moves bilat feet - Urinary Catheter Management Straight Cath placed during this visit: no Objective Laboratory Results - last 24 hr 01/24/18 01/24/18 01/24/18 04:40 11:03 17:47 WBC RBC Hgb Hct MCV MCH MCHC RDW Plt Count MPV Prelim Diff (Auto) WBC Differential Manual diff final Seg Neuts % (Manual) 57 Band Neuts % (Manual) 9 H Lymphocytes % (Manual) 19 Monocytes % (Manual) 11 H Eosinophils % (Manual) Metamyelocytes % (Man) 2 H Myelocytes % (Man) 2 H Promyelocytes % (Man) Blast Cells % (Manual) Abs Neuts (Manual) 4.8 Differential Comment Toxic Granulation 2+ H Dohle Bodies Platelet Estimate Low L Platelet Morphology Normal Sodium Potassium Chloride Carbon Dioxide Anion Gap BUN Creatinine Estimated GFR POC Glucose 126 H 122 H Random Glucose Calcium Calcium Adj for Albumin Phosphorus Magnesium Albumin Phenytoin Valproic Acid Phenobarbital 12/11/0301/25/18 01/25/18 22:59 04:35 04:35 WBC 9.3 RBC 2.90 L Hgb 9.5 L Hct 28.8 L MCV 99.6 MCH 32.9 MCHC 33.1 RDW 16.5 Plt Count 117 L D MPV 9.8 Prelim Diff (Auto) Manual diff required WBC Differential Manual diff final Seg Neuts % (Manual) 30 Band Neuts % (Manual) 30 H Lymphocytes % (Manual) 10 Monocytes % (Manual) 13 H Eosinophils % (Manual) 1 Metamyelocytes % (Man) 9 H Myelocytes % (Man) 4 H Promyelocytes % (Man) 1 H Blast Cells % (Manual) 2 H Abs Neuts (Manual) 6.9 Differential Comment . Toxic Granulation 1+ H Dohle Bodies Present H Platelet Estimate Low L Platelet Morphology Enlarged H Sodium 144 Potassium 3.8 Chloride 110 H Carbon Dioxide 27.9 Anion Gap 6 BUN 6 L Creatinine 0.25 L Estimated GFR Greater than 89 POC Glucose 120 H Random Glucose 105 Calcium 7.4 L* Calcium Adj for Albumin 9.6 Phosphorus 1.5 L Magnesium 1.3 L Albumin 1.3 L Phenytoin 2.6 L Valproic Acid 32 L Phenobarbital 26.1 Review/Management - Review/Management Plan: Neurologically unchanged. EEG with continuous PLEDS left hemisphere. Will increase phenobarbital and phenytoin doses and recheck levels in am 01/25/18 issac rosario med team apparently going to [facility] care no change in sz meds on 4 meds if med team wants me to be more aggressive she need another eeg today
[2018-01-25] MEDS: Senna/Docusate Sodium 8.6/50 MG Tablet PO SCH ×2 (09:06→20:53)
[2018-01-25] MEDS: Polyethylene Glycol 3350 17 GM Packet PO SCH ×2 (09:06→20:53)
[2018-01-25] MEDS: Folic Acid 1 MG Tablet NG/OG SCH (09:06)
[2018-01-25] MEDS ORDERED: Phenylephrine Inj 80 MG in Sodium Chlor 0.9% Inj 492 ML IV.CONT PRN (12:23)
--- NOTE | 2018-01-25 12:36 | P.PNCC ---
Subjective Subjective Remarks/Hospital Course: 01/20: This is a 57-year-old female. Date of admission 01/20/2018. 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 Follows with Dr. Birch. History of tobaccoism 35 pack years quit 12 years ago. History of anxiety and chronic alprazolam. Patient has history of a left hemithorax with the Pleurx catheter placed recently. She also has an Ljnfjo-s-Luds by history. Patient presents to [facility] after recently just completing her first chemo treatment Thursday. 20 minutes prior to arrival to [facility], patient had paralysis of her right leg, twitching , unable to see straight. She is noted to have expressive aphasia as well. She is also noted to have a seizure prior to arrival and at at that facility. This was documented as shaking both arms and legs and displacing the head to the side. She received [address] brain revealed left parietal circulation. CT angiogram revealed possible metastases. CT of the neck revealed no acute findings. During the stroke alert , MRI with and without contrast brain was ordered to rule out metastatic brain lesion. She is transported to [facility]. She is old awake and alert to person only. She has subjective right upper lower extremity weakness on examination. 01/21: Laying in bed. Responds to commands off and on. SUBJECTIVE: 01/22: Intubated overnight due to altered mental status. EEG revealed seizure- like activity. Currently family is discussing possible withdrawal of care. Will drain Pleurx catheter today. 01/23: Remains sedated, orally intubated on mechanical ventilation. 01/24: Remains intubated sedated, unchanged neuro exam. Neurology following. Per Dr. Jamil's note, EEG with continuous PLEDS left hemisphere. He has increased phenobarbital and phenytoin doses 01/25: Remains intubated sedated purposeful with upper extremities. Reaching out for the tube. Continues to have left PLED. Palliative care meeting with family today Objective Vital Signs / I&O: Vital Signs 01/24/18 12:27 01/24/18 13:00 01/24/18 14:00 Temperature Pulse Rate 101 H 105 H 101 H Respiratory Rate 17 14 14 Blood Pressure 81/52 L 85/54 L Pulse Oximetry 99 99 01/24/18 15:00 01/24/18 16:00 01/24/18 16:26 Temperature 98.5 F Pulse Rate 96 H 98 H 102 H Respiratory Rate 14 14 22 Blood Pressure 84/52 L 92/55 L Pulse Oximetry 98 99 01/24/18 16:27 01/24/18 17:00 01/24/18 18:00 Temperature Pulse Rate 98 H 97 H Respiratory Rate 16 17 14 Blood Pressure 84/54 L 88/54 L Pulse Oximetry 100 100 100 01/24/18 19:00 01/24/18 19:36 01/24/18 20:00 Temperature 98.3 F Pulse Rate 97 H 91 H 98 H Respiratory Rate 14 14 14 Blood Pressure 82/52 L 85/52 L Pulse Oximetry 100 100 100 01/24/18 21:00 01/24/18 22:00 01/24/18 23:00 Temperature Pulse Rate 97 H 91 H 95 H Respiratory Rate 14 14 20 Blood Pressure 98/62 L 83/53 L 107/69 Pulse Oximetry 100 99 98 01/24/18 23:30 01/25/18 00:00 01/25/18 01:00 Temperature 98.5 F Pulse Rate 92 H 86 Respiratory Rate 17 14 14 Blood Pressure 85/50 L 81/50 L Pulse Oximetry 100 100 100 01/25/18 02:00 01/25/18 03:00 01/25/18 03:22 Temperature Pulse Rate 87 85 Respiratory Rate 14 14 14 Blood Pressure 87/53 L 91/55 L Pulse Oximetry 100 100 100 01/25/18 04:00 01/25/18 05:00 01/25/18 06:00 Temperature 98.7 F Pulse Rate 91 H 95 H 89 Respiratory Rate 20 14 14 Blood Pressure 104/63 86/54 L 78/53 L Pulse Oximetry 100 100 100 01/25/18 06:14 01/25/18 06:29 01/25/18 06:47 Temperature Pulse Rate 87 85 84 Respiratory Rate 14 14 14 Blood Pressure 78/50 L 79/51 L 85/53 L Pulse Oximetry 100 100 100 01/25/18 07:00 01/25/18 07:13 01/25/18 07:28 Temperature Pulse Rate 87 86 85 Respiratory Rate 14 14 14 Blood Pressure 90/58 L 87/54 L 86/52 L Pulse Oximetry 100 100 100 01/25/18 07:43 01/25/18 07:58 01/25/18 08:00 Temperature 97.6 F Pulse Rate 88 90 89 Respiratory Rate 14 14 14 Blood Pressure 91/54 L 95/55 L 98/56 L Pulse Oximetry 100 100 100 01/25/18 08:10 01/25/18 08:13 01/25/18 08:28 Temperature Pulse Rate 90 89 Respiratory Rate 15 14 14 Blood Pressure 98/56 L 95/52 L Pulse Oximetry 100 100 100 01/25/18 08:32 01/25/18 09:00 01/25/18 11:24 Temperature Pulse Rate 89 89 Respiratory Rate 15 14 14 Blood Pressure 99/57 L 87/53 L Pulse Oximetry 100 100 100 Intake & Output 01/24/18 01/25/18 01/25/18 18:59 06:59 18:59 Intake Total 1829 / 1829 1863 / 1863 Output Total 600 / 600 0 / 0 Balance 1229 / 1229 1863 / 1863 Weight 71.1 kg Intake: IV 1210 / 1210 1310 / 1310 Diprivan 1000 mg/100 ml Inj 1, 100 / 100 000 mg In 100 ml @ 5 MCG/KG/MIN 1.869 mls/hr IV.CONT TITRATE PRN Rx#:[id number] NS Inj 1,000 ML @ 84 mls/hr IV. 1000 / 1000 1000 / 1000 CONT .[id number] NATALIA Rx#: [id number] Depacon Inj 500 MG In NS Inj 105 / 105 105 / 105 100 ML @ 105 mls/hr IV.SIG Q12H NATALIA Rx#:[id number] Keppra Inj 500 MG In NS Inj 100 105 / 105 105 / 105 ML @ 400 mls/hr IV.SIG Q12H NATALIA Rx#:[id number] Tube Feeding 499 / 499 433 / 433 Tube Irrigant 120 / 120 120 / 120 Output: Urine 0 / 0 Urine Amount (Catheter) 600 / 600 Straight 600 / 600 Other: # Incontinent Voids 0 Date of Last Bowel Movement 01/24/18 01/24/18 01/24/18 # Incontinent Bowel Movements 0 Result Diagrams: 01/25/18 04:35 01/25/18 04:35 Objective Remarks: GENERAL: 57-year-old female currently orotracheally intubated SKIN: Warm and dry. No rash HEAD: Atraumatic. Normocephalic. EYES: Pupil right pupil is about 5 mm and minimally reactive. Left pupil is 4 mm and slightly reactive. No scleral icterus. ENT: No nasal bleeding or discharge. NECK: Trachea midline. No JVD. CARDIOVASCULAR: RR. S1, S2. No S4. RESPIRATORY: Diminished breath sounds throughout the left hemithorax. No wheezing. Pleurx catheter in place left thorax GASTROINTESTINAL: Abdomen soft, non-tender, nondistended. Hypoactive bowel sounds appreciated. MUSCULOSKELETAL: Extremities without clubbing, cyanosis, or edema. NEUROLOGICAL: On holding sedation patient purposefully moves upper extremities reaches for the tube. Appears weaker on the right side. Positive gag and cough. Positive corneal reflex. Assessment and Plan - Problem List (1) Non-small cell carcinoma of lung, stage 4 Code(s): C34.90 - Malignant neoplasm of unspecified part of unspecified bronchus or lung Status: Acute (2) Hypokalemia Code(s): E87.6 - Hypokalemia Status: Acute (3) Pancytopenia Code(s): D61.818 - Other pancytopenia Status: Acute (4) Hypoalbuminemia Code(s): E88.09 - Other disorders of plasma-protein metabolism, not elsewhere classified Status: Acute (5) Elevated levels of transaminase & lactic acid dehydrogenase Code(s): R74.0 - Nonspecific elevation of levels of transaminase and lactic acid dehydrogenase [LDH] Status: Acute (6) Altered mental status Code(s): R41.82 - Altered mental status, unspecified Status: Acute (7) Seizure Code(s): R56.9 - Unspecified convulsions Status: Acute Onset Date: ~ - Assessment and Plan Plan: Neuro/Psych: Poorly controlled seizures/PLEDs Chronic opiate use EtOH abuse chronic benzodiazepine use Anxiety disorder Seizures Patient is currently on a propofol drip while intubated.Continue fentanyl drip Acetaminophen 650 mg every 6 hours as needed fever Patient is on alprazolam 1 mg daily at home. This was held Vitamin bag daily times [address] brain revealed left parietal lesion. CT angiogram of the head and neck no acute findings. MRI of the brain with and without contrast -14 mm intra-axial left parietal lesion suspicious for metastasis EEG 01/21 - Periodic epileptiform discharges are present, more so over the left hemisphere than over the right hemisphere consistent with probable PLEDS. Continues EEG shows left PLEDs On dexamethasone 4 mg IV every 6 hours for brain mass Currently on phenobarbital, phenytoin, valproic acid, Keppra. Dose adjustments per neurology. Dr. Wiseman/Dr. jmail CV: Sinus tachycardia Hypotension Elevated troponin Currently on normal saline 84 cc now. Start Niko-Synephrine to maintain map above 65 Initial troponin was 0.02. EKG revealed nonspecific ST-T changes. Troponin peaked at 0.92. Currently on downward trend Resp: Non-small cell carcinoma of the lung with brain metastases. History of tobaccoism Left Pleurx catheter for likely malignant pleural effusion PRVC Ventilator bundle Head of bed at 30 degrees Albuterol/ipratropium aerosols every 4 hours with albuterol aerosols every 2 hours while needed dyspnea Pleurx catheter Spontaneous breathing trials when clinically indicated, mental status will not permit extubation GI: Elevated transaminases Hypoalbuminemia Tube feedings with vital 1.5 goal 40 cc an hour Lansoprazole for GI prophylax Docusate sodium/senna 1 tablet twice daily and polythene glycol centigrams twice daily for bowel regimen hepatitis panel, -negative Endo: Sliding scale insulin to maintain euglycemia/every 6 hours aspart insulin regimen TSH -0.93 Renal: Creatinine currently within normal limits Monitor urine output Accurate I's and O Receiving fluid bolus 2 L for oliguria Heme: Pancytopenia Non-small carcinoma lung stage IV Monitor CBC daily. A.m. laboratory still pending Coags within normal limits Dr. Birch from oncology following Started on filgrastin 300 mcg subcu daily ID: Monitor for signs of symptomatology of infection FEN: Hypokalemia ICU electrolyte protocol if needed. Access -Utilize [id number]. Central line if indicated Prophylaxis - -GI lansoprazole - -DVT SCD/holding pharmacological pharmacological prophylaxis in light of possible brain mass Condition remains critical. Prognosis poor Time spent on critical care excluding procedures 35 minutes. Persistent encephalopathy with PLEDs indicates overall poor prognosis with extensive metastatic cancer and brain metastases. Family meeting with palliative care today, decision regarding continued care versus withdrawal of life support pending (1) Non-small cell carcinoma of lung, stage 4 Qualifiers: Laterality: left Qualified Code(s): C34.92 - Malignant neoplasm of unspecified part of left bronchus or lung (6) Altered mental status Qualifiers: Altered mental status type: unspecified Qualified Code(s): R41.82 - Altered mental status, unspecified
--- NOTE | 2018-01-25 15:39 | PQ ---
Physician Query Response Document PATIENT: Sujata Hearn : 1960 ADMIT DATE: 01/20/2018 3:24 PM DISCH DATE: RESPONDING PROVIDER #: SJOHN QUERY TEXT: CDS Clarification Please clarify documentation or clinical relevance for the clinical / diagnostic findings or whether those are insignificant or unable to be further specified. The patient's Clinical Indicators include: The medical record reflects the following clinical findings, treatment, and risk factors. * Clinical Indicators: H * Risk Factors: Lung cancer stage IV with mets * Treatment: Transfusion of 2UPRBC Please clarify and document your clinical opinion in the progress notes and discharge summary includi ng the definitive and/or presumptive diagnosis (suspected or probable), related to the above clinical findings. Please include clinical findings supporting your diagnosis. Thank you, Awilda Leiva : CDS/RN ext. [phone] Query created by: Awilda Leiva on 01/25/2018 2:21 PM RESPONSE TEXT: Provider disagreed with this CDI query. Clinically insignificant Electronically signed by: Michelle Starks MD 01/25/2018 3:34 PM
--- NOTE | 2018-01-25 16:05 | P.PNPAL ---
Reason for Visit Reason for visit: a. To assist with evaluation and management of symptoms including: pain b. To assist medical decision maker(s) with: better understanding of current medical conditions; weighing benefits/burdens of medical treatment options; making medical treatment decisions. Subjective Subjective/Interval History: Ms. Hearn is a 57-year-old female with history of metastatic lung cancer status post radiation. Patient received 1 cycle of chemotherapy on 01/11/2018. A Pleurx catheter was recently placed for management of her rapidly reaccumulating left-sided pleural effusion. Patient presented to [place] ED on 01/20/2018 with new onset seizures; an MRI of the head revealed a 14 mm round, probably intra-axial mass of the left high posterior parietal lobe likely a metastatic lesion. CT chest showed a masslike area of the left hilum attenuating the left mainstem bronchus, presumably a central primary bronchogenic carcinoma. There was associated consolidation of most of the left lung with volume loss. Moderate to large pleural effusion with loculated components medially at the apex and laterally at the base; tip of the chest tube is in the apical component. Displaced fracture posteriorly of the left 11th rib with a suspected 1cm lytic lesion concerning for metastasis. Follow-up for symptom management of pain and clarification of medical treatment goals. Dual visit with Deborah Sanchez REFRIGERATION TECH. Patient seen and assessed in the [facility], room 1335. Patient's mother, father and bedside RN (Heidy) were also present. Patient remains sedated with fentanyl and propofol, intubated on mechanical vent. Nursing reports patient has had some purposeful movement in upper extremities when sedation is lightened, grabbing at the ET tube. EEG with continuous PLEDS in the left hemisphere. Neurology following. Phenobarbital and phenytoin doses were increased yesterday 01/24/2018. Clinical data: * WBC: 9.3, hemoglobin 9.5, hematocrit 28.8, platelets 117 * Sodium 144, potassium 3.8, chloride 110, carbon dioxide 27.9, glucose 105, calcium 7.4, calcium adj 4 albumin 9.6, phosphorus 1.4, magnesium 1.3 * BUN: 6, creatinine 0.25, GFR >89 * Albumin: 1.3 * Phenytoin level low at 2.6;phenobarbital level stable at 26.1 Patient remains critically ill with a poor prognosis. The patient's family verbalizes understanding that the patient is terminally ill and they do not wish to prolong her suffering any longer. The process of compassionately withdraw of artificial life support was discussed at length during a family meeting. Tentative plan to transition to comfort focused care tomorrow 2017 around noon. Family asked patient's CODE STATUS be changed from ALTERNATE CODE-INTUBATION ONLY to No CODE/DNR. Given plan for withdrawal tomorrow, the family does not want the patient reintubated if the ET tube were inadvertently removed. Family/Friend Interactions: Palliative care met with the patient's mother and stepfather in the family conference room to discuss compassionate withdrawal of artificial life support. Ciera Nickerson (Palliative REFRIGERATION TECH) and RN (Heidy) were also present. Advance Directives Significant change in goals:: Tentative plan for compassionate withdrawal of artificial life support tomorrow 01/26/[address] Starks is aware. Objective Vital Signs: Vital Signs 01/24/18 16:00 01/24/18 16:26 01/24/18 16:27 Temperature 98.5 F Pulse Rate 98 H 102 H Respiratory Rate 14 22 16 Blood Pressure 92/55 L Pulse Oximetry 99 100 01/24/18 17:00 01/24/18 18:00 01/24/18 19:00 Temperature Pulse Rate 98 H 97 H 97 H Respiratory Rate 17 14 14 Blood Pressure 84/54 L 88/54 L 82/52 L Pulse Oximetry 100 100 100 01/24/18 19:36 01/24/18 20:00 01/24/18 21:00 Temperature 98.3 F Pulse Rate 91 H 98 H 97 H Respiratory Rate 14 14 14 Blood Pressure 85/52 L 98/62 L Pulse Oximetry 100 100 100 01/24/18 22:00 01/24/18 23:00 01/24/18 23:30 Temperature Pulse Rate 91 H 95 H Respiratory Rate 14 20 17 Blood Pressure 83/53 L 107/69 Pulse Oximetry 99 98 100 01/25/18 00:00 01/25/18 01:00 01/25/18 02:00 Temperature 98.5 F Pulse Rate 92 H 86 87 Respiratory Rate 14 14 14 Blood Pressure 85/50 L 81/50 L 87/53 L Pulse Oximetry 100 100 100 01/25/18 03:00 01/25/18 03:22 01/25/18 04:00 Temperature 98.7 F Pulse Rate 85 91 H Respiratory Rate 14 14 20 Blood Pressure 91/55 L 104/63 Pulse Oximetry 100 100 100 01/25/18 05:00 01/25/18 06:00 01/25/18 06:14 Temperature Pulse Rate 95 H 89 87 Respiratory Rate 14 14 14 Blood Pressure 86/54 L 78/53 L 78/50 L Pulse Oximetry 100 100 100 01/25/18 06:29 01/25/18 06:47 01/25/18 07:00 Temperature Pulse Rate 85 84 87 Respiratory Rate 14 14 14 Blood Pressure 79/51 L 85/53 L 90/58 L Pulse Oximetry 100 100 100 01/25/18 07:13 01/25/18 07:28 01/25/18 07:43 Temperature Pulse Rate 86 85 88 Respiratory Rate 14 14 14 Blood Pressure 87/54 L 86/52 L 91/54 L Pulse Oximetry 100 100 100 01/25/18 07:58 01/25/18 08:00 01/25/18 08:10 Temperature 97.6 F Pulse Rate 90 89 Respiratory Rate 14 14 15 Blood Pressure 95/55 L 98/56 L Pulse Oximetry 100 100 100 01/25/18 08:13 01/25/18 08:28 01/25/18 08:32 Temperature Pulse Rate 90 89 89 Respiratory Rate 14 14 15 Blood Pressure 98/56 L 95/52 L 99/57 L Pulse Oximetry 100 100 100 01/25/18 09:00 01/25/18 09:30 01/25/18 10:00 Temperature Pulse Rate 89 88 87 Respiratory Rate 14 14 14 Blood Pressure 87/53 L 88/52 L 84/52 L Pulse Oximetry 100 100 100 01/25/18 10:30 01/25/18 11:00 01/25/18 11:24 Temperature Pulse Rate 92 H 95 H Respiratory Rate 14 15 14 Blood Pressure 101/62 98/63 L Pulse Oximetry 100 100 100 01/25/18 11:30 01/25/18 12:00 01/25/18 12:30 Temperature Pulse Rate 90 90 97 H Respiratory Rate 14 14 15 Blood Pressure 91/57 L 98/55 L 97/57 L Pulse Oximetry 100 100 100 01/25/18 13:00 01/25/18 13:30 01/25/18 14:00 Temperature Pulse Rate 94 H 93 H 96 H Respiratory Rate 14 14 14 Blood Pressure 90/58 L 84/57 L 89/50 L Pulse Oximetry 100 100 100 01/25/18 14:30 01/25/18 15:00 Temperature Pulse Rate 95 H 98 H Respiratory Rate 14 15 Blood Pressure 91/58 L 95/58 L Pulse Oximetry 100 100 Intake & Output 01/24/18 01/25/18 01/25/18 18:59 06:59 18:59 Intake Total 1829 / 1829 1863 / 1863 Output Total 600 / 600 0 / 0 Balance 1229 / 1229 1863 / 1863 Weight 71.1 kg Intake: IV 1210 / 1210 1310 / 1310 Diprivan 1000 mg/100 ml Inj 1, 100 / 100 000 mg In 100 ml @ 5 MCG/KG/MIN 1.869 mls/hr IV.CONT TITRATE PRN Rx#:[id number] NS Inj 1,000 ML @ 84 mls/hr IV. 1000 / 1000 1000 / 1000 CONT .[id number] NATALIA Rx#: [id number] Depacon Inj 500 MG In NS Inj 105 / 105 105 / 105 100 ML @ 105 mls/hr IV.SIG Q12H NATALIA Rx#:[id number] Keppra Inj 500 MG In NS Inj 100 105 / 105 105 / 105 ML @ 400 mls/hr IV.SIG Q12H NATALIA Rx#:[id number] Tube Feeding 499 / 499 433 / 433 Tube Irrigant 120 / 120 120 / 120 Output: Urine 0 / 0 Urine Amount (Catheter) 600 / 600 Straight 600 / 600 Other: # Incontinent Voids 0 Date of Last Bowel Movement 01/24/18 01/24/18 01/24/18 # Incontinent Bowel Movements 0 Physical Exam: CONSTITUTIONAL/GENERAL: This is a 57-year-old female patient who is intubated on mechanical vent. TUBES/LINES/DRAINS: PIV, VAD, ETT, OGT, soft restraints, Rai catheter SKIN: Lacerations noted on right forearm. Ecchymoses on upper extremities. No wounds seen anteriorly. Skin temperature appropriate. Not diaphoretic. HEAD: Atraumatic. Normocephalic. EYES: Pupils equal and round. Extraocular motions intact. No scleral icterus. No injection or drainage. Fundi not examined. ENT: Nose without bleeding or purulent drainage. NECK: Trachea midline. Supple, nontender. No palpable thyroid enlargement or nodularity. CARDIOVASCULAR: Regular rate and rhythm no JVD. Peripheral pulses symmetric. RESPIRATORY/CHEST: Intubated on mechanical vent. Diminished breath sounds throughout the left hemithorax. Pleurx catheter in left thorax. GASTROINTESTINAL: Abdomen soft, non-tender, nondistended. Hypoactive bowel sounds GENITOURINARY: Without palpable bladder distension. MUSCULOSKELETAL: Extremities without clubbing, cyanosis, or edema. No mottling or clubbing. LYMPHATICS: No palpable cervical or supraclavicular adenopathy. NEUROLOGICAL: Positive gag and cough. Positive corneal reflex. Right-sided hemiparesis. PSYCHIATRIC: Unable to assess given current level of responsiveness Diagnostic Tests Laboratory: Laboratory Results - last 72 hr 01/21/18 01/21/18 01/22/18 05:12 08:31 10:51 WBC RBC Hgb Hct MCV MCH MCHC RDW Plt Count MPV Prelim Diff (Auto) WBC Differential Seg Neuts % (Manual) Band Neuts % (Manual) Lymphocytes % (Manual) Monocytes % (Manual) Eosinophils % (Manual) Metamyelocytes % (Man) Myelocytes % (Man) Promyelocytes % (Man) Blast Cells % (Manual) Abs Neuts (Manual) Differential Comment Toxic Granulation Dohle Bodies Platelet Estimate Platelet Morphology Ovalocytes Sodium Potassium Chloride Carbon Dioxide Anion Gap BUN Creatinine Estimated GFR POC Glucose 121 H Random Glucose Calcium Calcium Adj for Albumin Phosphorus Magnesium Total Bilirubin Direct Bilirubin Indirect Bilirubin AST ALT Alkaline Phosphatase Ammonia Total Protein Albumin Thiamine 140 Phenytoin Valproic Acid Phenobarbital MTS Gel Crossmatch See Detail 01/22/18 01/22/18 01/23/18 17:19 23:39 04:23 WBC RBC Hgb Hct MCV MCH MCHC RDW Plt Count MPV Prelim Diff (Auto) WBC Differential Seg Neuts % (Manual) Band Neuts % (Manual) Lymphocytes % (Manual) Monocytes % (Manual) Eosinophils % (Manual) Metamyelocytes % (Man) Myelocytes % (Man) Promyelocytes % (Man) Blast Cells % (Manual) Abs Neuts (Manual) Differential Comment Toxic Granulation Dohle Bodies Platelet Estimate Platelet Morphology Ovalocytes Sodium 141 Potassium 3.4 L Chloride 110 H Carbon Dioxide 22.8 Anion Gap 8 BUN 6 L Creatinine 0.45 L Estimated GFR Greater than 89 POC Glucose 133 H 125 H Random Glucose 123 H Calcium 7.8 L Calcium Adj for Albumin Phosphorus 1.7 L Magnesium 1.7 Total Bilirubin 0.3 Direct Bilirubin 0.1 Indirect Bilirubin 0.2 AST 31 ALT 47 Alkaline Phosphatase 136 H Ammonia Total Protein 5.5 L Albumin 1.3 L Thiamine Phenytoin 4.6 L Valproic Acid 40 L Phenobarbital 12.9 L MTS Gel Crossmatch 01/23/18 01/23/18 01/23/18 04:23 04:23 12:05 WBC 6.0 RBC 2.96 L Hgb 10.0 L Hct 28.3 L MCV 95.6 MCH 33.7 MCHC 35.3 RDW 16.5 Plt Count 82 L MPV 8.9 Prelim Diff (Auto) Slide review pending WBC Differential Manual diff final Seg Neuts % (Manual) 69 Band Neuts % (Manual) 10 H Lymphocytes % (Manual) 7 L Monocytes % (Manual) 7 Eosinophils % (Manual) 1 Metamyelocytes % (Man) 3 H Myelocytes % (Man) 3 H Promyelocytes % (Man) Blast Cells % (Manual) Abs Neuts (Manual) 5.1 Differential Comment . Toxic Granulation Dohle Bodies Platelet Estimate Low L Platelet Morphology Normal Ovalocytes 1+ H Sodium Potassium Chloride Carbon Dioxide Anion Gap BUN Creatinine Estimated GFR POC Glucose 84 Random Glucose Calcium Calcium Adj for Albumin Phosphorus Magnesium Total Bilirubin Direct Bilirubin Indirect Bilirubin AST ALT Alkaline Phosphatase Ammonia 49 H Total Protein Albumin Thiamine Phenytoin Valproic Acid Phenobarbital MTS Gel Crossmatch 01/23/18 01/23/18 01/24/18 17:22 22:34 04:40 WBC 6.9 RBC 2.93 L Hgb 9.8 L Hct 28.3 L MCV 96.6 MCH 33.4 MCHC 34.6 RDW 16.6 Plt Count 84 L MPV 9.3 Prelim Diff (Auto) Manual diff required WBC Differential Manual diff final Seg Neuts % (Manual) 57 Band Neuts % (Manual) 9 H Lymphocytes % (Manual) 19 Monocytes % (Manual) 11 H Eosinophils % (Manual) Metamyelocytes % (Man) 2 H Myelocytes % (Man) 2 H Promyelocytes % (Man) Blast Cells % (Manual) Abs Neuts (Manual) 4.8 Differential Comment . Toxic Granulation 2+ H Dohle Bodies Platelet Estimate Low L Platelet Morphology Normal Ovalocytes Sodium Potassium Chloride Carbon Dioxide Anion Gap BUN Creatinine Estimated GFR POC Glucose 124 H 116 H Random Glucose Calcium Calcium Adj for Albumin Phosphorus Magnesium Total Bilirubin Direct Bilirubin Indirect Bilirubin AST ALT Alkaline Phosphatase Ammonia Total Protein Albumin Thiamine Phenytoin Valproic Acid Phenobarbital MTS Gel Crossmatch 01/24/18 01/24/18 01/24/18 04:40 11:03 17:47 WBC RBC Hgb Hct MCV MCH MCHC RDW Plt Count MPV Prelim Diff (Auto) WBC Differential Seg Neuts % (Manual) Band Neuts % (Manual) Lymphocytes % (Manual) Monocytes % (Manual) Eosinophils % (Manual) Metamyelocytes % (Man) Myelocytes % (Man) Promyelocytes % (Man) Blast Cells % (Manual) Abs Neuts (Manual) Differential Comment Toxic Granulation Dohle Bodies Platelet Estimate Platelet Morphology Ovalocytes Sodium 144 Potassium 3.5 Chloride 110 H Carbon Dioxide 25.0 Anion Gap 9 BUN 4 L Creatinine 0.36 L Estimated GFR Greater than 89 POC Glucose 126 H 122 H Random Glucose 114 H Calcium 7.1 L* Calcium Adj for Albumin 9.3 Phosphorus 1.0 L Magnesium 1.4 L Total Bilirubin Direct Bilirubin Indirect Bilirubin AST ALT Alkaline Phosphatase Ammonia Total Protein Albumin 1.3 L Thiamine Phenytoin 2.9 L Valproic Acid 42 L Phenobarbital 21.1 MTS Gel Crossmatch 01/24/18 01/25/18 01/25/18 22:59 04:35 04:35 WBC 9.3 RBC 2.90 L Hgb 9.5 L Hct 28.8 L MCV 99.6 MCH 32.9 MCHC 33.1 RDW 16.5 Plt Count 117 L D MPV 9.8 Prelim Diff (Auto) Manual diff required WBC Differential Manual diff final Seg Neuts % (Manual) 30 Band Neuts % (Manual) 30 H Lymphocytes % (Manual) 10 Monocytes % (Manual) 13 H Eosinophils % (Manual) 1 Metamyelocytes % (Man) 9 H Myelocytes % (Man) 4 H Promyelocytes % (Man) 1 H Blast Cells % (Manual) 2 H Abs Neuts (Manual) 6.9 Differential Comment . Toxic Granulation 1+ H Dohle Bodies Present H Platelet Estimate Low L Platelet Morphology Enlarged H Ovalocytes Sodium 144 Potassium 3.8 Chloride 110 H Carbon Dioxide 27.9 Anion Gap 6 BUN 6 L Creatinine 0.25 L Estimated GFR Greater than 89 POC Glucose 120 H Random Glucose 105 Calcium 7.4 L* Calcium Adj for Albumin 9.6 Phosphorus 1.5 L Magnesium 1.3 L Total Bilirubin Direct Bilirubin Indirect Bilirubin AST ALT Alkaline Phosphatase Ammonia Total Protein Albumin 1.3 L Thiamine Phenytoin 2.6 L Valproic Acid 32 L Phenobarbital 26.1 MTS Gel Crossmatch Result Diagrams: 01/25/18 04:35 01/25/18 04:35 Procedures: 01/22/2018: Orotracheal intubation Assessment and Plan - Disease Oriented Problem List (1) Seizure (2) Brain mass (3) Acute hypokalemia (4) Non-small cell carcinoma of lung, stage 4 (5) Hypokalemia (6) Pancytopenia Pertinent Non-Medical Issues: Psychosocial: Patient is originally from [place]. She moved to [place] to be closer to her mother. 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 She has been and 2 times. She has no children. She has a pit bull named Arsen. Spiritual: Legal: Per [place] statutes, in the absence of written advanced directives healthcare proxy decision making falls to the patient's mother Ethical issues impacting care: No known ethical issues impacting care. 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 She is not a candidate for systemic therapy or radiation at this time. Her prognosis is quite poor. Code Status: Alternative Code (Intubation only) Plan: * ALTERNATE CODE-INTUBATION ONLY * Patient is currently sedated and intubated on mechanical vent ventilation and unable to participate in medical decision making. It is unclear if she will regain this capacity. Per [place] statutes, in the absence of written advanced directives healthcare proxy decision making falls to the patient's mother. * Patient's parents understand that their daughter is terminally ill. Ideally they hope she can be medically extubated so they can take her home on hospice, but they understand that this may not be possible. They do not want her to suffer. If the patient's condition does not improve in the upcoming days, they will likely consider compassionate withdrawal of artificial life support. * Discussed with Dr. Gracia and nurse, Anne Marie. * Palliative care contact information was provided to the patient's family. * Symptom management-pain: Altered factor. 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 Patient was on long-acting morphine every 12 hours and Percocet (10/325mg) every 6 hours as needed for breakthrough pain. The patient's mother reports her pain was not well controlled. Patient is currently sedated on propofol. Patient is on Decadron 4 mg IV every 6 hours. Fentanyl drip is ordered per protocol. Monitor for signs and symptoms of nonverbal pain. * Palliative care will continue to follow this patient throughout her hospitalization to build rapport, assist with symptom managment and goal clarification.
[2018-01-25] MEDS: Montelukast 10 MG Tablet PO SCH (18:31)
[2018-01-26] MEDS: Propofol 1000 mg/100 ml Inj 1,000 MG/100 ML BOTTLE IV.CONT PRN (04:21)
[2018-01-26] MEDS: Sod Chloride 0.9% Inj 1,000 ML IV.CONT SCH (04:22)
[2018-01-26] MEDS: Oral Hygiene Kit OROPHARYNG SCH (04:22)
[2018-01-26 04:43] LABS: Hematocrit 30.8 % (35.0-46.0); Hemoglobin 10.1 gm/dL (11.6-15.3); Mean Corpuscular HGB Conc 32.8 % (32.0-36.0); Mean Corpuscular Hemoglobin 32.9 pg (27.0-34.0); Mean Corpuscular Volume 100.1 fL (80.0-100.0); Mean Platelet Volume 9.5 fL (7.0-11.0); Platelet Count 194 th/mm3 (150-450); Red Blood Count 3.08 mil/mm3 (4.00-5.30); Red Cell Distribution Width 16.6 % (11.6-17.2); White Blood Count 14.8 th/mm3 (4.0-11.0)
[2018-01-26] MEDS: Valproate Inj 500 MG in Sodium Chlor 0.9% Inj 100 ML IV.SIG SCH (05:08)
[2018-01-26] MEDS: PHENobarbital Inj 130 MG/ML Vial IV.SIG SCH (05:09)
[2018-01-26 05:11] LABS: Anion Gap 6 meq/L (5-15); Blood Urea Nitrogen 7 mg/dL (7-18); Calcium 7.3 mg/dL (8.5-10.1); Carbon Dioxide 26.8 meq/L (21.0-32.0); Chloride 111 meq/L (98-107); Glomerular Filtration Rate Greater Than 89 mL/min (>89); Glucose,Random 123 mg/dL (74-106); Magnesium 1.3 mg/dL (1.5-2.5); Phenytoin (Dilantin) 4.6 mcg/mL (10.0-20.0); Phosphorus 1.9 mg/dL (2.5-4.9); Potassium 3.5 meq/L (3.5-5.1); Sodium 144 meq/L (136-145); Valproic Acid 30 mcg/mL (50-100)
[2018-01-26 05:27] LABS: Albumin 1.2 g/dL (3.4-5.0); Calcium-Albumin Corrected 9.5 mg/dL (8.5-10.1)
[2018-01-26] MEDS: Insulin NovoLOG Aspart Correctional Sugar Inj SQ SCH (05:46)
[2018-01-26 06:04] LABS: Eosinophils 1 % (0-4); Lymphocytes 7 % (9-44); Metamyelocytes 3 % (0-1); Monocytes 8 % (0-8); Myelocytes 3 % (0-0); Promyelocyte 5 % (0-0)
[2018-01-26 06:05] LABS: Platelet Estimate Normal (Normal); Platelet Morphology Normal (Normal); Toxic Granulation 3+
--- NOTE | 2018-01-26 06:31 | PQ ---
Physician Query Response Document PATIENT: Sujata Hearn : 1960 ADMIT DATE: 01/20/2018 3:24 PM DISCH DATE: RESPONDING PROVIDER #: SJOHN QUERY TEXT: CDS Clarification Pathological fracture, left 11th rib, init encntr in the setting of "Displaced fracture posteriorly o f the left 11th rib and with a suspected 1 cm lytic lesion concerning for metastasis" treated with conservative management Other explanation of clinical findings. Unable to determine (no explanation for clinical findings). The patient's Clinical Indicators include: The medical record reflects the following clinical findings, treatment, and risk factors. * Clinical Indicators:"Displaced fracture posteriorly of the left 11th rib and with a suspected 1 cm lytic lesion concerning for metastasis". * Risk Factors; Non small cell carcinomq lung stage IV Malignanat Pleural effusion, brain mass * Treatment: Conservative treatment Please clarify and document your clinical opinion in the progress notes and discharge summary includi ng the definitive and/or presumptive diagnosis (suspected or probable), related to the above clinical findings. Please include clinical findings supporting your diagnosis. Thank you, Awilda Leiva : CDS/RN ext. [phone] Query created by: Awilda Leiva on 01/25/2018 2:19 PM RESPONSE TEXT: Addendum: Patient has pathological fracture, left 11th rib, likely secondary to her metastatic lung c an er and this was present on admission. Continue conservative management with pain control Electronically signed by: Michelle Starks MD 01/26/2018 6:27 AM
[2018-01-26] MEDS: Folic Acid 1 MG Tablet NG/OG SCH (09:14)
[2018-01-26] MEDS: Chlorhexidine 0.12% Oral Kit 15 ML UDC OROPHARYNG SCH (09:15)
[2018-01-26] MEDS: Artificial Tears Opth Drops 15 ML Bottle EACH EYE SCH (09:15)
[2018-01-26] MEDS: Senna/Docusate Sodium 8.6/50 MG Tablet PO SCH (09:16)
[2018-01-26] MEDS: Polyethylene Glycol 3350 17 GM Packet PO SCH (09:16)
[2018-01-26] MEDS ORDERED: fentaNYL Citrate Inj 100 MCG/2 ML Ampul IV.PUSH ONE ×2 (11:56)
[2018-01-26] MEDS ORDERED: Hyoscyamine Inj 0.5 MG/ML Ampul IV.PUSH ONE (11:56)
[2018-01-26] MEDS ORDERED: Hyoscyamine Inj 0.5 MG/ML Ampul IV.PUSH PRN (11:56)
[2018-01-26] MEDS ORDERED: fentaNYL 10 mcg/mL Premix Drip 2,500 MCG/250 ML BAG IV.SIG PRN (11:56)
[2018-01-26] MEDS ORDERED: fentaNYL Citrate Inj 100 MCG/2 ML Ampul IV.PUSH PRN (11:56)
[2018-01-26] MEDS ORDERED: Acetaminophen 650 MG Supp RECTAL PRN (11:56)
[2018-01-26] MEDS ORDERED: Morphine Inj 4 MG/ML Vial IV.PUSH PRN (11:56)
[2018-01-26] MEDS ORDERED: Bisacodyl 10 MG Supp RECTAL PRN (11:56)
--- NOTE | 2018-01-26 13:12 | P.PNPAL ---
Reason for Visit Reason for visit: a. To assist with evaluation and management of symptoms including: pain b. To assist medical decision maker(s) with: better understanding of current medical conditions; weighing benefits/burdens of medical treatment options; making medical treatment decisions. Subjective Subjective/Interval History: Ms. Hearn is a 57-year-old female with history of metastatic lung cancer status post radiation. Patient received 1 cycle of chemotherapy on 01/11/2018. A Pleurx catheter was recently placed for management of her rapidly reaccumulating left-sided pleural effusion. Patient presented to [place] ED on 01/20/2018 with new onset seizures; an MRI of the head revealed a 14 mm round, probably intra-axial mass of the left high posterior parietal lobe likely a metastatic lesion. CT chest showed a masslike area of the left hilum attenuating the left mainstem bronchus, presumably a central primary bronchogenic carcinoma. There was associated consolidation of most of the left lung with volume loss. Moderate to large pleural effusion with loculated components medially at the apex and laterally at the base; tip of the chest tube is in the apical component. Displaced fracture posteriorly of the left 11th rib with a suspected 1cm lytic lesion concerning for metastasis. Follow-up for symptom management of pain and clarification of medical treatment goals. Dual visit with Deborah Sanchez SEAM RUBBER. Patient seen and assessed in the [facility], room 1335. Patient's mother and father at bedside. Patient remains sedated with fentanyl and propofol, intubated on mechanical vent. EEG tracings indicate continued seizure activity mostly focused in the left hemisphere; on keppra and phenobarbital. Patient's family verbalizes understanding that the patient is terminally ill and they do not wish to prolong her suffering any longer. Medical team is agreement with this decision. The process of compassionately withdraw of artificial life support was reviewed with the patient's mother and stepfather again today; anticipatory guidance provided. Signed exhibits B and C have been placed on the patient's chart. Comfort medications have been ordered. Following extubation, patient will be kept comfortable with possible transfer to another floor if stable. Family may consider hospice at that time. Family/Friend Interactions: See interval history Advance Directives Significant change in goals:: Compassionate withdrawal of artificial life support this afternoon on 01/26/2018 Objective Vital Signs: Vital Signs 01/25/18 13:30 01/25/18 14:00 01/25/18 14:30 Temperature Pulse Rate 93 H 96 H 95 H Respiratory Rate 14 14 14 Blood Pressure 84/57 L 89/50 L 91/58 L Pulse Oximetry 100 100 100 01/25/18 15:00 01/25/18 15:30 01/25/18 16:00 Temperature 98.5 F Pulse Rate 98 H 95 H 96 H Respiratory Rate 15 14 14 Blood Pressure 95/58 L 90/51 L 93/53 L Pulse Oximetry 100 100 100 01/25/18 16:30 01/25/18 16:54 01/25/18 17:00 Temperature Pulse Rate 91 H 97 H Respiratory Rate 14 14 15 Blood Pressure 87/50 L 88/69 L Pulse Oximetry 100 100 100 01/25/18 17:30 01/25/18 18:00 01/25/18 18:30 Temperature Pulse Rate 101 H 100 H 99 H Respiratory Rate 14 17 14 Blood Pressure 91/55 L 97/58 L 88/51 L Pulse Oximetry 100 100 100 01/25/18 19:00 01/25/18 19:30 01/25/18 20:00 Temperature 98.1 F Pulse Rate 96 H 95 H 95 H Respiratory Rate 14 14 14 Blood Pressure 83/52 L 83/50 L 91/53 L Pulse Oximetry 100 100 100 01/25/18 21:00 01/25/18 22:00 01/25/18 22:16 Temperature Pulse Rate 88 81 74 Respiratory Rate 14 14 14 Blood Pressure 83/53 L 79/50 L 95/51 L Pulse Oximetry 100 100 100 01/25/18 22:34 01/25/18 22:49 01/25/18 23:00 Temperature Pulse Rate 74 75 74 Respiratory Rate 14 14 14 Blood Pressure 122/59 L 115/66 Pulse Oximetry 100 100 100 01/25/18 23:04 01/25/18 23:19 01/25/18 23:46 Temperature Pulse Rate 74 85 84 Respiratory Rate 14 21 14 Blood Pressure 104/62 138/56 L 101/57 L Pulse Oximetry 100 100 100 01/26/18 00:00 01/26/18 00:04 01/26/18 00:15 Temperature 98.2 F Pulse Rate 78 77 78 Respiratory Rate 19 14 16 Blood Pressure 95/54 L 101/59 L Pulse Oximetry 100 100 100 01/26/18 00:17 01/26/18 00:30 01/26/18 00:45 Temperature Pulse Rate 76 75 Respiratory Rate 14 14 14 Blood Pressure 94/55 L 93/55 L Pulse Oximetry 100 100 100 01/26/18 01:00 01/26/18 01:15 01/26/18 01:30 Temperature Pulse Rate 75 76 74 Respiratory Rate 16 19 14 Blood Pressure 119/68 96/55 L 99/60 L Pulse Oximetry 100 100 100 01/26/18 01:45 01/26/18 02:00 01/26/18 02:15 Temperature Pulse Rate 74 74 74 Respiratory Rate 14 14 14 Blood Pressure 96/57 L 95/59 L 98/57 L Pulse Oximetry 100 100 100 01/26/18 02:30 01/26/18 02:45 01/26/18 03:00 Temperature Pulse Rate 75 76 75 Respiratory Rate 14 15 14 Blood Pressure 97/57 L 96/58 L 97/59 L Pulse Oximetry 100 99 100 01/26/18 03:15 01/26/18 03:30 01/26/18 03:45 Temperature Pulse Rate 75 77 76 Respiratory Rate 14 15 15 Blood Pressure 94/58 L 90/54 L 95/57 L Pulse Oximetry 100 99 100 01/26/18 04:00 01/26/18 04:15 01/26/18 04:22 Temperature 98.3 F Pulse Rate 77 79 Respiratory Rate 15 15 14 Blood Pressure 91/55 L 98/60 L Pulse Oximetry 100 100 100 01/26/18 04:30 01/26/18 04:45 01/26/18 05:00 Temperature Pulse Rate 84 78 85 Respiratory Rate 17 14 19 Blood Pressure 83/53 L 89/55 L 98/61 L Pulse Oximetry 100 100 100 01/26/18 05:15 01/26/18 05:30 01/26/18 05:45 Temperature Pulse Rate 79 77 76 Respiratory Rate 14 28 H 28 H Blood Pressure 88/53 L 94/56 L 89/51 L Pulse Oximetry 100 100 100 01/26/18 06:00 01/26/18 06:15 01/26/18 06:30 Temperature Pulse Rate 76 75 75 Respiratory Rate 28 H 28 H 28 H Blood Pressure 82/50 L 91/57 L 99/60 L Pulse Oximetry 100 100 100 01/26/18 06:45 01/26/18 07:00 01/26/18 07:15 Temperature Pulse Rate 76 77 77 Respiratory Rate 28 H 28 H 28 H Blood Pressure 97/60 L 102/61 101/60 Pulse Oximetry 100 100 100 01/26/18 07:30 01/26/18 07:45 01/26/18 08:00 Temperature 98.8 F Pulse Rate 77 77 79 Respiratory Rate 28 H 28 H 23 Blood Pressure 101/62 101/62 104/63 Pulse Oximetry 100 100 100 01/26/18 08:15 01/26/18 08:30 01/26/18 08:45 Temperature Pulse Rate 77 77 77 Respiratory Rate 14 14 14 Blood Pressure 107/64 102/61 99/60 L Pulse Oximetry 100 100 100 01/26/18 08:59 01/26/18 09:00 01/26/18 09:15 Temperature Pulse Rate 77 76 Respiratory Rate 14 14 14 Blood Pressure 98/57 L 102/58 L Pulse Oximetry 100 100 100 01/26/18 09:30 01/26/18 09:45 01/26/18 10:00 Temperature Pulse Rate 77 76 78 Respiratory Rate 14 14 14 Blood Pressure 97/55 L 108/58 L 96/57 L Pulse Oximetry 100 100 100 01/26/18 10:15 01/26/18 10:30 01/26/18 10:45 Temperature Pulse Rate 77 78 77 Respiratory Rate 14 14 14 Blood Pressure 102/62 100/60 102/61 Pulse Oximetry 100 100 100 01/26/18 11:00 01/26/18 12:16 Temperature Pulse Rate 77 Respiratory Rate 14 14 Blood Pressure 98/58 L Pulse Oximetry 100 100 Intake & Output 01/25/18 01/26/18 01/26/18 18:59 06:59 18:59 Intake Total 725 / 725 1911 / 1911 Output Total 650 / 650 350 / 350 Balance 75 / 75 1562 / 1562 Weight 77.3 kg Intake: IV 210 / 210 1410 / 1410 Diprivan 1000 mg/100 ml Inj 1, 200 / 200 000 mg In 100 ml @ 5 MCG/KG/MIN 1.869 mls/hr IV.CONT TITRATE PRN Rx#:[id number] NS Inj 1,000 ML @ 84 mls/hr IV. 1000 / 1000 CONT .[id number] [facility] Rx#: [id number] Depacon Inj 500 MG In NS Inj 105 / 105 105 / 105 100 ML @ 105 mls/hr IV.SIG Q12H NATALIA Rx#:[id number] Keppra Inj 500 MG In NS Inj 100 105 / 105 105 / 105 ML @ 400 mls/hr IV.SIG Q12H NATALIA Rx#:[id number] Tube Feeding 485 / 485 382 / 382 Tube Irrigant 30 / 30 120 / 120 Output: Urine Amount (Catheter) 650 / 650 350 / 350 Indwelling Urethral Catheter 650 / 650 350 / 350 Other: Date of Last Bowel Movement 01/24/18 01/24/18 01/24/18 # Bowel Movements 0 0 # Incontinent Bowel Movements 0 Physical Exam: CONSTITUTIONAL/GENERAL: This is a 57-year-old female patient who is intubated on mechanical vent. TUBES/LINES/DRAINS: PIV, VAD, ETT, OGT, soft restraints, Rai catheter SKIN: Lacerations noted on right forearm. Ecchymoses on upper extremities. No wounds seen anteriorly. Skin temperature appropriate. Not diaphoretic. HEAD: Atraumatic. Normocephalic. EYES: Pupils equal and round. Extraocular motions intact. No scleral icterus. No injection or drainage. Fundi not examined. ENT: Nose without bleeding or purulent drainage. NECK: Trachea midline. Supple, nontender. No palpable thyroid enlargement or nodularity. CARDIOVASCULAR: Regular rate and rhythm no JVD. Peripheral pulses symmetric. RESPIRATORY/CHEST: Intubated on mechanical vent. Diminished breath sounds throughout the left hemithorax. Pleurx catheter in left thorax. GASTROINTESTINAL: Abdomen soft, non-tender, nondistended. Hypoactive bowel sounds GENITOURINARY: Without palpable bladder distension. MUSCULOSKELETAL: Extremities without clubbing, cyanosis, or edema. No mottling or clubbing. LYMPHATICS: No palpable cervical or supraclavicular adenopathy. NEUROLOGICAL: Positive gag and cough. Positive corneal reflex. Right-sided hemiparesis. PSYCHIATRIC: Unable to assess given current level of responsiveness Diagnostic Tests Laboratory: Laboratory Results - last 72 hr 01/21/18 01/21/18 01/22/18 05:12 08:31 10:51 WBC RBC Hgb Hct MCV MCH MCHC RDW Plt Count MPV Prelim Diff (Auto) WBC Differential Seg Neuts % (Manual) Band Neuts % (Manual) Lymphocytes % (Manual) Monocytes % (Manual) Eosinophils % (Manual) Metamyelocytes % (Man) Myelocytes % (Man) Promyelocytes % (Man) Blast Cells % (Manual) Abs Neuts (Manual) Differential Comment Toxic Granulation Dohle Bodies Platelet Estimate Platelet Morphology Sodium Potassium Chloride Carbon Dioxide Anion Gap BUN Creatinine Estimated GFR POC Glucose 121 H Random Glucose Calcium Calcium Adj for Albumin Phosphorus Magnesium Albumin Thiamine 140 Phenytoin Valproic Acid Phenobarbital MTS Gel Crossmatch See Detail 01/23/18 01/23/18 01/24/18 17:22 22:34 04:40 WBC 6.9 RBC 2.93 L Hgb 9.8 L Hct 28.3 L MCV 96.6 MCH 33.4 MCHC 34.6 RDW 16.6 Plt Count 84 L MPV 9.3 Prelim Diff (Auto) Manual diff required WBC Differential Manual diff final Seg Neuts % (Manual) 57 Band Neuts % (Manual) 9 H Lymphocytes % (Manual) 19 Monocytes % (Manual) 11 H Eosinophils % (Manual) Metamyelocytes % (Man) 2 H Myelocytes % (Man) 2 H Promyelocytes % (Man) Blast Cells % (Manual) Abs Neuts (Manual) 4.8 Differential Comment . Toxic Granulation 2+ H Dohle Bodies Platelet Estimate Low L Platelet Morphology Normal Sodium Potassium Chloride Carbon Dioxide Anion Gap BUN Creatinine Estimated GFR POC Glucose 124 H 116 H Random Glucose Calcium Calcium Adj for Albumin Phosphorus Magnesium Albumin Thiamine Phenytoin Valproic Acid Phenobarbital MTS Gel Crossmatch 01/24/18 01/24/18 01/24/18 04:40 11:03 17:47 WBC RBC Hgb Hct MCV MCH MCHC RDW Plt Count MPV Prelim Diff (Auto) WBC Differential Seg Neuts % (Manual) Band Neuts % (Manual) Lymphocytes % (Manual) Monocytes % (Manual) Eosinophils % (Manual) Metamyelocytes % (Man) Myelocytes % (Man) Promyelocytes % (Man) Blast Cells % (Manual) Abs Neuts (Manual) Differential Comment Toxic Granulation Dohle Bodies Platelet Estimate Platelet Morphology Sodium 144 Potassium 3.5 Chloride 110 H Carbon Dioxide 25.0 Anion Gap 9 BUN 4 L Creatinine 0.36 L Estimated GFR Greater than 89 POC Glucose 126 H 122 H Random Glucose 114 H Calcium 7.1 L* Calcium Adj for Albumin 9.3 Phosphorus 1.0 L Magnesium 1.4 L Albumin 1.3 L Thiamine Phenytoin 2.9 L Valproic Acid 42 L Phenobarbital 21.1 MTS Gel Crossmatch 01/24/18 01/25/18 01/25/18 22:59 04:35 04:35 WBC 9.3 RBC 2.90 L Hgb 9.5 L Hct 28.8 L MCV 99.6 MCH 32.9 MCHC 33.1 RDW 16.5 Plt Count 117 L D MPV 9.8 Prelim Diff (Auto) Manual diff required WBC Differential Manual diff final Seg Neuts % (Manual) 30 Band Neuts % (Manual) 30 H Lymphocytes % (Manual) 10 Monocytes % (Manual) 13 H Eosinophils % (Manual) 1 Metamyelocytes % (Man) 9 H Myelocytes % (Man) 4 H Promyelocytes % (Man) 1 H Blast Cells % (Manual) 2 H Abs Neuts (Manual) 6.9 Differential Comment . Toxic Granulation 1+ H Dohle Bodies Present H Platelet Estimate Low L Platelet Morphology Enlarged H Sodium 144 Potassium 3.8 Chloride 110 H Carbon Dioxide 27.9 Anion Gap 6 BUN 6 L Creatinine 0.25 L Estimated GFR Greater than 89 POC Glucose 120 H Random Glucose 105 Calcium 7.4 L* Calcium Adj for Albumin 9.6 Phosphorus 1.5 L Magnesium 1.3 L Albumin 1.3 L Thiamine Phenytoin 2.6 L Valproic Acid 32 L Phenobarbital 26.1 MTS Gel Crossmatch 01/25/18 01/26/18 01/26/18 22:21 04:30 04:30 WBC 14.8 H D RBC 3.08 L Hgb 10.1 L Hct 30.8 L MCV 100.1 H MCH 32.9 MCHC 32.8 RDW 16.6 Plt Count 194 D MPV 9.5 Prelim Diff (Auto) Manual diff required WBC Differential Manual diff final Seg Neuts % (Manual) 41 Band Neuts % (Manual) 32 H Lymphocytes % (Manual) 7 L Monocytes % (Manual) 8 Eosinophils % (Manual) 1 Metamyelocytes % (Man) 3 H Myelocytes % (Man) 3 H Promyelocytes % (Man) 5 H Blast Cells % (Manual) Abs Neuts (Manual) 12.4 H Differential Comment . Toxic Granulation 3+ H Dohle Bodies Platelet Estimate Normal Platelet Morphology Normal Sodium 144 Potassium 3.5 Chloride 111 H Carbon Dioxide 26.8 Anion Gap 6 BUN 7 Creatinine 0.26 L Estimated GFR Greater than 89 POC Glucose 112 H Random Glucose 123 H Calcium 7.3 L* Calcium Adj for Albumin 9.5 Phosphorus 1.9 L Magnesium 1.3 L Albumin 1.2 L Thiamine Phenytoin 4.6 L Valproic Acid 30 L Phenobarbital 30.3 MTS Gel Crossmatch Result Diagrams: 01/26/18 04:30 01/26/18 04:30 Imaging: Chest CT 01/20/18 00:00 CONCLUSION: 1. Masslike area of the left hilum attenuating the left mainstem bronchus and presumably is a central primary bronchogenic carcinoma. There is associated consolidation of most of the left lung and with volume loss. 2. Moderate to large left pleural effusion with loculated components medially at the apex and laterally at the base. Tip of the chest tube is in the apical component. 3. Displaced fracture posteriorly of the left 11th rib and with a suspected 1 cm lytic lesion concerning for metastasis. No other focal bone lesions are demonstrated. Head CT 01/20/18 12:59 CONCLUSION: 1. No acute intracranial abnormality is identified. 2. Chronic changes include mild generalized atrophy and encephalomalacia in the left parietal high convexity. 3. Distribution Specialist view demonstrates complete opacification of the left hemithorax in this patient with history of lung cancer. Suggest correlating with the patient' s prior imaging studies to determine if this is a new finding. The above findings were telephoned to Dr. Interiano on 01/20/2018 at 1:19 PM. Head CTA 01/20/18 12:59 CONCLUSION: 1. No acute intracranial vascular abnormality is identified. 2. Possible enhancing lesion in the left parietal high convexity which could represent a metastatic lesion in this patient with history of lung cancer. The findings were telephoned to Dr. Wiseman and Dr. Interiano in on 01/20/2018 at 1:49 PM. Neck CTA 01/20/18 12:59 CONCLUSION: 1. Negative for hemodynamically significant carotid stenosis 2. Significant consolidative changes in the left upper lobe likely fluid collection in the apex of the left upper lobe. Head MRI 01/20/18 13:54 CONCLUSION: 14 mm round, probably intra-axial mass of the left high posterior parietal lobe as described probably a metastatic lesion. Chest X-Ray 01/22/18 04:52 CONCLUSION: Patchy infiltrate right lung. Complete opacification left hemithorax. Procedures: 01/22/2018: Orotracheal intubation Assessment and Plan - Disease Oriented Problem List (1) Seizure (2) Brain mass (3) Acute hypokalemia (4) Non-small cell carcinoma of lung, stage 4 (5) Hypokalemia (6) Pancytopenia - Symptom Scale (1) Pain 0-10 Scale: Unable to quantify Pertinent Non-Medical Issues: Psychosocial: Patient is originally from [place]. She moved to [place] to be closer to her mother. 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 She has been and 2 times. She has no children. She has a pit bull named Arsen. Spiritual: Legal: Per [place] statutes, in the absence of written advanced directives healthcare proxy decision making falls to the patient's mother Ethical issues impacting care: No known ethical issues impacting care. 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 She is not a candidate for systemic therapy or radiation at this time. Her prognosis is quite poor. Family does not wish to prolong patient suffering, requesting compassionate withdraw artificial life support. Code Status: No Code DNR Plan: * ALTERNATE CODE-INTUBATION ONLY * Patient is currently sedated and intubated on mechanical vent ventilation and unable to participate in medical decision making. It is unclear if she will regain this capacity. Per [place] statutes, in the absence of written advanced directives healthcare proxy decision making falls to the patient's mother. * Dual visit with Deborah Sanchez SEAM RUBBER. Met with patient's mother and step-father again at bedside and in the family conference room. We reviewed the process of compassionate withdrawal of artificial life support with the patient's family; anticipatory guidance provided. Exhibit the signed by patient 's mother. * Signed exhibit B and C have been placed on the patient's chart * Discussed with Dr. Starks and nurseRosanna * Orders for comfort medications placed in the computer. * Symptom management-pain: Altered factor. 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 Patient was on long-acting morphine every 12 hours and Percocet (10/325mg) every 6 hours as needed for breakthrough pain. The patient's mother reports her pain was not well controlled. Patient is currently sedated on propofol, and I will patient is on Decadron 4 mg IV every. Comfort medications have been ordered for compassionate withdrawal of artificial life support later today. * Palliative care will continue to follow this patient throughout her hospitalization to build rapport, assist with symptom management and goal clarification. * Addendum: Hospice consult placed by Dr. Starks this afternoon. Palliative care spoke to patient's family who was amenable to hospice services. Hospice intake was notified as well as the hospice admission nurse, Nicko. Attestation Attestation: To help prompt me to consider important information that might be impacting today's encounter and assessment, information from prior notes written by myself or my colleagues may have been "brought forward" into today's note. My signature on this note, however, is an attestation that I personally performed the exam, history, and/or decision-making noted today, and, unless otherwise indicated, the interactions with patient, family, and staff as well as the review of records all occurred today. I also attest that the listed assessment and stated plan reflect my best clinical judgment today based on the combination of historical information, prior notes, and today's exam/ interactions. When time spent is documented, it refers only to time spent today by the signer, or if indicated, combined time spent today by collaborating physician/nurse practitioner.
--- NOTE | 2018-01-26 13:35 | P.PNCC ---
Subjective Subjective Remarks/Hospital Course: 01/20: This is a 57-year-old female. Date of admission 01/20/2018. 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 Follows with Dr. Birch. History of tobaccoism 35 pack years quit 12 years ago. History of anxiety and chronic alprazolam. Patient has history of a left hemithorax with the Pleurx catheter placed recently. She also has an Aifzuu-d-Inap by history. Patient presents to [facility] after recently just completing her first chemo treatment Thursday. [facility] patient had paralysis of her right leg, twitching , unable to see straight. She is noted to have expressive aphasia as well. She is also noted to have a seizure prior to arrival and at at that facility. This was documented as shaking both arms and legs and displacing the head to the side. She received [address] brain revealed left parietal circulation. CT angiogram revealed possible metastases. CT of the neck revealed no acute findings. During the stroke alert , MRI with and without contrast brain was ordered to rule out metastatic brain lesion. She is transported to [facility]. She is old awake and alert to person only. She has subjective right upper lower extremity weakness on examination. 01/21: Laying in bed. Responds to commands off and on. SUBJECTIVE: 01/22: Intubated overnight due to altered mental status. EEG revealed seizure- like activity. Currently family is discussing possible withdrawal of care. Will drain Pleurx catheter today. 01/23: Remains sedated, orally intubated on mechanical ventilation. 01/24: Remains intubated sedated, unchanged neuro exam. Neurology following. Per Dr. Jamil's note, EEG with continuous PLEDS left hemisphere. He has increased phenobarbital and phenytoin doses 01/25: Remains intubated sedated purposeful with upper extremities. Reaching out for the tube. Continues to have left PLED. Palliative care meeting with family today 01/26: Neurologically unchanged. Still purposeful with upper extremities. Family decided to withdraw life support and transition to comfort measures. I am in agreement as the patient has a very poor prognosis and complete white out of the left lung field Objective Vital Signs / I&O: Vital Signs 01/25/18 14:00 01/25/18 14:30 01/25/18 15:00 Temperature Pulse Rate 96 H 95 H 98 H Respiratory Rate 14 14 15 Blood Pressure 89/50 L 91/58 L 95/58 L Pulse Oximetry 100 100 100 01/25/18 15:30 01/25/18 16:00 01/25/18 16:30 Temperature 98.5 F Pulse Rate 95 H 96 H 91 H Respiratory Rate 14 14 14 Blood Pressure 90/51 L 93/53 L 87/50 L Pulse Oximetry 100 100 100 01/25/18 16:54 01/25/18 17:00 01/25/18 17:30 Temperature Pulse Rate 97 H 101 H Respiratory Rate 14 15 14 Blood Pressure 88/69 L 91/55 L Pulse Oximetry 100 100 100 01/25/18 18:00 01/25/18 18:30 01/25/18 19:00 Temperature Pulse Rate 100 H 99 H 96 H Respiratory Rate 17 14 14 Blood Pressure 97/58 L 88/51 L 83/52 L Pulse Oximetry 100 100 100 01/25/18 19:30 01/25/18 20:00 01/25/18 21:00 Temperature 98.1 F Pulse Rate 95 H 95 H 88 Respiratory Rate 14 14 14 Blood Pressure 83/50 L 91/53 L 83/53 L Pulse Oximetry 100 100 100 01/25/18 22:00 01/25/18 22:16 01/25/18 22:34 Temperature Pulse Rate 81 74 74 Respiratory Rate 14 14 14 Blood Pressure 79/50 L 95/51 L 122/59 L Pulse Oximetry 100 100 100 01/25/18 22:49 01/25/18 23:00 01/25/18 23:04 Temperature Pulse Rate 75 74 74 Respiratory Rate 14 14 14 Blood Pressure 115/66 104/62 Pulse Oximetry 100 100 100 01/25/18 23:19 01/25/18 23:46 01/26/18 00:00 Temperature 98.2 F Pulse Rate 85 84 78 Respiratory Rate 21 14 19 Blood Pressure 138/56 L 101/57 L Pulse Oximetry 100 100 100 01/26/18 00:04 01/26/18 00:15 01/26/18 00:17 Temperature Pulse Rate 77 78 Respiratory Rate 14 16 14 Blood Pressure 95/54 L 101/59 L Pulse Oximetry 100 100 100 01/26/18 00:30 01/26/18 00:45 12/11/18 01:00 Temperature Pulse Rate 76 75 75 Respiratory Rate 14 14 16 Blood Pressure 94/55 L 93/55 L 119/68 Pulse Oximetry 100 100 100 01/26/18 01:15 01/26/18 01:30 01/26/18 01:45 Temperature Pulse Rate 76 74 74 Respiratory Rate 19 14 14 Blood Pressure 96/55 L 99/60 L 96/57 L Pulse Oximetry 100 100 100 01/26/18 02:00 01/26/18 02:15 01/26/18 02:30 Temperature Pulse Rate 74 74 75 Respiratory Rate 14 14 14 Blood Pressure 95/59 L 98/57 L 97/57 L Pulse Oximetry 100 100 100 01/26/18 02:45 01/26/18 03:00 01/26/18 03:15 Temperature Pulse Rate 76 75 75 Respiratory Rate 15 14 14 Blood Pressure 96/58 L 97/59 L 94/58 L Pulse Oximetry 99 100 100 01/26/18 03:30 01/26/18 03:45 01/26/18 04:00 Temperature 98.3 F Pulse Rate 77 76 77 Respiratory Rate 15 15 15 Blood Pressure 90/54 L 95/57 L 91/55 L Pulse Oximetry 99 100 100 01/26/18 04:15 01/26/18 04:22 01/26/18 04:30 Temperature Pulse Rate 79 84 Respiratory Rate 15 14 17 Blood Pressure 98/60 L 83/53 L Pulse Oximetry 100 100 100 01/26/18 04:45 01/26/18 05:00 01/26/18 05:15 Temperature Pulse Rate 78 85 79 Respiratory Rate 14 19 14 Blood Pressure 89/55 L 98/61 L 88/53 L Pulse Oximetry 100 100 100 01/26/18 05:30 01/26/18 05:45 01/26/18 06:00 Temperature Pulse Rate 77 76 76 Respiratory Rate 28 H 28 H 28 H Blood Pressure 94/56 L 89/51 L 82/50 L Pulse Oximetry 100 100 100 01/26/18 06:15 01/26/18 06:30 01/26/18 06:45 Temperature Pulse Rate 75 75 76 Respiratory Rate 28 H 28 H 28 H Blood Pressure 91/57 L 99/60 L 97/60 L Pulse Oximetry 100 100 100 01/26/18 07:00 01/26/18 07:15 01/26/18 07:30 Temperature Pulse Rate 77 77 77 Respiratory Rate 28 H 28 H 28 H Blood Pressure 102/61 101/60 101/62 Pulse Oximetry 100 100 100 01/26/18 07:45 01/26/18 08:00 01/26/18 08:15 Temperature 98.8 F Pulse Rate 77 79 77 Respiratory Rate 28 H 23 14 Blood Pressure 101/62 104/63 107/64 Pulse Oximetry 100 100 100 01/26/18 08:30 01/26/18 08:45 01/26/18 08:59 Temperature Pulse Rate 77 77 Respiratory Rate 14 14 14 Blood Pressure 102/61 99/60 L Pulse Oximetry 100 100 100 01/26/18 09:00 01/26/18 09:15 01/26/18 09:30 Temperature Pulse Rate 77 76 77 Respiratory Rate 14 14 14 Blood Pressure 98/57 L 102/58 L 97/55 L Pulse Oximetry 100 100 100 01/26/18 09:45 01/26/18 10:00 01/26/18 10:15 Temperature Pulse Rate 76 78 77 Respiratory Rate 14 14 14 Blood Pressure 108/58 L 96/57 L 102/62 Pulse Oximetry 100 100 100 01/26/18 10:30 01/26/18 10:45 01/26/18 11:00 Temperature Pulse Rate 78 77 77 Respiratory Rate 14 14 14 Blood Pressure 100/60 102/61 98/58 L Pulse Oximetry 100 100 100 01/26/18 12:16 Temperature Pulse Rate Respiratory Rate 14 Blood Pressure Pulse Oximetry 100 Intake & Output 01/25/18 01/26/18 01/26/18 18:59 06:59 18:59 Intake Total 725 / 725 1912 / 1912 Output Total 650 / 650 350 / 350 Balance 75 / 75 1562 / 1562 Weight 77.3 kg Intake: IV 210 / 210 1410 / 1410 Diprivan 1000 mg/100 ml Inj 1, 200 / 200 000 mg In 100 ml @ 5 MCG/KG/MIN 1.869 mls/hr IV.CONT TITRATE PRN Rx#:[id number] NS Inj 1,000 ML @ 84 mls/hr IV. 1000 / 1000 CONT .[id number] [facility] Rx#: [id number] Depacon Inj 500 MG In NS Inj 105 / 105 105 / 105 100 ML @ 105 mls/hr IV.SIG Q12H NATALIA Rx#:[id number] Keppra Inj 500 MG In NS Inj 100 105 / 105 105 / 105 ML @ 400 mls/hr IV.SIG Q12H NATALIA Rx#:[id number] Tube Feeding 485 / 485 382 / 382 Tube Irrigant 120 / 120 Output: Urine Amount (Catheter) 650 / 650 350 / 350 Indwelling Urethral Catheter 650 / 650 350 / 350 Other: Date of Last Bowel Movement 01/24/18 01/24/18 01/24/18 # Bowel Movements 0 0 # Incontinent Bowel Movements 0 Result Diagrams: 01/26/18 04:30 01/26/18 04:30 Objective Remarks: GENERAL: 57-year-old female currently orotracheally intubated SKIN: Warm and dry. No rash HEAD: Atraumatic. Normocephalic. EYES: Pupil right pupil is about 5 mm and minimally reactive. Left pupil is 4 mm and slightly reactive. No scleral icterus. ENT: No nasal bleeding or discharge. NECK: Trachea midline. No JVD. CARDIOVASCULAR: RR. S1, S2. No S4. RESPIRATORY: Diminished breath sounds throughout the left hemithorax. No wheezing. Pleurx catheter in place left thorax GASTROINTESTINAL: Abdomen soft, non-tender, nondistended. Hypoactive bowel sounds appreciated. MUSCULOSKELETAL: Extremities without clubbing, cyanosis, or edema. NEUROLOGICAL: On holding sedation patient purposefully moves upper extremities reaches for the tube. Appears weaker on the right side. Positive gag and cough. Positive corneal reflex. Assessment and Plan - Problem List (1) Non-small cell carcinoma of lung, stage 4 Code(s): C34.90 - Malignant neoplasm of unspecified part of unspecified bronchus or lung Status: Acute (2) Hypokalemia Code(s): E87.6 - Hypokalemia Status: Acute (3) Pancytopenia Code(s): D61.818 - Other pancytopenia Status: Acute (4) Hypoalbuminemia Code(s): E88.09 - Other disorders of plasma-protein metabolism, not elsewhere classified Status: Acute (5) Elevated levels of transaminase & lactic acid dehydrogenase Code(s): R74.0 - Nonspecific elevation of levels of transaminase and lactic acid dehydrogenase [LDH] Status: Acute (6) Altered mental status Code(s): R41.82 - Altered mental status, unspecified Status: Acute (7) Seizure Code(s): R56.9 - Unspecified convulsions Status: Acute Onset Date: ~ - Assessment and Plan Plan: Neuro/Psych: Poorly controlled seizures/PLEDs Chronic opiate use EtOH abuse chronic benzodiazepine use Anxiety disorder Seizures Discontinue propofol and fentanyl Comfort medications per palliative care team Acetaminophen 650 mg every 6 hours as needed fever CT brain revealed left parietal lesion. CT angiogram of the head and neck no acute findings. MRI of the brain with and without contrast -14 mm intra-axial left parietal lesion suspicious for metastasis EEG 01/21 - Periodic epileptiform discharges are present, more so over the left hemisphere than over the right hemisphere consistent with probable PLEDS. Continues EEG shows left PLEDs On dexamethasone 4 mg IV every 6 hours for brain mass Currently on phenobarbital, phenytoin, valproic acid, Keppra. Dose adjustments per neurology. Dr. Wiseman/Dr. jamil Discontinue all antiepileptic medications once patient is accepted to hospice CV: Sinus tachycardia Hypotension Elevated troponin Currently on normal saline 84 cc now. On Niko-Synephrine to maintain map above 65 Initial troponin was 0.02. EKG revealed nonspecific ST-T changes. Troponin peaked at 0.92. Currently on downward trend Resp: Non-small cell carcinoma of the lung with brain metastases. History of tobaccoism Left Pleurx catheter for likely malignant pleural effusion PRVC Ventilator bundle Head of bed at 30 degrees Albuterol/ipratropium aerosols every 4 hours with albuterol aerosols every 2 hours while needed dyspnea Pleurx catheter GI: Elevated transaminases Hypoalbuminemia Tube feedings with vital 1.5 goal 40 cc an hour-hold for extubation Lansoprazole for GI prophylax Docusate sodium/senna 1 tablet twice daily and polythene glycol centigrams twice daily for bowel regimen hepatitis panel, -negative Endo: Sliding scale insulin to maintain euglycemia/every 6 hours aspart insulin regimen TSH -0.93 Renal: Creatinine currently within normal limits Monitor urine output Accurate I's and O Receiving fluid bolus 2 L for oliguria Heme: Pancytopenia Non-small carcinoma lung stage IV Monitor CBC daily. A.m. laboratory still pending Coags within normal limits Dr. Birch from oncology following filgrastin 300 mcg subcu daily ID: Monitor for signs of symptomatology of infection Access -Utilize Syptwe-x-Tohj. Central line if indicated Prophylaxis - -GI lansoprazole - -DVT SCD/holding pharmacological pharmacological prophylaxis in light of possible brain mass Condition remains critical. Prognosis poor Patient's condition has not changed. She is critically ill with persistent encephalopathy with PLEDs indicates overall poor prognosis with extensive metastatic cancer and brain metastases. Family has decided on transition to comfort measures and extubation. If post extubation stable will transfer to hospice per family request (1) Non-small cell carcinoma of lung, stage 4 Qualifiers: Laterality: left Qualified Code(s): C34.92 - Malignant neoplasm of unspecified part of left bronchus or lung (6) Altered mental status Qualifiers: Altered mental status type: unspecified Qualified Code(s): R41.82 - Altered mental status, unspecified
--- NOTE | 2018-01-26 17:38 | P.DN ---
- Provider Primary care physician: Mathieu Soria MD Consults: 01/20/18 19:03 Consult to Oncology Routine Consulting Provider: Porfirio Shirley Preferred [employer] Driver:: Tom Birch Patient known to:: Tom Birch Reason for Consultation: Patient with non-small cell carcinoma lung with possible seizure. Possible brain mass. Assist with management. Notified:: Service Spoke with:: PANTERA Date Notified:: 01/20/18 Time Notified:: 19:33 Ordering Provider: RAFIQ 01/20/18 19:13 Consult to Neurology Routine Consulting Provider: Adamaris Rodrigez Reason for Consultation: Stroke alert from [place]. Known history of non -small carcinoma lung with bone metastases. Patient with left-sided parietal encephalization with possible mass. Assist with management of seizures. Currently on levetiracetam. Notified:: Service Spoke with:: DAVE Date Notified:: 01/20/18 Time Notified:: 19:39 Ordering Provider: RAFIQ 01/20/18 22:33 Consult to Neurosurgery Routine Consulting Provider: Luan Morris Reason for Consultation: Routine consult. Patient with known history of non- small cell carcinoma of the lung.14 mm round, probably intra-axial mass of the left high posterior parietal lobe as described probably a metastatic lesion. Assistance with management. Notified:: Service Spoke with:: MAGY Date Notified:: 01/20/18 Time Notified:: 22:53 Ordering Provider: RAFIQ 01/21/18 17:28 Consult to Radiation Oncology Routine Consulting Provider: Clark Georges Reason for Consultation: Lung ca with brain mets, seizures. Pls evaluate for palliative RT. Notified:: Service Spoke with:: PANTERA Date Notified:: 01/21/18 Time Notified:: 17:31 Ordering Provider: RAMOS 01/21/18 17:29 Consult to Palliative Care Routine Consulting Provider: Khanh Husain Reason for Consultation: Metastatic lung cancer, new brain metastasis, seizures, family struggling with goals of care. Notified:: Service Spoke with:: FRANCOISE Date Notified:: 01/21/18 Time Notified:: 17:32 Ordering Provider: RAMOS - Admitting Diagnosis (1) Seizure (2) Brain mass (3) Acute hypokalemia (4) Non-small cell carcinoma of lung, stage 4 (5) Hypokalemia (6) Pancytopenia (7) Elevated levels of transaminase & lactic acid dehydrogenase - Diagnosis at Time of (1) Acute metabolic encephalopathy Diagnosis: Principal (2) Uncontrolled seizures Diagnosis: Principal (3) Acute respiratory failure Diagnosis: Principal (4) Hypotension Diagnosis: Principal (5) MELISA (acute kidney injury) Diagnosis: Secondary (6) Metastatic lung cancer (metastasis from lung to other site) Diagnosis: Secondary (7) Brain metastases Diagnosis: Principal - Date and Time Date of admission: 01/20/18 15:24 Date of : 01/26/18 Time of : 17:21 - Summary Details: See hospital course Brief History: This is a 57-year-old female. Date of admission 01/20/2018. 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 Follows with Dr. Birch. History of tobaccoism 35 pack years quit 12 years ago. History of anxiety and chronic alprazolam. Patient has history of a left hemithorax with the Pleurx catheter placed recently. She also has an Infuse-a- [place] by history. Patient presents to [facility] after recently just completing her first chemo treatment Thursday. 20 minutes prior to arrival to [facility], patient had paralysis of her right leg, twitching, unable to see straight. She is noted to have expressive aphasia as well. She is also noted to have a seizure prior to arrival and at at that facility. This was documented as shaking both arms and legs and displacing the head to the side. She received [address] brain revealed left parietal circulation. CT angiogram revealed possible metastases. CT of the neck revealed no acute findings. During the stroke alert , MRI with and without contrast brain was ordered to rule out metastatic brain lesion. She is transported to [facility]. Her, she is old awake and alert to person only. She has subjective right upper lower extremity weakness on examination. Result Diagrams: 01/26/18 04:30 01/26/18 04:30 Significant Findings: Abnormal Lab Results 01/25/18 01/26/18 01/26/18 22:21 04:30 04:30 WBC 14.8 H D RBC 3.08 L Hgb 10.1 L Hct 30.8 L MCV 100.1 H MCH 32.9 MCHC 32.8 RDW 16.6 Plt Count 194 D MPV 9.5 Prelim Diff (Auto) Manual diff required WBC Differential Manual diff final Seg Neuts % (Manual) 41 Band Neuts % (Manual) 32 H Lymphocytes % (Manual) 7 L Monocytes % (Manual) 8 Eosinophils % (Manual) 1 Metamyelocytes % (Man) 3 H Myelocytes % (Man) 3 H Promyelocytes % (Man) 5 H Abs Neuts (Manual) 12.4 H Differential Comment . Toxic Granulation 3+ H Platelet Estimate Normal Platelet Morphology Normal Sodium 144 Potassium 3.5 Chloride 111 H Carbon Dioxide 26.8 Anion Gap 6 BUN 7 Creatinine 0.26 L Estimated GFR Greater than 89 POC Glucose 112 H Random Glucose 123 H Calcium 7.3 L* Calcium Adj for Albumin 9.5 Phosphorus 1.9 L Magnesium 1.3 L Albumin 1.2 L Phenytoin 4.6 L Valproic Acid 30 L Phenobarbital 30.3 Hospital Course: 01/20: This is a 57-year-old female. Date of admission 01/20/2018. 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 Follows with Dr. Birch. History of tobaccoism 35 pack years quit 12 years ago. History of anxiety and chronic alprazolam. Patient has history of a left hemithorax with the Pleurx catheter placed recently. She also has an Mrynen-o-Wkjo by history. Patient presents to [facility] after recently just completing her first chemo treatment Thursday. 20 minutes prior to arrival to [facility], patient had paralysis of her right leg, twitching , unable to see straight. She is noted to have expressive aphasia as well. She is also noted to have a seizure prior to arrival and at at that facility. This was documented as shaking both arms and legs and displacing the head to the side. She received [address] brain revealed left parietal circulation. CT angiogram revealed possible metastases. CT of the neck revealed no acute findings. During the stroke alert , MRI with and without contrast brain was ordered to rule out metastatic brain lesion. She is transported to [facility]. She is old awake and alert to person only. She has subjective right upper lower extremity weakness on examination. 01/21: Laying in bed. Responds to commands off and on. 01/22: Intubated overnight due to altered mental status. EEG revealed seizure- like activity. Currently family is discussing possible withdrawal of care. Will drain Pleurx catheter today. 01/23: Remains sedated, orally intubated on mechanical ventilation. 01/24: Remains intubated sedated, unchanged neuro exam. Neurology following. Per Dr. Jamil's note, EEG with continuous PLEDS left hemisphere. He has increased phenobarbital and phenytoin doses 01/25: Remains intubated sedated purposeful with upper extremities. Reaching out for the tube. Continues to have left PLED. Palliative care meeting with family today 01/26: Neurologically unchanged. Still purposeful with upper extremities. Family decided to withdraw life support and transition to comfort measures. I am in agreement as the patient has a very poor prognosis and complete white out of the left lung field. After comfort medications were administered ventilator support was withdrawn. Patient at 1721 on 01/26/2018. Family informed by the bedside RN
--- NOTE | 2018-01-26 18:55 | MG ---
cc: Andrea Wiseman MD CONTINUOUS EEG At 8 a.m. this morning, 01/26/2018, again shows what appear to be BIPLEDS over the posterior head region, a little bit more prominent in the left than the right. The right temporal leads are totally obscure in the right temporal chain, due to muscle artifact. This is unchanged from prior EEG. This recording was basically in the last 12 hours from about 8 o'clock the prior night to about 8 o'clock this morning. These discharges are much less prominent than they were several days ago. MD LUZ ELENA Duckworth/alexandria , 06:25 PM , 06:28 PM
--- NOTE | 2018-01-26 20:13 | MB ---
cc: Andrea Wiseman MD DATE: 01/26/2018 PROCEDURE: Extended all-day EEG from 01/25/2018 to 01/26/2018. Recording shows very low-amplitude diffuse rhythm with some small sharply contoured waves over the bilateral parietal head region. They do not look particularly epileptiform these continue throughout the recording. At times the transverse montage looked a little bit more prominent on the left temporal than the right side, but no spikes are seen. On another EEG recorded in the front counter clerk hours at 2:30 a.m., they appear a little bit more prominent bilaterally, a little bit more in the left than the right and a little bit more prominent and more sharply contoured, but are bilaterally, but this is really only on the bipolar montage. On the transverse montage these go away and so there is a question if these could be some sleep variant. On 01/25/2018 at 2000 hours, again, they appear sharper on the left than the right, more like sharp waves, again relatively disappear on the transverse montage, but at other times appear somewhat sharply contoured on the left side. On 01/25/2018 at 1837 hours at EPOCH [id number], they do appear much more sharp on the left than the right, more prominent occurring about 2 Hz. Again, much more prominent on the bipolar than transverse montage and do appear to be PLEDs like. IMPRESSION: There is an improvement on the background. The discharges are somewhat less frequent and less malignant looking across the time from the 01/25/2018 to 01/26/2018. The amplitude of these discharges is much lower than that seen on recording on 01/23/2018 at 1819 hours were much more epileptiform looking, so overall the EEG has improved over the course from 01/23/2018 to 01/26/2018, albeit still somewhat abnormal. Andrea Wiseman MD DJM/ct , 06:03 PM , 06:10 PM
== END 2018-01-26 19:45 | disposition expired ==
LOC: PHED 12:55 → PHEDA 15:24 → N03 17:37
PROVIDERS: ADMIT Internal Medicine Critical Care Medicine; ATTEND Internal Medicine Critical Care Medicine
DX: J91.0 Malignant pleural effusion; J96.00 Acute respiratory failure, unspecified whether with hypoxia or hypercapnia; Z85.118 Personal history of other malignant neoplasm of bronchus and lung; I95.9 Hypotension, unspecified; N17.9 Acute kidney failure, unspecified; G04.90 Encephalitis and encephalomyelitis, unspecified; Z79.891 Long term (current) use of opiate analgesic; Z80.51 Family history of malignant neoplasm of kidney; F10.10 Alcohol abuse, uncomplicated; C79.89 Secondary malignant neoplasm of other specified sites; C79.72 Secondary malignant neoplasm of left adrenal gland; G81.91 Hemiplegia, unspecified affecting right dominant side; R00.0 Tachycardia, unspecified; T45.1X5A Adverse effect of antineoplastic and immunosuppressive drugs, initial encounter; J98.19 Other pulmonary collapse; R74.8 Abnormal levels of other serum enzymes; C79.71 Secondary malignant neoplasm of right adrenal gland; Z66 Do not resuscitate; G93.89 Other specified disorders of brain; Z92.3 Personal history of irradiation; M84.58XA Pathological fracture in neoplastic disease, other specified site, initial encounter for fracture; R56.9 Unspecified convulsions; Z79.899 Other long term (current) drug therapy; F41.9 Anxiety disorder, unspecified; C79.31 Secondary malignant neoplasm of brain; E88.09 Other disorders of plasma-protein metabolism, not elsewhere classified; R47.01 Aphasia; Z79.82 Long term (current) use of aspirin; G93.41 Metabolic encephalopathy; D61.818 Other pancytopenia; Z51.5 Encounter for palliative care; E87.6 Hypokalemia; Z87.891 Personal history of nicotine dependence; Z80.52 Family history of malignant neoplasm of bladder; C79.51 Secondary malignant neoplasm of bone